=== PATIENT | female | born 1930 | race Caucasian/White ===

== ENCOUNTER 2017-01-03 10:50 | Inpatient (IN) | payer OTHER ==
--- NOTE | 2017-01-03 12:13 | PDOC ---
*Physical Exam - Vital Signs Last Vital Signs Temp Pulse Resp BP Pulse Ox 97.4 F L 65 18 134/53 97 01/03/17 10:55 01/03/17 10:55 01/03/17 10:55 01/03/17 10:55 01/03/17 10:55 - Physical Exam Comments: 01/03/17 12:13 MIDLEVEL NOTE Pt seen by Midlevel Provider under my direct supervision. Pt interviewed and examined. Ancillary studies reviewed. I agree with plan as outlined by Midlevel Provider. EKG Atrial paced rhythm, with a normal DC interval Normal QRS duration Normal QTC There is poor R wave progression across the anterior precordium When compared to the EKG of 01/19/16 The R wave progression across the anterior precordium was better on the prior EKG The EKG was paced with an atrial pacemaker on the prior EKG also Laboratory Results - last 24 hr 01/03/17 01/03/17 01/03/17 12:40 12:40 12:40 WBC 9.6 D RBC 4.06 Hgb 11.9 Hct 36.4 MCV 89.7 MCHC 32.8 RDW 13.6 Plt Count 286 D MPV 9.6 Neutrophils % 76.6 D Lymphocytes % 10.7 D Monocytes % 9.7 Eosinophils % 2.1 Basophils % 0.9 Sodium 136 Potassium 4.7 Chloride 98 Carbon Dioxide 27 Anion Gap 11 BUN 16 Creatinine 0.9 Creat Clearance w eGFR 59.65 Random Glucose 79 Calcium 8.9 Magnesium 2.3 D Total Bilirubin 0.5 AST 53 H D ALT 42 D Alkaline Phosphatase 91 D Total Protein 5.9 L Albumin 3.1 L Stool Occult Blood Negative 01/03/17 14:59 CT scan of the abdomen and pelvis Abnormal CT scan findings suspicious for malignant ascites with intraperitoneal carcinomatosis of uncertain origin The presence of a complex density in the right lower pelvis is suspected, and ovarian mass could be a consideration The large bowel is normal with no signs of diverticulitis or colitis The small bowel is normal without obstruction ED Treatment Course - LABORATORY CBC & Chemistry Diagram: 01/04/17 07:10 01/04/17 07:10 *DC/Admit/Observation/Transfer Diagnosis at time of Disposition: Peritoneal carcinomatosis Diarrhea Qualifiers: Diarrhea type: unspecified type Qualified Code(s): R19.7 - Diarrhea, unspecified Abdominal pain Qualifiers: Abdominal location: lower abdomen, unspecified Qualified Code(s): R10.30 - Lower abdominal pain, unspecified
--- NOTE | 2017-01-03 12:44 | PDOC ---
History of Present Illness - General Chief Complaint: Diarrhea Stated Complaint: DIARRHEA, BLEEDING Time Seen by Provider: 01/03/17 11:55 History Source: Patient Exam Limitations: No Limitations - History of Present Illness Travel History: No Initial Comments: 01/03/17 12:39 86-year-old female presents to the emergency room with complaints of frequent bowel movements which she describes as brown and watery with bleeding from her "skin tag "for the past day. Patient states mild abdominal cramping to the lower region but denies fever, chills, nausea, change in appetite, or recent change in medications. Patient also denies recent sick contacts, recent travel. Patient denies history of diverticulitis, colitis, other GI disorders associated with symptoms. Patient states has never had a colonoscopy and does not follow a behavioral pediatrician. Patient states has not followed up with her PCP Dr. Steele. Timing/Duration: reports: intermittent Quality: reports: mild, cramping Abdominal Pain Onset Location: reports: RLQ, LLQ Pain Radiation: denies: no radiation Activities at Onset: denies: none Aggravating Factors: improves with: Defecation Alleviating Factors: worse with: None Past History - Past Medical History Allergies/Adverse Reactions: Allergies Allergy/AdvReac Type Severity Reaction Status Date / Time No Known Allergies Allergy Verified 01/03/17 10:59 Home Medications: Ambulatory Orders Apixaban [Eliquis -] 2.5 mg PO BID #60 tablet 01/19/16 Atorvastatin Ca [Lipitor] 10 mg PO HS #30 tablet 01/19/16 Quinapril HCl [Accupril -] 40 mg PO DAILY #30 tablet 01/19/16 Sotalol HCl [Betapace -] 80 mg PO BID #60 tablet 01/19/16 Alendronate Sodium [Binosto] 70 mg PO WEEKLY 01/03/17 Amlodipine Besylate [Norvasc -] 10 mg PO DAILY 01/03/17 Anemia: No Asthma: No Cancer: No Cardiac Disorders: Yes ("MILD HEART ARRYTHMIA") CVA: No COPD: No CHF: No Dementia: No Diabetes: No GI Disorders: No Disorders: No HTN: Yes Hypercholesterolemia: Yes Liver Disease: No Suicide Attempt (Hx): No Seizures: No Thyroid Disease: No - Surgical History Abdominal Surgery: Yes (D&C) Appendectomy: No Cardiac Surgery: No Cholecystectomy: No Lung Surgery: No Orthopedic Surgery: Yes (TOTAL HIP LEFT) - Psycho/Social/Smoking Cessation Hx Anxiety: No Suicidal Ideation: No Smoking History: Former smoker Have you smoked in the past 12 months: No If you are a former smoker, when did you quit?: 1999 Information on smoking cessation initiated: No Hx Alcohol Use: Yes Drug/Substance Use Hx: No Substance Use Type: Alcohol Hx Substance Use Treatment: No Patient Lives Alone: No 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 Review of Systems - Review of Systems Able to Perform ROS?: Yes Constitutional: No: Symptoms Reported HEENTM: No: Symptoms Reported Respiratory: No: Symptoms reported Cardiac (ROS): No: Symptoms Reported ABD/GI: Yes: Diarrhea, Rectal Bleeding, Abdominal cramping : No: Symptoms Reported Musculoskeletal: No: Symptoms Reported Integumentary: No: Symptoms Reported Neurological: No: Symptoms reported Endocrine: No: Symptoms Reported Hematologic/Lymphatic: No: Symptoms Reported *Physical Exam - Vital Signs Last Vital Signs Temp Pulse Resp BP Pulse Ox 97.4 F L 65 18 134/53 97 01/03/17 10:55 01/03/17 10:55 01/03/17 10:55 01/03/17 10:55 01/03/17 10:55 - Physical Exam General Appearance: Yes: Nourished, Appropriately Dressed. No: Apparent Distress HEENT: positive: EOMI. negative: Pale Conjunctivae Respiratory/Chest: positive: Lungs Clear, Normal Breath Sounds. negative: Respiratory Distress, Accessory Muscle Use Cardiovascular: positive: Regular Rhythm, Regular Rate. negative: Murmur Female Pelvic Exam: positive: normal external exam (no vaginal bleed, discharge) Gastrointestinal/Abdominal: positive: Normal Bowel Sounds, Soft, Distended, Tenderness (Left lower quadrant more than lower quadrant). negative: Guarding, Rebound, Hernia, Mass Rectal Exam: positive: heme negative stool, hemorrhoids (small internal non tender). negative: normal exam (noted 1 cm pink hypertrophied papillae on anus) Musculoskeletal: negative: CVA Tenderness Extremity: positive: Normal Capillary Refill. negative: Pedal Edema Integumentary: positive: Normal Color, Warm, Moist Neurologic: positive: Motor Strength 5/5 (ambulatory) ED Treatment Course - LABORATORY CBC & Chemistry Diagram: 01/04/17 07:10 01/04/17 07:10 - RADIOLOGY Radiology Studies Ordered: Category Date Time Status ABDOMEN & PELVIS CT W/O CONTR [CT] Stat CT Scan 01/03/17 12:15 Ordered Medical Decision Making - Medical Decision Making 01/03/17 12:45 Patient with no history of GI disorders presents with frequent diarrhea for the past 3 days now associated rectal bleeding upon wiping. Patient denies fever, nausea, or weakness. Patient states is not followed by gastric covered button maker. Patient concerning for diverticulitis, constipation, mass, or GI bleed. Patient ordered for labs, stool for guaiac testing, and abdominal CT with by mouth contrast. Pt has about 3 episodes of diarrhea while awaiting CT. 01/03/17 15:13 Laboratory Tests 01/03/17 01/03/17 01/03/17 12:40 12:40 12:40 WBC 9.6 D Hgb 11.9 Hct 36.4 Plt Count 286 D Neutrophils % 76.6 D Sodium 136 Potassium 4.7 Chloride 98 Carbon Dioxide 27 Creatinine 0.9 Random Glucose 79 Calcium 8.9 AST 53 H D ALT 42 D Total Protein 5.9 L Albumin 3.1 L Urine Ketones Urine Nitrite Ur Leukocyte Esterase Urine RBC Urine WBC Stool Occult Blood Negative 01/03/17 13:55 WBC Hgb Hct Plt Count Neutrophils % Sodium Potassium Chloride Carbon Dioxide Creatinine Random Glucose Calcium AST ALT Total Protein Albumin Urine Ketones Negative Urine Nitrite Negative Ur Leukocyte Esterase 2+ H Urine RBC 1 Urine WBC [address] shows perihepatic ascites with normal visualize pancreas. Both kidneys show no acute findings. Free fluid is seen in the pelvis. The volume of ascites is not enlarged. The uterus is not seen recommending clinical "patient of hysterectomy and its ovaries were removed ovarian pathology could not account for ascites in the appropriate setting. Signs of intraperitoneal carcinomatosis nodular implants along the omentum of the colon anteriorly, carcinomatosis related to malignant ascites is suspected, correlation of for ovarian malignancy versus other etiologies. Patient denies having a hysterectomy . Patient ordered for pelvic ultrasound and will consult Hospitalist since Dr. Steele does not admit here. 01/03/17 15:28 Case discussed with hospitalist who accepted the case to [facility] observation status. 01/03/17 18:48 As per radiologist patient did not have a full bladder. Patient had gas-filled small bowel in the pelvis limiting the exam. The uterus and both ovaries were not visualized. There is minimal free fluid in the right and left upper quadrant consistent with previously described ascites. *DC/Admit/Observation/Transfer Diagnosis at time of Disposition: Diarrhea Qualifiers: Diarrhea type: unspecified type Qualified Code(s): R19.7 - Diarrhea, unspecified Abdominal pain Qualifiers: Abdominal location: lower abdomen, unspecified Qualified Code(s): R10.30 - Lower abdominal pain, unspecified - Discharge Dispostion Admit: Yes
[2017-01-03 13:03] LABS: BASOPHIL 0.9 % (0-2.0); EOSINOPHIL 2.1 % (0-4.5); MCH 29.4 pg (25.7-33.7); MCHC 32.8 g/dl (32.0-36.0); MEAN CELL VOLUME 89.7 fl (80-96); MEAN PLT VOLUME 9.6 fl (7.5-11.1); NEUTROPHILS 76.6 % (42.8-82.8); PLATELET COUNT 286 K/MM3 (134-434); RDW 13.6 % (11.6-15.6); WHITE BLOOD COUNT 9.6 K/mm3 (4.0-10.0)
[2017-01-03 13:09] LABS: ALBUMIN 3.1 g/dl (3.4-5.0); BILIRUBIN,TOTAL 0.5 mg/dL (0.2-1.0); CALCIUM 8.9 mg/dL (8.5-10.1); CREATININE 0.9 mg/dL (0.55-1.02); MAGNESIUM 2.3 mg/dL (1.8-2.4); TOT PROT 5.9 g/dl (6.4-8.2)
[2017-01-03 14:10] LABS: URINE APPEARANCE CLEAR; URINE BILIRUBIN NEGATIVE (NEGATIVE); URINE BLOOD NEGATIVE (NEGATIVE); URINE COLOR LTYELLOW; URINE GLUCOSE (UA) NEGATIVE (NEGATIVE); URINE KETONE NEGATIVE (NEGATIVE); URINE NITRITE NEGATIVE (NEGATIVE); URINE PROTEIN NEGATIVE (NEGATIVE); URINE UROBILINOGEN NEGATIVE E.U./dl (0.2-1.0)
[2017-01-03 14:11] LABS: URINE LEUK ESTERASE 2+ (NEGATIVE)
[2017-01-03 14:17] LABS: URINE MUCUS RARE; URINE RBC 1 /hpf (0-3); URINE WBC 8 /hpf (3-5)
--- NOTE | 2017-01-03 17:59 | EKG ---
Test Reason : Blood Pressure : / mmHG Vent. Rate : 062 BPM Atrial Rate : 062 BPM P-R Int : 184 ms QRS Dur : 084 ms QT Int : 430 ms P-R-T Axes : -22 032 047 degrees QTc Int : 436 ms Atrial-paced rhythm ANTERIOR INFARCT , AGE UNDETERMINED ABNORMAL ECG WHEN COMPARED WITH ECG OF 19-JAN-2016 09:37, T WAVE VARIATION Confirmed by CHE GRIFFIN MD ([id number]) on 01/03/2017 5:59:17 PM Referred By: Confirmed By:CHE GRIFFIN MD
--- NOTE | 2017-01-03 18:04 | HP ---
CHIEF COMPLAINT: abdominal discomfort and diarrhea PCP: Dr. Kang HISTORY OF PRESENT ILLNESS: The patient is a 86 year old female with a significant PMH of A.Fib, HTN, chronic back pain, pacemeker who presents to the hospital complaining of diarrhea for day and a half. It is watery and she noticed bright blood in it. She states that the bleeding comes from the "skin tag'. It is associated with abdominal discomfort and bloating. She states that she experiences increased frequency with BM over the past several months but never noticed blood in it. She states that the bleeding comes from the "skin tag'. She denies fever, chills , nausea, vomiting, heartburn. She denies weight loss and colonoscopy before, seeing GI. She also doesn't f/u WEAVER NEEDLE LOOM. She denies chest pain, SOB, cough, dysuria, increased frequency. ER course was notable for: (1)CT abdomen (2)US bladder Recent Travel: No PAST MEDICAL HISTORY: As above PAST SURGICAL HISTORY: Left hip replacement 1999, right hip replacement in 2014, D&C 30 years ago Social History: Smoking:Former smoker, smoked for 30 years pack/day Alcohol: everyday, 1 shot of bourbon Drugs: Denies Family History: Mother: at age of 90 Father: Heart attack, rheumatic fever Allergies No Known Allergies Allergy (Verified 01/03/17 10:59) HOME MEDICATIONS: Home Medications Medication Instructions Recorded Apixaban [Eliquis -] 2.5 mg PO BID #60 tablet 01/19/16 Atorvastatin Ca [Lipitor] 10 mg PO HS #30 tablet 01/19/16 Quinapril HCl [Accupril -] 40 mg PO DAILY #30 tablet 01/19/16 Sotalol HCl [Betapace -] 80 mg PO BID #60 tablet 01/19/16 Alendronate Sodium [Binosto] 70 mg PO WEEKLY 01/03/17 Amlodipine Besylate [Norvasc -] 10 mg PO DAILY 01/03/17 REVIEW OF SYSTEMS CONSTITUTIONAL: Absent: fever, chills, diaphoresis, generalized weakness, malaise, loss of appetite, weight change HEENT: Absent: rhinorrhea, nasal congestion, throat pain, throat swelling, difficulty swallowing, mouth swelling, ear pain, eye pain, visual changes CARDIOVASCULAR: Absent: chest pain, syncope, palpitations, irregular heart rate, lightheadedness , peripheral edema RESPIRATORY: Absent: cough, shortness of breath, dyspnea with exertion, orthopnea, wheezing, stridor, hemoptysis GASTROINTESTINAL:abdominal distension, abdominal pain, Absent: nausea, vomiting, diarrhea, constipation, hematochezia GENITOURINARY: Absent: dysuria, frequency, urgency, hesitancy, hematuria, flank pain, genital pain MUSCULOSKELETAL: Absent: myalgia, arthralgia, joint swelling, back pain, neck pain SKIN: Absent: rash, itching, pallor HEMATOLOGIC/IMMUNOLOGIC: Absent: easy bleeding, easy bruising, lymphadenopathy, frequent infections ENDOCRINE: Absent: unexplained weight gain, unexplained weight loss, heat intolerance, cold intolerance NEUROLOGIC: Absent: headache, focal weakness or paresthesias, dizziness, unsteady gait, seizure, mental status changes, bladder or bowel incontinence PSYCHIATRIC: Absent: anxiety, depression PHYSICAL EXAMINATION Vital Signs - 24 hr 01/03/17 16:04 Temperature 97.5 F L Pulse Rate [ 66 Left Radial] Respiratory 16 Rate Blood Pressure 136/57 [Right Arm] O2 Sat by Pulse 97 Oximetry (%) GENERAL: Awake, alert, and fully oriented, in no acute distress. HEAD: Normal with no signs of trauma. EYES: extraocular movements intact, sclera anicteric, conjunctiva clear. No lid lag. EARS, NOSE, THROAT: oropharynx clear without exudates. Moist mucous membranes. NECK: Normal range of motion, supple without lymphadenopathy, JVD, or masses. LUNGS: Breath sounds equal, clear to auscultation bilaterally. No wheezes, and no crackles. No accessory muscle use. HEART: Regular rate and rhythm, normal S1 and S2 without murmur, rub or gallop. ABDOMEN: hard to palpation, nontender, distended, normoactive bowel sounds, no guarding, no rebound, no masses. MUSCULOSKELETAL: Normal range of motion at all joints. No bony deformities or tenderness. No CVA tenderness. UPPER EXTREMITIES: warm, no cyanosis. No peripheral edema. LOWER EXTREMITIES: warm, No calf tenderness. 1 + peripheral edema. NEUROLOGICAL: Cranial nerves II-XII intact. No facial asymmetry, no tongue deviation. Normal speech. Gait not observed. PSYCHIATRIC: Cooperative. Good eye contact. Appropriate mood and affect. SKIN: Warm, dry, normal turgor, no rashes or lesions noted. Rectal exam; the pt refused. ASSESSMENT/PLAN: The patient is a 86 year old female with a significant PMH of A.Fib, HTN, chronic back pain, pacemeker who presents to the hospital complaining of diarrhea for day and a half. It is watery and she noticed bright blood in it. She states that the bleeding comes from the "skin tag'. It is associated with abdominal discomfort and bloating. She states that she experiences increased frequency with BM over the past several months but never noticed blood in it. She is admitted for diarrhea, abdominal discomfortdue to malignancy. Abdominal discomfort/pain due to malignancy: -possibly due to ovarian/GI malignancy -CT abdomen/pelvis reviewed -tumor markers ordered -GI consult ordered Diarrhea; -C diff. toxin and antigen -Stool culture -FOBT negative HTN: continue home meds: Norvasc, Sotalol, Qiunapril HDL: Atorvastatin 10 mg PO A.Fib: cont. Eliquis Chronic back pain: cont pain medications if necessary DVT PPX; on Eliquis F/E/N: No/No changes/Low sodium Disposition: Placed in observation Problem List - Problem (1) Abdominal pain Code(s): R10.9 - UNSPECIFIED ABDOMINAL PAIN Qualifiers: Abdominal location: lower abdomen, unspecified Qualified Code(s): R10.30 - Lower abdominal pain, unspecified (2) Diarrhea Code(s): R19.7 - DIARRHEA, UNSPECIFIED Qualifiers: Diarrhea type: unspecified type Qualified Code(s): R19.7 - Diarrhea, unspecified (3) Atrial fibrillation Code(s): I48.91 - UNSPECIFIED ATRIAL FIBRILLATION Qualifiers: Atrial fibrillation type: paroxysmal Qualified Code(s): I48.0 - Paroxysmal atrial fibrillation (4) Compression fracture of body of thoracic vertebra Code(s): M48.54XA - COLLAPSED VERTEBRA, NEC, THORACIC REGION, INIT (5) DVT prophylaxis Code(s): [id number] - (6) Hypertension Code(s): I10 - ESSENTIAL (PRIMARY) HYPERTENSION Qualifiers: Hypertension type: essential hypertension Qualified Code(s): I10 - Essential (primary) hypertension Visit type - Emergency Visit Emergency Visit: Yes ED Registration Date: 01/03/17 Care time: The patient presented to the Emergency Department on the above date and was hospitalized for further evaluation of their emergent condition. - New Patient This patient is new to me today: Yes Date on this admission: 01/03/17 - Critical Care Critical Care patient: No
--- NOTE | 2017-01-03 20:04 | PN ---
Teaching Attending Note Name of Resident: Lucila Murillo ATTENDING PHYSICIAN STATEMENT I saw and evaluated the patient. I reviewed the resident's note and discussed the case with the resident. I agree with the resident's findings and plan as documented. SUBJECTIVE: This is an 86-year-old woman with a history of HTN, hyperlipidemia, atrial fib, pacemaker, chronic back pain who presented to the ER complaining of abdominal cramping and watery diarrhea. She noticed some blood in the stool. She denies fever, chills, nausea, vomiting, weight loss. OBJECTIVE: Vital Signs Period Temp Pulse Resp BP Sys/Amado Pulse Ox Last 24 Hr 97.4 F-97.6 F 61-74 16-18 131-164/53-64 96-97 HEART: S1 S2, RRR LUNGS: Clear ABDOMEN: Soft, distended, non-tender, normal BS EXTREMITIES: 1+ edema ASSESSMENT AND PLAN: 1. 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 Diarrhea 3. Permanent atrial fibrillation - Continue Sotalol, Eliquis 4. Hypertension - Continue Norvasc 5. Hyperlipidemia - Continue Lipitor 6. Chronic back pain
[2017-01-03 20:48] VITALS: BMI 22.3
[2017-01-03] MEDS: APIXABAN 2.5 MG TABLET PO SCH (21:37)
[2017-01-03] MEDS: ATORVASTATIN CA 10 MG TABLET (FP) PO SCH (21:37)
[2017-01-03] MEDS: SOTALOL HCL 80 MG TABLET (FP) PO SCH (21:37)
[2017-01-04 08:48] LABS: MCH 29.2 pg (25.7-33.7); MCHC 33.1 g/dl (32.0-36.0); MEAN CELL VOLUME 88.3 fl (80-96); MEAN PLT VOLUME 9.7 fl (7.5-11.1); PLATELET COUNT 268 K/MM3 (134-434); RDW 13.8 % (11.6-15.6); WHITE BLOOD COUNT 6.6 K/mm3 (4.0-10.0)
[2017-01-04] MEDS ORDERED: PT OWN MED DRAWER 7, Y5N ONE (09:02)
[2017-01-04 09:06] LABS: CALCIUM 8.4 mg/dL (8.5-10.1); CREATININE 0.8 mg/dL (0.55-1.02)
[2017-01-04] MEDS: amLODIPine BESYLATE 10 MG TABLET (FP) PO SCH (09:06)
[2017-01-04] MEDS: QUINAPRIL HCL 40 MG TABLET (FP) PO SCH (09:06)
[2017-01-04] MEDS: SOTALOL HCL 80 MG TABLET (FP) PO SCH ×2 (09:06→21:37)
[2017-01-04] MEDS: APIXABAN 2.5 MG TABLET PO SCH (09:06)
--- NOTE | 2017-01-04 12:07 | CON.GI ---
Consult Consult Specialty:: Gastroenterology Referred by:: Dr Murillo Reason for Consultation:: Abdominal distension. Rectal bleeding. - History of Present Illness Chief Complaint: Abdominal distension with bloating discomfort for 4 weeks. Rectal bleeding only when wiping. Diarrhea. History of Present Illness: 86W presents with abdominal distension with bloating discomfort for 4 weeks. Also describes rectal bleeding only when wiping. She denies colicky pain, nausea vomiting or constipation. She has never had a colonoscopy. Her PMD is Dr. Steele. She had a 10lbs. weight loss last year but tells me she has partially regained it. She has had diarrhea for the past few days which has resolved. No recent antibiotics or foreign travel. 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 (2014) Cardio/Vascular: Yes: AFIB (2014 with PPN placed), HTN, Hyperlipdemia Gastrointestinal: Yes: Diverticulosis Musculoskeletal: Yes: Chronic low back pain (collapsed fractures lumbar vertebrae 2014 ), Osteoarthritis - Past Surgical History Past Surgical History: Yes: Cataract Removal (bilateral ), Joint Replacement ( bilateral hip replacements), Tonsillectomy - Alcohol/Substance Use Hx Alcohol Use: Yes (daily bourbon cocktail with dinner) - Smoking History Smoking history: Former smoker Have you smoked in the past 12 months: No If you are a former smoker, when did you quit?: 1999 - Social History Usual Living Arrangement: Alone ADL: Independent 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 Place of : [facility] History of Recent Travel: No Home Medications - Allergies Allergies/Adverse Reactions: Allergies Allergy/AdvReac Type Severity Reaction Status Date / Time No Known Allergies Allergy Verified 01/03/17 10:59 - Home Medications Home Medications: Ambulatory Orders Apixaban [Eliquis -] 2.5 mg PO BID #60 tablet 01/19/16 Atorvastatin Ca [Lipitor] 10 mg PO HS #30 tablet 01/19/16 Quinapril HCl [Accupril -] 40 mg PO DAILY #30 tablet 01/19/16 Sotalol HCl [Betapace -] 80 mg PO BID #60 tablet 01/19/16 Alendronate Sodium [Binosto] 70 mg PO WEEKLY 01/03/17 Amlodipine Besylate [Norvasc -] 10 mg PO DAILY 01/03/17 Family Disease History - Family Disease History Family Disease History: Heart Disease: Father ( [place] age 52), Other: Mother ( lived to 93) Other Family History: no siblings. son healthy Review of Systems - Review of Systems Constitutional: reports: Loss of Appetite, Unintentional Wgt. Loss Eyes: reports: No Symptoms HENT: reports: No Symptoms Neck: reports: No Symptoms Cardiovascular: reports: No Symptoms, Edema (ankle edema) Respiratory: reports: SOB (caused by the abdominal distension) Gastrointestinal: reports: Bloating, Diarrhea, Rectal Bleeding Genitourinary: reports: No Symptoms Musculoskeletal: reports: Back Pain Neurological: reports: No Symptoms Endocrine: reports: No Symptoms Physical Exam-GI Vital Signs: Vital Signs Temperature 99 F 01/04/17 08:00 Pulse Rate 64 01/04/17 08:00 Respiratory Rate 20 01/04/17 08:00 Blood Pressure 134/51 01/04/17 08:00 O2 Sat by Pulse Oximetry (%) 96 01/04/17 04:00 CBC,CMP WBC 6.6 K/mm3 (4.0-10.0) D 01/04/17 07:10 RBC 3.82 M/mm3 (3.60-5.2) 01/04/17 07:10 Hgb 11.2 GM/dL (10.7-15.3) 01/04/17 07:10 Hct 33.7 % (32.4-45.2) 01/04/17 07:10 MCV 88.3 fl (80-96) 01/04/17 07:10 MCHC 33.1 g/dl (32.0-36.0) 01/04/17 07:10 RDW 13.8 % (11.6-15.6) 01/04/17 07:10 Plt Count 268 K/MM3 (134-434) 01/04/17 07:10 MPV 9.7 fl (7.5-11.1) 01/04/17 07:10 Neutrophils % 76.6 % (42.8-82.8) D 01/03/17 12:40 Lymphocytes % 10.7 % (8-40) D 01/03/17 12:40 Monocytes % 9.7 % (3.8-10.2) 01/03/17 12:40 Eosinophils % 2.1 % (0-4.5) 01/03/17 12:40 Basophils % 0.9 % (0-2.0) 01/03/17 12:40 Sodium 138 mmol/L (136-145) 01/04/17 07:10 Potassium 4.6 mmol/L (3.5-5.1) 01/04/17 07:10 Chloride 101 mmol/L (98-107) 01/04/17 07:10 Carbon Dioxide 27 mmol/L (21-32) 01/04/17 07:10 Anion Gap 10 (8-16) 01/04/17 07:10 BUN 14 mg/dL (7-18) 01/04/17 07:10 Creatinine 0.8 mg/dL (0.55-1.02) 01/04/17 07:10 Creat Clearance w eGFR 59.65 (>60) 01/03/17 12:40 Random Glucose 77 mg/dL (74-106) 01/04/17 07:10 Calcium 8.4 mg/dL (8.5-10.1) L 01/04/17 07:10 Magnesium 2.3 mg/dL (1.8-2.4) D 01/03/17 12:40 Total Bilirubin 0.5 mg/dL (0.2-1.0) 01/03/17 12:40 AST 53 U/L (15-37) H D 01/03/17 12:40 ALT 42 U/L (12-78) D 01/03/17 12:40 Alkaline Phosphatase 91 U/L (45-117) D 01/03/17 12:40 Total Protein 5.9 g/dl (6.4-8.2) L 01/03/17 12:40 Albumin 3.1 g/dl (3.4-5.0) L 01/03/17 12:40 Total Amylase 89 U/L (25-115) 01/04/17 07:10 Lipase 152 U/L (73-393) 01/04/17 07:10 Current Medications Generic Name Dose Route Start Last Admin Trade Name Freq PRN Reason Stop Dose Admin Amlodipine Besylate 10 mg 01/04/17 10:00 01/04/17 09:06 Norvasc - PO 10 mg DAILY ULICES Administration Atorvastatin Calcium 10 mg 01/03/17 22:00 01/03/17 21:37 Lipitor - PO 10 mg HS ULICES Administration Quinapril HCl 40 mg 01/04/17 10:00 01/04/17 09:06 Accupril - PO 40 mg DAILY ULICES Administration Sotalol HCl 80 mg 01/03/17 22:00 01/04/17 09:06 Betapace - PO 80 mg BID ULICES Administration Constitutional: Yes: Anxious Eyes: Yes: Conjunctiva Clear HENT: Yes: Normocephalic Neck: Yes: Supple Cardiovascular: Yes: Regular Rate and Rhythm Respiratory: Yes: CTA Bilaterally Gastrointestinal Inspection: Yes: Distention ...Auscultate: Yes: Hypoactive Bowel Sounds ...Palpate: Yes: Soft, Other (nontender) ...Rectal Exam: Yes: Guaiac Negative, Other (large skin tag, palpable hemorrhoids) Labs: CBC, BMP 01/04/17 07:10 01/04/17 07:10 Imaging - Results Cat Scan: Image Reviewed (ascites with omental implants. 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 I believe that the bleeding is hemorrhoidal in origin but advised a colonoscopy if /when it becomes appropriate. 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 If colonic distension ensues a gastrograffin enema is advised. The stool will however be screened for pathogens and WBCs
[2017-01-04 13:13] LABS: INR 1.07 (0.82-1.09); PROTHROMBIN TIME (PATIENT) 11.8 SEC (9.98-11.88)
--- NOTE | 2017-01-04 17:40 | PN ---
Teaching Attending Note Name of Resident: Lucila Murillo ATTENDING PHYSICIAN STATEMENT I saw and evaluated the patient. I reviewed the resident's note and discussed the case with the resident. I agree with the resident's findings and plan as documented. SUBJECTIVE: no fever or chills , no abd pain , has abd discomfort . diarrhea with bleeding when she wipes herself OBJECTIVE: NASD , pleasant . CV: RRR Lungs : CTAB ext : no edema Abd : distended , NT , hypoactive BS , hard to palpation but no organomegaly Rectal: skin tag , little neighboring erythema and skin abrasion . no masses felt in rectum, or internal hemorrhoids ASSESSMENT AND PLAN: 86 y/o lady with h/o A.Fib, HTN, chronic back pain, pacemaker who presents to the hospital complaining of diarrhea and abd discomfort . 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 - follow Tumor markers. - check CT chest for Mets - order paracentesis and peritoneal Bx Via IR. need to hold eliquis x 24 hr for a low risk surgical procedure ( last received 9 am today ) 2- Diarrhea , likely form overflow diarrhea with constipation , Vs viral cause . bacterial is unlikely. also there is no distention of colon to support Oglivie 's syndrom . - follow stool cx and c diff 3- Rectal bleed , likely form external hemorrhoids as rectal exam shows external abrasion and neg OB . 4- A fib : hold eliquis for now, cont sotalol . 5- HTN: cont meds Current Medications Generic Name Dose Route Start Last Admin Trade Name Oscar PRN Reason Stop Dose Admin Amlodipine Besylate 10 mg 01/04/17 10:00 01/04/17 09:06 Norvasc - PO 10 mg DAILY ULICES Administration Atorvastatin Calcium 10 mg 01/03/17 22:00 01/03/17 21:37 Lipitor - PO 10 mg HS ULICES Administration Quinapril HCl 40 mg 01/04/17 10:00 01/04/17 09:06 Accupril - PO 40 mg DAILY ULICES Administration Sotalol HCl 80 mg 01/03/17 22:00 01/04/17 09:06 Betapace - PO 80 mg BID ULICES Administration
--- NOTE | 2017-01-04 17:41 | PN ---
Physical Exam: SUBJECTIVE: Patient seen and examined. She is complaining of abdominal discomfort, bloating and bleeding from rectum when wiping. She denies N/V, more diarrhea, fever, chills. OBJECTIVE: Vital Signs Period Temp Pulse Resp BP Sys/Amado Pulse Ox Last 24 Hr 97.6 F-99 F 62-74 16-20 118-155/51-89 96-97 GENERAL: The patient is awake, alert, and fully oriented, in no acute distress. HEAD: Normal with no signs of trauma. EYES: extraocular movements intact, sclera anicteric, conjunctiva clear. No ptosis. ENT: oropharynx clear without exudates, moist mucous membranes. NECK: Trachea midline, full range of motion, supple. LUNGS: Breath sounds equal, occasional wheezing bilaterally, no crackles, no accessory muscle use. HEART: Regular rate and rhythm, S1, S2 without murmur, rub or gallop. ABDOMEN: Hard, distended, nontender, normoactive bowel sounds, no guarding, no rebound, no hepatosplenomegaly, no masses. EXTREMITIES: 1+ LE edema. NEUROLOGICAL:No facial asymmetry, Normal speech, gait not observed. PSYCH: Normal mood, normal affect. SKIN: Warm, dry, normal turgor, no rashes or lesions noted Laboratory Results - last 24 hr 01/04/17 01/04/17 01/04/17 07:10 07:10 12:00 WBC 6.6 D RBC 3.82 Hgb 11.2 Hct 33.7 MCV 88.3 MCHC 33.1 RDW 13.8 Plt Count 268 MPV 9.7 INR 1.07 Sodium 138 Potassium 4.6 Chloride 101 Carbon Dioxide 27 Anion Gap 10 BUN 14 Creatinine 0.8 Random Glucose 77 Calcium 8.4 L Total Amylase 89 Lipase 152 Active Medications Generic Name Dose Route Start Last Admin Trade Name Freq PRN Reason Stop Dose Admin Amlodipine Besylate 10 mg 01/04/17 10:00 01/04/17 09:06 Norvasc - PO 10 mg DAILY ULICES Administration Atorvastatin Calcium 10 mg 01/03/17 22:00 01/03/17 21:37 Lipitor - PO 10 mg HS ULIECS Administration Quinapril HCl 40 mg 01/04/17 10:00 01/04/17 09:06 Accupril - PO 40 mg DAILY ULICES Administration Sotalol HCl 80 mg 01/03/17 22:00 01/04/17 09:06 Betapace - PO 80 mg BID ULICES Administration ASSESSMENT/PLAN: The patient is a 86 year old female with a significant PMH of A.Fib, HTN, chronic back pain, pacemeker who presents to the hospital complaining of diarrhea for day and a half. It is watery and she noticed bright blood in it. She states that the bleeding comes from the "skin tag'. It is associated with abdominal discomfort and bloating. She states that she experiences increased frequency with BM over the past several months but never noticed blood in it. She is admitted for diarrhea, abdominal discomfort due to possible malignancy. Abdominal discomfort/pain due to malignancy: -possibly due to ovarian/GI malignancy -CT abdomen/pelvis reviewed -tumor markers ordered -f/u GI consult -CYT chest to r/u metastasis Diarrhea; -possible diarrhea with chronic constipation/ Oglivie's syndrom/viral/bacterial . -C diff. toxin and antigen -Stool culture -FOBT negative HTN: continue home meds: Norvasc 10 mg qd, Sotalol 80 mg BID, Qiunapril 40 mg qd HDL: Atorvastatin 10 mg PO A.Fib: cont. Eliquis Chronic back pain: cont pain medications if necessary DVT PPX; on Eliquis F/E/N: No/No changes/Low sodium Disposition: No dc plans yet Problem List - Problems (1) Abdominal pain Code(s): R10.9 - UNSPECIFIED ABDOMINAL PAIN Qualifiers: Abdominal location: lower abdomen, unspecified Qualified Code(s): R10.30 - Lower abdominal pain, unspecified (2) Diarrhea Code(s): R19.7 - DIARRHEA, UNSPECIFIED Qualifiers: Diarrhea type: unspecified type Qualified Code(s): R19.7 - Diarrhea, unspecified (3) Atrial fibrillation Code(s): I48.91 - UNSPECIFIED ATRIAL FIBRILLATION Qualifiers: Atrial fibrillation type: paroxysmal Qualified Code(s): I48.0 - Paroxysmal atrial fibrillation (4) Compression fracture of body of thoracic vertebra Code(s): M48.54XA - COLLAPSED VERTEBRA, NEC, THORACIC REGION, INIT (5) DVT prophylaxis Code(s): [id number] - (6) Hypertension Code(s): I10 - ESSENTIAL (PRIMARY) HYPERTENSION Qualifiers: Hypertension type: essential hypertension Qualified Code(s): I10 - Essential (primary) hypertension Visit type - Emergency Visit Emergency Visit: Yes ED Registration Date: 01/03/17 Care time: The patient presented to the Emergency Department on the above date and was hospitalized for further evaluation of their emergent condition. - New Patient This patient is new to me today: No - Critical Care Critical Care patient: No - Discharge Referral Referred to [facility] No
[2017-01-04] MEDS ORDERED: traZODone HCL 50 MG TABLET (FP) PO ONE (21:00)
[2017-01-04] MEDS: ATORVASTATIN CA 10 MG TABLET (FP) PO SCH (21:37)
[2017-01-05 08:06] LABS: CA 19-9 8 U/mL (0-35)
[2017-01-05] MEDS: amLODIPine BESYLATE 10 MG TABLET (FP) PO SCH (09:09)
[2017-01-05] MEDS ORDERED: PT OWN MED DRAWER 7, Y5N ONE (09:11)
[2017-01-05] MEDS: SOTALOL HCL 80 MG TABLET (FP) PO SCH ×2 (09:12→21:21)
[2017-01-05] MEDS: QUINAPRIL HCL 40 MG TABLET (FP) PO SCH (09:13)
--- NOTE | 2017-01-05 17:35 | PN ---
Physical Exam: SUBJECTIVE: Patient seen and examined. She is feeling good today, complaining of abdominal discomfort but her diarrhea improved. She denies fever, chills, nausea. OBJECTIVE: Vital Signs Period Temp Pulse Resp BP Sys/Amado Pulse Ox Last 24 Hr 97.6 F-98.2 F 61-69 16-20 109-156/59-81 96-99 GENERAL: The patient is awake, alert, and fully oriented, in no acute distress. HEAD: Normal with no signs of trauma. EYES: extraocular movements intact, sclera anicteric, conjunctiva clear. No ptosis. ENT: oropharynx clear without exudates, moist mucous membranes. NECK: Trachea midline, full range of motion, supple. LUNGS: Breath sounds equal, occasional wheezing bilaterally, no crackles, no accessory muscle use. HEART: Regular rate and rhythm, S1, S2 without murmur, rub or gallop. ABDOMEN: Hard, distended, nontender, normoactive bowel sounds, no guarding, no rebound, no hepatosplenomegaly, no masses. EXTREMITIES: 1+ LE edema. NEUROLOGICAL:No facial asymmetry, Normal speech, gait not observed. PSYCH: Normal mood, normal affect. SKIN: Warm, dry, normal turgor, no rashes or lesions noted Laboratory Results - last 24 hr 01/04/17 07:10 CA 19-9 Antigen 8 CA 125 Antigen 927.7 H Active Medications Generic Name Dose Route Start Last Admin Trade Name Freq PRN Reason Stop Dose Admin Amlodipine Besylate 10 mg 01/04/17 10:00 01/05/17 09:09 Norvasc - PO Not Given DAILY ULICES Atorvastatin Calcium 10 mg 01/03/17 22:00 01/04/17 21:37 Lipitor - PO 10 mg HS ULICES Administration Quinapril HCl 40 mg 01/04/17 10:00 01/05/17 09:13 Accupril - PO 40 mg DAILY ULICES Administration Sotalol HCl 80 mg 01/03/17 22:00 01/05/17 09:12 Betapace - PO 80 mg BID ULICES Administration Abd CT: IMPRESSION: Abnormal CT scan findings suspicious for malignant ascites with intraperitoneal carcinomatosis of uncertain origin, the uterus has been removed, correlate if there is history of prior nephrectomy. The presence of complex density in the right lower pelvis suspected, ovarian mass would be a consideration. The large bowel appears normal with no signs of diverticulitis or colitis The small bowel appears normal with no signs of obstruction No hydronephrosis is seen. There is no evidence of compression fracture or suspicious osseous lesion on the visualized bone windows. Bladder US: Extremely limited examination which is nondiagnostic Chest CT: Impression: 4.5 mm calcified granuloma in the right middle lobe. No enlarged mediastinal or hilar lymph nodes are identified. Multiple compression fractures with sclerotic changes, suspicious for pathologic fractures. Upper abdomen ascites CT guided biopsy: Successful CT-guided core biopsy of omental mass ASSESSMENT/PLAN: The patient is a 86 year old female with a significant PMH of A.Fib, HTN, chronic back pain, pacemeker who presents to the hospital complaining of diarrhea for day and a half. It is watery and she noticed bright blood in it. She states that the bleeding comes from the "skin tag'. It is associated with abdominal discomfort and bloating. She states that she experiences increased frequency with BM over the past several months but never noticed blood in it. She is admitted for diarrhea, abdominal discomfort due to possible malignancy. Abdominal discomfort/pain due to malignancy: -possibly due to ovarian/GI malignancy -CT abdomen/pelvis reviewed -tumor markers ordered, CA 125 high, correlates to ovarian Ca -f/u GI consult -CT chest to r/u metastasis done -consulted Oncology: Dr Painting, will f/u Diarrhea; -possible diarrhea with chronic constipation/ Oglivie's syndrom/viral/bacterial . -C diff. toxin and antigen negative -Stool culture pending -FOBT negative HTN: continue home meds: Norvasc 10 mg qd, Sotalol 80 mg BID, Qiunapril 40 mg qd HDL: Atorvastatin 10 mg PO A.Fib: cont. Eliquis Chronic back pain: cont pain medications if necessary DVT PPX; on Eliquis from tomorrow in AM F/E/N: No/No changes/Low sodium Disposition: No dc plans yet Problem List - Problems (1) Abdominal pain Code(s): R10.9 - UNSPECIFIED ABDOMINAL PAIN Qualifiers: Abdominal location: lower abdomen, unspecified Qualified Code(s): R10.30 - Lower abdominal pain, unspecified (2) Diarrhea Code(s): R19.7 - DIARRHEA, UNSPECIFIED Qualifiers: Diarrhea type: unspecified type Qualified Code(s): R19.7 - Diarrhea, unspecified (3) Atrial fibrillation Code(s): I48.91 - UNSPECIFIED ATRIAL FIBRILLATION Qualifiers: Atrial fibrillation type: paroxysmal Qualified Code(s): I48.0 - Paroxysmal atrial fibrillation (4) Compression fracture of body of thoracic vertebra Code(s): M48.54XA - COLLAPSED VERTEBRA, NEC, THORACIC REGION, INIT (5) DVT prophylaxis Code(s): [id number] - (6) Hypertension Code(s): I10 - ESSENTIAL (PRIMARY) HYPERTENSION Qualifiers: Hypertension type: essential hypertension Qualified Code(s): I10 - Essential (primary) hypertension Visit type - Emergency Visit Emergency Visit: Yes ED Registration Date: 01/03/17 Care time: The patient presented to the Emergency Department on the above date and was hospitalized for further evaluation of their emergent condition. - New Patient This patient is new to me today: No - Critical Care Critical Care patient: No - Discharge Referral Referred to [facility] No
--- NOTE | 2017-01-05 18:30 | PN ---
Teaching Attending Note Name of Resident: Lucila Murillo ATTENDING PHYSICIAN STATEMENT I saw and evaluated the patient. I reviewed the resident's note and discussed the case with the resident. I agree with the resident's findings and plan as documented. SUBJECTIVE: No fever or chills. Diarrhea has stopped. No abd pain but has discomfort . OBJECTIVE: NAD , pleasant . CV: RRR Lungs : CTAB ext : no edema Abd : distended , NT , hypoactive BS , hard to palpation but no hepato- splenomegaly ASSESSMENT AND PLAN: 86 y/o lady with h/o A.Fib, HTN, chronic back pain, pacemaker who presents to the hospital complaining of diarrhea and abd discomfort . 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 CA 125 elevated no Mets in chest . - case was d/w Dr. Painting. likely will need chemo then debulking sx then chemo - consult MANAGER INTERFACE Onc - peritoneal bx was done , no ascitis was found to be tapped 2- Diarrhea , likely viral resolved. C diff NEg 3- Rectal bleed , likely form external hemorrhoids as rectal exam shows external abrasion and neg OB . 4- A fib : maria teresa resume eliquis tomorrow am . Cont sotalol . 5- HTN: cont meds Dispo : will need to be evaluated by MANAGER INTERFACE-Onc, depending on plan for treatment , she might be dc home to get treated as out pt .
[2017-01-05] MEDS: ATORVASTATIN CA 10 MG TABLET (FP) PO SCH (21:21)
[2017-01-06] MEDS: SOTALOL HCL 80 MG TABLET (FP) PO SCH ×2 (09:55→21:37)
[2017-01-06] MEDS: APIXABAN 2.5 MG TABLET PO SCH ×2 (09:55→21:58)
[2017-01-06] MEDS: amLODIPine BESYLATE 10 MG TABLET (FP) PO SCH (09:55)
[2017-01-06] MEDS: QUINAPRIL HCL 40 MG TABLET (FP) PO SCH (09:55)
--- NOTE | 2017-01-06 16:03 | PN ---
Physical Exam: SUBJECTIVE: Patient seen and examined Resting in bed comfortably NAD. No acute events. afebrile and hemodynamically stable. states she has trouble eating because she feels as if food is backing up. this started today after yesterdays morphine administration. asks for smaller meals. denies abd pain, sob, chest pain, diarrhea, dysuria, n/v. OBJECTIVE: Vital Signs Period Temp Pulse Resp BP Sys/Amado Pulse Ox Last 24 Hr 97.7 F-98.6 F 60-68 20-20 100-140/42-67 98 GENERAL: The patient is awake, alert, and fully oriented, in no acute distress. HEAD: Normal with no signs of trauma. EYES: extraocular movements intact, sclera anicteric, conjunctiva clear. ENT: moist mucous membranes. NECK: Trachea midline, full range of motion, supple. LUNGS: cta HEART: irregular, S1, S2 ABDOMEN: Hard, distended, nontender, normoactive bowel sounds, no guarding, no rebound, no hepatosplenomegaly, RLQ mass, bandage in place, no erythema. EXTREMITIES: 1+ LE edema. NEUROLOGICAL:No facial asymmetry, Normal speech, gait not observed. PSYCH: Normal mood, normal affect. SKIN: Warm, dry Laboratory Results - last 24 hr 01/04/17 07:10 Tumor Marker AFP 2.7 Carcinoembryonic Ag 4.0 Active Medications Generic Name Dose Route Start Last Admin Trade Name Freq PRN Reason Stop Dose Admin Amlodipine Besylate 10 mg 01/04/17 10:00 01/06/17 09:55 Norvasc - PO Not Given DAILY ULICES Apixaban 2.5 mg 01/06/17 10:00 01/06/17 09:55 Eliquis - PO 2.5 mg BID ULICES Administration Atorvastatin Calcium 10 mg 01/03/17 22:00 01/05/17 21:21 Lipitor - PO 10 mg HS ULICES Administration Quinapril HCl 40 mg 01/04/17 10:00 01/06/17 09:55 Accupril - PO 40 mg DAILY ULICES Administration Sotalol HCl 80 mg 01/03/17 22:00 01/06/17 09:55 Betapace - PO 80 mg BID ULICES Administration ASSESSMENT/PLAN: Abd CT: 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 The large bowel appears normal with no signs of diverticulitis or colitis The small bowel appears normal with no signs of obstruction No hydronephrosis is seen. There is no evidence of compression fracture or suspicious osseous lesion on the visualized bone windows. Bladder US: Extremely limited examination which is nondiagnostic Chest CT: Impression: 4.5 mm calcified granuloma in the right middle lobe. No enlarged mediastinal or hilar lymph nodes are identified. Multiple compression fractures with sclerotic changes, suspicious for pathologic fractures. Upper abdomen ascites CT guided biopsy: Successful CT-guided core biopsy of omental mass. ASSESSMENT/PLAN: The patient is a 86 year old female with a significant PMH of A.Fib, HTN, chronic back pain, pacemeker who presents to the hospital complaining of diarrhea for day and a half. It is watery and she noticed bright blood in it. She states that the bleeding comes from the "skin tag'. It is associated with abdominal discomfort and bloating. She states that she experiences increased frequency with BM over the past several months but never noticed blood in it. She is admitted for diarrhea, abdominal discomfort due to possible malignancy. Abdominal discomfort/pain due to malignancy: -likely ovarian origin -CT abdomen/pelvis apprecited above -CT chest appreciated above -CA 125 elevated -tumor HCG p/d -s/p tumor biopsy, result p/d -s/p bone scan, result p/d -f/u GI consult -Oncology on case: Dr Painting -MARKET RESEARCH EXECUTIVE ONC consulted: patient will need chemo prior to any surgical intervention; will need to await biopsy result in hospital. Diarrhea; -resolved -C diff. toxin and antigen negative -FOBT negative -likely viral HTN: -Norvasc 10 mg qd, Sotalol 80 mg BID, Qiunapril 40 mg qd HDL: -Atorvastatin 10 mg PO A.Fib: -rate controlled -Eliquis Chronic back pain: -no pain now DVT PPX; -Eliquis F/E/N: No/No changes/Low sodium diet-requires small supplemental meals as patient cant eat a lot at once Dispo: monitor in med jacquelin 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 - SECONDARY MALIGNANT NEOPLASM OF RETROPERITON AND PERITONEUM (6) Atrial fibrillation Code(s): I48.91 - UNSPECIFIED ATRIAL FIBRILLATION Qualifiers: Atrial fibrillation type: paroxysmal Qualified Code(s): I48.0 - Paroxysmal atrial fibrillation (7) Compression fracture of body of thoracic vertebra Code(s): M48.54XA - COLLAPSED VERTEBRA, NEC, THORACIC REGION, INIT (8) DVT prophylaxis Code(s): TDL9453 - (9) Hyperlipidemia Code(s): E78.5 - HYPERLIPIDEMIA, UNSPECIFIED Qualifiers: Hyperlipidemia type: Pure hypercholesterolemia Qualified Code(s): E78.0 - Pure hypercholesterolemia (10) Hypertension Code(s): I10 - ESSENTIAL (PRIMARY) HYPERTENSION Qualifiers: Hypertension type: essential hypertension Qualified Code(s): I10 - Essential (primary) hypertension Visit type - Emergency Visit Emergency Visit: Yes ED Registration Date: 01/03/17 Care time: The patient presented to the Emergency Department on the above date and was hospitalized for further evaluation of their emergent condition. - New Patient This patient is new to me today: Yes Date on this admission: 01/06/17 - Critical Care Critical Care patient: No - Discharge Referral Referred to [facility] No
--- NOTE | 2017-01-06 19:57 | PN ---
Teaching Attending Note Name of Resident: Misty Agee ATTENDING PHYSICIAN STATEMENT I saw and evaluated the patient. I reviewed the resident's note and discussed the case with the resident. I agree with the resident's findings and plan as documented. SUBJECTIVE: no abd pain , has wheezing . has post nasal drip no diarrhea OBJECTIVE: NAD , pleasant . CV: RRR Lungs : CTAB ext : no edema Abd : distended , NT , hypoactive BS , hard to palpation but no hepato- splenomegaly ASSESSMENT AND PLAN: 86 y/o lady with h/o A.Fib, HTN, chronic back pain, pacemaker who presents to the hospital complaining of diarrhea and abd discomfort . 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 - case was d/w Dr. Painting today again. plan for chemo as inpt 2- Diarrhea , likely viral resolved. C diff NEg 3- Rectal bleed , likely form external hemorrhoids. No recurrence 4- A fib : cont eliquis tomorrow am . Cont sotalol . 5- HTN: cont meds Dispo : will need to give first chemo as inpt pending path report . palliative care consult
[2017-01-06] MEDS ORDERED: PT OWN MED DRAWER 7, Y5N ONE (21:35)
[2017-01-06] MEDS: ATORVASTATIN CA 10 MG TABLET (FP) PO SCH (21:37)
--- NOTE | 2017-01-07 01:03 | CONSULT ---
Consult - text type - Consultation Consultation Note: The patient is a 86 year old female with a significant PMH of A.Fib, HTN, chronic back pain, pacemeker who presents to the hospital complaining of diarrhea . she noticed some bright red bleeding per rectum. also reports abdominal discomfort and bloating. She denies fever, chills, nausea, vomiting, heartburn. She denies weight loss and colonoscopy before, seeing GI. She denies chest pain, SOB, cough, dysuria, increased frequency. PAST SURGICAL HISTORY: Left hip replacement 1999, right hip replacement in 2014, D&C 30 years ago h/o hysterectomy Social History: Smoking:Former smoker, smoked for 30 years pack/day Alcohol: everyday, 1 shot of bourbon Family History: Mother: at age of 90 Father: Heart attack, rheumatic fever Allergies No Known Allergies HOME MEDICATIONS: Home Medications Medication Instructions Recorded Apixaban [Eliquis -] 2.5 mg PO BID #60 tablet 01/19/16 Atorvastatin Ca [Lipitor] 10 mg PO HS #30 tablet 01/19/16 Quinapril HCl [Accupril -] 40 mg PO DAILY #30 tablet 01/19/16 Sotalol HCl [Betapace -] 80 mg PO BID #60 tablet 01/19/16 Alendronate Sodium [Binosto] 70 mg PO WEEKLY 01/03/17 Amlodipine Besylate [Norvasc -] 10 mg PO DAILY 01/03/17 Cor: RSR, No murmurs, No gallops Lungs: Clear to P&A Abd: Soft, distended, non tender, BS+ Ext:No significant edema Skin: No rashes, Integument intact Labs reviewed ASSESSMENT/PLAN: The patient is a 86 year old female with a significant PMH of A.Fib, HTN, chronic back pain, pacemeker who presents to the hospital complaining of diarrhea. Also noticed bright red bleeding per rectum. Also noticed abdominal bloating/ distention/weight loss s/p omental biopsy awaiting omental biopsy elevated CA125 Nl CEA CT imaging ---peritoneal carcinomatosis, some ascites. Discussed with patient. She understands her situation. Will get STRIP CATCHER-onc consult- -Dr. Reynaldo Oakes, To consider single agent carboplatin vs carbo/taxol , 3 cycles and reevaluate for debulking surgery will need port placement once pathology is back will get palliative care and high school social science teacher consult and family meeting to discuss treatment options
[2017-01-07] MEDS ORDERED: DOCUSATE SODIUM 100 MG CAPSULE (FP) PO ONE (02:27)
[2017-01-07] MEDS ORDERED: PT OWN MED DRAWER 7, Y5N ONE (08:53)
[2017-01-07] MEDS: APIXABAN 2.5 MG TABLET PO SCH ×2 (09:00→21:34)
[2017-01-07] MEDS: QUINAPRIL HCL 40 MG TABLET (FP) PO SCH (09:00)
[2017-01-07] MEDS: SOTALOL HCL 80 MG TABLET (FP) PO SCH ×2 (09:00→21:34)
[2017-01-07] MEDS: amLODIPine BESYLATE 10 MG TABLET (FP) PO SCH (09:00)
[2017-01-07] MEDS ORDERED: ALBUTEROL SO4 2.5/IPRATROPIUM 0.5 INH SOL 3 ML VIAL.NEB. NEB ONE (16:42)
--- NOTE | 2017-01-07 17:01 | PN ---
Progress Note (short form) - Note Progress Note: Subjective: no fever or chills, had a formed BM , has no SOB but feel difficult to take deep breath due to distended abd . Objective: Vital Signs: Last Vital Signs Temp Pulse Resp BP Pulse Ox 97.9 F 62 18 132/60 98 01/07/17 13:39 01/07/17 13:39 01/07/17 13:39 01/07/17 10:00 01/07/17 09:00 Physical Exam: NAD , pleasant . CV: RRR Lungs: minima wheezing ext: no edema Abd: distended , NT , nl BS , hard to palpation but no hepato-splenomegaly ASSESSMENT AND PLAN: 86 y/o lady with h/o A.Fib, HTN, chronic back pain, pacemaker who presents to the hospital complaining of diarrhea and abd discomfort . 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 - BX results are still pending - bone scan pending - d/w pt and her daughter , the choices of chemo Vs palliative care . patient to make a decision later - palliative care consult 2- Diarrhea , likely viral resolved. C diff NEg 3- Rectal bleed , likely form external hemorrhoids. No recurrence 4- A fib : cont eliquis tomorrow am . Cont sotalol . 5- HTN: cont meds Dispo : Dc planning pending path results . if patient decides to go through chemoa , she will get first treatment as in pt Visit type - Emergency Visit Emergency Visit: Yes ED Registration Date: 01/03/17 Care time: The patient presented to the Emergency Department on the above date and was hospitalized for further evaluation of their emergent condition. - New Patient This patient is new to me today: No - Critical Care Critical Care patient: No
[2017-01-07] MEDS: ALBUTEROL SO4 2.5/IPRATROPIUM 0.5 INH SOL 3 ML VIAL.NEB. NEB SCH (21:14)
[2017-01-07] MEDS: ATORVASTATIN CA 10 MG TABLET (FP) PO SCH (21:34)
[2017-01-08] MEDS ORDERED: PT OWN MED DRAWER 7, Y5N ONE (09:10)
[2017-01-08] MEDS: APIXABAN 2.5 MG TABLET PO SCH ×2 (09:35→21:14)
[2017-01-08] MEDS: QUINAPRIL HCL 40 MG TABLET (FP) PO SCH (09:36)
[2017-01-08] MEDS: SOTALOL HCL 80 MG TABLET (FP) PO SCH ×2 (09:36→21:14)
[2017-01-08] MEDS: amLODIPine BESYLATE 10 MG TABLET (FP) PO SCH (09:36)
[2017-01-08] MEDS: ALBUTEROL SO4 2.5/IPRATROPIUM 0.5 INH SOL 3 ML VIAL.NEB. NEB SCH ×2 (09:44→21:50)
[2017-01-08] MEDS: LIDOCAINE 5% TOPICAL PATCH TP SCH (16:11)
--- NOTE | 2017-01-08 16:46 | PN ---
Progress Note (short form) - Note Progress Note: Subjective: no fever or chills, had a formed BM , has no SOB Objective: Vital Signs: Last Vital Signs Temp Pulse Resp BP Pulse Ox 98.2 F 63 17 116/47 98 01/08/17 14:58 01/08/17 14:58 01/08/17 14:58 01/08/17 06:00 01/07/17 21:00 Physical Exam: NAD , pleasant . CV: RRR Lungs: CTAB today ext: no edema Abd: distended , NT , nl BS , hard to palpation but no hepato-splenomegaly ASSESSMENT AND PLAN: 86 y/o lady with h/o A.Fib, HTN, chronic back pain, pacemaker who presents to the hospital complaining of diarrhea and abd discomfort . 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 - BX results are still pending - bone scan read pending - palliative care consult , for discussion Hospice VS Chemo 2- Rectal bleed , likely form external hemorrhoids. No recurrence 3- A fib : cont eliquis . Cont sotalol . 4- HTN: cont meds Dispo : Dc planning pending path results . if patient decides to go through chemo , she will get first treatment as in pt and she will need a port Visit type - Emergency Visit Emergency Visit: Yes ED Registration Date: 01/03/17 Care time: The patient presented to the Emergency Department on the above date and was hospitalized for further evaluation of their emergent condition. - New Patient This patient is new to me today: No - Critical Care Critical Care patient: No
[2017-01-08] MEDS: ATORVASTATIN CA 10 MG TABLET (FP) PO SCH (21:14)
[2017-01-09] MEDS ORDERED: PT OWN MED DRAWER 7, Y5N ONE (09:23)
[2017-01-09] MEDS: APIXABAN 2.5 MG TABLET PO SCH ×2 (09:28→21:16)
[2017-01-09] MEDS: QUINAPRIL HCL 40 MG TABLET (FP) PO SCH (09:28)
[2017-01-09] MEDS: SOTALOL HCL 80 MG TABLET (FP) PO SCH ×2 (09:28→21:16)
[2017-01-09] MEDS: LIDOCAINE 5% TOPICAL PATCH TP SCH (09:28)
[2017-01-09] MEDS: amLODIPine BESYLATE 10 MG TABLET (FP) PO SCH (09:28)
[2017-01-09] MEDS: ALBUTEROL SO4 2.5/IPRATROPIUM 0.5 INH SOL 3 ML VIAL.NEB. NEB SCH ×2 (10:45→22:40)
--- NOTE | 2017-01-09 13:02 | PATH ---
Surgical Pathology Report Patient Name: YVONNE BARRIENTOS [facility]. Rec. #: [id number] /Age/Gender: 1930 (Age: 86) / F Account: [id number] Location: [address] [place] [address] Taken: 01/05/2017 Received: 01/05/2017 Reported: 01/09/2017 Physicians: Lynsey Chauhan M.D. Anthony Darmiento, M.D. 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 Comment: Immunohistochemical stains performed and interpreted at [facility] show the following: the tumor cells are positive for Ae1/Ae3 keratin, CK7, and ER immunostains and are negative for ID and TTF1. Additional immunohistochemical stains performed at [place], [place] ([id number]) and interpreted at [facility] show the following: the tumor cells are positive for PAX8, WT1, Ca125, p16 and p53 immunostains end and negative for ANABELLE-3 immunostain. The morphologic findings and immunoprofile are of involvement by high grade carcinoma of Mullerian origin, most consistent for serous carcinoma. Clinical and imaging correlations are suggested. The case was discussed with Dr. Jackson on 01/09/17. Electronically Signed Jian Weaver M.D. Gross Description Received in formalin, labeled "peritoneal biopsy" is a 0.6 x 0.4 x 0.1 cm aggregate of jenkins soft tissue fragments. The formalin is filtered and the specimen is entirely submitted in one cassette. /01/05/2017 saudi01/05/2017
--- NOTE | 2017-01-09 13:36 | PN ---
Physical Exam: SUBJECTIVE: Patient seen and examined Resting in bed comfortably NAD. No acute events. afebrile and hemodynamically stable. Still has trouble keeping down food but this is alleviated by smaller meals. + BM. denies abd pain, sob, chest pain, diarrhea, dysuria, n/v. OBJECTIVE: Vital Signs Period Temp Pulse Resp BP Sys/Amado Pulse Ox Last 24 Hr 97.9 F-98.3 F 63-66 17-20 118-126/55-63 98-98 GENERAL: The patient is awake, alert, and fully oriented, in no acute distress. HEAD: Normal with no signs of trauma. EYES: extraocular movements intact, sclera anicteric, conjunctiva clear. ENT: moist mucous membranes. NECK: Trachea midline, full range of motion, supple. LUNGS: cta HEART: irregular, S1, S2 ABDOMEN: Hard, distended, nontender, normoactive bowel sounds, no guarding, no rebound, no hepatosplenomegaly, RLQ mass, bandage in place, no erythema. EXTREMITIES: 1+ LE edema. NEUROLOGICAL:No facial asymmetry, Normal speech, gait not observed. PSYCH: Normal mood, normal affect. SKIN: Warm, dry Active Medications Generic Name Dose Route Start Last Admin Trade Name Freq PRN Reason Stop Dose Admin Albuterol/Ipratropium 1 amp 01/07/17 22:00 01/08/17 21:50 Duoneb - NEB 1 amp BID ULICES Administration Amlodipine Besylate 10 mg 01/04/17 10:00 01/09/17 09:28 Norvasc - PO 10 mg DAILY ULICES Administration Apixaban 2.5 mg 01/06/17 10:00 01/09/17 09:28 Eliquis - PO 2.5 mg BID ULICES Administration Atorvastatin Calcium 10 mg 01/03/17 22:00 01/08/17 21:14 Lipitor - PO 10 mg HS ULICES Administration Lidocaine 1 patch 01/08/17 16:00 01/09/17 09:28 Lidoderm Patch - TP 1 patch DAILY ULICES Administration Quinapril HCl 40 mg 01/04/17 10:00 01/09/17 09:28 Accupril - PO 40 mg DAILY ULICES Administration Sotalol HCl 80 mg 01/03/17 22:00 01/09/17 09:28 Betapace - PO 80 mg BID ULICES Administration ASSESSMENT/PLAN: Abd CT: 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 The large bowel appears normal with no signs of diverticulitis or colitis The small bowel appears normal with no signs of obstruction No hydronephrosis is seen. There is no evidence of compression fracture or suspicious osseous lesion on the visualized bone windows. Bladder US: Extremely limited examination which is nondiagnostic Chest CT: Impression: 4.5 mm calcified granuloma in the right middle lobe. No enlarged mediastinal or hilar lymph nodes are identified. Multiple compression fractures with sclerotic changes, suspicious for pathologic fractures. Upper abdomen ascites CT guided biopsy: Successful CT-guided core biopsy of omental mass. ASSESSMENT/PLAN: The patient is a 86 year old female with a significant PMH of A.Fib, HTN, chronic back pain, pacemeker who presents to the hospital complaining of diarrhea for day and a half. It is watery and she noticed bright blood in it. She states that the bleeding comes from the "skin tag'. It is associated with abdominal discomfort and bloating. She states that she experiences increased frequency with BM over the past several months but never noticed blood in it. She is admitted for diarrhea, abdominal discomfort due to possible malignancy. Abdominal discomfort/pain due to malignancy: -likely ovarian origin -CT abdomen/pelvis apprecited above -CT chest appreciated above -CA 125 elevated -Ca19-9, tumor HCG negative -s/p tumor biopsy, result p/d -s/p bone scan, result p/d -f/u GI consult -Oncology on case: Dr Painting -SHOP LEAD ONC consulted: patient will need chemo prior to any surgical intervention; will need to await biopsy result in hospital. -Palliative meeting today to decide with family whether to pursue aggressive measures. Diarrhea; -resolved -C diff. toxin and antigen negative -FOBT negative -likely viral HTN: -Norvasc 10 mg qd, Sotalol 80 mg BID, Qiunapril 40 mg qd SOB -duoneb HDL: -Atorvastatin 10 mg PO A.Fib: -rate controlled -Eliquis Chronic back pain: -lidocaine patch DVT PPX; -Eliquis F/E/N: No/No changes/Low sodium diet-requires small supplemental meals as patient cant eat a lot at once Dispo: monitor in med jacquelin 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 - SECONDARY MALIGNANT NEOPLASM OF RETROPERITON AND PERITONEUM (6) Atrial fibrillation Code(s): I48.91 - UNSPECIFIED ATRIAL FIBRILLATION Qualifiers: Atrial fibrillation type: paroxysmal Qualified Code(s): I48.0 - Paroxysmal atrial fibrillation (7) Compression fracture of body of thoracic vertebra Code(s): M48.54XA - COLLAPSED VERTEBRA, NEC, THORACIC REGION, INIT (8) DVT prophylaxis Code(s): [id number] - (9) Hyperlipidemia Code(s): E78.5 - HYPERLIPIDEMIA, UNSPECIFIED Qualifiers: Hyperlipidemia type: Pure hypercholesterolemia (10) Hypertension Code(s): I10 - ESSENTIAL (PRIMARY) HYPERTENSION Qualifiers: Hypertension type: essential hypertension Qualified Code(s): I10 - Essential (primary) hypertension Visit type - Emergency Visit Emergency Visit: Yes ED Registration Date: 01/03/17 Care time: The patient presented to the Emergency Department on the above date and was hospitalized for further evaluation of their emergent condition. - New Patient This patient is new to me today: No - Critical Care Critical Care patient: No - Discharge Referral Referred to [facility] No
--- NOTE | 2017-01-09 15:05 | PN ---
Teaching Attending Note Name of Resident: Misty Agee ATTENDING PHYSICIAN STATEMENT I saw and evaluated the patient. I reviewed the resident's note and discussed the case with the resident. I agree with the resident's findings and plan as documented. SUBJECTIVE: no fever or chills , having formed BM. no abd pain , no SOB and no wheezing OBJECTIVE: NAD , pleasant . CV: RRR Lungs: CTAB today ext: no edema Abd: distended , NT , nl BS ASSESSMENT AND PLAN: 86 y/o lady with h/o A.Fib, HTN, chronic back pain, pacemaker who presents to the hospital complaining of diarrhea and abd discomfort . She was found to have ascitis and peritoneal carcinomatosis 1- Peritoneal carcinomatosis: prelim path with high grade carcinoma of Mullarian origin - Bone scan read pending . on my review possible T and L spine mets - Palliative care meeting today, pt decided to go through chemo - will place a port 2- Rectal bleed , likely form external hemorrhoids. No recurrence 3- A fib : cont eliquis . Cont sotalol . 4- HTN: cont meds Dispo : will get chemo as inpt
[2017-01-09] MEDS ORDERED: KETOROLAC TROMETHAMINE 30 MG/1 ML VIAL IM ONE (16:23)
--- NOTE | 2017-01-09 20:44 | PN ---
Progress Note (short form) - Note Progress Note: PAtient seen and examined c/o lack of appetite/bloating/fullness AFVSS HEENT: SHU, EOM Intact Oropharynx: No thrush, No mucositis Neck: Supple Cor: RSR, No murmurs, No gallops Lungs: Clear to P&A Abd: Soft, Normal bowel sounds, distended. Ext:No significant edema LAbs reviewed MEds reviewed A/P 86 y/o female withperitoneal carcinomatosis omental bx c/w high grade serous carcinome discussed with son over the phone in great detail ---port placement, chemotherapy, followed by debulking surgery based on response, disucssed that the pathology was aggressive, high grade and patient with significant tumor burfen. disucssed side effects of chemotherapy. will consukt IR for port placement---patient and son are in agreement to meet with him on nutrition consult nutrition supplements
[2017-01-09] MEDS: ATORVASTATIN CA 10 MG TABLET (FP) PO SCH (21:16)
[2017-01-09] MEDS ORDERED: ACETAMINOPHEN 325 MG TABLET (FP) PO ONE (21:45)
[2017-01-10] MEDS: LIDOCAINE 5% TOPICAL PATCH TP SCH (10:26)
[2017-01-10] MEDS: APIXABAN 2.5 MG TABLET PO SCH ×2 (10:27→22:00)
[2017-01-10] MEDS: QUINAPRIL HCL 40 MG TABLET (FP) PO SCH (10:27)
[2017-01-10] MEDS: amLODIPine BESYLATE 10 MG TABLET (FP) PO SCH (10:27)
[2017-01-10] MEDS: SOTALOL HCL 80 MG TABLET (FP) PO SCH ×2 (10:27→21:50)
[2017-01-10] MEDS: ALBUTEROL SO4 2.5/IPRATROPIUM 0.5 INH SOL 3 ML VIAL.NEB. NEB SCH ×2 (10:50→22:31)
--- NOTE | 2017-01-10 15:47 | PN ---
Progress Note (short form) - Note Progress Note: Subjective: no fever or chills, abd discomfort . difficulty taking deep breath. mild lower back pain. Objective: Vital Signs: Last Vital Signs Temp Pulse Resp BP Pulse Ox 98.3 F 62 18 116/63 96 01/10/17 15:20 01/10/17 15:20 01/10/17 15:20 01/10/17 10:00 01/10/17 09:00 Physical Exam: NAD , pleasant . CV: RRR Lungs: CTAB today ext: no edema Abd: still distended , NT , nl BS , softer today ASSESSMENT AND PLAN: 86 y/o lady with h/o A.Fib, HTN, chronic back pain, pacemaker who presents to the hospital complaining of diarrhea and abd discomfort . She was found to have ascitis and peritoneal carcinomatosis 1- Peritoneal carcinomatosis: origion is mullarian cancer per prelim path report ( likely ovarian ) bone scan wityh 2 lesionsn in spine , due to OA , vs Fx Vs Mets. - will place a port tomorrow - check labs in AM before chemo - might benefit from radiation to back lesions if pain becomes severe - appreciate Palliative care consult 2- Rectal bleed , likely form external hemorrhoids. No recurrence 3- A fib :cont eliquis . Cont sotalol . 4- HTN: cont meds Dispo : will receive first chemo then next day will get stimulating factors then can be dc . Visit type - Emergency Visit Emergency Visit: Yes ED Registration Date: 01/03/17 Care time: The patient presented to the Emergency Department on the above date and was hospitalized for further evaluation of their emergent condition. - New Patient This patient is new to me today: No - Critical Care Critical Care patient: No
[2017-01-10] MEDS ORDERED: ACETAMINOPHEN 325 MG TABLET (FP) PO ONE (17:15)
[2017-01-10] MEDS: ATORVASTATIN CA 10 MG TABLET (FP) PO SCH (21:50)
[2017-01-10] MEDS ORDERED: MIRTAZAPINE 15 MG TABLET (FP) PO SCH (22:00)
[2017-01-11] MEDS ORDERED: traZODone HCL 50 MG TABLET (FP) PO ONE ×2 (02:05)
[2017-01-11 07:52] LABS: MCH 29.4 pg (25.7-33.7); MCHC 33.4 g/dl (32.0-36.0); MEAN PLT VOLUME 8.9 fl (7.5-11.1); PLATELET COUNT 321 K/MM3 (134-434); RDW 13.7 % (11.6-15.6); WHITE BLOOD COUNT 7.4 K/mm3 (4.0-10.0)
[2017-01-11 08:22] LABS: CALCIUM 8.4 mg/dL (8.5-10.1); MAGNESIUM 2.2 mg/dL (1.8-2.4)
[2017-01-11 08:29] LABS: ACTIVATED PTT 28.6 SECONDS (26.9-34.4); INR 1.04 (0.82-1.09); PROTHROMBIN TIME (PATIENT) 11.4 SEC (9.98-11.88)
[2017-01-11] MEDS: ALBUTEROL SO4 2.5/IPRATROPIUM 0.5 INH SOL 3 ML VIAL.NEB. NEB SCH ×2 (10:30→22:22)
[2017-01-11] MEDS: APIXABAN 2.5 MG TABLET PO SCH (10:49)
[2017-01-11] MEDS: amLODIPine BESYLATE 10 MG TABLET (FP) PO SCH (10:50)
[2017-01-11] MEDS: SOTALOL HCL 80 MG TABLET (FP) PO SCH ×2 (10:50→21:11)
[2017-01-11] MEDS: QUINAPRIL HCL 40 MG TABLET (FP) PO SCH (10:50)
[2017-01-11] MEDS: LIDOCAINE 5% TOPICAL PATCH TP SCH (10:51)
--- NOTE | 2017-01-11 11:33 | PN ---
Physical Exam: SUBJECTIVE: Patient seen and examined Resting in bed comfortably NAD. No acute events. afebrile and hemodynamically stable. Some mild difficulty taking a deep breath due to abd fullness. Still has trouble keeping down food but this is alleviated by smaller meals. + BM. denies abd pain, sob, chest pain, diarrhea, dysuria, n/v. OBJECTIVE: Vital Signs Period Temp Pulse Resp BP Sys/Amado Pulse Ox Last 24 Hr 97.7 F-98.3 F 62-64 17-18 115-123/53-65 96 GENERAL: The patient is awake, alert, and fully oriented, in no acute distress. HEAD: Normal with no signs of trauma. EYES: extraocular movements intact, sclera anicteric, conjunctiva clear. ENT: moist mucous membranes. NECK: Trachea midline, full range of motion, supple. LUNGS: cta HEART: irregular, S1, S2 ABDOMEN: Hard, distended, nontender, normoactive bowel sounds, no guarding, no rebound, no hepatosplenomegaly, RLQ mass, bandage in place, no erythema. EXTREMITIES: 1+ LE edema. NEUROLOGICAL:No facial asymmetry, Normal speech, gait not observed. PSYCH: Normal mood, normal affect. SKIN: Warm, dry Laboratory Results - last 24 hr 01/04/17 01/11/17 01/11/17 07:10 07:00 07:00 WBC 7.4 RBC 3.78 Hgb 11.1 Hct 33.2 MCV 88.0 MCHC 33.4 RDW 13.7 Plt Count 321 MPV 8.9 INR 1.04 PTT (Actin FS) 28.6 Sodium Potassium Chloride Carbon Dioxide Anion Gap BUN Creatinine Random Glucose Calcium Phosphorus Magnesium Inhibin B < 7.0 01/11/17 07:00 WBC RBC Hgb Hct MCV MCHC RDW Plt Count MPV INR PTT (Actin FS) Sodium 133 L Potassium 4.9 Chloride 98 Carbon Dioxide 27 Anion Gap 8 BUN 18 D Creatinine 1.0 D Random Glucose 76 Calcium 8.4 L Phosphorus 4.0 Magnesium 2.2 Inhibin B Active Medications Generic Name Dose Route Start Last Admin Trade Name Freq PRN Reason Stop Dose Admin Albuterol/Ipratropium 1 amp 01/07/17 22:00 01/10/17 22:31 Duoneb - NEB 1 amp BID ULICES Administration Amlodipine Besylate 10 mg 01/04/17 10:00 01/11/17 10:50 Norvasc - PO 10 mg DAILY ULICES Administration Apixaban 2.5 mg 01/06/17 10:00 01/11/17 10:49 Eliquis - PO Not Given BID ULICES Atorvastatin Calcium 10 mg 01/03/17 22:00 01/10/17 21:50 Lipitor - PO 10 mg HS ULICES Administration IV Flush 10 ml 01/09/17 17:08 Shashank-Cath Flush IVPUSH PRN PRN Protocol Lidocaine 1 patch 01/08/17 16:00 01/11/17 10:51 Lidoderm Patch - TP 1 patch DAILY ULICES Administration Quinapril HCl 40 mg 01/04/17 10:00 01/11/17 10:50 Accupril - PO 40 mg DAILY ULICES Administration Sotalol HCl 80 mg 01/03/17 22:00 01/11/17 10:50 Betapace - PO 80 mg BID ULICES Administration ASSESSMENT/PLAN: Abd CT: 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 The large bowel appears normal with no signs of diverticulitis or colitis The small bowel appears normal with no signs of obstruction No hydronephrosis is seen. There is no evidence of compression fracture or suspicious osseous lesion on the visualized bone windows. Bladder US: Extremely limited examination which is nondiagnostic Chest CT: Impression: 4.5 mm calcified granuloma in the right middle lobe. No enlarged mediastinal or hilar lymph nodes are identified. Multiple compression fractures with sclerotic changes, suspicious for pathologic fractures. Upper abdomen ascites CT guided biopsy: Successful CT-guided core biopsy of omental mass. ASSESSMENT/PLAN: The patient is a 86 year old female with a significant PMH of A.Fib, HTN, chronic back pain, pacemeker who presents to the hospital complaining of diarrhea for day and a half. It is watery and she noticed bright blood in it. She states that the bleeding comes from the "skin tag'. It is associated with abdominal discomfort and bloating. She states that she experiences increased frequency with BM over the past several months but never noticed blood in it. She is admitted for diarrhea, abdominal discomfort due to possible malignancy. Abdominal discomfort/pain due to malignancy: -likely ovarian origin -CT abdomen/pelvis apprecited above -CT chest appreciated above -CA 125 elevated -Ca19-9, tumor HCG negative -s/p tumor biopsy, result p/d -s/p bone scan, possible mets in thoracolumbar spine -GI consult appreciated -Oncology on case: Dr Painting -DIELECTRIC EMBOSSING MACHINE OPERATOR ONC consulted: patient will need chemo prior to any surgical intervention; will need to await biopsy result in hospital. -Palliative meeting today to decide with family whether to pursue aggressive measures. -Port will be placed today followed by round of chemo. Diarrhea; -resolved -C diff. toxin and antigen negative -FOBT negative -likely viral HTN: -Norvasc 10 mg qd, Sotalol 80 mg BID, Qiunapril 40 mg qd SOB -duoneb HDL: -Atorvastatin 10 mg PO A.Fib: -rate controlled -Eliquis Chronic back pain: -lidocaine patch DVT PPX; -Eliquis F/E/N: No/No changes/Low sodium diet-requires small supplemental meals as patient cant eat a lot at once Dispo: monitor in med jacquelin 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 - SECONDARY MALIGNANT NEOPLASM OF RETROPERITON AND PERITONEUM (6) Atrial fibrillation Code(s): I48.91 - UNSPECIFIED ATRIAL FIBRILLATION Qualifiers: Atrial fibrillation type: paroxysmal Qualified Code(s): I48.0 - Paroxysmal atrial fibrillation (7) Compression fracture of body of thoracic vertebra Code(s): M48.54XA - COLLAPSED VERTEBRA, NEC, THORACIC REGION, INIT (8) DVT prophylaxis Code(s): [id number] - (9) Hyperlipidemia Code(s): E78.5 - HYPERLIPIDEMIA, UNSPECIFIED Qualifiers: Hyperlipidemia type: Pure hypercholesterolemia (10) Hypertension Code(s): I10 - ESSENTIAL (PRIMARY) HYPERTENSION Qualifiers: Hypertension type: essential hypertension Qualified Code(s): I10 - Essential (primary) hypertension Visit type - Emergency Visit Emergency Visit: Yes ED Registration Date: 01/03/17 Care time: The patient presented to the Emergency Department on the above date and was hospitalized for further evaluation of their emergent condition. - New Patient This patient is new to me today: No - Critical Care Critical Care patient: No - Discharge Referral Referred to [facility] No
[2017-01-11] MEDS: ACETAMINOPHEN 325 MG TABLET (FP) PO PRN ×2 (13:05→21:12)
--- NOTE | 2017-01-11 15:08 | PN ---
Teaching Attending Note Name of Resident: Misty Agee ATTENDING PHYSICIAN STATEMENT I saw and evaluated the patient. I reviewed the resident's note and discussed the case with the resident. I agree with the resident's findings and plan as documented. Patient is comfortable with no acute distress. Going for the Port. Vital Signs Temperature 98.3 F 01/11/17 14:25 Pulse Rate 65 01/11/17 14:25 Respiratory Rate 18 01/11/17 14:25 Blood Pressure 95/43 01/11/17 14:25 O2 Sat by Pulse Oximetry (%) 96 01/10/17 21:00 CBCD WBC 7.4 K/mm3 (4.0-10.0) 01/11/17 07:00 RBC 3.78 M/mm3 (3.60-5.2) 01/11/17 07:00 Hgb 11.1 GM/dL (10.7-15.3) 01/11/17 07:00 Hct 33.2 % (32.4-45.2) 01/11/17 07:00 MCV 88.0 fl (80-96) 01/11/17 07:00 MCHC 33.4 g/dl (32.0-36.0) 01/11/17 07:00 RDW 13.7 % (11.6-15.6) 01/11/17 07:00 Plt Count 321 K/MM3 (134-434) 01/11/17 07:00 MPV 8.9 fl (7.5-11.1) 01/11/17 07:00 CMP Sodium 133 mmol/L (136-145) L 01/11/17 07:00 Potassium 4.9 mmol/L (3.5-5.1) 01/11/17 07:00 Chloride 98 mmol/L (98-107) 01/11/17 07:00 Carbon Dioxide 27 mmol/L (21-32) 01/11/17 07:00 Anion Gap 8 (8-16) 01/11/17 07:00 BUN 18 mg/dL (7-18) D 01/11/17 07:00 Creatinine 1.0 mg/dL (0.55-1.02) D 01/11/17 07:00 Creat Clearance w eGFR 59.65 (>60) 01/03/17 12:40 Random Glucose 76 mg/dL (74-106) 01/11/17 07:00 Calcium 8.4 mg/dL (8.5-10.1) L 01/11/17 07:00 Total Bilirubin 0.5 mg/dL (0.2-1.0) 01/03/17 12:40 AST 53 U/L (15-37) H D 01/03/17 12:40 ALT 42 U/L (12-78) D 01/03/17 12:40 Alkaline Phosphatase 91 U/L (45-117) D 01/03/17 12:40 Total Protein 5.9 g/dl (6.4-8.2) L 01/03/17 12:40 Albumin 3.1 g/dl (3.4-5.0) L 01/03/17 12:40 Current Medications Generic Name Dose Route Start Last Admin Trade Name Freq PRN Reason Stop Dose Admin Acetaminophen 650 mg 01/11/17 12:58 01/11/17 13:05 Tylenol - PO 650 mg Q4H PRN Administration FEVER OR PAIN Albuterol/Ipratropium 1 amp 01/07/17 22:00 01/11/17 10:30 Duoneb - NEB 1 amp BID ULICES Administration Amlodipine Besylate 10 mg 01/04/17 10:00 01/11/17 10:50 Norvasc - PO 10 mg DAILY ULICES Administration Apixaban 2.5 mg 01/06/17 10:00 01/11/17 10:49 Eliquis - PO Not Given BID ULICES Atorvastatin Calcium 10 mg 01/03/17 22:00 01/10/17 21:50 Lipitor - PO 10 mg HS ULICES Administration IV Flush 10 ml 01/09/17 17:08 Shashank-Cath Flush IVPUSH PRN PRN Protocol Lidocaine 1 patch 01/08/17 16:00 01/11/17 10:51 Lidoderm Patch - TP 1 patch DAILY ULICES Administration Quinapril HCl 40 mg 01/04/17 10:00 01/11/17 10:50 Accupril - PO 40 mg DAILY ULICES Administration Sotalol HCl 80 mg 01/03/17 22:00 01/11/17 10:50 Betapace - PO 80 mg BID ULICES Administration Home Medications Medication Instructions Recorded Apixaban [Eliquis -] 2.5 mg PO BID #60 tablet 01/19/16 Atorvastatin Ca [Lipitor] 10 mg PO HS #30 tablet 01/19/16 Quinapril HCl [Accupril -] 40 mg PO DAILY #30 tablet 01/19/16 Sotalol HCl [Betapace -] 80 mg PO BID #60 tablet 01/19/16 Alendronate Sodium [Binosto] 70 mg PO WEEKLY 01/03/17 Amlodipine Besylate [Norvasc -] 10 mg PO DAILY 01/03/17 ASSESSMENT AND PLAN: 86 y/o lady with h/o A.Fib, HTN, chronic back pain, pacemaker who presents to the hospital complaining of diarrhea and abd discomfort . 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 No recurrence # A fib :cont eliquis . Cont sotalol . # HTN: cont meds Dispo : POst post will receive first chemo then next day will get stimulating factors then can be dc .
--- NOTE | 2017-01-11 20:40 | PN ---
Progress Note (short form) - Note Progress Note: PAtient seen and examined c/o lack of appetite/bloating/fullness no nausea/vomiting Last Vital Signs Temp Pulse Resp BP Pulse Ox 97.7 F 64 20 120/51 96 01/11/17 19:55 01/11/17 21:11 01/11/17 19:55 01/11/17 21:11 01/10/17 21:00 Neck: Supple Cor: RSR, No murmurs, No gallops Lungs: Clear to P&A Abd: Soft, Normal bowel sounds, distended. Ext:No significant edema Abnormal Lab Results 01/11/17 07:00 Sodium 133 L Calcium 8.4 L Current Medications Acetaminophen (Tylenol -) 650 mg PO Q4H PRN PRN Reason: FEVER OR PAIN Last Admin: 01/11/17 21:12 Dose: 650 mg Albuterol/Ipratropium (Duoneb -) 1 amp NEB BID [facility] Last Admin: 01/11/17 10:30 Dose: 1 amp Amlodipine Besylate (Norvasc -) 10 mg PO DAILY [facility] Last Admin: 01/11/17 10:50 Dose: 10 mg Apixaban (Eliquis -) 2.5 mg PO BID [facility] Last Admin: 01/11/17 10:49 Dose: Not Given Atorvastatin Calcium (Lipitor -) 10 mg PO HS [facility] Last Admin: 01/11/17 21:11 Dose: 10 mg IV Flush (Shashank-Cath Flush) 10 ml IVPUSH PRN PRN PRN Reason: Protocol Lidocaine (Lidoderm Patch -) 1 patch TP DAILY [facility] Last Admin: 01/11/17 10:51 Dose: 1 patch Quinapril HCl (Accupril -) 40 mg PO DAILY [facility] Last Admin: 01/11/17 10:50 Dose: 40 mg Sotalol HCl (Betapace -) 80 mg PO BID [facility] Last Admin: 01/11/17 21:11 Dose: 80 mg A/P 86 y/o female with 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
[2017-01-11] MEDS: ATORVASTATIN CA 10 MG TABLET (FP) PO SCH (21:11)
[2017-01-12 08:21] LABS: CALCIUM 8.3 mg/dL (8.5-10.1); CREATININE 1.1 mg/dL (0.55-1.02)
[2017-01-12] MEDS: ALBUTEROL SO4 2.5/IPRATROPIUM 0.5 INH SOL 3 ML VIAL.NEB. NEB SCH ×3 (10:15→22:13)
[2017-01-12] MEDS ORDERED: QUINAPRIL HCL 20 MG TABLET (FP) ONE (12:40)
[2017-01-12] MEDS: amLODIPine BESYLATE 10 MG TABLET (FP) PO SCH (14:03)
[2017-01-12] MEDS: SOTALOL HCL 80 MG TABLET (FP) PO SCH ×2 (14:03→21:57)
[2017-01-12] MEDS: ACETAMINOPHEN 325 MG TABLET (FP) PO PRN (14:03)
[2017-01-12] MEDS: LIDOCAINE 5% TOPICAL PATCH TP SCH (14:04)
[2017-01-12] MEDS: QUINAPRIL HCL 40 MG TABLET (FP) PO SCH (14:04)
--- NOTE | 2017-01-12 14:28 | PN ---
<Misty Agee - Last Filed: 01/12/17 14:29> Physical Exam: SUBJECTIVE: Patient seen and examined Resting in bed comfortably NAD. No acute events. afebrile and hemodynamically stable. + BM. denies abd pain, sob, chest pain, diarrhea, dysuria, n/v. Port placement today OBJECTIVE: Vital Signs Period Temp Pulse Resp BP Sys/Amado Pulse Ox Last 24 Hr 97.5 F-98.4 F 62-64 15-20 101-136/42-66 94-99 GENERAL: The patient is awake, alert, and fully oriented, in no acute distress. HEAD: Normal with no signs of trauma. EYES: extraocular movements intact, sclera anicteric, conjunctiva clear. ENT: moist mucous membranes. NECK: Trachea midline, full range of motion, supple. LUNGS: cta HEART: irregular, S1, S2 ABDOMEN: Hard, distended, nontender, normoactive bowel sounds, no guarding, no rebound, no hepatosplenomegaly, RLQ mass, bandage in place, no erythema. EXTREMITIES: 1+ LE edema. NEUROLOGICAL:No facial asymmetry, Normal speech, gait not observed. PSYCH: Normal mood, normal affect. SKIN: Warm, dry Laboratory Results - last 24 hr 01/12/17 06:00 Sodium 133 L Potassium 5.0 Chloride 99 Carbon Dioxide 27 Anion Gap 7 L BUN 21 H Creatinine 1.1 H Random Glucose 80 Calcium 8.3 L Active Medications Generic Name Dose Route Start Last Admin Trade Name Freq PRN Reason Stop Dose Admin Acetaminophen 650 mg 01/11/17 12:58 01/12/17 14:03 Tylenol - PO 650 mg Q4H PRN Administration FEVER OR PAIN Albuterol/Ipratropium 1 amp 01/07/17 22:00 01/12/17 10:15 Duoneb - NEB Not Given BID ULICES Amlodipine Besylate 10 mg 01/04/17 10:00 01/12/17 14:03 Norvasc - PO 10 mg DAILY ULICES Administration Apixaban 2.5 mg 01/06/17 10:00 01/11/17 10:49 Eliquis - PO Not Given BID ULICES Atorvastatin Calcium 10 mg 01/03/17 22:00 01/11/17 21:11 Lipitor - PO 10 mg HS ULICES Administration IV Flush 10 ml 01/09/17 17:08 Shashank-Cath Flush IVPUSH PRN PRN Protocol Lidocaine 1 patch 01/08/17 16:00 01/12/17 14:04 Lidoderm Patch - TP 1 patch DAILY ULICES Administration Quinapril HCl 40 mg 01/04/17 10:00 01/12/17 14:04 Accupril - PO 40 mg DAILY ULICES Administration Sotalol HCl 80 mg 01/03/17 22:00 01/12/17 14:03 Betapace - PO 80 mg BID ULICES Administration ASSESSMENT/PLAN: Abd CT: 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 The large bowel appears normal with no signs of diverticulitis or colitis The small bowel appears normal with no signs of obstruction No hydronephrosis is seen. There is no evidence of compression fracture or suspicious osseous lesion on the visualized bone windows. Bladder US: Extremely limited examination which is nondiagnostic Chest CT: Impression: 4.5 mm calcified granuloma in the right middle lobe. No enlarged mediastinal or hilar lymph nodes are identified. Multiple compression fractures with sclerotic changes, suspicious for pathologic fractures. Upper abdomen ascites CT guided biopsy: Successful CT-guided core biopsy of omental mass. ASSESSMENT/PLAN: The patient is a 86 year old female with a significant PMH of A.Fib, HTN, chronic back pain, pacemeker who presents to the hospital complaining of diarrhea for day and a half. It is watery and she noticed bright blood in it. She states that the bleeding comes from the "skin tag'. It is associated with abdominal discomfort and bloating. She states that she experiences increased frequency with BM over the past several months but never noticed blood in it. She is admitted for diarrhea, abdominal discomfort due to possible malignancy. Abdominal discomfort/pain due to malignancy: -likely ovarian origin -CT abdomen/pelvis apprecited above -CT chest appreciated above -CA 125 elevated -Ca19-9, tumor HCG negative -s/p tumor biopsy, result p/d -s/p bone scan, possible mets in thoracolumbar spine -GI consult appreciated -Oncology on case: Dr Painting -UNSTACKER ONC consulted: patient will need chemo prior to any surgical intervention; will need to await biopsy result in hospital. -Port will be placed today followed by round of chemo. (carbo taxol) Diarrhea; -resolved -C diff. toxin and antigen negative -FOBT negative -likely viral HTN: -Norvasc 10 mg qd, Sotalol 80 mg BID, Qiunapril 40 mg qd SOB -duoneb HDL: -Atorvastatin 10 mg PO A.Fib: -rate controlled -hold Eliquis for port placement Chronic back pain: -lidocaine patch DVT PPX; -hold Eliquis for port F/E/N: No/No changes/Low sodium diet-requires small supplemental meals as patient cant eat a lot at once Dispo: plan d/c with home VNS after first round of chemo Problem List - Problems (1) Abdominal pain Code(s): R10.9 - UNSPECIFIED ABDOMINAL PAIN Qualifiers: Abdominal location: lower abdomen, unspecified Qualified Code(s): R10.30 - Lower abdominal pain, unspecified (2) Adnexal mass Code(s): N94.9 - UNSP COND ASSOC W FEMALE GENITAL ORGANS AND MENSTRUAL CYCLE (3) Ascites, malignant Code(s): R18.0 - MALIGNANT ASCITES (4) Diarrhea Code(s): R19.7 - DIARRHEA, UNSPECIFIED Qualifiers: Diarrhea type: unspecified type Qualified Code(s): R19.7 - Diarrhea , unspecified (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 - SECONDARY MALIGNANT NEOPLASM OF RETROPERITON AND PERITONEUM (6) Atrial fibrillation Code(s): I48.91 - UNSPECIFIED ATRIAL FIBRILLATION Qualifiers: Atrial fibrillation type: paroxysmal Qualified Code(s): I48.0 - Paroxysmal atrial fibrillation (7) Compression fracture of body of thoracic vertebra Code(s): M48.54XA - COLLAPSED VERTEBRA, NEC, THORACIC REGION, INIT (8) DVT prophylaxis Code(s): [id number] - (9) Hyperlipidemia Code(s): E78.5 - HYPERLIPIDEMIA, UNSPECIFIED Qualifiers: Hyperlipidemia type: Pure hypercholesterolemia (10) Hypertension Code(s): I10 - ESSENTIAL (PRIMARY) HYPERTENSION Qualifiers: Hypertension type: essential hypertension Qualified Code(s): I10 - Essential (primary) hypertension Visit type - Emergency Visit Emergency Visit: Yes ED Registration Date: 01/03/17 Care time: The patient presented to the Emergency Department on the above date and was hospitalized for further evaluation of their emergent condition. - New Patient This patient is new to me today: No - Critical Care Critical Care patient: No - Discharge Referral Referred to [facility] Med P.C.: No <Jeremiah Magdaleno - Last Filed: 01/15/17 14:52> Physical Exam: SUBJECTIVE: Patient seen and examined Patient is feeling good, going for chemo in am . OBJECTIVE: Vital Signs Period Temp Pulse Resp BP Sys/Amado Pulse Ox Last 24 Hr 97.9 F-98.3 F 60-66 18-20 95-115/48-59 98 GENERAL: The patient is awake, alert, and fully oriented, in no acute distress. HEAD: Normal with no signs of trauma. EYES: PERRL, extraocular movements intact, sclera anicteric, conjunctiva clear. No ptosis. ENT: Ears normal, nares patent, oropharynx clear without exudates, moist mucous membranes. NECK: Trachea midline, full range of motion, supple. LUNGS: Breath sounds equal, clear to auscultation bilaterally, no wheezes, no crackles, no accessory muscle use. HEART: Regular rate and rhythm, S1, S2 without murmur, rub or gallop. ABDOMEN: Soft, nontender, nondistended, normoactive bowel sounds, no guarding, no rebound, no hepatosplenomegaly, no masses. EXTREMITIES: 2+ pulses, warm, well-perfused, no edema. NEUROLOGICAL: Cranial nerves II through XII grossly intact. Normal speech, gait not observed. PSYCH: Normal mood, normal affect. SKIN: Warm, dry, normal turgor, no rashes or lesions noted Laboratory Results - last 24 hr 01/15/17 01/15/17 06:00 06:00 WBC 10.3 H RBC 3.43 L Hgb 10.2 L Hct 30.3 L MCV 88.3 MCHC 33.6 RDW 13.4 Plt Count 292 MPV 9.4 Neutrophils % 87.7 H Lymphocytes % 6.0 L D Monocytes % 4.5 Eosinophils % 1.2 Basophils % 0.6 Sodium 136 Potassium 5.0 Chloride 103 Carbon Dioxide 25 Anion Gap 8 BUN 26 H Creatinine 0.9 Creat Clearance w eGFR 59.65 Random Glucose 91 Calcium 7.6 L Magnesium 2.3 Total Bilirubin 0.4 AST 77 H D ALT 43 D Alkaline Phosphatase 69 Total Protein 4.7 L Albumin 2.2 L Active Medications Generic Name Dose Route Start Last Admin Trade Name Freq PRN Reason Stop Dose Admin Acetaminophen 650 mg 01/11/17 12:58 01/12/17 14:03 Tylenol - PO 650 mg Q4H PRN Administration FEVER OR PAIN Albuterol/Ipratropium 1 amp 01/07/17 22:00 01/15/17 09:55 Duoneb - NEB 1 amp BID ULICES Administration Amlodipine Besylate 10 mg 01/04/17 10:00 01/15/17 12:25 Norvasc - PO 10 mg DAILY ULICES Administration Apixaban 2.5 mg 01/06/17 10:00 01/15/17 12:25 Eliquis - PO 2.5 mg BID ULICES Administration Atorvastatin Calcium 10 mg 01/03/17 22:00 01/14/17 21:30 Lipitor - PO 10 mg HS ULICES Administration Diphenhydramine HCl 25 mg 01/15/17 22:00 Benadryl - PO HS PRN AGITATION Dronabinol 5 mg 01/13/17 17:00 01/15/17 12:23 Marinol - PO 5 mg [id number],[id number],1700 ULICES Administration IV Flush 10 ml 01/09/17 17:08 01/13/17 06:31 Shashank-Cath Flush IVPUSH 10 ml PRN PRN Administration Protocol Sodium Chloride 1,000 mls @ 42 mls/hr 01/12/17 17:00 01/15/17 11:40 Normal Saline - IV 42 mls/hr ASDIR ULICES Administration Lidocaine 1 patch 01/08/17 16:00 01/15/17 11:40 Lidoderm Patch - TP 1 patch DAILY ULICES Administration Ondansetron HCl 8 mg 01/15/17 11:51 01/15/17 12:18 Zofran Injection IVPB 8 mg Q8H PRN Administration NAUSEA Pantoprazole Sodium 40 mg 01/15/17 12:00 01/15/17 12:18 Protonix - PO 40 mg BID ULICES Administration Quinapril HCl 40 mg 01/04/17 10:00 01/15/17 12:25 Accupril - PO 40 mg DAILY ULICES Administration Sotalol HCl 80 mg 01/03/17 22:00 01/15/17 12:25 Betapace - PO 80 mg BID ULICES Administration Tramadol HCl 50 mg 01/12/17 16:57 01/12/17 17:34 Ultram - PO 50 mg Q6H PRN Administration PAIN ASSESSMENT/PLAN:
[2017-01-12] MEDS ORDERED: traMADol HCL 50 MG TABLET PO PRN (16:57)
[2017-01-12] MEDS: SODIUM CHLORIDE 1,000 ML IV SCH (17:35)
--- NOTE | 2017-01-12 17:39 | PN ---
Progress Note (short form) - Note Progress Note: PAtient seen and examined c/o lack of appetite/bloating/fullness had 1 episode of diarrhea after drinking enlive today Last Vital Signs Temp Pulse Resp BP Pulse Ox 97.3 F L 62 20 120/88 99 01/12/17 15:17 16 15:17 01/12/17 15:17 01/12/17 15:17 01/12/17 11:37 Neck: Supple Cor: RSR, No murmurs, No gallops Lungs: Clear to P&A Abd: Soft, Normal bowel sounds, distended. Ext:No significant edema Abnormal Lab Results 01/12/17 06:00 Sodium 133 L Anion Gap 7 L BUN 21 H Creatinine 1.1 H Calcium 8.3 L Current Medications Acetaminophen (Tylenol -) 650 mg PO Q4H PRN PRN Reason: FEVER OR PAIN Last Admin: 01/12/17 14:03 Dose: 650 mg Albuterol/Ipratropium (Duoneb -) 1 amp NEB BID [facility] Last Admin: 01/12/17 14:45 Dose: 1 amp Amlodipine Besylate (Norvasc -) 10 mg PO DAILY [facility] Last Admin: 01/12/17 14:03 Dose: 10 mg Apixaban (Eliquis -) 2.5 mg PO BID [facility] Last Admin: 01/11/17 10:49 Dose: Not Given Atorvastatin Calcium (Lipitor -) 10 mg PO HS [facility] Last Admin: 01/11/17 21:11 Dose: 10 mg IV Flush (Shashank-Cath Flush) 10 ml IVPUSH PRN PRN PRN Reason: Protocol Sodium Chloride (Normal Saline -) 1,000 mls @ 42 mls/hr IV ASDIR [facility] Lidocaine (Lidoderm Patch -) 1 patch TP DAILY [facility] Last Admin: 01/12/17 14:04 Dose: 1 patch Quinapril HCl (Accupril -) 40 mg PO DAILY [facility] Last Admin: 01/12/17 14:04 Dose: 40 mg Sotalol HCl (Betapace -) 80 mg PO BID [facility] Last Admin: 01/12/17 14:03 Dose: 80 mg Tramadol HCl (Ultram -) 50 mg PO Q6H PRN PRN Reason: PAIN A/P 86 y/o female with 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 Discussed at [place] side effects including serious allergic reactions/myelosuppression/renal failure/neuropathy/ sepsis etc. with patient and her son. given her age and performance status will consider weekly carbo/taxol per JADIEL-7 trial discussed with son in [place] social work supervisor consult regarding home care services physical theapy conslt pain control with tramadol prn
--- NOTE | 2017-01-12 21:50 | PN ---
Teaching Attending Note Name of Resident: Misty Agee ATTENDING PHYSICIAN STATEMENT I saw and evaluated the patient. I reviewed the resident's note and discussed the case with the resident. I agree with the resident's findings and plan as documented. Patient is feeling better with no shortness of breath. Going for chemo in am. Vital Signs Temperature 97.8 F 01/12/17 20:59 Pulse Rate 61 01/12/17 20:59 Respiratory Rate 20 01/12/17 20:59 Blood Pressure 109/78 01/12/17 20:59 O2 Sat by Pulse Oximetry (%) 93 L 01/12/17 20:59 CBCD WBC 7.4 K/mm3 (4.0-10.0) 01/11/17 07:00 RBC 3.78 M/mm3 (3.60-5.2) 01/11/17 07:00 Hgb 11.1 GM/dL (10.7-15.3) 01/11/17 07:00 Hct 33.2 % (32.4-45.2) 01/11/17 07:00 MCV 88.0 fl (80-96) 01/11/17 07:00 MCHC 33.4 g/dl (32.0-36.0) 01/11/17 07:00 RDW 13.7 % (11.6-15.6) 01/11/17 07:00 Plt Count 321 K/MM3 (134-434) 01/11/17 07:00 MPV 8.9 fl (7.5-11.1) 01/11/17 07:00 CMP Sodium 133 mmol/L (136-145) L 01/12/17 06:00 Potassium 5.0 mmol/L (3.5-5.1) 01/12/17 06:00 Chloride 99 mmol/L (98-107) 01/12/17 06:00 Carbon Dioxide 27 mmol/L (21-32) 01/12/17 06:00 Anion Gap 7 (8-16) L 01/12/17 06:00 BUN 21 mg/dL (7-18) H 01/12/17 06:00 Creatinine 1.1 mg/dL (0.55-1.02) H 01/12/17 06:00 Creat Clearance w eGFR 59.65 (>60) 01/03/17 12:40 Random Glucose 80 mg/dL (74-106) 01/12/17 06:00 Calcium 8.3 mg/dL (8.5-10.1) L 01/12/17 06:00 Total Bilirubin 0.5 mg/dL (0.2-1.0) 01/03/17 12:40 AST 53 U/L (15-37) H D 01/03/17 12:40 ALT 42 U/L (12-78) D 01/03/17 12:40 Alkaline Phosphatase 91 U/L (45-117) D 01/03/17 12:40 Total Protein 5.9 g/dl (6.4-8.2) L 01/03/17 12:40 Albumin 3.1 g/dl (3.4-5.0) L 01/03/17 12:40 Home Medications Medication Instructions Recorded Apixaban [Eliquis -] 2.5 mg PO BID #60 tablet 01/19/16 Atorvastatin Ca [Lipitor] 10 mg PO HS #30 tablet 01/19/16 Quinapril HCl [Accupril -] 40 mg PO DAILY #30 tablet 01/19/16 Sotalol HCl [Betapace -] 80 mg PO BID #60 tablet 01/19/16 Alendronate Sodium [Binosto] 70 mg PO WEEKLY 01/03/17 Amlodipine Besylate [Norvasc -] 10 mg PO DAILY 01/03/17 ASSESSMENT AND PLAN: Patient is a 86 y/o lady with h/o A.Fib, HTN, chronic back pain, pacemaker who presents to the hospital complaining of diarrhea and abd discomfort . 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 No recurrence # A fib :cont eliquis . Cont sotalol . # HTN: cont meds Dispo : Patient will receive first chemo then next day will get stimulating factors then can be dc if stable to go home.
[2017-01-12] MEDS: ATORVASTATIN CA 10 MG TABLET (FP) PO SCH (21:57)
[2017-01-12] MEDS: APIXABAN 2.5 MG TABLET PO SCH (21:57)
[2017-01-13] MEDS: PORTA CATH FLUSH 10 ML IVPUSH PRN (06:31)
[2017-01-13 07:40] LABS: BASOPHIL 1.3 % (0-2.0); EOSINOPHIL 1.6 % (0-4.5); MCH 29.3 pg (25.7-33.7); MCHC 33.1 g/dl (32.0-36.0); MEAN CELL VOLUME 88.7 fl (80-96); MEAN PLT VOLUME 9.5 fl (7.5-11.1); NEUTROPHILS 78.9 % (42.8-82.8); PLATELET COUNT 328 K/MM3 (134-434); RDW 13.8 % (11.6-15.6); WHITE BLOOD COUNT 8.6 K/mm3 (4.0-10.0)
[2017-01-13 07:55] LABS: ALBUMIN 2.2 g/dl (3.4-5.0); BILIRUBIN,TOTAL 0.4 mg/dL (0.2-1.0); CALCIUM 8.2 mg/dL (8.5-10.1); CREATININE 1.1 mg/dL (0.55-1.02); TOT PROT 4.7 g/dl (6.4-8.2)
[2017-01-13] MEDS ORDERED: RANITIDINE IVPB ONE (08:00)
[2017-01-13] MEDS ORDERED: DIPHENHYDRAMINE IVPB ONE (08:00)
[2017-01-13] MEDS ORDERED: [UNRECOGNIZED DRUG - OTHER] IVPB ONE (08:00)
[2017-01-13] MEDS ORDERED: DEXAMETHASONE IVPB ONE (08:00)
--- NOTE | 2017-01-13 08:01 | PN ---
Teaching Attending Note Name of Resident: Misty Agee ATTENDING PHYSICIAN STATEMENT I saw and evaluated the patient. I reviewed the resident's note and discussed the case with the resident. I agree with the resident's findings and plan as documented. Patient is going for chemotherapy today carbo/taxol. Vital Signs Temperature 98.1 F 01/13/17 05:32 Pulse Rate 62 01/13/17 05:32 Respiratory Rate 20 01/13/17 05:32 Blood Pressure 121/50 01/13/17 05:32 O2 Sat by Pulse Oximetry (%) 93 L 01/12/17 20:59 CBCD WBC 8.6 K/mm3 (4.0-10.0) 01/13/17 06:12 RBC 3.52 M/mm3 (3.60-5.2) L 01/13/17 06:12 Hgb 10.3 GM/dL (10.7-15.3) L 01/13/17 06:12 Hct 31.2 % (32.4-45.2) L 01/13/17 06:12 MCV 88.7 fl (80-96) 01/13/17 06:12 MCHC 33.1 g/dl (32.0-36.0) 01/13/17 06:12 RDW 13.8 % (11.6-15.6) 01/13/17 06:12 Plt Count 328 K/MM3 (134-434) 01/13/17 06:12 MPV 9.5 fl (7.5-11.1) 01/13/17 06:12 CMP Sodium 134 mmol/L (136-145) L 01/13/17 06:12 Potassium 5.0 mmol/L (3.5-5.1) 01/13/17 06:12 Chloride 100 mmol/L (98-107) 01/13/17 06:12 Carbon Dioxide 26 mmol/L (21-32) 01/13/17 06:12 Anion Gap 8 (8-16) 01/13/17 06:12 BUN 27 mg/dL (7-18) H D 01/13/17 06:12 Creatinine 1.1 mg/dL (0.55-1.02) H 01/13/17 06:12 Creat Clearance w eGFR 47.32 (>60) 01/13/17 06:12 Random Glucose 72 mg/dL (74-106) L 01/13/17 06:12 Calcium 8.2 mg/dL (8.5-10.1) L 01/13/17 06:12 Total Bilirubin 0.4 mg/dL (0.2-1.0) 01/13/17 06:12 AST 44 U/L (15-37) H 01/13/17 06:12 ALT 19 U/L (12-78) D 01/13/17 06:12 Alkaline Phosphatase 63 U/L (45-117) D 01/13/17 06:12 Total Protein 4.7 g/dl (6.4-8.2) L D 01/13/17 06:12 Albumin 2.2 g/dl (3.4-5.0) L D 01/13/17 06:12 Current Medications Generic Name Dose Route Start Last Admin Trade Name Freq PRN Reason Stop Dose Admin Acetaminophen 650 mg 01/11/17 12:58 01/12/17 14:03 Tylenol - PO 650 mg Q4H PRN Administration FEVER OR PAIN Albuterol/Ipratropium 1 amp 01/07/17 22:00 01/12/17 22:13 Duoneb - NEB 1 amp BID [facility] Administration Amlodipine Besylate 10 mg 01/04/17 10:00 01/12/17 14:03 Norvasc - PO 10 mg DAILY [facility] Administration Apixaban 2.5 mg 01/06/17 10:00 01/12/17 21:57 Eliquis - PO 2.5 mg BID [facility] Administration Atorvastatin Calcium 10 mg 01/03/17 22:00 01/12/17 21:57 Lipitor - PO 10 mg HS [facility] Administration IV Flush 10 ml 01/09/17 17:08 01/13/17 06:31 Shashank-Cath Flush IVPUSH 10 ml PRN PRN Administration Protocol Sodium Chloride 1,000 mls @ 42 mls/hr 01/12/17 17:00 01/12/17 17:35 Normal Saline - IV 42 mls/hr ASDIR [facility] Administration Ranitidine HCl 50 mg/ 108.5 mls @ 217 mls/hr 01/13/17 08:00 Dexamethasone Sodium Phosphate IVPB 01/13/17 08:29 20 mg/ Diphenhydramine HCl 25 ONCE ONE mg/ Ondansetron HCl 8 mg/ Sodium Chloride Paclitaxel 95 mg/ Sodium 265.865 mls @ 265.865 mls/hr 01/13/17 08:30 Chloride IVPB 01/13/17 09:29 ONCE ONE Carboplatin 118 mg/ Dextrose 261.8 mls @ 523.6 mls/hr 01/13/17 09:30 IV 01/13/17 09:59 ONCE ONE Lidocaine 1 patch 01/08/17 16:00 01/12/17 14:04 Lidoderm Patch - TP 1 patch DAILY [facility] Administration Quinapril HCl 40 mg 01/04/17 10:00 01/12/17 14:04 Accupril - PO 40 mg DAILY [facility] Administration Sotalol HCl 80 mg 01/03/17 22:00 01/12/17 21:57 Betapace - PO Not Given BID [facility] Tramadol HCl 50 mg 01/12/17 16:57 01/12/17 17:34 Ultram - PO 50 mg Q6H PRN Administration PAIN Home Medications Medication Instructions Recorded Apixaban [Eliquis -] 2.5 mg PO BID #60 tablet 01/19/16 Atorvastatin Ca [Lipitor] 10 mg PO HS #30 tablet 01/19/16 Quinapril HCl [Accupril -] 40 mg PO DAILY #30 tablet 01/19/16 Sotalol HCl [Betapace -] 80 mg PO BID #60 tablet 01/19/16 Alendronate Sodium [Binosto] 70 mg PO WEEKLY 01/03/17 Amlodipine Besylate [Norvasc -] 10 mg PO DAILY 01/03/17 ASSESSMENT AND PLAN: 86 y/o lady with h/o A.Fib, HTN, chronic back pain, pacemaker who presents to the hospital complaining of diarrhea and abd discomfort . 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 once stable can be discharge # Rectal bleed , likely form external hemorrhoids. No recurrence # A fib :cont eliquis . Cont sotalol . # HTN: cont meds Dispo : possible discharge in am if stable
[2017-01-13] MEDS ORDERED: SODIUM CHLORIDE IVPB ONE (08:30)
[2017-01-13] MEDS ORDERED: PACLITAXEL IVPB ONE (08:30)
[2017-01-13] MEDS ORDERED: DEXTROSE 5% IV ONE (09:30)
[2017-01-13] MEDS ORDERED: WATER IV ONE (09:30)
[2017-01-13] MEDS ORDERED: CARBOPLATIN IV ONE (09:30)
[2017-01-13] MEDS: ALBUTEROL SO4 2.5/IPRATROPIUM 0.5 INH SOL 3 ML VIAL.NEB. NEB SCH ×2 (10:00→21:21)
--- NOTE | 2017-01-13 10:17 | PN ---
Progress Note (short form) - Note Progress Note: Patient seen and examined Poor p.o. intake Discussed trial of marinol with house-staff Reviewed some of the potential side effects of chemotherapy with patient. Infusion reaction- back pain, chest pain, hypotension, shelter effects of kidney damage, myelosuppression with risk of infection, bleeding, anemia, numbness and tingling of fingers and toes. Last Vital Signs Temp Pulse Resp BP Pulse Ox 98.1 F 62 20 121/50 93 L 01/13/17 05:32 01/13/17 05:32 01/13/17 05:32 01/13/17 05:32 01/12/17 20:59 HEENT: SHU, EOM Intact Oropharynx: No thrush, No mucositis Neck: Supple Cor: atrial fib Lungs: diminished breath sounds and fine rales at bases Abd: distended, non tender, no masses bowel sounds present Ext:No significant edema Skin: No rashes, Integument intact CBC, BMP 01/13/17 06:12 01/13/17 06:12 Current Medications Generic Name Dose Route Start Last Admin Trade Name Freq PRN Reason Stop Dose Admin Acetaminophen 650 mg 01/11/17 12:58 01/12/17 14:03 Tylenol - PO 650 mg Q4H PRN Administration FEVER OR PAIN Albuterol/Ipratropium 1 amp 01/07/17 22:00 01/12/17 22:13 Duoneb - NEB 1 amp BID [facility] Administration Amlodipine Besylate 10 mg 01/04/17 10:00 01/12/17 14:03 Norvasc - PO 10 mg DAILY [facility] Administration Apixaban 2.5 mg 01/06/17 10:00 01/12/17 21:57 Eliquis - PO 2.5 mg BID [facility] Administration Atorvastatin Calcium 10 mg 01/03/17 22:00 01/12/17 21:57 Lipitor - PO 10 mg HS [facility] Administration IV Flush 10 ml 01/09/17 17:08 01/13/17 06:31 Shashank-Cath Flush IVPUSH 10 ml PRN PRN Administration Protocol Sodium Chloride 1,000 mls @ 42 mls/hr 01/12/17 17:00 01/12/17 17:35 Normal Saline - IV 42 mls/hr ASDIR [facility] Administration Lidocaine 1 patch 01/08/17 16:00 01/12/17 14:04 Lidoderm Patch - TP 1 patch DAILY [facility] Administration Quinapril HCl 40 mg 01/04/17 10:00 01/12/17 14:04 Accupril - PO 40 mg DAILY [facility] Administration Sotalol HCl 80 mg 01/03/17 22:00 01/12/17 21:57 Betapace - PO Not Given BID [facility] Tramadol HCl 50 mg 01/12/17 16:57 01/12/17 17:34 Ultram - PO 50 mg Q6H PRN Administration PAIN Problem List - Problems (1) Ascites, malignant Assessment/Plan: To proceed with geovanna-adjuvant chemotherapy with low dose taxol and carboplatinum Weekly schedule . Code(s): R18.0 - MALIGNANT ASCITES (2) Compression fracture of body of thoracic vertebra Assessment/Plan: Bone scan and CT raise possibility of metastatic disease. If feasible would obtain MRI of thoracic and lumbar spine to help elucidate and distinguish between severe DJD and mets. Code(s): M48.54XA - COLLAPSED VERTEBRA, NEC, THORACIC REGION, INIT
[2017-01-13] MEDS ORDERED: QUINAPRIL HCL 20 MG TABLET (FP) ONE (10:28)
[2017-01-13] MEDS: LIDOCAINE 5% TOPICAL PATCH TP SCH ×2 (10:34→10:49)
[2017-01-13] MEDS: amLODIPine BESYLATE 10 MG TABLET (FP) PO SCH (10:34)
[2017-01-13] MEDS: SOTALOL HCL 80 MG TABLET (FP) PO SCH ×2 (10:34→21:56)
[2017-01-13] MEDS: QUINAPRIL HCL 40 MG TABLET (FP) PO SCH (10:34)
--- NOTE | 2017-01-13 11:04 | PN ---
Physical Exam: SUBJECTIVE: Patient seen and examined Patient resting in bed comfortably NAD. s/p port placement yesterday, no complications. Afebrile and hemodynamically stable. + BM. denies abd pain, sob, chest pain, diarrhea, dysuria, n/v. still complains of back pain, relieved by lying on her side. states that she has a history of arthritis, evaluated by ortho 6 mo ago, but admits to recently worsening pain. States she has decreased appetite. OBJECTIVE: Vital Signs Period Temp Pulse Resp BP Sys/Amado Pulse Ox Last 24 Hr 97.3 F-98.3 F 61-68 15-20 109-136/46-88 93-99 GENERAL: The patient is awake, alert, and fully oriented, in no acute distress. HEAD: Normal with no signs of trauma. EYES: extraocular movements intact, sclera anicteric, conjunctiva clear. ENT: moist mucous membranes. NECK: Trachea midline, full range of motion, supple. LUNGS: cta HEART: irregular, S1, S2 ABDOMEN: Hard, distended, nontender, normoactive bowel sounds, no guarding, no rebound, no hepatosplenomegaly, RLQ mass, bandage in place, no erythema. EXTREMITIES: 1+ LE edema. NEUROLOGICAL:No facial asymmetry, Normal speech, gait not observed. PSYCH: Normal mood, normal affect. SKIN: Warm, dry Laboratory Results - last 24 hr 01/13/17 01/13/17 06:12 06:12 WBC 8.6 RBC 3.52 L Hgb 10.3 L Hct 31.2 L MCV 88.7 MCHC 33.1 RDW 13.8 Plt Count 328 MPV 9.5 Neutrophils % 78.9 Lymphocytes % 9.3 Monocytes % 8.9 Eosinophils % 1.6 Basophils % 1.3 Sodium 134 L Potassium 5.0 Chloride 100 Carbon Dioxide 26 Anion Gap 8 BUN 27 H D Creatinine 1.1 H Creat Clearance w eGFR 47.32 Random Glucose 72 L Calcium 8.2 L Total Bilirubin 0.4 AST 44 H ALT 19 D Alkaline Phosphatase 63 D Total Protein 4.7 L D Albumin 2.2 L D Active Medications Generic Name Dose Route Start Last Admin Trade Name Freq PRN Reason Stop Dose Admin Acetaminophen 650 mg 01/11/17 12:58 01/12/17 14:03 Tylenol - PO 650 mg Q4H PRN Administration FEVER OR PAIN Albuterol/Ipratropium 1 amp 01/07/17 22:00 01/12/17 22:13 Duoneb - NEB 1 amp BID [facility] Administration Amlodipine Besylate 10 mg 01/04/17 10:00 01/13/17 10:34 Norvasc - PO 10 mg DAILY [facility] Administration Apixaban 2.5 mg 01/06/17 10:00 01/12/17 21:57 Eliquis - PO 2.5 mg BID [facility] Administration Atorvastatin Calcium 10 mg 01/03/17 22:00 01/12/17 21:57 Lipitor - PO 10 mg HS [facility] Administration IV Flush 10 ml 01/09/17 17:08 01/13/17 06:31 Shashank-Cath Flush IVPUSH 10 ml PRN PRN Administration Protocol Sodium Chloride 1,000 mls @ 42 mls/hr 01/12/17 17:00 01/12/17 17:35 Normal Saline - IV 42 mls/hr ASDIR [facility] Administration Lidocaine 1 patch 01/08/17 16:00 01/13/17 10:49 Lidoderm Patch - TP Not Given DAILY [facility] Quinapril HCl 40 mg 01/04/17 10:00 01/13/17 10:34 Accupril - PO 40 mg DAILY [facility] Administration Sotalol HCl 80 mg 01/03/17 22:00 01/13/17 10:34 Betapace - PO 80 mg BID [facility] Administration Tramadol HCl 50 mg 01/12/17 16:57 01/12/17 17:34 Ultram - PO 50 mg Q6H PRN Administration PAIN ASSESSMENT/PLAN: Abd CT: 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 The large bowel appears normal with no signs of diverticulitis or colitis The small bowel appears normal with no signs of obstruction No hydronephrosis is seen. There is no evidence of compression fracture or suspicious osseous lesion on the visualized bone windows. Bladder US: Extremely limited examination which is nondiagnostic Chest CT: Impression: 4.5 mm calcified granuloma in the right middle lobe. No enlarged mediastinal or hilar lymph nodes are identified. Multiple compression fractures with sclerotic changes, suspicious for pathologic fractures. Upper abdomen ascites CT guided biopsy: Successful CT-guided core biopsy of omental mass. ASSESSMENT/PLAN: The patient is a 86 year old female with a significant PMH of A.Fib, HTN, chronic back pain, pacemeker who presents to the hospital complaining of diarrhea for day and a half. It is watery and she noticed bright blood in it. She states that the bleeding comes from the "skin tag'. It is associated with abdominal discomfort and bloating. She states that she experiences increased frequency with BM over the past several months but never noticed blood in it. She is admitted for diarrhea, abdominal discomfort due to possible malignancy. 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 -CT abdomen/pelvis apprecited above -CT chest appreciated above -CA 125 elevated -Ca19-9, tumor HCG negative -s/p bone scan, possible mets in thoracolumbar spine -GI consult appreciated -Oncology on case: Dr Painting -[facility] consulted (Dr Painting dicussed case on phone) -Port placed yesterday: start firsdt round of carbo taxol today and proceed with weekly rounds. -Assess for side effects including allergic rxn, myelosupression, renal failure , neuropathy, sepsis. Patient may qualify for debulking surgery after chemo. -Recommend MRI spine to confirm mets, as radiation therapy may help with back pain if its due to mets. However, patient declines MRI due to claustrophobia and pain while lying flat. Loss of appetite/anorexia -related to oncology -agrees to marinol 5 mg tid, 30 min before meals. Diarrhea -after ensure -now resolved -patient declines further dietary supplements HTN: -Norvasc 10 mg qd, Sotalol 80 mg BID, accupril 40 mg qd SOB -due to abd mass pressing on diaphragm -duoneb HDL: -Atorvastatin 10 mg PO A.Fib: -rate controlled -hold Eliquis for port placement Chronic back pain: -lidocaine patch DVT PPX; -hold Eliquis for port F/E/N: No/low na-NA @ 42 /Low sodium diet-requires small supplemental meals as patient cant eat a lot at once Dispo: plan d/c with home VNS after confirmed that she tolerated chemo without severe adverse rxn. 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 - SECONDARY MALIGNANT NEOPLASM OF RETROPERITON AND PERITONEUM (6) Atrial fibrillation Code(s): I48.91 - UNSPECIFIED ATRIAL FIBRILLATION Qualifiers: Atrial fibrillation type: paroxysmal Qualified Code(s): I48.0 - Paroxysmal atrial fibrillation (7) Compression fracture of body of thoracic vertebra Code(s): M48.54XA - COLLAPSED VERTEBRA, NEC, THORACIC REGION, INIT (8) DVT prophylaxis Code(s): [id number] - (9) Hyperlipidemia Code(s): E78.5 - HYPERLIPIDEMIA, UNSPECIFIED Qualifiers: Hyperlipidemia type: Pure hypercholesterolemia (10) Hypertension Code(s): I10 - ESSENTIAL (PRIMARY) HYPERTENSION Qualifiers: Hypertension type: essential hypertension Qualified Code(s): I10 - Essential (primary) hypertension Visit type - Emergency Visit Emergency Visit: Yes ED Registration Date: 01/03/17 Care time: The patient presented to the Emergency Department on the above date and was hospitalized for further evaluation of their emergent condition. - New Patient This patient is new to me today: No - Critical Care Critical Care patient: No - Discharge Referral Referred to [facility] Med P.C.: No
[2017-01-13] MEDS ORDERED: PT OWN MED DRAWER 7, Y5N ONE (14:21)
[2017-01-13] MEDS: APIXABAN 2.5 MG TABLET PO SCH ×3 (15:32→21:56)
[2017-01-13] MEDS: DRONABINOL 5 MG CAPSULE PO SCH (17:35)
[2017-01-13] MEDS: SODIUM CHLORIDE 1,000 ML IV SCH ×2 (17:35→21:59)
[2017-01-13] MEDS: ATORVASTATIN CA 10 MG TABLET (FP) PO SCH (21:56)
[2017-01-14 07:34] LABS: MEAN PLT VOLUME 9.5 fl (7.5-11.1); PLATELET COUNT 308 K/MM3 (134-434); RDW 13.3 % (11.6-15.6); WHITE BLOOD COUNT 9.8 K/mm3 (4.0-10.0)
[2017-01-14] MEDS: DRONABINOL 5 MG CAPSULE PO SCH ×3 (07:45→17:18)
[2017-01-14 07:47] LABS: CALCIUM 7.5 mg/dL (8.5-10.1); CREATININE 0.9 mg/dL (0.55-1.02)
[2017-01-14] MEDS ORDERED: QUINAPRIL HCL 20 MG TABLET (FP) ONE (09:13)
[2017-01-14] MEDS ORDERED: PT OWN MED DRAWER 7, Y5N ONE ×2 (09:14→20:54)
[2017-01-14] MEDS: QUINAPRIL HCL 40 MG TABLET (FP) PO SCH (10:31)
[2017-01-14] MEDS: amLODIPine BESYLATE 10 MG TABLET (FP) PO SCH (10:32)
[2017-01-14] MEDS: APIXABAN 2.5 MG TABLET PO SCH ×2 (10:32→21:30)
[2017-01-14] MEDS: LIDOCAINE 5% TOPICAL PATCH TP SCH (10:32)
[2017-01-14] MEDS: SOTALOL HCL 80 MG TABLET (FP) PO SCH ×2 (10:32→21:30)
[2017-01-14] MEDS: ALBUTEROL SO4 2.5/IPRATROPIUM 0.5 INH SOL 3 ML VIAL.NEB. NEB SCH ×2 (10:35→22:30)
--- NOTE | 2017-01-14 13:27 | PN ---
Progress Note (short form) - Note Progress Note: Patient seen and examined Tolerated low dose carboplatinum and taxol Somewhat limited p.o. intake. Had diarrhea one day earlier, but no BM as yet today. No significant abdominal pains, some lower back pains. Last Vital Signs Temp Pulse Resp BP Pulse Ox 97.9 F 69 20 122/51 92 L 01/14/17 05:39 01/14/17 05:39 01/14/17 05:39 01/14/17 05:39 01/13/17 21:00 HEENT: SHU, EOM Intact Oropharynx: No thrush, No mucosit Cor: atrial fib Lungs: diminished breath sounds Abd:distended, ascites, normoactive bowel sounds, non tender Ext:No significant edema Skin: No rashes, Integument intact CBC, BMP 01/14/17 06:00 01/14/17 06:00 Current Medications Generic Name Dose Route Start Last Admin Trade Name Freq PRN Reason Stop Dose Admin Acetaminophen 650 mg 01/11/17 12:58 01/12/17 14:03 Tylenol - PO 650 mg Q4H PRN Administration FEVER OR PAIN Albuterol/Ipratropium 1 amp 01/07/17 22:00 01/14/17 10:35 Duoneb - NEB 1 amp BID [facility] Administration Amlodipine Besylate 10 mg 01/04/17 10:00 01/14/17 10:32 Norvasc - PO 10 mg DAILY [facility] Administration Apixaban 2.5 mg 01/06/17 10:00 01/14/17 10:32 Eliquis - PO 2.5 mg BID [facility] Administration Atorvastatin Calcium 10 mg 01/03/17 22:00 01/13/17 21:56 Lipitor - PO 10 mg HS [facility] Administration Dronabinol 5 mg 01/13/17 17:00 01/14/17 12:21 Marinol - PO 5 mg [id number],[id number],1700 [facility] Administration IV Flush 10 ml 01/09/17 17:08 01/13/17 06:31 Shashank-Cath Flush IVPUSH 10 ml PRN PRN Administration Protocol Sodium Chloride 1,000 mls @ 42 mls/hr 01/12/17 17:00 01/13/17 21:59 Normal Saline - IV 42 mls/hr ASDIR [facility] Administration Lidocaine 1 patch 01/08/17 16:00 01/14/17 10:32 Lidoderm Patch - TP Not Given DAILY [facility] Quinapril HCl 40 mg 01/04/17 10:00 01/14/17 10:31 Accupril - PO 40 mg DAILY [facility] Administration Sotalol HCl 80 mg 01/03/17 22:00 01/14/17 10:32 Betapace - PO 80 mg BID [facility] Administration Tramadol HCl 50 mg 01/12/17 16:57 01/12/17 17:34 Ultram - PO 50 mg Q6H PRN Administration PAIN Impression: 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 _ Has pacer and MRI not available. May need to assess clinical response to chemotherapy for now. Anemia-chronic disease Social service- will be discharged home with family when able Would give additional day of IV's and anti-emetics prn. Problem List - Problems (1) Ascites, malignant Code(s): R18.0 - MALIGNANT ASCITES (2) Compression fracture of body of thoracic vertebra Code(s): M48.54XA - COLLAPSED VERTEBRA, NEC, THORACIC REGION, INIT
--- NOTE | 2017-01-14 16:38 | PN ---
Physical Exam: SUBJECTIVE: Patient seen and examined Patient is feeling better, s/p 1st chemo carbo/taxol. has no appetite at this time. OBJECTIVE: Vital Signs Temperature 97.9 F 01/14/17 14:35 Pulse Rate 68 01/14/17 14:35 Respiratory Rate 20 01/14/17 14:35 Blood Pressure 104/47 01/14/17 14:35 O2 Sat by Pulse Oximetry (%) 92 L 01/13/17 21:00 GENERAL: The patient is awake, alert, and fully oriented, in no acute distress. HEAD: Normal with no signs of trauma. EYES: PERRL, extraocular movements intact, sclera anicteric, conjunctiva clear. ENT: Ears normal, oropharynx clear without exudates, moist mucous membranes. NECK: Trachea midline, full range of motion, supple. LUNGS: Breath sounds equal, clear to auscultation bilaterally, no wheezes, no crackles, no accessory muscle use. HEART: Regular rate and rhythm, S1, S2 without murmur, rub or gallop. ABDOMEN: Soft, distended , NT, normoactive bowel sounds, no guarding, no rebound , no hepatosplenomegaly, no masses. EXTREMITIES: 2+ pulses, warm, well-perfused, no edema. NEUROLOGICAL: Cranial nerves II through XII grossly intact. Normal speech, gait not observed. PSYCH: Normal mood, normal affect. SKIN: Warm, dry, normal turgor, no rashes or lesions noted CBCD WBC 9.8 K/mm3 (4.0-10.0) 01/14/17 06:00 RBC 3.47 M/mm3 (3.60-5.2) L 01/14/17 06:00 Hgb 10.1 GM/dL (10.7-15.3) L 01/14/17 06:00 Hct 30.5 % (32.4-45.2) L 01/14/17 06:00 MCV 88.0 fl (80-96) 01/14/17 06:00 MCHC 33.0 g/dl (32.0-36.0) 01/14/17 06:00 RDW 13.3 % (11.6-15.6) 01/14/17 06:00 Plt Count 308 K/MM3 (134-434) 01/14/17 06:00 MPV 9.5 fl (7.5-11.1) 01/14/17 06:00 CMP Sodium 136 mmol/L (136-145) 01/14/17 06:00 Potassium 5.2 mmol/L (3.5-5.1) H 01/14/17 06:00 Chloride 102 mmol/L (98-107) 01/14/17 06:00 Carbon Dioxide 26 mmol/L (21-32) 01/14/17 06:00 Anion Gap 8 (8-16) 01/14/17 06:00 BUN 24 mg/dL (7-18) H 01/14/17 06:00 Creatinine 0.9 mg/dL (0.55-1.02) 01/14/17 06:00 Creat Clearance w eGFR 47.32 (>60) 01/13/17 06:12 Random Glucose 108 mg/dL (74-106) H D 01/14/17 06:00 Calcium 7.5 mg/dL (8.5-10.1) L 01/14/17 06:00 Total Bilirubin 0.4 mg/dL (0.2-1.0) 01/13/17 06:12 AST 44 U/L (15-37) H 01/13/17 06:12 ALT 19 U/L (12-78) D 01/13/17 06:12 Alkaline Phosphatase 63 U/L (45-117) D 01/13/17 06:12 Total Protein 4.7 g/dl (6.4-8.2) L D 01/13/17 06:12 Albumin 2.2 g/dl (3.4-5.0) L D 01/13/17 06:12 Active Medications Generic Name Dose Route Start Last Admin Trade Name Freq PRN Reason Stop Dose Admin Acetaminophen 650 mg 01/11/17 12:58 01/12/17 14:03 Tylenol - PO 650 mg Q4H PRN Administration FEVER OR PAIN Albuterol/Ipratropium 1 amp 01/07/17 22:00 01/14/17 10:35 Duoneb - NEB 1 amp BID ULICES Administration Amlodipine Besylate 10 mg 01/04/17 10:00 01/14/17 10:32 Norvasc - PO 10 mg DAILY ULICES Administration Apixaban 2.5 mg 01/06/17 10:00 01/14/17 10:32 Eliquis - PO 2.5 mg BID ULICES Administration Atorvastatin Calcium 10 mg 01/03/17 22:00 01/13/17 21:56 Lipitor - PO 10 mg HS ULICES Administration Dronabinol 5 mg 01/13/17 17:00 01/14/17 12:21 Marinol - PO 5 mg 0730,1130,1700 ULICES Administration IV Flush 10 ml 01/09/17 17:08 01/13/17 06:31 Shashank-Cath Flush IVPUSH 10 ml PRN PRN Administration Protocol Sodium Chloride 1,000 mls @ 42 mls/hr 01/12/17 17:00 01/13/17 21:59 Normal Saline - IV 42 mls/hr ASDIR ULICES Administration Lidocaine 1 patch 01/08/17 16:00 01/14/17 10:32 Lidoderm Patch - TP Not Given DAILY ULICES Quinapril HCl 40 mg 01/04/17 10:00 01/14/17 10:31 Accupril - PO 40 mg DAILY ULICES Administration Sotalol HCl 80 mg 01/03/17 22:00 01/14/17 10:32 Betapace - PO 80 mg BID ULICES Administration Tramadol HCl 50 mg 01/12/17 16:57 01/12/17 17:34 Ultram - PO 50 mg Q6H PRN Administration PAIN Home Medications Medication Instructions Recorded Apixaban [Eliquis -] 2.5 mg PO BID #60 tablet 01/19/16 Atorvastatin Ca [Lipitor] 10 mg PO HS #30 tablet 01/19/16 Quinapril HCl [Accupril -] 40 mg PO DAILY #30 tablet 01/19/16 Sotalol HCl [Betapace -] 80 mg PO BID #60 tablet 01/19/16 Alendronate Sodium [Binosto] 70 mg PO WEEKLY 01/03/17 Amlodipine Besylate [Norvasc -] 10 mg PO DAILY 01/03/17 ASSESSMENT/PLAN: 86 y/o lady with h/o A.Fib, HTN, chronic back pain, pacemaker who presents to the hospital complaining of diarrhea and abd discomfort . 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 No recurrence # A fib :cont eliquis . Cont sotalol . # HTN: cont meds Dispo : if stable will send her home in am . Visit type - Emergency Visit Emergency Visit: Yes ED Registration Date: 01/03/17 Care time: The patient presented to the Emergency Department on the above date and was hospitalized for further evaluation of their emergent condition. - New Patient This patient is new to me today: No - Critical Care Critical Care patient: No
[2017-01-14] MEDS: SODIUM CHLORIDE 1,000 ML IV SCH (17:22)
[2017-01-14] MEDS ORDERED: DOCUSATE SODIUM 100 MG CAPSULE (FP) PO ONE (20:42)
[2017-01-14] MEDS: ATORVASTATIN CA 10 MG TABLET (FP) PO SCH (21:30)
[2017-01-14] MEDS ORDERED: PANTOPRAZOLE 40 MG TABLET (FP) PO ONE (23:50)
[2017-01-15 07:39] LABS: BASOPHIL 0.6 % (0-2.0); EOSINOPHIL 1.2 % (0-4.5); MCH 29.7 pg (25.7-33.7); MCHC 33.6 g/dl (32.0-36.0); MEAN CELL VOLUME 88.3 fl (80-96); MEAN PLT VOLUME 9.4 fl (7.5-11.1); NEUTROPHILS 87.7 % (42.8-82.8); PLATELET COUNT 292 K/MM3 (134-434); RDW 13.4 % (11.6-15.6); WHITE BLOOD COUNT 10.3 K/mm3 (4.0-10.0)
[2017-01-15 08:11] LABS: ALBUMIN 2.2 g/dl (3.4-5.0); BILIRUBIN,TOTAL 0.4 mg/dL (0.2-1.0); CALCIUM 7.6 mg/dL (8.5-10.1); CREATININE 0.9 mg/dL (0.55-1.02); MAGNESIUM 2.3 mg/dL (1.8-2.4); TOT PROT 4.7 g/dl (6.4-8.2)
[2017-01-15] MEDS: DRONABINOL 5 MG CAPSULE PO SCH ×3 (08:28→17:27)
[2017-01-15] MEDS: ALBUTEROL SO4 2.5/IPRATROPIUM 0.5 INH SOL 3 ML VIAL.NEB. NEB SCH ×2 (09:55→22:22)
[2017-01-15] MEDS ORDERED: QUINAPRIL HCL 20 MG TABLET (FP) ONE (10:51)
[2017-01-15] MEDS ORDERED: PT OWN MED DRAWER 7, Y5N ONE (10:51)
[2017-01-15] MEDS: SODIUM CHLORIDE 1,000 ML IV SCH ×2 (11:40→17:29)
[2017-01-15] MEDS: LIDOCAINE 5% TOPICAL PATCH TP SCH (11:40)
--- NOTE | 2017-01-15 11:45 | PN ---
Progress Note (short form) - Note Progress Note: Patient seen and examined Did not sleep last night. Had severe reflux. Anorexia, poor p.o. intake . Weak. Debilitated. SOB on minimal exertion. Complains of abdominal discomfort, no bowel movements, and back pains. Last Vital Signs Temp Pulse Resp BP Pulse Ox 97.9 F 62 20 103/54 98 01/15/17 06:02 01/15/17 06:02 01/15/17 06:02 01/15/17 06:02 01/14/17 21:00 HEENT: SHU, EOM Intact Oropharynx: No thrush, No mucositis, coated tongue Neck: Supple Cor: atrial fib, No murmurs, No gallops Lungs: diminished breath sounds bilaterally Abd: Soft, Normal bowel sounds, distended Ext:No significant edema Skin: No rashes, Integument intact CBC, BMP 01/15/17 06:00 01/15/17 06:00 Current Medications Generic Name Dose Route Start Last Admin Trade Name Freq PRN Reason Stop Dose Admin Acetaminophen 650 mg 01/11/17 12:58 01/12/17 14:03 Tylenol - PO 650 mg Q4H PRN Administration FEVER OR PAIN Albuterol/Ipratropium 1 amp 01/07/17 22:00 01/15/17 09:55 Duoneb - NEB 1 amp BID ULICES Administration Amlodipine Besylate 10 mg 01/04/17 10:00 01/14/17 10:32 Norvasc - PO 10 mg DAILY ULICES Administration Apixaban 2.5 mg 01/06/17 10:00 01/14/17 21:30 Eliquis - PO 2.5 mg BID ULICES Administration Atorvastatin Calcium 10 mg 01/03/17 22:00 01/14/17 21:30 Lipitor - PO 10 mg HS ULICES Administration Dronabinol 5 mg 01/13/17 17:00 01/15/17 08:28 Marinol - PO 5 mg 0730,1130,1700 ULICES Administration IV Flush 10 ml 01/09/17 17:08 01/13/17 06:31 Shashank-Cath Flush IVPUSH 10 ml PRN PRN Administration Protocol Sodium Chloride 1,000 mls @ 42 mls/hr 01/12/17 17:00 01/14/17 17:22 Normal Saline - IV 42 mls/hr ASDIR ULICES Administration Lidocaine 1 patch 01/08/17 16:00 01/14/17 10:32 Lidoderm Patch - TP Not Given DAILY ULICES Quinapril HCl 40 mg 01/04/17 10:00 01/14/17 10:31 Accupril - PO 40 mg DAILY ULICES Administration Sotalol HCl 80 mg 01/03/17 22:00 01/14/17 21:30 Betapace - PO 80 mg BID ULICES Administration Tramadol HCl 50 mg 01/12/17 16:57 01/12/17 17:34 Ultram - PO 50 mg Q6H PRN Administration PAIN Impression: [employer] malignancy with intrabdominal involvement; ?? bone involvement S/P low dose taxol, carbo--Cycle 1, day 3 GI toxicity of therapy with anorexia, nausea A/C with eliquis Anemia Weakness and fatigue GERD Plan: anti-emetics with zofran Protonix benadryl h.s. Continue IV and anti-emetics as is necessary Social service- Son lives in [place] , daughter in [facility]. Lives alone in [place] Problem List - Problems (1) Ascites, malignant Code(s): R18.0 - MALIGNANT ASCITES (2) Compression fracture of body of thoracic vertebra Code(s): M48.54XA - COLLAPSED VERTEBRA, NEC, THORACIC REGION, INIT
[2017-01-15] MEDS ORDERED: ONDANSETRON 4 MG/2 ML VIAL IVPB PRN (11:51)
[2017-01-15] MEDS: PANTOPRAZOLE 40 MG TABLET (FP) PO SCH ×2 (12:18→21:25)
[2017-01-15] MEDS: amLODIPine BESYLATE 10 MG TABLET (FP) PO SCH (12:25)
[2017-01-15] MEDS: SOTALOL HCL 80 MG TABLET (FP) PO SCH ×2 (12:25→21:25)
[2017-01-15] MEDS: QUINAPRIL HCL 40 MG TABLET (FP) PO SCH (12:25)
[2017-01-15] MEDS: APIXABAN 2.5 MG TABLET PO SCH ×2 (12:25→21:25)
--- NOTE | 2017-01-15 15:08 | PN ---
Progress Note (short form) - Note Progress Note: Patient is feeling very nauseas , having Gerd like symptoms. Feels weak. s/p chemo. carbo/taxol Vital Signs Temperature 98.3 F 01/15/17 14:01 Pulse Rate 61 01/15/17 14:01 Respiratory Rate 18 01/15/17 14:01 Blood Pressure 115/48 01/15/17 14:01 O2 Sat by Pulse Oximetry (%) 98 01/14/17 21:00 GENERAL: The patient is awake, alert, and fully oriented, in no acute distress. HEAD: Normal with no signs of trauma. EYES: PERRL, extraocular movements intact, sclera anicteric, conjunctiva clear. ENT: Ears normal, oropharynx clear without exudates, moist mucous membranes. NECK: Trachea midline, full range of motion, supple. LUNGS: Breath sounds equal, clear to auscultation bilaterally, no wheezes, no crackles, no accessory muscle use. HEART: Regular rate and rhythm, S1, S2 without murmur, rub or gallop. ABDOMEN: Soft, distended , NT, normoactive bowel sounds, no guarding, no rebound , no hepatosplenomegaly, no masses. EXTREMITIES: 2+ pulses, warm, well-perfused, no edema. NEUROLOGICAL: Cranial nerves II through XII grossly intact. Normal speech. PSYCH: Normal mood, normal affect. SKIN: Warm, dry, normal turgor, no rashes or lesions noted CBCD WBC 10.3 K/mm3 (4.0-10.0) H 01/15/17 06:00 RBC 3.43 M/mm3 (3.60-5.2) L 01/15/17 06:00 Hgb 10.2 GM/dL (10.7-15.3) L 01/15/17 06:00 Hct 30.3 % (32.4-45.2) L 01/15/17 06:00 MCV 88.3 fl (80-96) 01/15/17 06:00 MCHC 33.6 g/dl (32.0-36.0) 01/15/17 06:00 RDW 13.4 % (11.6-15.6) 01/15/17 06:00 Plt Count 292 K/MM3 (134-434) 01/15/17 06:00 MPV 9.4 fl (7.5-11.1) 01/15/17 06:00 CMP Sodium 136 mmol/L (136-145) 01/15/17 06:00 Potassium 5.0 mmol/L (3.5-5.1) 01/15/17 06:00 Chloride 103 mmol/L (98-107) 01/15/17 06:00 Carbon Dioxide 25 mmol/L (21-32) 01/15/17 06:00 Anion Gap 8 (8-16) 01/15/17 06:00 BUN 26 mg/dL (7-18) H 01/15/17 06:00 Creatinine 0.9 mg/dL (0.55-1.02) 01/15/17 06:00 Creat Clearance w eGFR 59.65 (>60) 01/15/17 06:00 Random Glucose 91 mg/dL (74-106) 01/15/17 06:00 Calcium 7.6 mg/dL (8.5-10.1) L 01/15/17 06:00 Total Bilirubin 0.4 mg/dL (0.2-1.0) 01/15/17 06:00 AST 77 U/L (15-37) H D 01/15/17 06:00 ALT 43 U/L (12-78) D 01/15/17 06:00 Alkaline Phosphatase 69 U/L (45-117) 01/15/17 06:00 Total Protein 4.7 g/dl (6.4-8.2) L 01/15/17 06:00 Albumin 2.2 g/dl (3.4-5.0) L 01/15/17 06:00 Current Medications Generic Name Dose Route Start Last Admin Trade Name Freq PRN Reason Stop Dose Admin Acetaminophen 650 mg 01/11/17 12:58 01/12/17 14:03 Tylenol - PO 650 mg Q4H PRN Administration FEVER OR PAIN Albuterol/Ipratropium 1 amp 01/07/17 22:00 01/15/17 09:55 Duoneb - NEB 1 amp BID ULICES Administration Amlodipine Besylate 10 mg 01/04/17 10:00 01/15/17 12:25 Norvasc - PO 10 mg DAILY ULICES Administration Apixaban 2.5 mg 01/06/17 10:00 01/15/17 12:25 Eliquis - PO 2.5 mg BID ULICES Administration Atorvastatin Calcium 10 mg 01/03/17 22:00 01/14/17 21:30 Lipitor - PO 10 mg HS ULICES Administration Diphenhydramine HCl 25 mg 01/15/17 22:00 Benadryl - PO HS PRN AGITATION Dronabinol 5 mg 01/13/17 17:00 01/15/17 12:23 Marinol - PO 5 mg 0730,1130,1700 ULICES Administration IV Flush 10 ml 01/09/17 17:08 01/13/17 06:31 Shashank-Cath Flush IVPUSH 10 ml PRN PRN Administration Protocol Sodium Chloride 1,000 mls @ 42 mls/hr 01/12/17 17:00 01/15/17 11:40 Normal Saline - IV 42 mls/hr ASDIR ULICES Administration Lidocaine 1 patch 01/08/17 16:00 01/15/17 11:40 Lidoderm Patch - TP 1 patch DAILY ULICES Administration Ondansetron HCl 8 mg 01/15/17 11:51 01/15/17 12:18 Zofran Injection IVPB 8 mg Q8H PRN Administration NAUSEA Pantoprazole Sodium 40 mg 01/15/17 12:00 01/15/17 12:18 Protonix - PO 40 mg BID ULICES Administration Quinapril HCl 40 mg 01/04/17 10:00 01/15/17 12:25 Accupril - PO 40 mg DAILY ULICES Administration Sotalol HCl 80 mg 01/03/17 22:00 01/15/17 12:25 Betapace - PO 80 mg BID ULICES Administration Tramadol HCl 50 mg 01/12/17 16:57 01/12/17 17:34 Ultram - PO 50 mg Q6H PRN Administration PAIN Home Medications Medication Instructions Recorded Apixaban [Eliquis -] 2.5 mg PO BID #60 tablet 01/19/16 Atorvastatin Ca [Lipitor] 10 mg PO HS #30 tablet 01/19/16 Quinapril HCl [Accupril -] 40 mg PO DAILY #30 tablet 01/19/16 Sotalol HCl [Betapace -] 80 mg PO BID #60 tablet 01/19/16 Alendronate Sodium [Binosto] 70 mg PO WEEKLY 01/03/17 Amlodipine Besylate [Norvasc -] 10 mg PO DAILY 01/03/17 86 y/o lady with h/o A.Fib, HTN, chronic back pain, pacemaker who presents to the hospital complaining of diarrhea and abd discomfort . 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 # Rectal bleed , likely form external hemorrhoids. No recurrence # A fib :cont eliquis .cont sotalol . # HTN: cont meds Dispo : if stable will send her home in am . Visit type - Emergency Visit Emergency Visit: Yes ED Registration Date: 01/03/17 Care time: The patient presented to the Emergency Department on the above date and was hospitalized for further evaluation of their emergent condition. - New Patient This patient is new to me today: No - Critical Care Critical Care patient: No
[2017-01-15] MEDS ORDERED: traMADol HCL 50 MG TABLET PO PRN (21:18)
[2017-01-15] MEDS: ATORVASTATIN CA 10 MG TABLET (FP) PO SCH (21:25)
[2017-01-15] MEDS ORDERED: diphenhydrAMINE HCL 25 MG CAPSULE (FP) PO PRN (22:00)
[2017-01-16 05:44] VITALS: PULSE 64
[2017-01-16] MEDS: PORTA CATH FLUSH 10 ML IVPUSH PRN (06:13)
[2017-01-16 08:22] LABS: BASOPHIL 0.5 % (0-2.0); EOSINOPHIL 1.9 % (0-4.5); MCH 29.1 pg (25.7-33.7); MCHC 32.7 g/dl (32.0-36.0); MEAN CELL VOLUME 89.1 fl (80-96); MEAN PLT VOLUME 9.8 fl (7.5-11.1); NEUTROPHILS 83.7 % (42.8-82.8); PLATELET COUNT 264 K/MM3 (134-434); RDW 13.5 % (11.6-15.6); WHITE BLOOD COUNT 6.6 K/mm3 (4.0-10.0)
[2017-01-16 08:33] LABS: ALBUMIN 2.1 g/dl (3.4-5.0); CALCIUM 7.6 mg/dL (8.5-10.1); MAGNESIUM 2.3 mg/dL (1.8-2.4)
[2017-01-16 08:36] LABS: BILIRUBIN,TOTAL 0.5 mg/dL (0.2-1.0); CREATININE 0.9 mg/dL (0.55-1.02); TOT PROT 4.3 g/dl (6.4-8.2)
[2017-01-16] MEDS ORDERED: PT OWN MED DRAWER 7, Y5N ONE (08:52)
--- NOTE | 2017-01-16 08:53 | PN ---
Teaching Attending Note Name of Resident: Misty Agee ATTENDING PHYSICIAN STATEMENT I saw and evaluated the patient. I reviewed the resident's note and discussed the case with the resident. I agree with the resident's findings and plan as documented. Patient is comfortable with no acute distress, no shortness of breath, no nausea or vomiting, no abdominal pain. Vital Signs Temperature 97.9 F 01/16/17 14:07 Pulse Rate 64 01/16/17 14:07 Respiratory Rate 20 01/16/17 14:07 Blood Pressure 110/50 01/16/17 14:07 O2 Sat by Pulse Oximetry (%) 94 L 01/16/17 09:00 CBCD WBC 6.6 K/mm3 (4.0-10.0) D 01/16/17 06:30 RBC 3.32 M/mm3 (3.60-5.2) L 01/16/17 06:30 Hgb 9.7 GM/dL (10.7-15.3) L 01/16/17 06:30 Hct 29.6 % (32.4-45.2) L 01/16/17 06:30 MCV 89.1 fl (80-96) 01/16/17 06:30 MCHC 32.7 g/dl (32.0-36.0) 01/16/17 06:30 RDW 13.5 % (11.6-15.6) 01/16/17 06:30 Plt Count 264 K/MM3 (134-434) 01/16/17 06:30 MPV 9.8 fl (7.5-11.1) 01/16/17 06:30 CMP Sodium 135 mmol/L (136-145) L 01/16/17 06:00 Potassium 5.1 mmol/L (3.5-5.1) 01/16/17 06:00 Chloride 102 mmol/L (98-107) 01/16/17 06:00 Carbon Dioxide 25 mmol/L (21-32) 01/16/17 06:00 Anion Gap 8 (8-16) 01/16/17 06:00 BUN 23 mg/dL (7-18) H 01/16/17 06:00 Creatinine 0.9 mg/dL (0.55-1.02) 01/16/17 06:00 Creat Clearance w eGFR 59.65 (>60) 01/16/17 06:00 Random Glucose 80 mg/dL (74-106) 01/16/17 06:00 Calcium 7.6 mg/dL (8.5-10.1) L 01/16/17 06:00 Total Bilirubin 0.5 mg/dL (0.2-1.0) D 01/16/17 06:00 AST 47 U/L (15-37) H D 01/16/17 06:00 ALT 28 U/L (12-78) D 01/16/17 06:00 Alkaline Phosphatase 63 U/L (45-117) 01/16/17 06:00 Total Protein 4.3 g/dl (6.4-8.2) L 01/16/17 06:00 Albumin 2.1 g/dl (3.4-5.0) L 01/16/17 06:00 Current Medications Generic Name Dose Route Start Last Admin Trade Name Freq PRN Reason Stop Dose Admin Acetaminophen 650 mg 01/11/17 12:58 01/12/17 14:03 Tylenol - PO 650 mg Q4H PRN Administration FEVER OR PAIN Albuterol/Ipratropium 1 amp 01/07/17 22:00 01/16/17 10:00 Duoneb - NEB 1 amp BID ULICES Administration Amlodipine Besylate 10 mg 01/04/17 10:00 01/16/17 09:14 Norvasc - PO 10 mg DAILY ULICES Administration Apixaban 2.5 mg 01/06/17 10:00 01/16/17 09:06 Eliquis - PO 2.5 mg BID ULICES Administration Atorvastatin Calcium 10 mg 01/03/17 22:00 01/15/17 21:25 Lipitor - PO 10 mg HS ULICES Administration Diphenhydramine HCl 25 mg 01/15/17 22:00 Benadryl - PO HS PRN AGITATION Dronabinol 5 mg 01/13/17 17:00 01/16/17 12:38 Marinol - PO Not Given 0730,1130,1700 ULICES IV Flush 10 ml 01/09/17 17:08 01/16/17 06:13 Shashank-Cath Flush IVPUSH 10 ml PRN PRN Administration Protocol Sodium Chloride 1,000 mls @ 42 mls/hr 01/12/17 17:00 01/15/17 17:29 Normal Saline - IV Not Given ASDIR ULICES Lidocaine 1 patch 01/08/17 16:00 01/16/17 09:06 Lidoderm Patch - TP 1 patch DAILY ULICES Administration Ondansetron HCl 8 mg 01/15/17 11:51 01/15/17 12:18 Zofran Injection IVPB 8 mg Q8H PRN Administration NAUSEA Pantoprazole Sodium 40 mg 01/15/17 12:00 01/16/17 09:07 Protonix - PO 40 mg BID ULICES Administration Quinapril HCl 40 mg 01/04/17 10:00 01/15/17 12:25 Accupril - PO 40 mg DAILY ULICES Administration Sotalol HCl 80 mg 01/03/17 22:00 01/16/17 09:06 Betapace - PO 80 mg BID ULICES Administration Tramadol HCl 50 mg 01/15/17 21:18 01/15/17 21:24 Ultram - PO 50 mg Q6H PRN Administration PAIN Home Medications Medication Instructions Recorded Apixaban [Eliquis -] 2.5 mg PO BID #60 tablet 01/19/16 Atorvastatin Ca [Lipitor] 10 mg PO HS #30 tablet 01/19/16 Quinapril HCl [Accupril -] 40 mg PO DAILY #30 tablet 01/19/16 Sotalol HCl [Betapace -] 80 mg PO BID #60 tablet 01/19/16 Alendronate Sodium [Binosto] 70 mg PO WEEKLY 01/03/17 Albuterol 2.5/Ipratropium 0.5 1 amp NEB BID #5 amp 01/16/17 [Duoneb -] Amlodipine Besylate [Norvasc -] 10 mg PO DAILY #30 tablet 01/16/17 Diphenhydramine HCl [Benadryl 25 mg PO HS PRN #30 tab 01/16/17 Capsule -] Dronabinol [Marinol -] 5 mg PO 0730,1130,1700 #90 tab MDD 01/16/17 30 Lidocaine 5% Patch [Lidoderm -] 1 patch TP DAILY #15 patch 01/16/17 Ondansetron HCl [Zofran] 8 mg PO Q4H #120 tablet 01/16/17 Shashank-Cath Flush [Shashank-Cath Flush 10 ml IVPUSH PRN PRN #30 ml 01/16/17 -] Tramadol HCl [Ultram -] 50 mg PO Q6H PRN #120 tablet MDD 01/16/17 200 ASSESSMENT AND PLAN: 86 y/o lady with h/o A.Fib, HTN, chronic back pain, pacemaker who presents to the hospital complaining of diarrhea and abd discomfort . 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 # Rectal bleed , likely form external hemorrhoids. No recurrence # A fib :cont eliquis .cont sotalol . # HTN: cont meds will hold Accupril for now since potassium on a high end of normal. Will hold/Dc Accupril if needed or will reduce the dose of accupril to 20mg, since potassium is 5.1 , will continue to hold for now , patient is on Sotalol, Norvasc for High blood pressure, and Afib.
[2017-01-16] MEDS: DRONABINOL 5 MG CAPSULE PO SCH ×2 (09:05→12:38)
[2017-01-16] MEDS: SOTALOL HCL 80 MG TABLET (FP) PO SCH (09:06)
[2017-01-16] MEDS: LIDOCAINE 5% TOPICAL PATCH TP SCH (09:06)
[2017-01-16] MEDS: APIXABAN 2.5 MG TABLET PO SCH (09:06)
[2017-01-16] MEDS: PANTOPRAZOLE 40 MG TABLET (FP) PO SCH (09:07)
[2017-01-16] MEDS: amLODIPine BESYLATE 10 MG TABLET (FP) PO SCH ×2 (09:07→09:14)
[2017-01-16] MEDS: ALBUTEROL SO4 2.5/IPRATROPIUM 0.5 INH SOL 3 ML VIAL.NEB. NEB SCH (10:00)
[2017-01-16 14:10] VITALS: BP 110/50; TEMP 97.9
--- NOTE | 2017-01-16 14:34 | DS ---
Physical Exam: SUBJECTIVE: Patient seen and examined Patient resting in bed comfortably NAD. s/p chemo fri, no more n/v today w/o zofran. Afebrile and hemodynamically stable. + BM. denies abd pain, sob, chest pain, diarrhea, dysuria, n/v. still complains of back pain, relieved by lying on her side. States she has decreased appetite. OBJECTIVE: Vital Signs Period Temp Pulse Resp BP Sys/Amado Pulse Ox Last 24 Hr 97.8 F-98.6 F 62-64 18-20 107-133/48-52 93 PHYSICAL EXAM GENERAL: The patient is awake, alert, and fully oriented, in no acute distress. HEAD: Normal with no signs of trauma. EYES: extraocular movements intact, sclera anicteric, conjunctiva clear. ENT: moist mucous membranes. NECK: Trachea midline, full range of motion, supple. LUNGS: cta HEART: irregular, S1, S2 ABDOMEN: Hard, distended, nontender, normoactive bowel sounds, no guarding, no rebound, no hepatosplenomegaly, RLQ mass, bandage in place, no erythema. EXTREMITIES: 1+ LE edema. NEUROLOGICAL:No facial asymmetry, Normal speech, gait not observed. PSYCH: Normal mood, normal affect. 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 The large bowel appears normal with no signs of diverticulitis or colitis The small bowel appears normal with no signs of obstruction No hydronephrosis is seen. There is no evidence of compression fracture or suspicious osseous lesion on the visualized bone windows. Bladder US: Extremely limited examination which is nondiagnostic Chest CT: Impression: 4.5 mm calcified granuloma in the right middle lobe. No enlarged mediastinal or hilar lymph nodes are identified. Multiple compression fractures with sclerotic changes, suspicious for pathologic fractures. 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 The patient is a 86 year old female with a significant PMH of A.Fib, HTN, chronic back pain, pacemeker who presents to the hospital complaining of diarrhea for day and a half. It is watery and she noticed bright blood in it. She states that the bleeding comes from the "skin tag'. It is associated with abdominal discomfort and bloating. She states that she experiences increased frequency with BM over the past several months but never noticed blood in it. She is admitted for diarrhea, abdominal discomfort due to possible malignancy. Her imaging, mentioned above, revealed intraperitoneal carcinomatosis. 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 She was evaluated by oncology: Dr Painting, Dr Nelson. She had a Port placed and started first round of weekly carbo taxol on mon. Patient may qualify for debulking surgery after chemo. She has back pain and possible mets on CT and bone scan. We recommend MRI spine to confirm mets, as radiation therapy may help with back pain if its due to mets. However, patient declines MRI due to claustrophobia and pain while lying flat. For Loss of appetite/anorexia she was prescribed marinol 5 mg tid, 30 min before meals. 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 You were evaluated by oncology and gastroenterology. You will be getting chemotherapy with carbo/taxol on a weekly basis at an infusion center. You are being prescribed zofran pills for nausea and marinol (take 30 min before meals) for appetite stimulation, nausea relief and mood elevation Please follow up with oncology and [employer] oncology within a week of discharge. Return to hospital if symptoms worsen. Referrals: Eden Booker MD [Staff Physician] - 2 Weeks Andre Nelson MD [Staff Physician] - 1 Week Disposition: VNS/HOME HEALTH CARE - Home Medications Comprehensive Discharge Medication List: Ambulatory Orders Apixaban [Eliquis -] 2.5 mg PO BID #60 tablet 01/19/16 Atorvastatin Ca [Lipitor] 10 mg PO HS #30 tablet 01/19/16 Quinapril HCl [Accupril -] 40 mg PO DAILY #30 tablet 01/19/16 Sotalol HCl [Betapace -] 80 mg PO BID #60 tablet 01/19/16 Alendronate Sodium [Binosto] 70 mg PO WEEKLY 01/03/17 Amlodipine Besylate [Norvasc -] 10 mg PO DAILY 01/03/17 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 - SECONDARY MALIGNANT NEOPLASM OF RETROPERITON AND PERITONEUM (6) Atrial fibrillation Code(s): I48.91 - UNSPECIFIED ATRIAL FIBRILLATION Qualifiers: Atrial fibrillation type: paroxysmal Qualified Code(s): I48.0 - Paroxysmal atrial fibrillation (7) Compression fracture of body of thoracic vertebra Code(s): M48.54XA - COLLAPSED VERTEBRA, NEC, THORACIC REGION, INIT (8) DVT prophylaxis Code(s): [id number] - (9) Hyperlipidemia Code(s): E78.5 - HYPERLIPIDEMIA, UNSPECIFIED Qualifiers: Hyperlipidemia type: Pure hypercholesterolemia (10) Hypertension Code(s): I10 - ESSENTIAL (PRIMARY) HYPERTENSION Qualifiers: Hypertension type: essential hypertension Qualified Code(s): I10 - Essential (primary) hypertension This patient is new to me today: No Emergency Visit: Yes ED Registration Date: 01/03/17 Care time: The patient presented to the Emergency Department on the above date and was hospitalized for further evaluation of their emergent condition. Critical Care patient: No - Discharge Referral Referred to [facility] Med P.C.: No
--- NOTE | 2017-01-16 16:29 | PN ---
Progress Note (short form) - Note Progress Note: PAtient seen and examined Discharged and ready to leave Feels better today Last Vital Signs Temp Pulse Resp BP Pulse Ox 97.9 F 64 20 110/50 94 L 01/16/17 14:07 01/16/17 14:07 01/16/17 14:07 01/16/17 14:07 01/16/17 09:00 Neck: Supple Cor: RSR, No murmurs, No gallops Lungs: Clear to P&A Abd: Soft, Normal bowel sounds, distended. 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 in the office discussed with daughter and patient -- home meds --zofran prn, compazine prn, prilosec 20mg daily
== END 2017-01-16 16:30 | disposition home health service (06) | DRG 375 ==
LOC: JER 10:50 → JERBED 15:30 → OBSVTOIN 16:57 → J6S 19:13 → J7W 01-11 23:09
PROVIDERS: ADMIT Internal Medicine; ATTEND Internal Medicine
PROC: 0DBS4ZX (ICD-10-PCS; principal; 2017-01-05)
PROC: 0JH63XZ Insertion of Tunneled Vascular Access Device into Chest Subcutaneous Tissue and Fascia, Percutaneous Approach (ICD-10-PCS; 2017-01-12)
PROC: 3E03305 Introduction of Other Antineoplastic into Peripheral Vein, Percutaneous Approach (ICD-10-PCS; 2017-01-13)
DX: C78.6 Secondary malignant neoplasm of retroperitoneum and peritoneum (principal); C56.9 Malignant neoplasm of unspecified ovary; M48.54XA Collapsed vertebra, not elsewhere classified, thoracic region, initial encounter for fracture; K62.5 Hemorrhage of anus and rectum; R18.8 Other ascites; K57.30 Diverticulosis of large intestine without perforation or abscess without bleeding; R19.7 Diarrhea, unspecified; E78.5 Hyperlipidemia, unspecified; I10 Essential (primary) hypertension; D64.9 Anemia, unspecified; K21.9 Gastro-esophageal reflux disease without esophagitis; R53.1 Weakness; M54.9 Dorsalgia, unspecified; I48.0 Paroxysmal atrial fibrillation; Z87.891 Personal history of nicotine dependence
CPT/HCPCS: 32405; 36415; 36561; 49180; 71250-TC; 74176-TC; 76856-TC; 76937-TC; 77001-TC; 77012-TC; 78306-TC; 80048; 80053; 81003; 81015; 82105; 82150; 82272; 82378; 83520; 83690; 83735; 84100; 84702; 85025; 85027; 85610; 85730; 86301; 86304; 87086; 87177; 87207; 87209; 87324; 87328; 87329; 87449; 88305-TC; 88341-TC; 93005; 93010; 94640; 96413; 96415; 96417; 97116-GP; 97161-GP; 99284-25; A9503; C1788; G0378; Q9967

== ENCOUNTER 2017-01-20 10:40 | Inpatient (IN) | payer OTHER ==
[2017-01-20] MEDS ORDERED: SODIUM CHLORIDE 250 ML IV ONE (11:15)
[2017-01-20 12:07] LABS: MCH 29.1 pg (25.7-33.7); MCHC 33.4 g/dl (32.0-36.0); MEAN CELL VOLUME 87.2 fl (80-96); MEAN PLT VOLUME 9.2 fl (7.5-11.1); PLATELET COUNT 338 K/MM3 (134-434); RDW 13.4 % (11.6-15.6); WHITE BLOOD COUNT 5.8 K/mm3 (4.0-10.0)
[2017-01-20 12:20] LABS: INR 1.11 (0.82-1.09); PROTHROMBIN TIME (PATIENT) 12.2 SEC (9.98-11.88)
[2017-01-20] MEDS ORDERED: ONDANSETRON IVPB ONE (12:30)
[2017-01-20] MEDS ORDERED: ACETAMINOPHEN 325 MG TABLET (FP) PO ONE (12:30)
[2017-01-20] MEDS ORDERED: [UNRECOGNIZED DRUG - OTHER] IVPB ONE (12:30)
[2017-01-20] MEDS ORDERED: DEXAMETHASONE IVPB ONE (12:30)
[2017-01-20] MEDS ORDERED: DIPHENHYDRAMINE IVPB ONE (12:30)
[2017-01-20 12:31] LABS: ALBUMIN 2.7 g/dl (3.4-5.0); ALK PHOS 79 U/L (45-117); ANION GAP 12 (8-16); BILIRUBIN,TOTAL 0.5 mg/dL (0.2-1.0); CALCIUM 8.3 mg/dL (8.5-10.1); CO2 25 mmol/L (21-32); CREATININE 0.7 mg/dL (0.55-1.02); GLUCOSE,RANDOM 91 mg/dL (74-106); SGOT/AST 35 U/L (15-37); SGPT/ALT 24 U/L (12-78); TOT PROT 5.3 g/dl (6.4-8.2)
[2017-01-20] MEDS ORDERED: SODIUM CHLORIDE IVPB ONE (13:00)
[2017-01-20] MEDS ORDERED: PACLITAXEL IVPB ONE (13:00)
[2017-01-20] MEDS ORDERED: SODIUM CHLORIDE IV ONE (14:00)
[2017-01-20] MEDS ORDERED: CARBOPLATIN IV ONE (14:00)
[2017-01-20] MEDS ORDERED: ACETAMINOPHEN 325 MG TABLET (FP) ONE (16:44)
--- NOTE | 2017-01-20 17:03 | HP ---
[facility] - Chief Complaint Chief Complaint: Here for elective chemotherapy. c/o mild abdominal distention / shortness of breath. c/o lower extremity swelling History Source: Patient Limitations to Obtaining History: No Limitations - Past Medical History Allergies/Adverse Reactions: Allergies Allergy/AdvReac Type Severity Reaction Status Date / Time No Known Allergies Allergy Verified 01/03/17 10:59 [employer]VIS[employer]ESSING: Yes: TIA (2014) Cardiovascular: Yes: AFIB (2014 with PPN placed), HTN, Hyperlipdemia Gastrointestinal: Yes: Diverticulosis Musculoskeletal: Yes: Chronic low back pain (collapsed fractures lumbar vertebrae 2014 ), Osteoarthritis - Current Medications Current Medications: Home Medications Medication Instructions Recorded Apixaban [Eliquis -] 2.5 mg PO BID #60 tablet 01/19/16 Atorvastatin Ca [Lipitor] 10 mg PO HS #30 tablet 01/19/16 Sotalol HCl [Betapace -] 80 mg PO BID #60 tablet 01/19/16 Albuterol Sulfate Inhaler - 1 puff IH Q4H PRN #5 inhaler 01/16/17 [Ventolin HFA Inhaler -] Amlodipine Besylate [Norvasc -] 10 mg PO DAILY #30 tablet 01/16/17 Diphenhydramine HCl [Benadryl 25 mg PO HS PRN #30 tab 01/16/17 Capsule -] Dronabinol [Marinol -] 5 mg PO 0730,1130,1700 #9 tab MDD 3 01/16/17 Lidocaine 5% Patch [Lidoderm -] 1 patch TP DAILY #15 patch 01/16/17 Ondansetron HCl [Zofran] 8 mg PO Q4H #120 tablet 01/16/17 Shashank-Cath Flush [Shashank-Cath Flush 10 ml IVPUSH PRN PRN #30 ml 01/16/17 -] Tramadol HCl [Ultram -] 50 mg PO Q6H PRN #12 tablet MDD 4 01/16/17 [facility] Physical Exam - Physical Examination Vital Signs: Vital Signs Period Temp Pulse Resp BP Sys/Amado Pulse Ox Last 24 Hr 97.3 F 64 20 141/63 General Appearance: Alert & Oriented x3 ENT: Clear Lung: Clear to auscultation, Normal air movement Heart: Regular rate & rhythm, Normal S1, Normal S2 Abdomen: Soft, No tenderness, Normal bowel sounds Extremities: No edema Neurological: Intact Satellite Impression/Plan - Impression/Plan Impression: 86 y/o patient with metastatic ovarian cancer, high grade serous. C2 W2 carbo/taxol. will give IV lasix for lower ext. edema. monitor lytes. u/ s guided paracentesis. duplex u/s is negative. discussed with son
[2017-01-20] MEDS ORDERED: diphenhydrAMINE HCL 25 MG CAPSULE (FP) PO PRN (17:09)
[2017-01-20] MEDS ORDERED: traMADol HCL 50 MG TABLET PO PRN (17:11)
[2017-01-20 20:52] VITALS: BMI 23.2
[2017-01-20] MEDS: APIXABAN 2.5 MG TABLET PO SCH (21:03)
[2017-01-20] MEDS: SOTALOL HCL 80 MG TABLET (FP) PO SCH (21:03)
[2017-01-20] MEDS: ATORVASTATIN CA 10 MG TABLET (FP) PO SCH (21:04)
[2017-01-21 08:58] LABS: MCH 28.5 pg (25.7-33.7); MCHC 32.7 g/dl (32.0-36.0); MEAN CELL VOLUME 87.2 fl (80-96); MEAN PLT VOLUME 8.9 fl (7.5-11.1); PLATELET COUNT 311 K/MM3 (134-434); RDW 13.5 % (11.6-15.6); WHITE BLOOD COUNT 4.4 K/mm3 (4.0-10.0)
[2017-01-21] MEDS: PANTOPRAZOLE 40 MG TABLET (FP) PO SCH (09:17)
[2017-01-21] MEDS: SOTALOL HCL 80 MG TABLET (FP) PO SCH ×2 (09:17→21:34)
[2017-01-21] MEDS: amLODIPine BESYLATE 10 MG TABLET (FP) PO SCH (09:17)
[2017-01-21] MEDS: APIXABAN 2.5 MG TABLET PO SCH ×4 (09:17→21:34)
[2017-01-21] MEDS: DRONABINOL 5 MG CAPSULE PO SCH (09:17)
[2017-01-21 09:26] LABS: ALBUMIN 2.6 g/dl (3.4-5.0); ALK PHOS 75 U/L (45-117); ANION GAP 10 (8-16); BILIRUBIN,TOTAL 0.5 mg/dL (0.2-1.0); CO2 26 mmol/L (21-32); CREATININE 0.7 mg/dL (0.55-1.02); GLUCOSE,RANDOM 98 mg/dL (74-106); SGOT/AST 32 U/L (15-37); SGPT/ALT 23 U/L (12-78); TOT PROT 5.3 g/dl (6.4-8.2)
[2017-01-21] MEDS: ALBUTEROL SO4 0.083% IH SOL 2.5 MG/3 ML VIAL.NEB. NEB PRN (10:32)
--- NOTE | 2017-01-21 13:31 | PN ---
Progress Note (short form) - Note Progress Note: PAtient seen and examined Feels tired Last Vital Signs Temp Pulse Resp BP Pulse Ox 98 F 63 20 130/62 96 01/21/17 09:05 01/21/17 09:05 01/21/17 09:05 01/21/17 09:05 01/21/17 09:00 Cor: RSR, No murmurs, No gallops Lungs: decreased at bases Abd: Soft, Normal bowel sounds, mild ascites Ext:No significant edema Abnormal Lab Results 01/21/17 01/21/17 08:40 08:40 RBC 3.35 L Hgb 9.5 L Hct 29.2 L Calcium 8.0 L Total Protein 5.3 L Albumin 2.6 L Active Medications Generic Name Dose Route Start Last Admin Trade Name Freq PRN Reason Stop Dose Admin Albuterol Sulfate 1 amp 01/20/17 17:07 01/21/17 10:32 Ventolin 0.083% Nebulizer Soln - NEB 1 amp Q4H PRN Administration SHORT OF BREATH/WHEEZING Amlodipine Besylate 10 mg 01/21/17 10:00 01/21/17 09:17 Norvasc - PO 10 mg DAILY ULICES Administration Apixaban 2.5 mg 01/20/17 22:00 01/21/17 10:07 Eliquis - PO 2.5 mg BID ULICES Administration Atorvastatin Calcium 10 mg 01/20/17 22:00 01/20/17 21:04 Lipitor - PO 10 mg HS ULICES Administration Diphenhydramine HCl 25 mg 01/20/17 17:09 Benadryl - PO HS PRN INSOMNIA Dronabinol 5 mg 01/21/17 10:00 01/21/17 09:17 Marinol - PO 5 mg DAILY ULICES Administration Pantoprazole Sodium 40 mg 01/21/17 10:00 01/21/17 09:17 Protonix - PO 40 mg DAILY ULICES Administration Sotalol HCl 80 mg 01/20/17 22:00 01/21/17 09:17 Betapace - PO 80 mg BID ULICES Administration Tramadol HCl 50 mg 01/20/17 17:11 Ultram - PO Q8H PRN PAIN A/P 86 y/o patient with metastatic ovarian cancer s/p carbo/taxol yesterday tolerating well will dose lasix today for consideration of paracentesis on monday
[2017-01-21] MEDS ORDERED: FUROSEMIDE 40 MG/4 ML INJECTABLE VIAL IVPUSH ONE (14:00)
[2017-01-21] MEDS: ATORVASTATIN CA 10 MG TABLET (FP) PO SCH (21:34)
[2017-01-22] MEDS: ALBUTEROL SO4 0.083% IH SOL 2.5 MG/3 ML VIAL.NEB. NEB PRN ×3 (00:08→22:55)
[2017-01-22] MEDS ORDERED: PT OWN MED DRAWER 7, Y5N ONE (10:55)
[2017-01-22] MEDS: PANTOPRAZOLE 40 MG TABLET (FP) PO SCH (10:57)
[2017-01-22] MEDS: SOTALOL HCL 80 MG TABLET (FP) PO SCH ×2 (10:57→21:50)
[2017-01-22] MEDS: APIXABAN 2.5 MG TABLET PO SCH (10:57)
[2017-01-22] MEDS: DRONABINOL 5 MG CAPSULE PO SCH (10:57)
[2017-01-22] MEDS: amLODIPine BESYLATE 10 MG TABLET (FP) PO SCH (10:57)
--- NOTE | 2017-01-22 16:09 | PN ---
Progress Note (short form) - Note Progress Note: PAtient seen and examined Feels tired Last Vital Signs Temp Pulse Resp BP Pulse Ox 97.5 F L 63 20 107/61 97 01/22/17 13:31 01/22/17 13:31 01/22/17 13:31 01/22/17 13:31 01/22/17 08:39 Cor: RSR, No murmurs, No gallops Lungs: decreased at bases Abd: Soft, Normal bowel sounds, mild ascites Ext:2+ edema Active Medications Generic Name Dose Route Start Last Admin Trade Name Freq PRN Reason Stop Dose Admin Albuterol Sulfate 1 amp 01/20/17 17:07 01/22/17 11:17 Ventolin 0.083% Nebulizer Soln - NEB 1 amp Q4H PRN Administration SHORT OF BREATH/WHEEZING Amlodipine Besylate 10 mg 01/21/17 10:00 01/22/17 10:57 Norvasc - PO 10 mg DAILY ULICES Administration Apixaban 2.5 mg 01/20/17 22:00 01/22/17 10:57 Eliquis - PO 2.5 mg BID ULICES Administration Atorvastatin Calcium 10 mg 01/20/17 22:00 01/21/17 21:34 Lipitor - PO 10 mg HS ULICES Administration Diphenhydramine HCl 25 mg 01/20/17 17:09 Benadryl - PO HS PRN INSOMNIA Dronabinol 5 mg 01/21/17 10:00 01/22/17 10:57 Marinol - PO 5 mg DAILY ULICES Administration Pantoprazole Sodium 40 mg 01/21/17 10:00 01/22/17 10:57 Protonix - PO 40 mg DAILY ULICES Administration Sotalol HCl 80 mg 01/20/17 22:00 01/22/17 10:57 Betapace - PO 80 mg BID ULICES Administration Tramadol HCl 50 mg 01/20/17 17:11 Ultram - PO Q8H PRN PAIN A/P 86 y/o patient with metastatic ovarian cancer s/p carbo/taxol tolerating well will dose lasix today for consideration of paracentesis on monday
[2017-01-22 16:45] LABS: MCH 29.3 pg (25.7-33.7); MCHC 33.4 g/dl (32.0-36.0); MEAN CELL VOLUME 87.8 fl (80-96); PLATELET COUNT 315 K/MM3 (134-434); RDW 13.6 % (11.6-15.6); WHITE BLOOD COUNT 5.2 K/mm3 (4.0-10.0)
[2017-01-22 17:07] LABS: ALBUMIN 2.7 g/dl (3.4-5.0); ANION GAP 10 (8-16); CALCIUM 8.1 mg/dL (8.5-10.1); CO2 30 mmol/L (21-32); CREATININE 0.8 mg/dL (0.55-1.02); GLUCOSE,RANDOM 87 mg/dL (74-106); SGOT/AST 35 U/L (15-37); SGPT/ALT 21 U/L (12-78)
[2017-01-22 17:09] LABS: ALK PHOS 84 U/L (45-117); BILIRUBIN,TOTAL 0.4 mg/dL (0.2-1.0); TOT PROT 5.5 g/dl (6.4-8.2)
[2017-01-22] MEDS ORDERED: FUROSEMIDE 40 MG/4 ML INJECTABLE VIAL IVPB ONE (17:29)
[2017-01-22] MEDS: ATORVASTATIN CA 10 MG TABLET (FP) PO SCH (21:50)
[2017-01-23 07:56] LABS: BASOPHIL 1.4 % (0-2.0); EOSINOPHIL 5.6 % (0-4.5); MCHC 33.1 g/dl (32.0-36.0); MEAN CELL VOLUME 87.5 fl (80-96); MEAN PLT VOLUME 9.2 fl (7.5-11.1); NEUTROPHILS 72.1 % (42.8-82.8); PLATELET COUNT 271 K/MM3 (134-434); RDW 13.6 % (11.6-15.6); WHITE BLOOD COUNT 4.5 K/mm3 (4.0-10.0)
[2017-01-23 08:12] LABS: ALBUMIN 2.6 g/dl (3.4-5.0); ANION GAP 8 (8-16); CALCIUM 8.2 mg/dL (8.5-10.1); CO2 34 mmol/L (21-32); CREATININE 0.8 mg/dL (0.55-1.02); GLUCOSE,RANDOM 80 mg/dL (74-106); SGOT/AST 31 U/L (15-37); SGPT/ALT 20 U/L (12-78)
[2017-01-23 08:13] LABS: INR 1.02 (0.82-1.09); PROTHROMBIN TIME (PATIENT) 11.2 SEC (9.98-11.88)
[2017-01-23 08:15] LABS: ALK PHOS 74 U/L (45-117); BILIRUBIN,TOTAL 0.4 mg/dL (0.2-1.0); TOT PROT 4.9 g/dl (6.4-8.2)
[2017-01-23 08:16] LABS: ACTIVATED PTT 31.8 SECONDS (26.9-34.4)
[2017-01-23] MEDS: PANTOPRAZOLE 40 MG TABLET (FP) PO SCH (10:13)
[2017-01-23] MEDS: DRONABINOL 5 MG CAPSULE PO SCH (10:13)
[2017-01-23] MEDS: amLODIPine BESYLATE 10 MG TABLET (FP) PO SCH (10:13)
[2017-01-23] MEDS: SOTALOL HCL 80 MG TABLET (FP) PO SCH (10:13)
[2017-01-23] MEDS: ALBUTEROL SO4 0.083% IH SOL 2.5 MG/3 ML VIAL.NEB. NEB PRN (13:15)
--- NOTE | 2017-01-23 14:30 | PN ---
Progress Note (short form) - Note Progress Note: PAtient seen and examined Eating lunch Feels OK Last Vital Signs Temp Pulse Resp BP Pulse Ox 97.0 F L 61 20 123/63 97 01/23/17 14:40 01/23/17 14:40 01/23/17 14:40 01/23/17 14:40 01/23/17 09:00 Cor: RSR, No murmurs, No gallops Lungs: decreased at bases Abd: Soft, Normal bowel sounds, mild ascites Ext:1+ edema Current Medications Generic Name Dose Route Start Last Admin Trade Name Freq PRN Reason Stop Dose Admin Albuterol Sulfate 1 amp 01/20/17 17:07 01/23/17 13:15 Ventolin 0.083% Nebulizer Soln - NEB 1 amp Q4H PRN Administration SHORT OF BREATH/WHEEZING Amlodipine Besylate 10 mg 01/21/17 10:00 01/23/17 10:13 Norvasc - PO 10 mg DAILY ULICES Administration Atorvastatin Calcium 10 mg 01/20/17 22:00 01/22/17 21:50 Lipitor - PO 10 mg HS ULICES Administration Diphenhydramine HCl 25 mg 01/20/17 17:09 01/22/17 21:52 Benadryl - PO 25 mg HS PRN Administration INSOMNIA Dronabinol 5 mg 01/21/17 10:00 01/23/17 10:13 Marinol - PO 5 mg DAILY ULICES Administration Pantoprazole Sodium 40 mg 01/21/17 10:00 01/23/17 10:13 Protonix - PO 40 mg DAILY ULICES Administration Sotalol HCl 80 mg 01/20/17 22:00 01/23/17 10:13 Betapace - PO 80 mg BID ULICES Administration Tbo-Filgrastim 300 mcg 01/23/17 16:30 Granix - SQ 01/23/17 16:31 ONCE ONE Tramadol HCl 50 mg 01/20/17 17:11 Ultram - PO Q8H PRN PAIN Abnormal Lab Results 01/22/17 01/22/17 01/23/17 16:30 16:30 06:15 RBC 3.41 L 3.26 L Hgb 10.0 L 9.5 L Hct 30.0 L 28.5 L Eosinophils % 5.6 H D Chloride Carbon Dioxide Calcium 8.1 L Total Protein 5.5 L Albumin 2.7 L 03/27/17 06:15 RBC Hgb Hct Eosinophils % Chloride 96 L Carbon Dioxide 34 H Calcium 8.2 L Total Protein 4.9 L Albumin 2.6 L A/P 86 y/o patient with metastatic ovarian cancer s/p carbo/taxol tolerating well discussed with IR holding on paracentesis to repeat u/s in 1-2 weeks neupogen for prophylaxis of neutropenia f/u on wednesday 01/31 for chemotherapy
[2017-01-23 14:43] VITALS: BP 123/63; PULSE 61; TEMP 97
[2017-01-23] MEDS ORDERED: TBO-FILGRASTIM 300 MCG/0.5 ML DISP.SYRINGE SQ ONE (16:30)
[2017-01-23] MEDS ORDERED: diphenhydrAMINE HCL 25 MG CAPSULE (FP) PO ONE (16:47)
[2017-01-23] MEDS ORDERED: APIXABAN 2.5 MG TABLET PO SCH (22:00)
== END 2017-01-23 17:57 | disposition home or self-care (01) | DRG 847 ==
LOC: J7W 10:40 → JONCCHEMO 10:40 → J7W 14:31
PROVIDERS: ADMIT Internal Medicine Hematology & Oncology; ATTEND Internal Medicine Hematology & Oncology
DX: Z51.11 Encounter for antineoplastic chemotherapy (principal); C56.9 Malignant neoplasm of unspecified ovary; R18.8 Other ascites; I10 Essential (primary) hypertension; E78.5 Hyperlipidemia, unspecified
CPT/HCPCS: 36415; 76700-TC; 80053; 85025; 85027; 85610; 85730; 86850; 86900; 86901; 93970-TC; 94640; 96413; 96415; 96417; 97116-GP; 97161-GP; J1442

== ENCOUNTER 2017-01-31 07:07 | Day surgery (SDC) | payer OTHER ==
[2017-01-31] MEDS ORDERED: SODIUM CHLORIDE 250 ML IV ONE (08:00)
[2017-01-31] MEDS ORDERED: RANITIDINE IVPB ONE (08:00)
[2017-01-31] MEDS ORDERED: ONDANSETRON IVPB ONE (08:00)
[2017-01-31] MEDS ORDERED: DIPHENHYDRAMINE IVPB ONE (08:00)
[2017-01-31] MEDS ORDERED: [UNRECOGNIZED DRUG - OTHER] IVPB ONE (08:00)
[2017-01-31] MEDS ORDERED: PACLITAXEL IVPB ONE (08:30)
[2017-01-31] MEDS ORDERED: SODIUM CHLORIDE IVPB ONE ×2 (08:30→14:00)
[2017-01-31] MEDS ORDERED: SODIUM CHLORIDE IV ONE (09:30)
[2017-01-31] MEDS ORDERED: CARBOPLATIN IV ONE (09:30)
[2017-01-31 11:00] LABS: MCH 28.8 pg (25.7-33.7); MCHC 32.3 g/dl (32.0-36.0); MEAN CELL VOLUME 89.2 fl (80-96); MEAN PLT VOLUME 8.6 fl (7.5-11.1); PLATELET COUNT 214 K/MM3 (134-434); RDW 14.5 % (11.6-15.6); WHITE BLOOD COUNT 4.6 K/mm3 (4.0-10.0)
[2017-01-31 11:23] LABS: ALBUMIN 3.5 g/dl (3.4-5.0); ANION GAP 9 (8-16); BILIRUBIN,TOTAL 0.3 mg/dL (0.2-1.0); CALCIUM 8.8 mg/dL (8.5-10.1); CO2 29 mmol/L (21-32); CREATININE 0.8 mg/dL (0.55-1.02); GLUCOSE,RANDOM 74 mg/dL (74-106); SGOT/AST 26 U/L (15-37); SGPT/ALT 25 U/L (12-78); TOT PROT 6.4 g/dl (6.4-8.2)
[2017-01-31 11:24] LABS: ALK PHOS 117 U/L (45-117)
[2017-01-31 12:19] LABS: ACANTHOCYTES 2+; HYPOCHROMIA 1+
[2017-01-31] MEDS ORDERED: SODIUM CHLORIDE 1,000 ML IV SCH (13:30)
[2017-01-31] MEDS ORDERED: CARBOPLATIN IVPB ONE (14:00)
[2017-01-31 18:09] VITALS: BP 129/55; PULSE 62; TEMP 97.2
[2017-01-31] MEDS ORDERED: PORTA CATH FLUSH 10 ML IVPUSH ONE (18:09)
== END 2017-01-31 19:21 | disposition home or self-care (01) ==
LOC: JONCCHEMO 07:07 → J7W 11:51 → JONCCHEMO 19:21
PROVIDERS: ATTEND Internal Medicine Hematology & Oncology
DX: Z51.11 Encounter for antineoplastic chemotherapy (principal); C56.9 Malignant neoplasm of unspecified ovary; C79.9 Secondary malignant neoplasm of unspecified site
CPT/HCPCS: 36415; 80053; 83735; 85025; 96360; 96361; 96367; 96413; 96415; 96417

== ENCOUNTER 2017-02-07 07:05 | Day surgery (SDC) | payer OTHER ==
[2017-02-07] MEDS ORDERED: SODIUM CHLORIDE 250 ML IV ONE (08:00)
[2017-02-07] MEDS ORDERED: DIPHENHYDRAMINE IVPB ONE (08:30)
[2017-02-07] MEDS ORDERED: [UNRECOGNIZED DRUG - OTHER] IVPB ONE (08:30)
[2017-02-07] MEDS ORDERED: DEXAMETHASONE IVPB ONE (08:30)
[2017-02-07] MEDS ORDERED: ONDANSETRON IVPB ONE (08:30)
[2017-02-07] MEDS ORDERED: SODIUM CHLORIDE IVPB ONE ×2 (09:00→13:00)
[2017-02-07] MEDS ORDERED: PACLITAXEL IVPB ONE (09:00)
[2017-02-07] MEDS ORDERED: CARBOPLATIN IV ONE (10:00)
[2017-02-07] MEDS ORDERED: SODIUM CHLORIDE IV ONE (10:00)
[2017-02-07 10:35] LABS: BASOPHIL 1.5 % (0-2.0); EOSINOPHIL 1.4 % (0-4.5); MEAN CELL VOLUME 87.9 fl (80-96); MEAN PLT VOLUME 9.1 fl (7.5-11.1); NEUTROPHILS 67.2 % (42.8-82.8); PLATELET COUNT 144 K/MM3 (134-434); RDW 14.9 % (11.6-15.6); WHITE BLOOD COUNT 4.6 K/mm3 (4.0-10.0)
[2017-02-07 11:07] LABS: ALBUMIN 3.5 g/dl (3.4-5.0); BILIRUBIN,TOTAL 0.6 mg/dL (0.2-1.0); CALCIUM 9.1 mg/dL (8.5-10.1); CREATININE 0.9 mg/dL (0.55-1.02); MAGNESIUM 1.8 mg/dL (1.8-2.4); TOT PROT 6.5 g/dl (6.4-8.2)
[2017-02-07] MEDS ORDERED: DEXAMETHASONE SOD PHOSPHATE 4 MG/1 ML VIAL IVPB ONE (11:45)
[2017-02-07] MEDS ORDERED: CARBOPLATIN IVPB ONE (13:00)
[2017-02-07 19:15] VITALS: BP 118/66; PULSE 64; TEMP 97.8
[2017-02-07] MEDS ORDERED: PORTA CATH FLUSH 10 ML IVPUSH PRN (19:15)
== END 2017-02-07 16:15 | disposition home or self-care (01) ==
LOC: JONCCHEMO 07:05 → J7W 11:28 → JONCCHEMO 16:15
PROVIDERS: ATTEND Internal Medicine Hematology & Oncology
DX: Z51.11 Encounter for antineoplastic chemotherapy (principal); C56.9 Malignant neoplasm of unspecified ovary; C79.9 Secondary malignant neoplasm of unspecified site
CPT/HCPCS: 36415; 80053; 83735; 85025; 96360; 96361; 96367; 96413; 96417

== ENCOUNTER 2017-02-14 07:05 | Day surgery (SDC) | payer OTHER ==
[2017-02-14] MEDS ORDERED: SODIUM CHLORIDE 250 ML IV ONE (08:00)
[2017-02-14] MEDS ORDERED: ONDANSETRON IVPB ONE (08:00)
[2017-02-14] MEDS ORDERED: [UNRECOGNIZED DRUG - OTHER] IVPB ONE (08:00)
[2017-02-14] MEDS ORDERED: RANITIDINE IVPB ONE (08:00)
[2017-02-14] MEDS ORDERED: DEXAMETHASONE INJECTION 10 MG in SODIUM CHLORIDE 50 ML IVPB ONE (08:00)
[2017-02-14] MEDS ORDERED: DIPHENHYDRAMINE IVPB ONE (08:00)
[2017-02-14] MEDS ORDERED: CARBOPLATIN IV ONE (08:30)
[2017-02-14] MEDS ORDERED: SODIUM CHLORIDE IV ONE (08:30)
[2017-02-14] MEDS ORDERED: PACLITAXEL 90 MG in SODIUM CHLORIDE 250 ML IVPB ONE (09:00)
[2017-02-14 10:15] LABS: MCH 29.4 pg (25.7-33.7); MCHC 33.4 g/dl (32.0-36.0); MEAN CELL VOLUME 88.1 fl (80-96); MEAN PLT VOLUME 8.6 fl (7.5-11.1); PLATELET COUNT 214 K/MM3 (134-434); RDW 15.3 % (11.6-15.6); WHITE BLOOD COUNT 4.4 K/mm3 (4.0-10.0)
[2017-02-14 10:44] LABS: ALBUMIN 3.6 g/dl (3.4-5.0); ANION GAP 7 (8-16); BILIRUBIN,TOTAL 0.5 mg/dL (0.2-1.0); CALCIUM 8.6 mg/dL (8.5-10.1); CO2 28 mmol/L (21-32); CREATININE 0.8 mg/dL (0.55-1.02); GLUCOSE,RANDOM 91 mg/dL (74-106); MAGNESIUM 1.8 mg/dL (1.8-2.4); SGOT/AST 30 U/L (15-37); TOT PROT 6.6 g/dl (6.4-8.2)
[2017-02-14 11:13] LABS: ALK PHOS 137 U/L (45-117); SGPT/ALT 36 U/L (12-78)
[2017-02-14] MEDS ORDERED: MAGNESIUM OXIDE 400 MG TABLET (FP) PO ONE (13:00)
[2017-02-14 13:17] LABS: METAMYELOCYTE 1 % (0-2)
[2017-02-14 13:18] LABS: ACANTHOCYTES 2+; ANISOCYTOSIS 1+; TOXIC GRANULATION 2+
[2017-02-14] MEDS ORDERED: PORTA CATH FLUSH 10 ML IVPUSH ONE (13:22)
[2017-02-14 17:02] VITALS: BP 133/44; PULSE 63; TEMP 97.7
== END 2017-02-14 18:41 | disposition home or self-care (01) ==
LOC: JONCCHEMO 07:05 → J7W 11:09 → JONCCHEMO 18:41
PROVIDERS: ATTEND Internal Medicine Hematology & Oncology
DX: Z51.11 Encounter for antineoplastic chemotherapy (principal); C56.9 Malignant neoplasm of unspecified ovary
CPT/HCPCS: 36415; 80053; 83735; 85025; 96360; 96361; 96367; 96413; 96417

== ENCOUNTER 2017-02-21 07:10 | Day surgery (SDC) | payer OTHER ==
[2017-02-21] MEDS ORDERED: [UNRECOGNIZED DRUG - OTHER] IVPB ONE (08:00)
[2017-02-21] MEDS ORDERED: SODIUM CHLORIDE 250 ML IV ONE (08:00)
[2017-02-21] MEDS ORDERED: ONDANSETRON IVPB ONE (08:00)
[2017-02-21] MEDS ORDERED: DIPHENHYDRAMINE IVPB ONE (08:00)
[2017-02-21] MEDS ORDERED: DEXAMETHASONE INJECTION 10 MG in SODIUM CHLORIDE 50 ML IVPB ONE (08:00)
[2017-02-21] MEDS ORDERED: RANITIDINE IVPB ONE (08:00)
[2017-02-21] MEDS ORDERED: CARBOPLATIN IV ONE (08:30)
[2017-02-21] MEDS ORDERED: SODIUM CHLORIDE IV ONE (08:30)
[2017-02-21] MEDS ORDERED: PACLITAXEL 90 MG in SODIUM CHLORIDE 250 ML IVPB ONE (09:00)
[2017-02-21 10:26] LABS: BASOPHIL 0.6 % (0-2.0); EOSINOPHIL 1.5 % (0-4.5); MCH 29.2 pg (25.7-33.7); MCHC 32.7 g/dl (32.0-36.0); MEAN CELL VOLUME 89.3 fl (80-96); MEAN PLT VOLUME 8.6 fl (7.5-11.1); NEUTROPHILS 63.2 % (42.8-82.8); PLATELET COUNT 272 K/MM3 (134-434); RDW 16.1 % (11.6-15.6); WHITE BLOOD COUNT 3.8 K/mm3 (4.0-10.0)
[2017-02-21 10:51] LABS: ALBUMIN 3.4 g/dl (3.4-5.0); ALK PHOS 111 U/L (45-117); ANION GAP 7 (8-16); BILIRUBIN,TOTAL 0.5 mg/dL (0.2-1.0); CALCIUM 8.8 mg/dL (8.5-10.1); CO2 28 mmol/L (21-32); CREATININE 0.7 mg/dL (0.55-1.02); GLUCOSE,RANDOM 90 mg/dL (74-106); MAGNESIUM 1.7 mg/dL (1.8-2.4); SGOT/AST 34 U/L (15-37); SGPT/ALT 36 U/L (12-78); TOT PROT 6.1 g/dl (6.4-8.2)
[2017-02-21] MEDS ORDERED: MAGNESIUM SULF 50% (8.12 MEQ/2 ML-1 GM VIAL) IVPB ONE (14:30)
--- NOTE | 2017-02-21 17:11 | HP ---
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 Per patient, she was waiting for her aid on Monday when she became very nervous on the verge of panic when the aid was an hour late. Aid was returning from a trip from [place] and thought something had happened. She called her daughter and found herself having difficulty find words and it lasted 4-5 mins. This episode was similar to the one she had 1 year ago during her TIA, however this did not come with a severe head ache. Her appetite is poor and her last chemo session has rendered her more tired than the others. She denies nausea, vomiting, CP, sob, abd pain. She is chronically unsteady on her feet, she walks with a walker. There are no changes to her bowel or bladder habits. 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: TIA (2014) Cardiovascular: Yes: AFIB (2014 with PPN placed), HTN, Hyperlipdemia Gastrointestinal: Yes: Diverticulosis Musculoskeletal: Yes: Chronic low back pain (collapsed fractures lumbar vertebrae 2014 ), Osteoarthritis - Past Surgical History Past Surgical History: Yes: Cataract Removal (bilateral ), Joint Replacement ( bilateral hip replacements), Tonsillectomy - Smoking History Smoking history: Former smoker Have you smoked in the past 12 months: No Aproximately how many cigarettes per day: 0 If you are a former smoker, when did you quit?: 1999 - Alcohol/Substance Use Hx Alcohol Use: Yes - Social History ADL: Independent 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 History of Recent Travel: No Home Medications - Allergies Allergies/Adverse Reactions: Allergies Allergy/AdvReac Type Severity Reaction Status Date / Time No Known Allergies Allergy Verified 01/03/17 10:59 - Home Medications Home Medications: Ambulatory Orders Apixaban [Eliquis -] 2.5 mg PO BID #60 tablet 01/19/16 Atorvastatin Ca [Lipitor] 10 mg PO HS #30 tablet 01/19/16 Sotalol HCl [Betapace -] 80 mg PO BID #60 tablet 01/19/16 Albuterol Sulfate Inhaler - [Ventolin HFA Inhaler -] 1 puff IH Q4H PRN #5 inhaler 01/16/17 Amlodipine Besylate [Norvasc -] 10 mg PO DAILY #30 tablet 01/16/17 Diphenhydramine HCl [Benadryl Capsule -] 25 mg PO HS PRN #30 tab 01/16/17 Dronabinol [Marinol -] 5 mg PO 0730,1130,1700 #9 tab MDD 3 01/16/17 Lidocaine 5% Patch [Lidoderm -] 1 patch TP DAILY #15 patch 01/16/17 Ondansetron HCl [Zofran] 8 mg PO Q4H #120 tablet 01/16/17 Shashank-Cath Flush [Shashank-Cath Flush -] 10 ml IVPUSH PRN PRN #30 ml 01/16/17 Tramadol HCl [Ultram -] 50 mg PO Q6H PRN #12 tablet MDD 4 01/16/17 Family Disease History - Family Disease History Family Disease History: Heart Disease: Father ( ID age 52), Other: Mother ( lived to 93) Review of Systems - Review of Systems Constitutional: reports: No Symptoms Eyes: reports: Floaters HENT: reports: No Symptoms Neck: reports: No Symptoms Cardiovascular: reports: No Symptoms Respiratory: reports: No Symptoms Gastrointestinal: reports: No Symptoms Genitourinary: reports: No Symptoms Musculoskeletal: reports: No Symptoms Integumentary: reports: No Symptoms Neurological: reports: Change in Speech, Weakness Endocrine: reports: No Symptoms Hematology/Lymphatic: reports: No Symptoms Psychiatric: reports: No Symptoms Physical Examination Vital Signs: Vital Signs Temperature 97.5 F L 02/21/17 11:52 Pulse Rate 60 02/21/17 11:52 Respiratory Rate 16 02/21/17 11:52 Blood Pressure 121/67 02/21/17 11:52 O2 Sat by Pulse Oximetry (%) Constitutional: Yes: Calm Eyes: Yes: Conjunctiva Clear HENT: Yes: WNL Neck: Yes: Supple Cardiovascular: Yes: Pulse Irregular, S1, S2 Respiratory: Yes: Regular, CTA Bilaterally Gastrointestinal: Yes: Normal Bowel Sounds, Soft Renal/: Yes: WNL Edema: Yes Edema: LLE: 1+, RLE: 1+ Integumentary: Yes: Other (RCW port CDI) Neurological: Yes: Alert, Oriented, Cran Nerves II-XII Intact Psychiatric: Yes: Alert, Oriented Labs: CBC, BMP 02/21/17 10:16 02/21/17 10:16 Problem List - Problems (1) Ascites, malignant Code(s): R18.0 - MALIGNANT ASCITES (2) Ovarian cancer Code(s): C56.9 - MALIGNANT NEOPLASM OF UNSPECIFIED OVARY (3) 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 - SECONDARY MALIGNANT NEOPLASM OF RETROPERITON AND PERITONEUM C80.1 - MALIGNANT (PRIMARY) NEOPLASM, UNSPECIFIED (4) Atrial fibrillation Code(s): I48.91 - UNSPECIFIED ATRIAL FIBRILLATION Qualifiers: Atrial fibrillation type: paroxysmal Qualified Code(s): I48.0 - Paroxysmal atrial fibrillation (5) Hypertension Code(s): I10 - ESSENTIAL (PRIMARY) HYPERTENSION Qualifiers: Hypertension type: essential hypertension Qualified Code(s): I10 - Essential (primary) hypertension (6) TIA (transient ischemic attack) Code(s): G45.9 - TRANSIENT CEREBRAL ISCHEMIC ATTACK, UNSPECIFIED Qualifiers: Transient cerebral ischemia type: unspecified Qualified Code(s): G45.9 - Transient cerebral ischemic attack, unspecified Assessment/Plan Imaging: - ECHO 12/2015: LVSF normal size/fxn, RV size, function, mod TR, MR, RVSP 40- 50mmhg Assessment: 87 year old female with pmhx TIA (1 year ago) A Fib (on Eliquis), s/ p PPM, HTN, chronic back pain recently diagnosed with ascites and peritoneal carcinomatosis with ovarian cancer source with possible bone mets placed under observation rule on TIA. Plan: 1. r/o TIA - Possible hypoglycemia vs stress event vs cva - CT Head; no MRI d/t pace maker - Carotid Dopplers r/o stentosis - ECHO - Appreciate neurology consult 2. A fib - Xaralto 2.5mg BID - Follow lipid panel - Will order hgb a1c 3. HTN - Norvasc 10 qd 4. Ovarian ca - Chemo 02/21 Visit type - Emergency Visit Emergency Visit: No - New Patient This patient is new to me today: Yes Date on this admission: 02/21/17 - Critical Care Critical Care patient: No
--- NOTE | 2017-02-21 17:16 | CON.NEURO ---
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 She states she knew what she had to say but could not get the words out. Sx resolved soon so she chose not to go to ER. no associated weakness/numbness and at baseline now. 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) Cardio/Vascular: Yes: AFIB (2014 with PPN placed), HTN, Hyperlipdemia Gastrointestinal: Yes: Diverticulosis Musculoskeletal: Yes: Chronic low back pain (collapsed fractures lumbar vertebrae 2014 ), Osteoarthritis - Past Surgical History Past Surgical History: Yes: Cataract Removal (bilateral ), Joint Replacement ( bilateral hip replacements), Tonsillectomy - Alcohol/Substance Use Hx Alcohol Use: Yes - Smoking History Smoking history: Former smoker Have you smoked in the past 12 months: No Aproximately how many cigarettes per day: 0 If you are a former smoker, when did you quit?: 1999 - Social History Usual Living Arrangement: Alone ADL: Independent 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 History of Recent Travel: No Home Medications - Allergies Allergies/Adverse Reactions: Allergies Allergy/AdvReac Type Severity Reaction Status Date / Time No Known Allergies Allergy Verified 01/03/17 10:59 - Home Medications Home Medications: Ambulatory Orders Apixaban [Eliquis -] 2.5 mg PO BID #60 tablet 01/19/16 Atorvastatin Ca [Lipitor] 10 mg PO HS #30 tablet 01/19/16 Sotalol HCl [Betapace -] 80 mg PO BID #60 tablet 01/19/16 Albuterol Sulfate Inhaler - [Ventolin HFA Inhaler -] 1 puff IH Q4H PRN #5 inhaler 01/16/17 Amlodipine Besylate [Norvasc -] 10 mg PO DAILY #30 tablet 01/16/17 Diphenhydramine HCl [Benadryl Capsule -] 25 mg PO HS PRN #30 tab 01/16/17 Dronabinol [Marinol -] 5 mg PO 0730,1130,1700 #9 tab MDD 3 01/16/17 Lidocaine 5% Patch [Lidoderm -] 1 patch TP DAILY #15 patch 01/16/17 Ondansetron HCl [Zofran] 8 mg PO Q4H #120 tablet 01/16/17 Shashank-Cath Flush [Shashank-Cath Flush -] 10 ml IVPUSH PRN PRN #30 ml 01/16/17 Tramadol HCl [Ultram -] 50 mg PO Q6H PRN #12 tablet MDD 4 01/16/17 Family Disease History - Family Disease History Family Disease History: Heart Disease: Father ( [place] age 52), Other: Mother ( lived to 93) Physical Exam-Neuro Vital Signs: Vital Signs Temperature 97.5 F L 02/21/17 11:52 Pulse Rate 60 02/21/17 11:52 Respiratory Rate 16 02/21/17 11:52 Blood Pressure 121/67 02/21/17 11:52 O2 Sat by Pulse Oximetry (%) Constitutional: Yes: No Distress, Calm Neck: Yes: Supple Respiratory: Yes: CTA Bilaterally Gastrointestinal: Yes: Normal Bowel Sounds Labs: CBC, BMP 02/21/17 10:16 02/21/17 10:16 - Neuro Exam Level Of Consciousness: Yes: Alert, Oriented to Person (follows 3 steps, + naming and repeating,no signs of aphasia ,EOMI, no facial, no drift, 5/5 UE and LE , plantars down) NIH Stroke Scale - Total Score NIH Stroke Scale Score: 0 Problem List - Problems (1) New onset a-fib Code(s): I48.91 - UNSPECIFIED ATRIAL FIBRILLATION (2) TIA (transient ischemic attack) Assessment/Plan: HX of ovarian Ca with mets, pacemaker/Afib compliant with eliquis, with brief period of word finding difficulty ( ?aphasia) 2 days ago,-- Sx resolved and out of TPA window; R/o small vascular event vs metabolic (?low glucose) vs stress rxn, doubt chemo effect unable to get MRI bc of pacemaker check HD CT and Dopplers- r/o carotid stenosis. continue AC in meantime, check lipids, A1c if not already. will FU Dr Fair [phone] Code(s): G45.9 - TRANSIENT CEREBRAL ISCHEMIC ATTACK, UNSPECIFIED Qualifiers: Transient cerebral ischemia type: unspecified (3) Ovarian cancer Code(s): C56.9 - MALIGNANT NEOPLASM OF UNSPECIFIED OVARY
[2017-02-21] MEDS ORDERED: PORTA CATH FLUSH 10 ML IVPUSH PRN (17:25)
[2017-02-21] MEDS ORDERED: PORTA CATH FLUSH 10 ML IVPUSH ONE (18:44)
[2017-02-21] MEDS ORDERED: diphenhydrAMINE HCL 25 MG CAPSULE (FP) PO PRN (21:15)
[2017-02-21] MEDS: APIXABAN 2.5 MG TABLET PO SCH (21:31)
[2017-02-21] MEDS ORDERED: ATORVASTATIN CA 10 MG TABLET (FP) PO SCH (22:00)
[2017-02-22] MEDS: DRONABINOL 5 MG CAPSULE PO SCH ×2 (06:44→11:01)
[2017-02-22 07:30] LABS: BASOPHIL 0.3 % (0-2.0); MCH 28.8 pg (25.7-33.7); MCHC 32.3 g/dl (32.0-36.0); MEAN CELL VOLUME 89.2 fl (80-96); MEAN PLT VOLUME 8.6 fl (7.5-11.1); PLATELET COUNT 247 K/MM3 (134-434); RDW 16.2 % (11.6-15.6); WHITE BLOOD COUNT 4.8 K/mm3 (4.0-10.0)
--- NOTE | 2017-02-22 07:33 | PN ---
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 She states she knew what she had to say but could not get the words out. Sx resolved soon so she chose not to go to ER. no associated weakness/numbness and at baseline now. FU : no issues overnight CT HD mild MCV changes, no acute findings Doppler : R carotid 70 % stenosis, L WNL Home Medications - Allergies Allergies/Adverse Reactions: Allergies Allergy/AdvReac Type Severity Reaction Status Date / Time No Known Allergies Allergy Verified 01/03/17 10:59 - Home Medications Home Medications: Ambulatory Orders Apixaban [Eliquis -] 2.5 mg PO BID #60 tablet 01/19/16 Atorvastatin Ca [Lipitor] 10 mg PO HS #30 tablet 01/19/16 Sotalol HCl [Betapace -] 80 mg PO BID #60 tablet 01/19/16 Albuterol Sulfate Inhaler - [Ventolin HFA Inhaler -] 1 puff IH Q4H PRN #5 inhaler 01/16/17 Amlodipine Besylate [Norvasc -] 10 mg PO DAILY #30 tablet 01/16/17 Diphenhydramine HCl [Benadryl Capsule -] 25 mg PO HS PRN #30 tab 01/16/17 Dronabinol [Marinol -] 5 mg PO 0730,1130,1700 #9 tab MDD 3 01/16/17 Lidocaine 5% Patch [Lidoderm -] 1 patch TP DAILY #15 patch 01/16/17 Ondansetron HCl [Zofran] 8 mg PO Q4H #120 tablet 01/16/17 Shashank-Cath Flush [Shashank-Cath Flush -] 10 ml IVPUSH PRN PRN #30 ml 01/16/17 Tramadol HCl [Ultram -] 50 mg PO Q6H PRN #12 tablet MDD 4 01/16/17 Family Disease History - Family Disease History Family Disease History: Heart Disease: Father ( [place] age 52), Other: Mother ( lived to 93) Physical Exam-Neuro Vital Signs: Vital Signs Period Temp Pulse Resp BP Sys/Amado Pulse Ox Last 24 Hr 97.5 F-98.7 F 60-78 14-20 98-131/48-67 98-98 Vital Signs Constitutional: Yes: No Distress, Calm Neck: Yes: Supple Respiratory: Yes: CTA Bilaterally Gastrointestinal: Yes: Normal Bowel Sounds Labs: CBC, BMP 02/21/17 10:16 02/21/17 10:16 - Neuro Exam Level Of Consciousness: Yes: Alert, Oriented to Person (follows 3 steps, + naming and repeating,no signs of aphasia ,EOMI, no facial, no drift, 5/5 UE and LE , plantars down) NIH Stroke Scale - Total Score NIH Stroke Scale Score: 0 Problem List - Problems (1) New onset a-fib Code(s): I48.91 - UNSPECIFIED ATRIAL FIBRILLATION (2) TIA (transient ischemic attack) Assessment/Plan: HX of ovarian Ca with mets, pacemaker/Afib compliant with eliquis, with brief period of word finding difficulty ( ?aphasia) 2 days ago,-- Sx resolved and out of TPA window; R/o small vascular event vs metabolic (?low glucose) vs stress rxn, doubt chemo effect Results : unable to get MRI bc of pacemaker CT HD mild MCV changes, no acute findings Doppler : R carotid 70 % stenosis, L WNL Transient aphasia is likely left sided cerebral phenomena , so Right sided stenosis may be incidental finding. SHe had a doppler some time ago and we can compare to prior; FU Doppler in 6 months as outpt. Cont AC --FU as outpt and neurologically cleared for DC. Dr Fair [phone] Code(s): G45.9 - TRANSIENT CEREBRAL ISCHEMIC ATTACK, UNSPECIFIED Qualifiers: Transient cerebral ischemia type: unspecified (3) Ovarian cancer Code(s): C56.9 - MALIGNANT NEOPLASM OF UNSPECIFIED OVARY Problem List - Problems (1) New onset a-fib Code(s): I48.91 - UNSPECIFIED ATRIAL FIBRILLATION (2) TIA (transient ischemic attack) Code(s): G45.9 - TRANSIENT CEREBRAL ISCHEMIC ATTACK, UNSPECIFIED Qualifiers: Transient cerebral ischemia type: unspecified Qualified Code(s): G45.9 - Transient cerebral ischemic attack, unspecified (3) Ovarian cancer Code(s): C56.9 - MALIGNANT NEOPLASM OF UNSPECIFIED OVARY
[2017-02-22 08:28] LABS: ALBUMIN 2.9 g/dl (3.4-5.0); ALK PHOS 94 U/L (45-117); ANION GAP 12 (8-16); BILIRUBIN,TOTAL 0.5 mg/dL (0.2-1.0); CALCIUM 8.3 mg/dL (8.5-10.1); CO2 25 mmol/L (21-32); COCKROFT - GAULT 55.25; CREATININE 0.6 mg/dL (0.55-1.02); GLUCOSE,RANDOM 101 mg/dL (74-106); MAGNESIUM 1.9 mg/dL (1.8-2.4); PHOSPHOROUS 2.8 mg/dL (2.5-4.9); SGOT/AST 32 U/L (15-37); SGPT/ALT 33 U/L (12-78); TOT PROT 5.2 g/dl (6.4-8.2)
[2017-02-22 08:59] LABS: LDL CHOLESTEROL (ONLY SJRH) 64 mg/dL (5-100)
--- NOTE | 2017-02-22 09:10 | DS ---
Physical Exam: SUBJECTIVE: Patient seen and examined OBJECTIVE: Vital Signs Period Temp Pulse Resp BP Sys/Amado Pulse Ox Last 24 Hr 97.5 F-98.7 F 60-78 14-20 98-131/48-67 98-98 PHYSICAL EXAM GENERAL: The patient is awake, alert, and fully oriented, in no acute distress. HEAD: Normal with no signs of trauma. EYES: PERRL, extraocular movements intact, sclera anicteric, conjunctiva clear. ENT: Ears normal, nares patent, oropharynx clear without exudates, moist mucous membranes. NECK: Trachea midline, full range of motion, supple. LUNGS: Breath sounds equal, clear to auscultation bilaterally, no wheezes, no crackles, no accessory muscle use. HEART: Regular rate and rhythm, S1, S2 without murmur, rub or gallop. ABDOMEN: Soft, nontender, nondistended, normoactive bowel sounds, no guarding, no rebound, no hepatosplenomegaly, no masses. EXTREMITIES: 2+ pulses, warm, well-perfused, no edema. NEUROLOGICAL: Cranial nerves II through XII grossly intact. Normal speech, gait not observed. PSYCH: Normal mood, normal affect. SKIN: Warm, dry, normal turgor, no rashes or lesions noted. LABS Laboratory Results - last 24 hr 02/21/17 02/21/17 02/22/17 10:16 10:16 06:00 WBC 3.8 L 4.8 RBC 3.49 L 3.27 L Hgb 10.2 L 9.4 L Hct 31.2 L 29.2 L MCV 89.3 89.2 MCHC 32.7 32.3 RDW 16.1 H 16.2 H Plt Count 272 D 247 MPV 8.6 8.6 Neutrophils % 63.2 90.0 H D Lymphocytes % 26.4 8.2 D Monocytes % 8.3 1.5 L D Eosinophils % 1.5 0.0 D Basophils % 0.6 0.3 Sodium 133 L Potassium 4.4 Chloride 98 Carbon Dioxide 28 Anion Gap 7 L BUN 12 Creatinine 0.7 Creat Clearance w eGFR > 60 Random Glucose 90 Calcium 8.8 Phosphorus Magnesium 1.7 L Total Bilirubin 0.5 AST 34 ALT 36 Alkaline Phosphatase 111 Total Protein 6.1 L Albumin 3.4 Total LDL Cholesterol 02/22/17 02/22/17 06:00 06:00 WBC RBC Hgb Hct MCV MCHC RDW Plt Count MPV Neutrophils % Lymphocytes % Monocytes % Eosinophils % Basophils % Sodium 138 Potassium 4.3 Chloride 101 Carbon Dioxide 25 Anion Gap 12 BUN 11 Creatinine 0.6 Creat Clearance w eGFR > 60 Random Glucose 101 Calcium 8.3 L Phosphorus 2.8 D Magnesium 1.9 Total Bilirubin 0.5 AST 32 ALT 33 Alkaline Phosphatase 94 Total Protein 5.2 L Albumin 2.9 L Total LDL Cholesterol Cancelled HOSPITAL COURSE: Date of Admission:02/21/17 Date of Discharge: 02/22/17 Minutes to complete discharge: 35 Discharge Summary Reason For Visit: OVARIAN CANCER Current Active Problems Abdominal pain (Acute) Adnexal mass (Acute) Ascites, malignant (Acute) Diarrhea (Acute) Diverticula of colon (Acute) Omental metastasis (Acute) Ovarian cancer (Acute) Peritoneal carcinomatosis (Acute) Rectal bleeding (Acute) Condition: Stable - Instructions Diet, Activity, Other Instructions: Please return to the ED for any new, persistent, or worsening symptoms. Follow up with your PCP in 1 week Resume home medications as directed Continue follow up with Dr. Painting for further management Referrals: Del Fair DO [Staff Physician] - (Follow up in 6 months for repeat Carotid Dopplers ) Disposition: HOME - Home Medications Comprehensive Discharge Medication List: Ambulatory Orders Apixaban [Eliquis -] 2.5 mg PO BID #60 tablet 01/19/16 Atorvastatin Ca [Lipitor] 10 mg PO HS #30 tablet 01/19/16 Sotalol HCl [Betapace -] 80 mg PO BID #60 tablet 01/19/16 Albuterol Sulfate Inhaler - [Ventolin HFA Inhaler -] 1 puff IH Q4H PRN #5 inhaler 01/16/17 Amlodipine Besylate [Norvasc -] 10 mg PO DAILY #30 tablet 01/16/17 Diphenhydramine HCl [Benadryl Capsule -] 25 mg PO HS PRN #30 tab 01/16/17 Dronabinol [Marinol -] 5 mg PO 0730,1130,1700 #9 tab MDD 3 01/16/17 Lidocaine 5% Patch [Lidoderm -] 1 patch TP DAILY #15 patch 01/16/17 Ondansetron HCl [Zofran] 8 mg PO Q4H #120 tablet 01/16/17 Shashank-Cath Flush [Shashank-Cath Flush -] 10 ml IVPUSH PRN PRN #30 ml 01/16/17 Tramadol HCl [Ultram -] 50 mg PO Q6H PRN #12 tablet MDD 4 01/16/17 Problem List - Problems (1) Ascites, malignant Code(s): R18.0 - MALIGNANT ASCITES (2) Ovarian cancer Code(s): C56.9 - MALIGNANT NEOPLASM OF UNSPECIFIED OVARY (3) 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 - SECONDARY MALIGNANT NEOPLASM OF RETROPERITON AND PERITONEUM C80.1 - MALIGNANT (PRIMARY) NEOPLASM, UNSPECIFIED (4) Atrial fibrillation Code(s): I48.91 - UNSPECIFIED ATRIAL FIBRILLATION Qualifiers: Atrial fibrillation type: paroxysmal Qualified Code(s): I48.0 - Paroxysmal atrial fibrillation (5) Hypertension Code(s): I10 - ESSENTIAL (PRIMARY) HYPERTENSION Qualifiers: Hypertension type: essential hypertension Qualified Code(s): I10 - Essential (primary) hypertension (6) TIA (transient ischemic attack) Code(s): G45.9 - TRANSIENT CEREBRAL ISCHEMIC ATTACK, UNSPECIFIED Qualifiers: Transient cerebral ischemia type: unspecified Qualified Code(s): G45.9 - Transient cerebral ischemic attack, unspecified
[2017-02-22 09:11] LABS: CHOLESTEROL 160 mg/dl
[2017-02-22] MEDS ORDERED: PT OWN MED DRAWER 7, Y5N ONE (09:41)
[2017-02-22] MEDS ORDERED: amLODIPine BESYLATE 10 MG TABLET (FP) PO SCH (10:00)
[2017-02-22] MEDS ORDERED: LIDOCAINE 5% TOPICAL PATCH TP SCH (10:00)
[2017-02-22] MEDS: APIXABAN 2.5 MG TABLET PO SCH (10:01)
[2017-02-22 10:58] VITALS: BP 107/48; PULSE 69; TEMP 98
[2017-02-22] MEDS ORDERED: TBO-FILGRASTIM 300 MCG/0.5 ML DISP.SYRINGE SQ ONE (12:00)
== END 2017-02-22 11:50 | disposition home or self-care (01) ==
LOC: JONCCHEMO 07:10 → SUATTDRO 07:10 → J7W 11:36 → JONCCHEMO 02-22 11:50
PROVIDERS: ATTEND Nurse Practitioner Acute Care
DX: Z51.11 Encounter for antineoplastic chemotherapy (principal); C56.9 Malignant neoplasm of unspecified ovary; C78.6 Secondary malignant neoplasm of retroperitoneum and peritoneum; I48.91 Unspecified atrial fibrillation; I10 Essential (primary) hypertension; R18.0 Malignant ascites; Z86.73 Personal history of transient ischemic attack (TIA), and cerebral infarction without residual deficits
CPT/HCPCS: 36415; 70450-TC; 80053; 80061; 83036; 83721; 83735; 84100; 85025; 93880-TC; 96360; 96361; 96367; 96413; 96417; J1442

== ENCOUNTER 2017-03-07 07:12 | Day surgery (SDC) | payer OTHER ==
[2017-03-07] MEDS ORDERED: SODIUM CHLORIDE 250 ML IV ONE (08:00)
[2017-03-07] MEDS ORDERED: DIPHENHYDRAMINE IVPB ONE (08:00)
[2017-03-07] MEDS ORDERED: RANITIDINE IVPB ONE (08:00)
[2017-03-07] MEDS ORDERED: ONDANSETRON IVPB ONE (08:00)
[2017-03-07] MEDS ORDERED: DEXAMETHASONE INJECTION 10 MG in SODIUM CHLORIDE 50 ML IVPB ONE (08:00)
[2017-03-07] MEDS ORDERED: [UNRECOGNIZED DRUG - OTHER] IVPB ONE (08:00)
[2017-03-07] MEDS ORDERED: PACLITAXEL 90 MG in SODIUM CHLORIDE 250 ML IVPB ONE (08:30)
[2017-03-07] MEDS ORDERED: CARBOPLATIN IV ONE (09:00)
[2017-03-07] MEDS ORDERED: SODIUM CHLORIDE IV ONE (09:00)
[2017-03-07 10:28] LABS: BASOPHIL 3.5 % (0-2.0); EOSINOPHIL 1.3 % (0-4.5); MCH 29.7 pg (25.7-33.7); MCHC 33.1 g/dl (32.0-36.0); MEAN CELL VOLUME 89.9 fl (80-96); MEAN PLT VOLUME 8.2 fl (7.5-11.1); NEUTROPHILS 57.4 % (42.8-82.8); PLATELET COUNT 207 K/MM3 (134-434); RDW 18.9 % (11.6-15.6); WHITE BLOOD COUNT 4.1 K/mm3 (4.0-10.0)
[2017-03-07 10:52] LABS: ALBUMIN 3.3 g/dl (3.4-5.0); ANION GAP 10 (8-16); BILIRUBIN,TOTAL 0.4 mg/dL (0.2-1.0); CALCIUM 8.8 mg/dL (8.5-10.1); CO2 25 mmol/L (21-32); CREATININE 0.8 mg/dL (0.55-1.02); GLUCOSE,RANDOM 71 mg/dL (74-106); MAGNESIUM 1.9 mg/dL (1.8-2.4); SGOT/AST 30 U/L (15-37); SGPT/ALT 36 U/L (12-78)
[2017-03-07 10:53] LABS: ALK PHOS 116 U/L (45-117)
[2017-03-07] MEDS ORDERED: PORTA CATH FLUSH 10 ML IVPUSH ONE (11:49)
[2017-03-07 17:33] VITALS: BP 144/61; TEMP 97.8
[2017-03-07 17:53] VITALS: PULSE 65
== END 2017-03-07 18:09 | disposition home or self-care (01) ==
LOC: JONCCHEMO 07:12 → J7W 10:56 → JONCCHEMO 18:09
PROVIDERS: ATTEND Internal Medicine Hematology & Oncology
PROC: 3E04305 Introduction of Other Antineoplastic into Central Vein, Percutaneous Approach (ICD-10-PCS; principal; 2017-03-07)
PROC: 3E043GC Introduction of Other Therapeutic Substance into Central Vein, Percutaneous Approach (ICD-10-PCS; 2017-03-07)
PROC: 3E0437Z Introduction of Electrolytic and Water Balance Substance into Central Vein, Percutaneous Approach (ICD-10-PCS; 2017-03-07)
DX: Z51.11 Encounter for antineoplastic chemotherapy (principal); C56.9 Malignant neoplasm of unspecified ovary; D70.1 Agranulocytosis secondary to cancer chemotherapy
CPT/HCPCS: 36415; 80053; 83735; 85025; 86304; 96360; 96361; 96367; 96375; 96413; 96417

== ENCOUNTER 2017-03-14 07:30 | Day surgery (SDC) | payer OTHER ==
[2017-03-14] MEDS ORDERED: DIPHENHYDRAMINE IVPB ONE (08:00)
[2017-03-14] MEDS ORDERED: [UNRECOGNIZED DRUG - OTHER] IVPB ONE (08:00)
[2017-03-14] MEDS ORDERED: RANITIDINE IVPB ONE (08:00)
[2017-03-14] MEDS ORDERED: SODIUM CHLORIDE 250 ML IV ONE (08:00)
[2017-03-14] MEDS ORDERED: ONDANSETRON IVPB ONE (08:00)
[2017-03-14] MEDS ORDERED: DEXAMETHASONE INJECTION 10 MG in SODIUM CHLORIDE 50 ML IVPB ONE (08:00)
[2017-03-14] MEDS ORDERED: PACLITAXEL 90 MG in SODIUM CHLORIDE 250 ML IVPB ONE (08:30)
[2017-03-14] MEDS ORDERED: CARBOPLATIN IV ONE (09:30)
[2017-03-14] MEDS ORDERED: SODIUM CHLORIDE IV ONE (09:30)
[2017-03-14 11:14] LABS: BASOPHIL 2.7 % (0-2.0); EOSINOPHIL 0.9 % (0-4.5); MCH 29.5 pg (25.7-33.7); MCHC 32.8 g/dl (32.0-36.0); MEAN CELL VOLUME 90.1 fl (80-96); MEAN PLT VOLUME 8.8 fl (7.5-11.1); NEUTROPHILS 61.8 % (42.8-82.8); PLATELET COUNT 154 K/MM3 (134-434); RDW 18.7 % (11.6-15.6); WHITE BLOOD COUNT 3.7 K/mm3 (4.0-10.0)
[2017-03-14 11:38] LABS: ALBUMIN 3.4 g/dl (3.4-5.0); ANION GAP 8 (8-16); BILIRUBIN,TOTAL 0.5 mg/dL (0.2-1.0); CALCIUM 9.2 mg/dL (8.5-10.1); CO2 29 mmol/L (21-32); COCKROFT - GAULT 38.25; CREATININE 0.8 mg/dL (0.55-1.02); GLUCOSE,RANDOM 86 mg/dL (74-106); MAGNESIUM 1.9 mg/dL (1.8-2.4); SGOT/AST 33 U/L (15-37); SGPT/ALT 38 U/L (12-78); TOT PROT 6.2 g/dl (6.4-8.2)
[2017-03-14 11:41] LABS: ALK PHOS 113 U/L (45-117); FERRITIN 213.295 ng/ml (6.9-282.5)
[2017-03-14 11:49] LABS: ALBUMIN 3.4 g/dl (3.4-5.0); BILIRUBIN,DIRECT 0.2 mg/dL (0.0-0.2); BILIRUBIN,TOTAL 0.5 mg/dL (0.2-1.0); TOT PROT 6.1 g/dl (6.4-8.2)
[2017-03-14] MEDS ORDERED: PORTA CATH FLUSH 10 ML IVPUSH ONE (12:47)
[2017-03-14 17:21] VITALS: BP 135/72; PULSE 61
[2017-03-14 17:22] VITALS: TEMP 97.6
[2017-03-15 06:06] LABS: SERUM IRON 67 ug/dL (27-139); TOTAL IRON BINDING CAPACITY 330 ug/dL (250-450); UIBC 263 ug/dL (118-369)
== END 2017-03-14 17:29 | disposition home or self-care (01) ==
LOC: JONCCHEMO 07:30 → J7W 11:25 → JONCCHEMO 17:29
PROVIDERS: ATTEND Internal Medicine Hematology & Oncology
DX: Z51.11 Encounter for antineoplastic chemotherapy (principal); C56.9 Malignant neoplasm of unspecified ovary
CPT/HCPCS: 36415; 80053; 80076; 82728; 83540; 83550; 83735; 85025; 96360; 96361; 96367; 96375; 96413; 96417

== ENCOUNTER 2017-03-17 13:01 | Emergency (ER) | payer OTHER ==
[2017-03-17 13:16] VITALS: BMI 20.2
[2017-03-17] MEDS ORDERED: ACETAMINOPHEN 325 MG TABLET (FP) PO ONE (13:55)
--- NOTE | 2017-03-17 14:15 | PDOC ---
History of Present Illness - General Chief Complaint: Chest Pain Stated Complaint: PCP SENT Time Seen by Provider: 03/17/17 13:37 History Source: Patient Exam Limitations: No Limitations - History of Present Illness Initial Comments: 87 y/o F with PMH of ovarian ca w/mets, A-Fib, HTN, chronic back pain, pacemaker presents to ER for chest pain. Pt was bending over and around furniture last night to plug in an electric plug when she felt a sharp pain in her sternum b/w her breasts. The pain lasted only momentarily and was 8/10 in intensity. Pt has been having difficulty with moving her arms and has had difficulty with motions that involve using chest wall muscles and has pain with deep inspiration at site of initial pain. She did not hear a pop or crack at the time of the incident. Denies swelling at site of pain. She denies N/V, diaphoresis, abd pain, generalized swelling, sob out of the ordinary. Past History - Past Medical History Allergies/Adverse Reactions: Allergies Allergy/AdvReac Type Severity Reaction Status Date / Time No Known Allergies Allergy Verified 03/17/17 13:16 Home Medications: Ambulatory Orders Apixaban [Eliquis -] 2.5 mg PO BID #60 tablet 01/19/16 Atorvastatin Ca [Lipitor] 10 mg PO HS #30 tablet 01/19/16 Sotalol HCl [Betapace -] 80 mg PO BID #60 tablet 01/19/16 Albuterol Sulfate Inhaler - [Ventolin HFA Inhaler -] 1 puff IH Q4H PRN #5 inhaler 01/16/17 Amlodipine Besylate [Norvasc -] 10 mg PO DAILY #30 tablet 01/16/17 Diphenhydramine HCl [Benadryl Capsule -] 25 mg PO HS PRN #30 tab 01/16/17 Dronabinol [Marinol -] 5 mg PO 0730,1130,1700 #9 tab MDD 3 01/16/17 Lidocaine 5% Patch [Lidoderm -] 1 patch TP DAILY #15 patch 01/16/17 Ondansetron HCl [Zofran] 8 mg PO Q4H #120 tablet 01/16/17 Shashank-Cath Flush [Shashank-Cath Flush -] 10 ml IVPUSH PRN PRN #30 ml 01/16/17 Tramadol HCl [Ultram -] 50 mg PO Q6H PRN #12 tablet MDD 4 01/16/17 Oxycodone HCl/Acetaminophen [Percocet 5-325 mg Tablet] 1 tab PO QID PRN #28 tablet MDD 4 tablets 03/17/17 Anemia: No Asthma: No Cancer: Yes (ovarian) Cardiac Disorders: Yes ("MILD HEART ARRYTHMIA") CVA: No COPD: No CHF: No Dementia: No Diabetes: No GI Disorders: No Disorders: No HTN: Yes Hypercholesterolemia: Yes Liver Disease: No Suicide Attempt (Hx): No Seizures: No Thyroid Disease: No - Surgical History Abdominal Surgery: Yes (D&C) Appendectomy: No Cardiac Surgery: No Cholecystectomy: No Lung Surgery: No Orthopedic Surgery: Yes (TOTAL HIP LEFT) - Psycho/Social/Smoking Cessation Hx Anxiety: No Suicidal Ideation: No Smoking History: Former smoker Have you smoked in the past 12 months: No Number of Cigarettes Smoked Daily: 0 If you are a former smoker, when did you quit?: 2000 Cigars Per Day: 0 Information on smoking cessation initiated: No Hx Alcohol Use: No Drug/Substance Use Hx: No Substance Use Type: None Hx Substance Use Treatment: No Review of Systems - Review of Systems Able to Perform ROS?: Yes Comments:: CONSTITUTIONAL: Absent: no fatigue EYES: Absent: visual changes CARDIOVASCULAR: +chest pain Absent: no palpitations RESPIRATORY: Absent: cough, no SOB GI: Absent: abdominal pain, no nausea, no vomiting MUSCULOSKELETAL: +chest wall pain Absent: back pain, no arthralgia, no myalgia NEURO: Absent: headache *Physical Exam - Vital Signs Last Vital Signs Temp Pulse Resp BP Pulse Ox 97.2 F L 63 18 132/59 92 L 03/17/17 13:13 03/17/17 13:13 03/17/17 13:13 03/17/17 13:13 03/17/17 13:13 - Physical Exam Comments: GENERAL: Well-appearing, well-nourished. No apparent distress. HEENT: Normocephalic, atraumatic. EOM intact. CARDIOVASCULAR: Normal S1, S2. Irregularly irregular. PULMONARY: Diminished breath sounds. Clear to auscultation bilaterally. ABDOMEN: Soft, non-distended, non-tender. EXTREMITIES: No gross deformities. No edema. MSK: +chest wall tenderness more on R of sternum compared to L of sternum. Mental Telepathist strength 5/5, Full ROM in B/L UE. SKIN: Warm, dry. NEUROLOGICAL: No focal neurological deficits. Heart Score/ECG Review - ECG Intrepretation Comment:: NSR @ 66bpm. QTc 440ms. no ST segment changes. ED Treatment Course - RADIOLOGY Radiology Studies Ordered: Category Date Time Status CHEST PA & LAT [RAD] Stat Radiology 03/17/17 13:53 Ordered Medical Decision Making - Medical Decision Making 03/17/17 14:02 EKG and Chest XR PA & Lateral ordered. Tylenol for pain. 03/17/17 15:27 CXR negative for fracture. EKG with no ST segment changes. NSR @ 66bpm. QTc 440ms. Pt to be discharged with percocet 5/325 qid prn for 7 days. To follow with PCP. *DC/Admit/Observation/Transfer Diagnosis at time of Disposition: Muscle strain of chest wall - Discharge Dispostion Disposition: HOME Condition at time of disposition: Stable - Prescriptions Prescriptions: Oxycodone HCl/Acetaminophen [Percocet 5-325 mg Tablet] 1 tab PO QID PRN #28 tablet MDD 4 tablets PRN Reason: Pain - Referrals Referrals: Garima Jackson MD [Primary Care Provider] - - Patient Instructions Printed Discharge Instructions: DI for Atypical Chest Pain Additional Instructions: Please follow with your primary care doctor after this ER visit. There are no fractures seen on your chest xray. You have been prescribed percocet to take up to 4 times a day IF needed for pain. If your symptoms worsen come back to the ER.
--- NOTE | 2017-03-17 14:22 | PDOC ---
History of Present Illness <Justin Mullen - Last Filed: 03/17/17 14:22> - General History Source: Patient Exam Limitations: No Limitations - History of Present Illness Initial Comments: 03/17/17 14:23 The patient is a 87 year old female, with a significant past medical history of TIA( 1 year ago), AFib(on Eliquis), hypertension, hyperlipidemia, ovarian cancer , arthritis, chronic back pain, and peritoneal carcinomatosis, who presents to the emergency department complaining sent by her oncologist Dr. Painting for evaluation of. midsternal chest pain since yesterday evening. Patient reports she was going to plug in something into an outlet. Upon bending over she reports experiencing a twinge of pain. At the moment, the patient rated her pain an 8/10. The patient reports her pain is pleuritic in nature, and exacerbated with movement. Patient reports she feels like she is getting shorter and feels like she is having difficulty breathing secondary to organ compression. The patient denies any diaphoresis, palpitations, or lower extremity edema. Patient denies any fever, chills, cough, headache, or dizziness. Patient denies any abdominal pain, nausea, vomiting, diarrhea, constipation, or changes in urination patterns. Patient denies any recent travel or sick contacts. Allergies: NKDA Past Surgical History: Pacemaker, Cataract removal(bilaterally), Joint replacement(bilateral hip replacements), tonsillectomy Social History: Former smoker(Quit 17 years ago). No ETOH or drug use. PCP: Dr. Steele Oncologist: Dr. Garima Jackson <Estelle Cerna - Last Filed: 03/17/17 17:14> - General Chief Complaint: Chest Pain Stated Complaint: PCP SENT Time Seen by Provider: 03/17/17 13:37 Past History - Past Medical History Anemia: No Asthma: No Cancer: Yes (ovarian) Cardiac Disorders: Yes ("MILD HEART ARRYTHMIA") CVA: No COPD: No CHF: No Dementia: No Diabetes: No GI Disorders: No Disorders: No HTN: Yes Hypercholesterolemia: Yes Liver Disease: No Suicide Attempt (Hx): No Seizures: No Thyroid Disease: No - Surgical History Abdominal Surgery: Yes (D&C) Appendectomy: No Cardiac Surgery: No Cholecystectomy: No Lung Surgery: No Orthopedic Surgery: Yes (TOTAL HIP LEFT) - Psycho/Social/Smoking Cessation Hx Anxiety: No Suicidal Ideation: No Smoking History: Former smoker Have you smoked in the past 12 months: No Number of Cigarettes Smoked Daily: 0 If you are a former smoker, when did you quit?: 2000 Cigars Per Day: 0 Information on smoking cessation initiated: No Hx Alcohol Use: No Drug/Substance Use Hx: No Substance Use Type: None Hx Substance Use Treatment: No <Justin Mullen - Last Filed: 03/17/17 14:22> <Estelle Cerna - Last Filed: 03/17/17 17:14> - Past Medical History Allergies/Adverse Reactions: Allergies Allergy/AdvReac Type Severity Reaction Status Date / Time No Known Allergies Allergy Verified 03/17/17 13:16 Home Medications: Ambulatory Orders Apixaban [Eliquis -] 2.5 mg PO BID #60 tablet 01/19/16 Atorvastatin Ca [Lipitor] 10 mg PO HS #30 tablet 01/19/16 Sotalol HCl [Betapace -] 80 mg PO BID #60 tablet 01/19/16 Albuterol Sulfate Inhaler - [Ventolin HFA Inhaler -] 1 puff IH Q4H PRN #5 inhaler 01/16/17 Amlodipine Besylate [Norvasc -] 10 mg PO DAILY #30 tablet 01/16/17 Diphenhydramine HCl [Benadryl Capsule -] 25 mg PO HS PRN #30 tab 01/16/17 Dronabinol [Marinol -] 5 mg PO 0730,1130,1700 #9 tab MDD 3 01/16/17 Lidocaine 5% Patch [Lidoderm -] 1 patch TP DAILY #15 patch 01/16/17 Ondansetron HCl [Zofran] 8 mg PO Q4H #120 tablet 01/16/17 Shashank-Cath Flush [Shashank-Cath Flush -] 10 ml IVPUSH PRN PRN #30 ml 01/16/17 Tramadol HCl [Ultram -] 50 mg PO Q6H PRN #12 tablet MDD 4 01/16/17 Oxycodone HCl/Acetaminophen [Percocet 5-325 mg Tablet] 1 tab PO QID PRN #28 tablet MDD 4 tablets 03/17/17 Review of Systems - Review of Systems Able to Perform ROS?: Yes Comments:: 03/17/17 14:23 GENERAL/CONSTITUTIONAL: No fever or chills. No weakness. HEAD, EYES, EARS, NOSE AND THROAT: No change in vision. No ear pain or discharge. No sore throat. CARDIOVASCULAR: Yes: +chest pain RESPIRATORY: Yes: +Dyspnea, +Dyspnea on exertion. No cough, wheezing, or hemoptysis. GASTROINTESTINAL: No nausea, vomiting, diarrhea or constipation. GENITOURINARY: No dysuria, frequency, or change in urination. MUSCULOSKELETAL: +Midsternal chest pain. No other joint or muscle swelling or pain. No neck or back pain. SKIN: No rash NEUROLOGIC: No headache, vertigo, loss of consciousness, or change in strength/ sensation. ENDOCRINE: No increased thirst. No abnormal weight change. HEMATOLOGIC/LYMPHATIC: No anemia, easy bleeding, or history of blood clots. ALLERGIC/IMMUNOLOGIC: No hives or skin allergy. <Estelle Cerna - Last Filed: 03/17/17 17:14> *Physical Exam - Vital Signs Last Vital Signs Temp Pulse Resp BP Pulse Ox 97.2 F L 63 18 132/59 92 L 03/17/17 13:13 03/17/17 13:13 03/17/17 13:13 03/17/17 13:13 03/17/17 13:13 <Justin Mullen - Last Filed: 03/17/17 14:22> - Vital Signs Last Vital Signs Temp Pulse Resp BP Pulse Ox 97.2 F L 63 18 132/59 92 L 03/17/17 13:13 03/17/17 13:13 03/17/17 13:13 03/17/17 13:13 03/17/17 13:13 - Physical Exam Comments: 03/17/17 14:53 GENERAL: Awake, alert, and fully oriented, in no acute distress HEAD: No signs of trauma EYES: PERRLA, EOMI, sclera anicteric, conjunctiva clear ENT: Auricles normal inspection, hearing grossly normal, nares patent, oropharynx clear without exudates. Moist mucosa NECK: Normal ROM, supple, no lymphadenopathy, JVD, or masses LUNGS: Diminished breath sounds bilaterally. Clear to auscultation. No wheezes, and no crackles HEART: Irregularly irregular. normal S1 and S2, no murmurs, rubs or gallops ABDOMEN: Soft, nontender, normoactive bowel sounds. No guarding, no rebound. No masses MUSCULOSKELETAL: +chest wall tenderness more on R of sternum compared to L of sternum. Purchasing Specialist strength 5/5, Full ROM in B/L UE. EXTREMITIES: Normal range of motion, no edema. No clubbing or cyanosis. No cords, erythema, or tenderness NEUROLOGICAL: Cranial nerves II through XII grossly intact. Normal speech, normal gait. No focal neurological deficits. SKIN: Warm, Dry, normal turgor, no rashes or lesions noted. <Estelle Cerna - Last Filed: 03/17/17 17:14> Heart Score/ECG Review - ECG Intrepretation Comment:: 03/17/17 17:12 EXAM: 66 bpm IMPRESSION: Normal sinus rhythm. Minimal voltage criteria for LVH, may be normal variant. Nonspecific ST and T wave abnormality. <Estelle Cerna - Last Filed: 03/17/17 17:14> ED Treatment Course - RADIOLOGY Radiograph Interpretation: 03/17/17 17:13 EXAM: CXR INTERPRETED BY: Dr. Laureano REVIEWED BY: Dr. Mullen IMPRESSION: No evidence of pneumonia, CHF, pneumothorax, or pleural effusion. No rib fracture is seen within the limitation of examination. No evidence of right glenohumeral joint dislocation. Compression deformities of several thoracic vertebral bodies. Please refer to CT of the chest January 04, 2017. <Estelle Cerna - Last Filed: 03/17/17 17:14> *DC/Admit/Observation/Transfer - Attestations Physician Attestion: 03/17/17 14:22 I, Dr. Justin Mullen, attest that this document has been prepared under my direction and personally reviewed by me in its entirety. I further attest, that it accurately reflects all work, treatment, procedures and medical decision -making performed by me. <Justin Mullen - Last Filed: 03/17/17 14:22> - Attestations Scribe Attestion: 03/17/17 14:24 Documentation prepared by Estelle Cerna, acting as medical claims analyst for Justin Mullen DO. <Estelle Cerna - Last Filed: 03/17/17 17:14> Diagnosis at time of Disposition: Muscle strain of chest wall - Discharge Dispostion Disposition: HOME Condition at time of disposition: Stable - Prescriptions Prescriptions: Oxycodone HCl/Acetaminophen [Percocet 5-325 mg Tablet] 1 tab PO QID PRN #28 tablet MDD 4 tablets PRN Reason: Pain - Referrals Referrals: Garima Jackson MD [Primary Care Provider] - - Patient Instructions Printed Discharge Instructions: DI for Atypical Chest Pain Additional Instructions: Please follow with your primary care doctor after this ER visit. There are no fractures seen on your chest xray. You have been prescribed percocet to take up to 4 times a day IF needed for pain. If your symptoms worsen come back to the ER.
[2017-03-17] MEDS ORDERED: ACETAMINOPHEN 325 MG TABLET (FP) ONE (15:17)
[2017-03-17 16:08] VITALS: BP 124/58; PULSE 68; TEMP 97.7
--- NOTE | 2017-03-17 16:10 | EKG ---
Test Reason : Blood Pressure : / mmHG Vent. Rate : 066 BPM Atrial Rate : 066 BPM P-R Int : 132 ms QRS Dur : 076 ms QT Int : 420 ms P-R-T Axes : 076 035 064 degrees QTc Int : 440 ms POOR DATA QUALITY, INTERPRETATION MAY BE ADVERSELY AFFECTED NORMAL SINUS RHYTHM MINIMAL VOLTAGE CRITERIA FOR LVH, MAY BE NORMAL VARIANT NONSPECIFIC ST AND T WAVE ABNORMALITY ABNORMAL ECG WHEN COMPARED WITH ECG OF 03-JAN-2017 13:22, SINUS RHYTHM HAS REPLACED ELECTRONIC ATRIAL PACEMAKER Confirmed by DAVID TRISTAN MD ([id number]) on 03/17/2017 4:09:55 PM Referred By: Confirmed By:DAVID TRISTAN MD
== END 2017-03-17 16:07 | disposition home or self-care (01) ==
LOC: SUPCPDRO 13:01 → JER 13:01
DX: S29.011A Strain of muscle and tendon of front wall of thorax, initial encounter (principal); X58.XXXA Exposure to other specified factors, initial encounter; Y93.9 Activity, unspecified; Y92.018 Other place in single-family (private) house as the place of occurrence of the external cause; I48.91 Unspecified atrial fibrillation; Z79.01 Long term (current) use of anticoagulants; I10 Essential (primary) hypertension; M54.5 Low back pain; G89.29 Other chronic pain; Z95.0 Presence of cardiac pacemaker; Z85.43 Personal history of malignant neoplasm of ovary
CPT/HCPCS: 71020-TC; 93005; 93010; 99283-25

== ENCOUNTER 2017-03-21 07:23 | Day surgery (SDC) | payer OTHER ==
[2017-03-21] MEDS ORDERED: ONDANSETRON IVPB ONE (10:00)
[2017-03-21] MEDS ORDERED: [UNRECOGNIZED DRUG - OTHER] IVPB ONE (10:00)
[2017-03-21] MEDS ORDERED: DIPHENHYDRAMINE IVPB ONE (10:00)
[2017-03-21] MEDS ORDERED: DEXAMETHASONE INJECTION 10 MG in SODIUM CHLORIDE 50 ML IVPB ONE (10:00)
[2017-03-21] MEDS ORDERED: SODIUM CHLORIDE 250 ML IV ONE (10:00)
[2017-03-21] MEDS ORDERED: RANITIDINE IVPB ONE (10:00)
[2017-03-21] MEDS ORDERED: PACLITAXEL 90 MG in SODIUM CHLORIDE 250 ML IVPB ONE (10:30)
[2017-03-21 10:45] LABS: BASOPHIL 1.1 % (0-2.0); EOSINOPHIL 1.7 % (0-4.5); MCH 29.9 pg (25.7-33.7); MCHC 33.2 g/dl (32.0-36.0); MEAN CELL VOLUME 90.2 fl (80-96); MEAN PLT VOLUME 8.9 fl (7.5-11.1); NEUTROPHILS 66.5 % (42.8-82.8); PLATELET COUNT 172 K/MM3 (134-434); RDW 19.5 % (11.6-15.6); WHITE BLOOD COUNT 4.7 K/mm3 (4.0-10.0)
[2017-03-21 11:26] LABS: GLUCOSE,RANDOM 85 mg/dL (74-106)
[2017-03-21 11:27] LABS: ALBUMIN 3.3 g/dl (3.4-5.0); ANION GAP 6 (8-16); BILIRUBIN,TOTAL 0.5 mg/dL (0.2-1.0); CALCIUM 8.9 mg/dL (8.5-10.1); CO2 31 mmol/L (21-32); COCKROFT - GAULT 41.65; CREATININE 0.8 mg/dL (0.55-1.02); MAGNESIUM 1.7 mg/dL (1.8-2.4); TOT PROT 6.3 g/dl (6.4-8.2)
[2017-03-21 11:28] LABS: ALK PHOS 122 U/L (45-117); SGOT/AST 17 U/L (15-37); SGPT/ALT 23 U/L (12-78)
[2017-03-21] MEDS ORDERED: CARBOPLATIN IVPB ONE (11:30)
[2017-03-21] MEDS ORDERED: SODIUM CHLORIDE IVPB ONE (11:30)
[2017-03-21] MEDS ORDERED: ACETAMINOPHEN 325 MG TABLET (FP) PO PRN (12:39)
[2017-03-21] MEDS ORDERED: METHYL SALICYLATE/MENTHOL OINT 30 GM TUBE TP SCH (13:00)
[2017-03-21] MEDS ORDERED: PORTA CATH FLUSH 10 ML IVPUSH ONE (13:38)
[2017-03-21] MEDS ORDERED: MAGNESIUM SULF 50% (8.12 MEQ/2 ML-1 GM VIAL) IVPB ONE (13:45)
[2017-03-21 18:48] VITALS: BP 119/57; PULSE 60
[2017-03-21 18:49] VITALS: TEMP 97.9
== END 2017-03-21 19:11 | disposition home or self-care (01) ==
LOC: JONCCHEMO 07:23 → J7W 11:51 → JONCCHEMO 19:11
PROVIDERS: ATTEND Internal Medicine Hematology & Oncology
PROC: 3E04305 Introduction of Other Antineoplastic into Central Vein, Percutaneous Approach (ICD-10-PCS; principal; 2017-03-21)
PROC: 3E043GC Introduction of Other Therapeutic Substance into Central Vein, Percutaneous Approach (ICD-10-PCS; 2017-03-21)
PROC: 3E0437Z Introduction of Electrolytic and Water Balance Substance into Central Vein, Percutaneous Approach (ICD-10-PCS; 2017-03-21)
DX: Z51.11 Encounter for antineoplastic chemotherapy (principal); C56.9 Malignant neoplasm of unspecified ovary; D70.1 Agranulocytosis secondary to cancer chemotherapy
CPT/HCPCS: 96361; 96366; 96367; 96375; 96413; 96417; J9045; J9267; 36415; 71250-TC; 74176-TC; 80053; 83735; 85025; 96360

== ENCOUNTER 2017-03-30 08:27 | Observation (INO) | payer OTHER ==
[2017-03-30 08:43] VITALS: BMI 19.8
--- NOTE | 2017-03-30 09:03 | PDOC ---
Attending Attestation - Resident Resident Name: Pablo Sheikh - ED Attending Attestation I have performed the following: I have examined & evaluated the patient, The case was reviewed & discussed with the resident, I agree w/resident's findings & plan, Exceptions are as noted - HPI HPI: 03/30/17 09:05 The patient is an 87-year-old female with a significant past medical history of hypertension, hyperlipidemia, atrial fibrillation (on Eliquis), ovarian cancer with peritoneal carcinomatosis, chronic back pain, who presents to the emergency department with back pain. She denies lower extremity weakness or paresthesias. She denies bladder or bowel incontinence or retention. She denies falls or trauma. She denies urinary frequency, urgency, hesitancy, dysuria, hematuria. She denies rash. 03/30/17 09:24 - Physicial Exam PE: 03/30/17 09:24 She is well appearing and in no acute distress No midline vertebral body tenderness No lower extremity sensory or motor loss - Medical Decision Making 03/30/17 09:27 Given her anticoagulated status, recent chemotherapy, and complaints of weakness and back pain, we'll obtain labs as well as a CT to rule out anemia and retroperitoneal hematoma There is no clinical evidence of cauda equina syndrome or spinal cord compression Will provide IV hydration and IV analgesia 03/30/17 11:19 Symptoms improved after medications She is able to ambulate independently in the emergency department Labs and CT without evidence of acute pathology She states that she lives alone, without any support from friends or family, and she is unable to ambulate safely. In the emergency department, she is unable to transfer from the stretcher to a chair, or from the stretcher to standing, without [address] on observation for further evaluation and treatment Clinical impression: Acute exacerbation of chronic back pain Severe generalized weakness 03/30/17 11:27 Discharge Disposition - Diagnosis Chronic back pain, Generalized weakness - Discharge Dispostion Condition at time of disposition: Improved Last Admission D/C Date: 01/23/17 Admit: Yes - Referrals Referrals: Garima Jackson MD [Staff Physician] - - Patient Instructions Printed Discharge Instructions: DI for Low Back Pain Additional Instructions: Return to the emergency department immediately with ANY new, persistent or worsening symptoms. You MUST call and follow up with your doctor tomorrow. Please make sure your doctor reviews the results of your emergency department evaluation.
--- NOTE | 2017-03-30 09:26 | PDOC ---
History of Present Illness - General History Source: Patient, Old Records Exam Limitations: No Limitations - History of Present Illness Initial Comments: 03/30/17 09:27 The patient is an 87-year-old woman with a significant past medical history of hypertension, hypercholesterolemia, atrial fibrillation (on Eliquis), chronic back pain and ovarian cancer (with peritoneal carcinomatosis) who presents to the emergency department via EMS for further evaluation of generalized weakness. As per patient, she reports receiving chemotherapy approximately 9 days ago. She states that she has been feeling generally weaker than usual, for which she attributes this to her chemotherapy treatments. No fever, chills, loss of appetite. She also reports experiencing back pain. Her back pain is atruamatic, localized over the thoracic region, non-radiating and exacerbated with minimal musculoskeletal maneuvers and mildly alleviated in when laying in position. She denies nay associated symptoms of chest pain, cough, shortness of breath, numbnes and paresthesias sensations to her extremities, bladder and bowel incontinence, abdominal pain, nausea, vomiting, diarrhea, dysuria, urinary frequency/urgency. She was evaluated on the ED on 03/17/2017 for chest pain and had normal workup and discharged with musculoskeletal pain Allergies: No Knonw Drug Allergies Past Surgical History: D&C. Left total hip replacement. Social History: Former smoker. No EtOH and recreational drug use. Oncologist/Nut Threader: Dr. Painting. <Adilia Chavez - Last Filed: 03/30/17 10:27> - General History Source: Patient Exam Limitations: No Limitations <Pablo Sheikh - Last Filed: 03/30/17 12:07> - General Chief Complaint: Back Pain Stated Complaint: BACK PAIN Time Seen by Provider: 03/30/17 08:49 Past History <Adilia Chavez - Last Filed: 03/30/17 10:27> - Past Medical History Anemia: No Asthma: No Cancer: Yes (ovarian) Cardiac Disorders: Yes ("MILD HEART ARRYTHMIA") CVA: No COPD: No CHF: No Dementia: No Diabetes: No GI Disorders: No Disorders: No HTN: Yes Hypercholesterolemia: Yes Liver Disease: No Suicide Attempt (Hx): No Seizures: No Thyroid Disease: No - Surgical History Abdominal Surgery: Yes (D&C) Appendectomy: No Cardiac Surgery: No Cholecystectomy: No Lung Surgery: No Orthopedic Surgery: Yes (TOTAL HIP LEFT) - Psycho/Social/Smoking Cessation Hx Anxiety: No Suicidal Ideation: No Smoking History: Former smoker Have you smoked in the past 12 months: No Number of Cigarettes Smoked Daily: 0 If you are a former smoker, when did you quit?: 2000 Cigars Per Day: 0 Information on smoking cessation initiated: No Hx Alcohol Use: No Drug/Substance Use Hx: No Substance Use Type: None Hx Substance Use Treatment: No <Pablo Sheikh - Last Filed: 03/30/17 12:07> - Past Medical History Allergies/Adverse Reactions: Allergies Allergy/AdvReac Type Severity Reaction Status Date / Time No Known Allergies Allergy Verified 03/30/17 08:40 Home Medications: Ambulatory Orders Apixaban [Eliquis -] 2.5 mg PO BID #60 tablet 01/19/16 Atorvastatin Ca [Lipitor] 10 mg PO HS #30 tablet 01/19/16 Sotalol HCl [Betapace -] 80 mg PO BID #60 tablet 01/19/16 Albuterol Sulfate Inhaler - [Ventolin HFA Inhaler -] 1 puff IH Q4H PRN #5 inhaler 01/16/17 Amlodipine Besylate [Norvasc -] 10 mg PO DAILY #30 tablet 01/16/17 Diphenhydramine HCl [Benadryl Capsule -] 25 mg PO HS PRN #30 tab 01/16/17 Dronabinol [Marinol -] 5 mg PO 0730,1130,1700 #9 tab MDD 3 01/16/17 Lidocaine 5% Patch [Lidoderm -] 1 patch TP DAILY #15 patch 01/16/17 Ondansetron HCl [Zofran] 8 mg PO Q4H #120 tablet 01/16/17 Tramadol HCl [Ultram -] 50 mg PO Q6H PRN #12 tablet MDD 4 01/16/17 Oxycodone HCl/Acetaminophen [Percocet 5-325 mg Tablet] 1 tab PO QID PRN #28 tablet MDD 4 tablets 03/17/17 Review of Systems - Review of Systems Able to Perform ROS?: Yes Comments:: 03/30/17 09:27 CONSTITUTIONAL: Present: Generalized Weakness. Absent: fever, chills, diaphoresis, malaise, loss of appetite HEENT: Absent: rhinorrhea, nasal congestion, throat pain, throat swelling, difficulty swallowing, mouth swelling, ear pain, eye pain, visual Changes CARDIOVASCULAR: Absent: chest pain, syncope, palpitations, irregular heart rate , lightheadedness, peripheral edema RESPIRATORY: Absent: cough, shortness of breath, dyspnea with exertion, orthopnea, wheezing, stridor, hemoptysis GASTROINTESTINAL:Absent: abdominal pain, abdominal distension, nausea, vomiting , diarrhea, constipation, melena, hematochezia GENITOURINARY: Absent: dysuria, frequency, urgency, hesitancy, hematuria, flank pain, genital pain MUSCULOSKELETAL: Present: Back Pain. Absent: joint swelling SKIN: Absent: rash, itching, pallor HEMATOLOGIC/IMMUNOLOGIC: Absent: easy bleeding, easy bruising, lymphadenopathy, frequent infections ENDOCRINE:Absent: unexplained weight gain, unexplained weight loss, heat intolerance, cold intolerance NEUROLOGIC: Absent: headache, focal weakness or paresthesias, dizziness, unsteady gait, seizure, mental status changes, bladder or bowel incontinence PSYCHIATRIC: Absent: anxiety, depression, suicidal or homicidal ideation, hallucinations <Adilia Chavez - Last Filed: 03/30/17 10:27> *Physical Exam - Vital Signs Last Vital Signs Temp Pulse Resp BP Pulse Ox 97.4 F L 62 20 137/74 95 03/30/17 08:41 03/30/17 08:41 03/30/17 08:41 03/30/17 08:41 03/30/17 08:41 - Physical Exam Comments: 03/30/17 09:27 GENERAL: Thin. Cachetic. Awake and alert. No acute distress. HEENT: EOMI. No conjunctival pallor. Sclera are non-icteric. Dry mucous membranes. NECK: Supple. Full ROM. CARDIOVASCULAR: Irregularly, irregular rate and rhythm. No murmurs, rubs, or gallops. PULMONARY: No evidence of respiratory distress. Lungs clear to auscultation bilaterally. No wheezing, rales or rhonchi. ABDOMINAL: Soft. Non-tender. Non-distended. No rebound or guarding. No organomegaly. Normoactive bowel sounds. MUSCULOSKELETAL: No spinal tenderness. No paraspinal muscle tenderness or muscle spasms. Normal range of motion at all joints. No bony deformities or tenderness. 5/5 lower extremity strength, bilaterally. EXTREMITIES: No edema. No calf tenderness. SKIN: Warm and dry. Normal capillary refill. No rashes. No jaundice. NEUROLOGICAL: Alert, awake, appropriate. Bilateral equal sensations to light touch to the lower extremities Normal speech. PSYCHIATRIC: Cooperative. Good eye contact. Appropriate mood and affect. <ScottAdilia - Last Filed: 03/30/17 10:27> - Vital Signs Last Vital Signs Temp Pulse Resp BP Pulse Ox 97.4 F L 62 20 137/74 95 03/30/17 08:41 03/30/17 08:41 03/30/17 08:41 03/30/17 08:41 03/30/17 08:41 <Pablo Sheikh - Last Filed: 03/30/17 12:07> ED Treatment Course - LABORATORY CBC & Chemistry Diagram: 03/30/17 09:35 03/30/17 09:35 <ChavezAdilia - Last Filed: 03/30/17 10:27> - LABORATORY CBC & Chemistry Diagram: 03/30/17 09:35 03/30/17 09:35 <Pablo Sheikh - Last Filed: 03/30/17 12:07> Medical Decision Making - Medical Decision Making 03/30/17 9:38 Weakness may be secondary to chemo/anemia/pancytopenia. Will evaluate with CBCD , CMP. Will give pain relief with 1g IV ofirmev and [address] abd/pelvis w/o contrast to rule out retroperitoneal bleed 03/30/17 11:22 Abd/Pelvis CT: Lung bases are clear. No evidence of hydronephrosis or obstructive uropathy. The liver, spleen, pancreas, adrenal glands demonstrate no significant abnormalities. No evidence of retroperitoneal lymphadenopathy or fluid collection. There is severe scoliosis of the lumbar spine with extensive degenerative arthritic changes most marked at L4-L5 and L5-S1. There is no evidence of acute bony abnormalities. 03/30/17 11:31 Pt states she is too weak at this time to function. She can not walk due to generalized weakness from chemo. Will monitor in obs at this time. 03/30/17 12:[address] Krishna and Dr. Herrera. Pt to be monitored in obs for generalized weakness s/p chemotherapy <Pablo Sheikh - Last Filed: 03/30/17 12:07> *DC/Admit/Observation/Transfer - Attestations Scribe Attestion: 03/30/17 09:28 Documentation prepared by Adilia Chavez, acting as medical data analyst for Pablo Sheikh MD. <Adilia Chavez - Last Filed: 03/30/17 10:27> <Pablo Sheikh - Last Filed: 03/30/17 12:07> Diagnosis at time of Disposition: Chronic back pain, Generalized weakness - Discharge Dispostion Disposition: HOME - Referrals Referrals: Garima Jackson MD [Staff Physician] - - Patient Instructions Printed Discharge Instructions: DI for Low Back Pain Additional Instructions: Return to the emergency department immediately with ANY new, persistent or worsening symptoms. You MUST call and follow up with your doctor tomorrow. Please make sure your doctor reviews the results of your emergency department evaluation.
[2017-03-30] MEDS ORDERED: DEXTROSE 5%-NORMAL SALINE 500 ML IV SCH (09:30)
[2017-03-30] MEDS ORDERED: ACETAMINOPHEN 1000 MG/100 ML VIAL (NON FORMULARY) IVPB ONE (09:31)
[2017-03-30] MEDS ORDERED: morphine CARPU-JECT 2 MG/1 ML DISP.SYRIN IVPUSH ONE (09:32)
[2017-03-30] MEDS ORDERED: morphine CARPU-JECT 2 MG/1 ML DISP.SYRIN ONE (09:49)
[2017-03-30] MEDS ORDERED: ACETAMINOPHEN INJECTION 100 ML IVPB ONE (09:49)
[2017-03-30 09:53] LABS: EOSINOPHIL 0.3 % (0-4.5); NEUTROPHILS 76.4 % (42.8-82.8)
[2017-03-30 09:57] LABS: BASOPHIL 0.8 % (0-2.0); MCH 30.2 pg (25.7-33.7); MCHC 33.1 g/dl (32.0-36.0); MEAN CELL VOLUME 91.2 fl (80-96); MEAN PLT VOLUME 8.7 fl (7.5-11.1); PLATELET COUNT 244 K/MM3 (134-434); RDW 20.8 % (11.6-15.6); WHITE BLOOD COUNT 4.2 K/mm3 (4.0-10.0)
[2017-03-30 10:41] LABS: ALBUMIN 3.2 g/dl (3.4-5.0); ANION GAP 8 (8-16); CALCIUM 9.1 mg/dL (8.5-10.1); CO2 29 mmol/L (21-32); COCKROFT - GAULT 54.9695; CREATININE 0.6 mg/dL (0.55-1.02); GLUCOSE,RANDOM 86 mg/dL (74-106); SGPT/ALT 25 U/L (12-78)
[2017-03-30 10:42] LABS: ALK PHOS 123 U/L (45-117); BILIRUBIN,TOTAL 0.5 mg/dL (0.2-1.0); TOT PROT 5.9 g/dl (6.4-8.2)
[2017-03-30 11:12] LABS: SGOT/AST 25 U/L (15-37)
--- NOTE | 2017-03-30 12:15 | HP ---
CHIEF COMPLAINT: " Generalized weakness x 1 day " PCP: Dr. Kang (retired, so doesn't have PCP now) Dr. Painting (Onco/Hematology) Dr. Bernard (cardiology) HISTORY OF PRESENT ILLNESS: Patient is a 87 year old female with significant past medical history of hypertension, hypercholesterolemia, atrial fibrillation (on Eliquis), sick sinus syndrome s/p pacemaker (01/18/2016), chronic back pain and ovarian cancer ( with peritoneal carcinomatosis) presented to the ED with the chief complaints of generalized weakness x 1 day. As per the patient, she received chemotherapy 9 days ago, started feeling weak while she was trying to go to the bathroom but since yesterday it got worse which was unusual for her post chemotherapy. She complaints of nausea (not more than expected with chemo) but no vomiting. Also reports that she has back pain which is chronic, aggravated on lying flat, feels better when she lays on the left lateral position. Denies any chest pain, palpitations, abdominal pain, dizziness, headache, numbness or tingling sensation of the limbs. Does have shortness of breath, mild which is normal for her during seasonal change. Bowel/Bladder habit normal. One BM this morning and no urinary complaints. Appetite normal. Sleep Normal. Patient uses a cane. Patient was seen in 03/17/2017 in the ED at [facility] for evaluation of chest pain, was discharged home with the diagnosis of muscle strain, sent home on Percocet for pain. 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 Allergies No Known Allergies Allergy (Verified 03/30/17 08:40) HOME MEDICATIONS: Home Medications Medication Instructions Recorded Apixaban [Eliquis -] 2.5 mg PO BID #60 tablet 01/19/16 Atorvastatin Ca [Lipitor] 10 mg PO HS #30 tablet 01/19/16 Sotalol HCl [Betapace -] 80 mg PO BID #60 tablet 01/19/16 Albuterol Sulfate Inhaler - 1 puff IH Q4H PRN #5 inhaler 01/16/17 [Ventolin HFA Inhaler -] Amlodipine Besylate [Norvasc -] 10 mg PO DAILY #30 tablet 01/16/17 Diphenhydramine HCl [Benadryl 25 mg PO HS PRN #30 tab 01/16/17 Capsule -] Dronabinol [Marinol -] 5 mg PO 0730,1130,1700 #9 tab MDD 3 01/16/17 Lidocaine 5% Patch [Lidoderm -] 1 patch TP DAILY #15 patch 01/16/17 Ondansetron HCl [Zofran] 8 mg PO Q4H #120 tablet 01/16/17 Tramadol HCl [Ultram -] 50 mg PO Q6H PRN #12 tablet MDD 4 01/16/17 Oxycodone HCl/Acetaminophen 1 tab PO QID PRN #28 tablet MDD 4 03/17/17 [Percocet 5-325 mg Tablet] tablets REVIEW OF SYSTEMS CONSTITUTIONAL: Present: generalized weakness, malaise, Absent: fever, chills, diaphoresis, loss of appetite, weight change HEENT: Absent: rhinorrhea, nasal congestion, throat pain, throat swelling, difficulty swallowing, mouth swelling, ear pain, eye pain, visual changes CARDIOVASCULAR: Absent: chest pain, syncope, palpitations, irregular heart rate, lightheadedness , peripheral edema RESPIRATORY: present: shortness of breath on/off Absent: cough, , dyspnea with exertion, orthopnea, wheezing, stridor, hemoptysis GASTROINTESTINAL: Absent: abdominal pain, abdominal distension, nausea, vomiting, diarrhea, constipation, melena, hematochezia GENITOURINARY: Absent: dysuria, frequency, urgency, hesitancy, hematuria, flank pain, genital pain MUSCULOSKELETAL: Absent: myalgia, arthralgia, joint swelling, back pain, neck pain SKIN: Absent: rash, itching, pallor HEMATOLOGIC/IMMUNOLOGIC: Absent: easy bleeding, easy bruising, lymphadenopathy, frequent infections ENDOCRINE: Absent: unexplained weight gain, unexplained weight loss, heat intolerance, cold intolerance NEUROLOGIC: Absent: headache, focal weakness or paresthesias, dizziness, unsteady gait, seizure, mental status changes, bladder or bowel incontinence PSYCHIATRIC: Absent: anxiety, depression, suicidal or homicidal ideation, hallucinations. PHYSICAL EXAMINATION GENERAL: Elderly, thinly built female, Awake, alert, and fully oriented, in no acute distress. Pain assessment: 01/06 low back pain HEAD: Normal with no signs of trauma. EYES: EOM intact, no pallor or icterus. EARS, NOSE, THROAT: Ears normal. Moist mucous membranes. NECK: Supple. Chest: Shashank cath in place on the right side, non erythematous, non tender around the port, reproducible pain around the parasternal area. LUNGS: Breath sounds equal, clear to auscultation bilaterally. No wheezes, and no crackles. No accessory muscle use. HEART: Irregularly irregular rate and rhythm, normal S1 and S2 without murmur, rub or gallop. ABDOMEN: Soft, nontender, not distended, normoactive bowel sounds, no guarding, no rebound, no masses. No hepatomegaly or splenomegaly. MUSCULOSKELETAL: Normal range of motion at all joints. No bony deformities or tenderness. No CVA tenderness. UPPER EXTREMITIES: 2+ pulses, warm, well-perfused. No cyanosis. No clubbing. No peripheral edema. LOWER EXTREMITIES: 2+ pulses, warm, well-perfused. No calf tenderness. No peripheral edema. NEUROLOGICAL: Bulk/tone normal, power 5/5 in all extremities, all sensations intact. No facial droop. No focal weakness. Cranial nerves II-XII intact. Normal speech. Gait not observed. PSYCHIATRIC: Cooperative. Good eye contact. Appropriate mood and affect. SKIN: Warm, dry, normal turgor, no rashes or lesions noted, normal capillary refill. 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 03/30/2017 CT abdomen/Pelvis: The lung bases are clear. The study is markedly limited without the use of any contrast material. There are no calcifications within the kidneys, ureters or urinary bladder suspicious for urinary tract calculi. There is no evidence of hydronephrosis or obstructive uropathy. The liver, spleen, pancreas, adrenal glands demonstrate no significant abnormalities. There is no evidence of intra-abdominal or retroperitoneal lymphadenopathy or fluid collections. There is no evidence of pneumoperitoneum, bowel obstruction or intra-abdominal abscess. Examination of the pelvis is severely limited due to extensive artifact from the patient's bilateral hip replacements. There is no gross evidence of pelvic masses or fluid collections. There is a severe scoliosis of the lumbar spine with extensive degenerative arthritic changes most marked at L4-5 and L5-S1. There is no evidence of acute bony abnormalities. IMPRESSION: Limited study with no evidence of acute pathology within the abdomen or pelvis ASSESSMENT/PLAN: Patient is a 87 year old female with significant past medical history of hypertension, hypercholesterolemia, atrial fibrillation (on Eliquis), sick sinus syndrome s/p pacemaker (01/18/2016), chronic back pain and ovarian cancer ( with peritoneal carcinomatosis) presented to the ED with the chief complaints of generalized weakness x 1 day. # Generalized weakness likely due to recent chemotherapy Last chemo 9days ago, received 9 cycles of chemo so far; Has nausea Normal Neuro exam, no focal weakness. TSH, Free T4, B12, folate, ordered for tomorrow IV NS @ 75mls/hr # Chest pain most likely musculoskeletal Unlikely ACS, ordered EKG to see any changes from previous one Rib x-ray to r/o fracture # Hypertension- now hypotensive Hold Amlodipine for now # Atrial Fibrillation-rate controlled on Elliquis 2.5 mg PO BID Continue (Home med) Sotalol 80mg PO BID # Sick sinus syndrome s/p pacemaker- stable # Ovarian cancer with peritoneal carcinomatosis Undergoing chemo (completed 9 cycles) Urine culture, Blood cultures from venous and shashank cath ordered as per Dr. Painting ([place]/Onco) Dr Painting consult requested Continue Benadryl 25mg PO HS # Back pain- Would like to r/o bone mets-ordered bone scan Bone scan done on 01/05/17 DJD osteoporotic fractures vs bony mets Could be due to degenerative issues vs musculoskeletal Oxycodone 2.5mg PO QID PRN # Shortness of breath/seasonal allergies. Oxygen saturation normal at RA, b/l lungs clear on auscultation, no leukocytosis CXR in am Continue Albuterol PRN # FEN IV NS @ 75mls/hr Electrolytes to be repeated Regular diet # Prophylaxis For DVT: On Elliquis For GI: Not indicated # Code Status: Full Code # Dispo: Placed on observation. Patient needs a rehab placement as patient will not be able to take care of herself, she lives alone. Will speak with the director of social work. Illness, Investigation and Plan of care explained to the patient. She verbalized understanding. Case discussed with Dr. Herrera. Visit type - Emergency Visit Emergency Visit: Yes ED Registration Date: 03/30/17 Care time: The patient presented to the Emergency Department on the above date and was hospitalized for further evaluation of their emergent condition. - New Patient This patient is new to me today: Yes Date on this admission: 03/30/17 - Critical Care Critical Care patient: No
[2017-03-30] MEDS ORDERED: ALBUTEROL SO4 6.7 GM HFA INHALER IH PRN (14:31)
[2017-03-30] MEDS ORDERED: OXYCODONE/APAP 5/325MG COMBO TABLET PO PRN (14:31)
[2017-03-30] MEDS ORDERED: oxyCODONE HCL 5 MG TABLET PO PRN ×2 (14:44→15:39)
[2017-03-30] MEDS ORDERED: ACETAMINOPHEN 325 MG TABLET (FP) PO PRN (14:45)
--- NOTE | 2017-03-30 15:00 | CONSULT ---
Consult - text type - Consultation Consultation Note: Patient well known to me 87 y/o with metastatic ovarian cancer, here for weakness, lower sternal pain Denies fever/chills/cough/SOB/abdominalpain/n/vomiting/diarrhea Rpeorts weakness, fatigue PMH Afib on eliquis high grade serous ovarian cancer HTN hyperipidemia h/o TIA Active Medications Generic Name Dose Route Start Last Admin Trade Name Freq PRN Reason Stop Dose Admin Acetaminophen 650 mg 03/31/17 01:57 Tylenol - PO Q4H PRN FEVER OR PAIN Albuterol Sulfate 1 puff 03/30/17 14:31 Ventolin Hfa Inhaler - IH Q4H PRN SHORTNESS OF BREATH Apixaban 2.5 mg 03/30/17 22:00 03/30/17 21:31 Eliquis - PO 2.5 mg BID ULICES Administration Atorvastatin Calcium 10 mg 03/30/17 22:00 03/30/17 21:32 Lipitor - PO 10 mg HS ULICES Administration Diphenhydramine HCl 25 mg 03/30/17 14:31 03/30/17 21:35 Benadryl - PO 25 mg HS PRN Administration AGITATION Sodium Chloride 1,000 mls @ 75 mls/hr 03/30/17 14:30 03/31/17 05:20 Normal Saline - IV 75 mls/hr ASDIR ULICES Administration Lidocaine 1 patch 03/31/17 10:00 Lidoderm Patch - TP DAILY ULICES Oxycodone HCl 2.5 mg 03/30/17 15:39 Roxicodone - PO QID PRN PAIN Sotalol HCl 80 mg 03/30/17 22:00 03/30/17 21:32 Betapace - PO 80 mg BID ULICES Administration AFVSS Cor: RSR, No murmurs, No gallops Lungs: Clear to P&A Abd: Soft, Normal bowel sounds, No organomegaly Ext:No significant edema Skin: No rashes, Integument intact Labs reviewed A/P 87 y/o patient with metastatic ovarian cancer, ascites, high grade serous ovarian cancer, s/p 9 weekly doses of carbo/taxol , with lower sternal reproducible pain checking ribfilms/bone scan gentle hydration check cultures deconditioning would consider rehab placement Ovarian cancer--s/p 9 weekly carbo/taxol doses very good response CA 125 decreased from 900 to 37 Scans show major iprovement check eli scan given lower sternal pain will discuss with son
[2017-03-30] MEDS: SODIUM CHLORIDE 1,000 ML IV SCH (15:13)
--- NOTE | 2017-03-30 15:49 | PN ---
Teaching Attending Note Name of Resident: Jenn Figueroa ATTENDING PHYSICIAN STATEMENT I saw and evaluated the patient. I reviewed the resident's note and discussed the case with the resident. I agree with the resident's findings and plan as documented. SUBJECTIVE: CC: feeling weak and chest pain . HPI: 87 y/o unfortunate lady with h/o HTN, A fib, SSS s/p Pacemaker, A fib on AC, recent diagnosis of ovarian cancer with peritoneal carcinomatosis on chemo therapy who presented with with generalized weakness and chest pain. CP started 2 weeks ago when she tried to pull a plug. it was located in lower sternal area, sharp, and in past 2 days radiated around her chest under her breasts. pain is exacerbated by upper body movements, cough , deep respiration. has no relation to food , or bending forward. deos not feel like her GERD and does not come at rest. she does not exert her self recently , so no association with exertion weakness has been an issue after chemotherapy, . she has decreased appetite, adn no focal weakness, numbness or tingling. she denied Back pain to me today , but complained of chronic back pain to resident with no radiation to LE. denies numbness tingling in LE except fro feet ( after chemo) . HAS NO FALLS , AND no urinary incontinence. poor po intake, no fever /chills, no diarrhea , has no ABd pain, minimal cough with minimal sputum production . Has no SOB or palpitations . no light headedness. OBJECTIVE: NAD , AAOX3 , pleasant and cooperative HEENT: dry MM , no LAP , no JVD. CV: RRR, no MRG Lungs : CTAB Ext : trace pitting edema on feet . Abd : soft, NT, ND , NL BS . MS : TTP over the lower sternal area , and anterior b/l lower ribs. Neuro : symmetric face, EOMI, round equal pupils , reactive to light , nl facial sensation . tongue and uvula at mid line . strength 5/5 in upper and lower ext proximally and distally sensation to light touch nL, reflexes: 2+ knee jerk, ankle jerk, biceps , and BR bilaterally ASSESSMENT AND PLAN: 87 y/o unfortunate lady with h/o HTN, A fib, SSS s/p Pacemaker, A fib on AC, recent diagnosis of ovarian cancer with peritoneal carcinomatosis on chemo therapy who presented with with generalized weakness and chest pain. 1- Generalized weakness: likely from chemo effect. poor po intake , volume depletion , anemia and deconditioning there is no focal weakness on neuro exam to suggest neurological deficit - start IVF - PT eval - check B12 , folate - check UA 2- Chest pain : for 3 weeks , seems to be MS in etiology since it is reproducible , triggered by upper body movements and not related to exertion or food . - check rib xrays ( R and L ) to r/o hair line fractures. CT scan from 03/25 reviewed, with no fx. - check Bone scan to r/o bone mets - check EKG. unlikely cardiac. - no further w/u after that 3- Lower back pain, with no radiation . nl neuro exam of LE . last bone scan in 01/13, with DJD vs Mts. tumor markers improved after chemo - Bone scan 4- HTN: now BP on lower side , due to probably volume depletion . - hold norvasc a - start IVF 5- Afib : cont sotalol and Eliquis 6- Ovarian cancer , with recent Ct scan showed almost complete resolution of peritoneal masses and ascitis . Tumor markers improved. Chemo on hold now . 7- Dispo : possible rehab placement as she lives alone
--- NOTE | 2017-03-30 15:56 | MSN ---
Admitting History and Physical - Primary Care Physician PCP: Dr. Kang (Recently retired and has not seen new PCP) - Admission Chief Complaint: Generalized weakness and back pain History of Present Illness: Patient is an 87 year old female with a history of ovarian cancer, atrial fibrillation, hypertension, hypercholesteremia, sick sinus syndrome, and chronic back pain. Patient states that she received chemo 9 days ago but has continued to feel weak and last night had difficulty walking. She has had weakness and nausea with her previous rounds of chemo. She reports that the back pain is most severe when lying flat on her back and is improved by lying on her left side. She denies fever, vomiting, palpitations, numbness and tingling in her limbs. She has no pain with urination and normal bowel movements. She does admit to shortness of breath at times with the change in weather. 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 Shashank-Cath December 2016. 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 History of Recent Travel: No Home Medications - Allergies Allergies/Adverse Reactions: Allergies Allergy/AdvReac Type Severity Reaction Status Date / Time No Known Allergies Allergy Verified 03/30/17 08:40 - Home Medications Home Medications: Ambulatory Orders Apixaban [Eliquis -] 2.5 mg PO BID #60 tablet 01/19/16 Atorvastatin Ca [Lipitor] 10 mg PO HS #30 tablet 01/19/16 Sotalol HCl [Betapace -] 80 mg PO BID #60 tablet 01/19/16 Albuterol Sulfate Inhaler - [Ventolin HFA Inhaler -] 1 puff IH Q4H PRN #5 inhaler 01/16/17 Amlodipine Besylate [Norvasc -] 10 mg PO DAILY #30 tablet 01/16/17 Diphenhydramine HCl [Benadryl Capsule -] 25 mg PO HS PRN #30 tab 01/16/17 Dronabinol [Marinol -] 5 mg PO 0730,1130,1700 #9 tab MDD 3 01/16/17 Lidocaine 5% Patch [Lidoderm -] 1 patch TP DAILY #15 patch 01/16/17 Ondansetron HCl [Zofran] 8 mg PO Q4H #120 tablet 01/16/17 Tramadol HCl [Ultram -] 50 mg PO Q6H PRN #12 tablet MDD 4 01/16/17 Oxycodone HCl/Acetaminophen [Percocet 5-325 mg Tablet] 1 tab PO QID PRN #28 tablet MDD 4 tablets 03/17/17 Family Disease History - Family Disease History Family Disease History: Heart Disease: Father ( [place] age 52), Other: Mother ( lived to 93) Review of Systems Findings/Remarks: Dry mouth No pain at the site of shashank-cath - Review of Systems Constitutional: reports: Malaise, Weakness Eyes: reports: No Symptoms Neck: denies: Pain on Movement, Stiffness Cardiovascular: reports: Chest Pain, Shortness of Breath. denies: Palpitations Gastrointestinal: reports: Nausea. denies: Abdominal Pain, Vomiting Genitourinary: denies: Burning, Dysuria, Pain Musculoskeletal: reports: Back Pain Integumentary: denies: Erythema Neurological: denies: Headache, Numbness, Parasthesia Physical Examination Vital Signs: Vital Signs Temperature 97.4 F L 03/30/17 14:25 Pulse Rate 77 03/30/17 14:25 Respiratory Rate 20 03/30/17 14:25 Blood Pressure 98/53 03/30/17 14:25 O2 Sat by Pulse Oximetry (%) 95 03/30/17 14:25 Findings/Remarks: General: Thin, pale-appearing 87 yr. old female alert and oriented X 3 lying uncomfortably on exam table. Head: normocepahlic, atraumatic HENT:Nasal septum intact, mucous membranes dry, pharynx without exudates or erythema. Eyes: Pupils equal, round, and reactive. EOM and accommodation intact. No scleral icterus. Neck: Supple. No JVD. Lungs: CTA BlL. No wheezes or crackles. Heart: Irregularly irregular. Abdomen: Non-tender, normal active bowel sounds, non-distended. UE: No finger nail clubbing, no edema, warm. 2+ pulses. 5/5 muscle strength. LE: 1+ edema at ankle. Warm. 2+ pulses. Neurological: Normal speech. C5, C6, C7, L4 graded 2/4. Psychiatric: Appropriate affect. Skin: Warm, dry, no rashes. Area around shashank-cath non-tender and no erythema. Assessment/Plan 87 yr old woman with history of ovarian cancer, atrial fibrillation and sick sinus syndrome, hypertension and hypercholesteremia presented with generalized weakness and back pain. 1.) Weakness; May be a effect of chemo received 9 days prior and mild anemia. Also patient has not been eating as well as normal. * IVF * Check B12; folate * Check TSH * Iron studies 2.) Back pain. Pain does not radiate and patient has full strength in LE. * Bone scan 3.) Chest pain. Occurs when standing and raising arms above her head. Pain began about 3 weeks ago. * Rib xray * Bone scan to rule out metastasis * EKG 4.) Hypertension. Blood pressure is currently low. * Hold amlodipine 5.) Atrial fibrillation * Continue sotalol and eliquis 6.) Ovarian cancer. No ascites on recent CT.
--- NOTE | 2017-03-30 16:29 | EKG ---
Test Reason : Blood Pressure : / mmHG Vent. Rate : 093 BPM Atrial Rate : 241 BPM P-R Int : 000 ms QRS Dur : 082 ms QT Int : 360 ms P-R-T Axes : 000 029 085 degrees QTc Int : 447 ms ATRIAL FIBRILLATION ABNORMAL ECG WHEN COMPARED WITH ECG OF 17-MAR-2017 13:20, ATRIAL FIBRILLATION HAS REPLACED SINUS RHYTHM Confirmed by JOÃO DEXTER MD ([id number]) on 03/30/2017 4:29:14 PM Referred By: Confirmed By:JOÃO DEXTER MD
[2017-03-30] MEDS ORDERED: DRONABINOL 5 MG CAPSULE PO SCH (17:00)
[2017-03-30] MEDS: APIXABAN 2.5 MG TABLET PO SCH (21:31)
[2017-03-30] MEDS: ATORVASTATIN CA 10 MG TABLET (FP) PO SCH (21:32)
[2017-03-30] MEDS: SOTALOL HCL 80 MG TABLET (FP) PO SCH (21:32)
[2017-03-30] MEDS: diphenhydrAMINE HCL 25 MG CAPSULE (FP) PO PRN (21:35)
[2017-03-31] MEDS ORDERED: ACETAMINOPHEN 325 MG TABLET (FP) PO PRN (01:57)
[2017-03-31] MEDS: SODIUM CHLORIDE 1,000 ML IV SCH ×2 (05:20→23:11)
[2017-03-31 07:45] LABS: MCH 30.6 pg (25.7-33.7); MCHC 33.7 g/dl (32.0-36.0); MEAN CELL VOLUME 90.9 fl (80-96); MEAN PLT VOLUME 8.5 fl (7.5-11.1); PLATELET COUNT 218 K/MM3 (134-434); RDW 20.9 % (11.6-15.6); WHITE BLOOD COUNT 2.7 K/mm3 (4.0-10.0)
[2017-03-31 08:11] LABS: CALCIUM 8.3 mg/dL (8.5-10.1)
[2017-03-31 08:25] LABS: COCKROFT - GAULT 54.9695; CREATININE 0.6 mg/dL (0.55-1.02); THYROID STIMULATING HORMONE 1.18 uIU/ml (0.358-3.74)
[2017-03-31] MEDS ORDERED: amLODIPine BESYLATE 10 MG TABLET (FP) PO SCH (10:00)
[2017-03-31] MEDS ORDERED: PT OWN MED DRAWER 7, Y5N ONE (11:34)
[2017-03-31] MEDS: LIDOCAINE 5% TOPICAL PATCH TP SCH (11:36)
[2017-03-31] MEDS: APIXABAN 2.5 MG TABLET PO SCH ×2 (11:36→21:33)
[2017-03-31] MEDS: SOTALOL HCL 80 MG TABLET (FP) PO SCH ×2 (11:36→21:32)
[2017-03-31] MEDS: traMADol HCL 50 MG TABLET PO PRN (12:41)
--- NOTE | 2017-03-31 13:56 | MSN ---
Progress Note (short form) - Note Progress Note: Subjective: Patient seen and examined at bedside this morning. She states her weakness has remained about the same since being admitted. Patient continues to have sternal pain with movement and back pain that is improved by lying on her left side. Patient has shortness of breath with exertion or changes in position. Objective: Vital Signs Period Temp Pulse Resp BP Sys/Amado Pulse Ox Last 24 Hr 97.4 F-98.4 F 64-92 20-20 98-134/53-60 94-95 General: Alert and oriented x3 Eyes: No scleral icterus or infusion. EOM intact. HENT: Mucous membranes moist. No JVD. Heart: irregularly irregular Lungs: CTA b/l Abdomen: Soft and non-tender. Extremities: warm with 2+ pulses. Trace edema at ankle. MSK: Sternum tender to palpation. Neuro: Normal speech. No focal weakness. 5/5 muscle strength upper and lower extremity. Laboratory Results - last 24 hr 03/31/17 03/31/17 03/31/17 06:05 06:05 06:05 WBC 2.7 L D RBC 3.00 L Hgb 9.2 L D Hct 27.3 L MCV 90.9 MCHC 33.7 RDW 20.9 H Plt Count 218 MPV 8.5 Sodium 138 Potassium 3.7 Chloride 102 Carbon Dioxide 28 Anion Gap 8 BUN 8 Creatinine 0.6 Random Glucose 75 Calcium 8.3 L Ferritin 151.461 TSH 1.18 D Assessment and Plan: 87 yr old female with compliant of generalized weakness of about one day. Patient has history of ovarian carcinoma, afib, sick sinus syndrome, HTN, and hypercholsteremia. Patient admitted due to general weakness. 1. Generalized weakness: Likely from chemo received 9 days prior and associated anemia. No focal weakness or numbness on exam. * Continue IVF * Review Iron studies 2. Chest pain * No evidence of fracture on CXR. Evidence of osteoporosis. * Check bone scan * EKG shows atrial fibrillation 3. Back pain: Pain does not radiate. * Bone Scan * Oxycodone 2.5 mg PO QID PRN 4. HTN * Normal after holding amlodipine and starting IVF 5. Afib * Continue sotalol and eliquis 6. Ovarian carcinoma * Continue to follow with Dr. Painting 7. FEN * IV NS @ 75mls/hr * Repeat electrolytes * Regular diet; supplement with protein power to maintain caloric needs 8. Prophylaxis * For DVT: On Eliquis * For GI: not indicated 9. Dispo * Talk to aids social worker about rehab. Has an aid come during the day but that is not sufficient now.
--- NOTE | 2017-03-31 15:34 | PN ---
Physical Exam: SUBJECTIVE: Patient seen and examined at bed side this morning. States that she feels the same like yesterday. Chest pain still persists, pressure type, increases on movement only, no palpitation. Has dry cough on/off, shortness of breath at exertion. Has chronic back pain relieved on position. NO acute events overnight. OBJECTIVE: Vital Signs Period Temp Pulse Resp BP Sys/Amado Pulse Ox Last 24 Hr 97.5 F-98.4 F 64-92 20-20 118-134/53-60 94-95 GENERAL: Elderly, thinly built female, Awake, alert, and fully oriented, in no acute distress. Pain assessment: 12/09 low back pain HEAD: Normal with no signs of trauma. EYES: EOM intact, no pallor or icterus. EARS, NOSE, THROAT: Ears normal. Moist mucous membranes. NECK: Supple. Chest: Shashank cath in place on the right side, non erythematous, non tender around the port, reproducible pain around the parasternal area. LUNGS: Breath sounds equal, clear to auscultation bilaterally. No wheezes, and no crackles. No accessory muscle use. HEART: Irregularly irregular rate and rhythm, normal S1 and S2 without murmur, rub or gallop. ABDOMEN: Soft, nontender, not distended, normoactive bowel sounds, no guarding, no rebound, no masses. No hepatomegaly or splenomegaly. MUSCULOSKELETAL: Normal range of motion at all joints. No bony deformities or tenderness. No CVA tenderness. UPPER EXTREMITIES: 2+ pulses, warm, well-perfused. No cyanosis. No clubbing. No peripheral edema. LOWER EXTREMITIES: 2+ pulses, warm, well-perfused. No calf tenderness. No peripheral edema. NEUROLOGICAL: Bulk/tone normal, power 5/5 in all extremities, all sensations intact. No facial droop. No focal weakness. Cranial nerves II-XII intact. Normal speech. Gait not observed. PSYCHIATRIC: Cooperative. Good eye contact. Appropriate mood and affect. SKIN: Warm, dry, normal turgor, no rashes or lesions noted, normal capillary refill. Laboratory Results - last 24 hr 03/31/17 03/31/17 03/31/17 06:05 06:05 06:05 WBC 2.7 L D RBC 3.00 L Hgb 9.2 L D Hct 27.3 L MCV 90.9 MCHC 33.7 RDW 20.9 H Plt Count 218 MPV 8.5 Sodium 138 Potassium 3.7 Chloride 102 Carbon Dioxide 28 Anion Gap 8 BUN 8 Creatinine 0.6 Random Glucose 75 Calcium 8.3 L Ferritin 151.461 Vitamin B12 739 Serum Folate 15 TSH 1.18 D Active Medications Generic Name Dose Route Start Last Admin Trade Name Freq PRN Reason Stop Dose Admin Acetaminophen 650 mg 03/31/17 01:57 Tylenol - PO Q4H PRN FEVER OR PAIN Albuterol Sulfate 1 puff 03/30/17 14:31 Ventolin Hfa Inhaler - IH Q4H PRN SHORTNESS OF BREATH Apixaban 2.5 mg 03/30/17 22:00 03/31/17 11:36 Eliquis - PO 2.5 mg BID ULICES Administration Atorvastatin Calcium 10 mg 03/30/17 22:00 03/30/17 21:32 Lipitor - PO 10 mg HS ULICES Administration Diphenhydramine HCl 25 mg 03/30/17 14:31 03/30/17 21:35 Benadryl - PO 25 mg HS PRN Administration AGITATION Sodium Chloride 1,000 mls @ 75 mls/hr 03/30/17 14:30 03/31/17 05:20 Normal Saline - IV 75 mls/hr ASDIR ULICES Administration Lidocaine 1 patch 03/31/17 10:00 03/31/17 11:36 Lidoderm Patch - TP 1 patch DAILY ULICES Administration Sotalol HCl 80 mg 03/30/17 22:00 03/31/17 11:36 Betapace - PO 80 mg BID ULICES Administration Tramadol HCl 50 mg 03/31/17 10:44 03/31/17 12:41 Ultram - PO 50 mg Q6H PRN Administration PAIN ASSESSMENT/PLAN: Patient is a 87 year old female with significant past medical history of hypertension, hypercholesterolemia, atrial fibrillation (on Eliquis), sick sinus syndrome s/p pacemaker (01/18/2016), chronic back pain and ovarian cancer ( with peritoneal carcinomatosis) presented to the ED with the chief complaints of generalized weakness x 1 day. # Generalized weakness likely due to recent chemotherapy Last chemo 10days ago, received 9 cycles of chemo so far; Has nausea Normal Neuro exam, no focal weakness. TSH Normal, B12 and folate normal IV NS @ 75mls/hr Hold chemo for now. # Chest pain most likely musculoskeletal Unlikely ACS, EKG-no acute changes. Rib x-ray shows no fracture Bone scan done, report pending. # Hypertension- now hypotensive Hold Amlodipine for now # Atrial Fibrillation-rate controlled on Elliquis 2.5 mg PO BID Continue (Home med) Sotalol 80mg PO BID # Sick sinus syndrome s/p pacemaker- stable # Ovarian cancer with peritoneal carcinomatosis Completed 9 cycles of chemo, now on hold due to weakness Urine culture, Blood cultures from venous and shashank cath ordered as per Dr. Painting ([place]) Dr Painting consult requested Continue Benadryl 25mg PO HS # Back pain- Would like to r/o bone mets-ordered bone scan Bone scan done on 01/05/17 DJD osteoporotic fractures vs bony mets Could be due to degenerative issues vs musculoskeletal Oxycodone 2.5mg PO QID PRN # Shortness of breath/seasonal allergies. Oxygen saturation normal at RA, b/l lungs clear on auscultation, no leukocytosis CXR in am Continue Albuterol PRN # FEN IV NS @ 75mls/hr Electrolytes to be repeated Regular diet # Prophylaxis For DVT: On Elliquis For GI: Not indicated # Code Status: Full Code # Dispo: Placed on observation. Patient needs a rehab placement as patient will not be able to take care of herself, she lives alone. social welfare research worker is awaiting to hear from SNF for SNF placement. Illness, Investigation and Plan of care explained to the patient. She verbalized understanding. Case discussed with Dr. Herrera. Visit type - Emergency Visit Emergency Visit: Yes ED Registration Date: 03/30/17 Care time: The patient presented to the Emergency Department on the above date and was hospitalized for further evaluation of their emergent condition. - New Patient This patient is new to me today: No - Critical Care Critical Care patient: No - Discharge Referral Referred to [facility] Med P.C[facility] No
--- NOTE | 2017-03-31 15:43 | PN ---
Teaching Attending Note Name of Resident: Jenn Figueroa ATTENDING PHYSICIAN STATEMENT I saw and evaluated the patient. I reviewed the resident's note and discussed the case with the resident. I agree with the resident's findings and plan as documented. SUBJECTIVE: no fever or chills, still feels weak and tired. Chest pain only with upper body movement. back pain occasionally, with no radiation to LE OBJECTIVE: NAD , AAOX3 , pleasant and cooperative HEENT: dry MM , no LAP , no JVD. CV: RRR, no MRG Lungs : CTAB Ext : trace pitting edema on feet . Abd : soft, NT, ND , NL BS . 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 1- Generalized weakness: likely from chemo effect. poor po intake , volume depletion , anemia and deconditioning there is no focal weakness to suggest neurological deficit - Cont IVF - check B12 , folate nl - no urinary sx 2- Chest pain : MS in etiology since it is reproducible , triggered by upper body movements and not related to exertion or food . - Rib xrays with no FX - Bone scan pending 3- Lower back pain, with no radiation . nl neuro exam of LE . last bone scan in 01/13, with DJD vs Mts. - Bone scan 4- HTN:nl off BP meds . will contto hold 5- Afib : cont sotalol and Eliquis 6- Ovarian cancer, with recent Ct scan showed almost complete resolution of peritoneal masses and ascitis . Tumor markers improved. Chemo on hold now . d/w Dr. Painting, 7- Dispo : rehab placement . once a bed is available pending bone scan read
[2017-03-31] MEDS ORDERED: SODIUM CHLORIDE 1,000 ML IV SCH (16:43)
[2017-03-31] MEDS: ATORVASTATIN CA 10 MG TABLET (FP) PO SCH (21:32)
[2017-03-31] MEDS: ALPRAZolam 0.25 MG TABLET PO PRN (21:33)
--- NOTE | 2017-04-01 00:04 | PN ---
Progress Note (short form) - Note Progress Note: patient seen and examined vitals/labs/meds reviewed bone pains--sternal fx/costochondritis d/c fluids consider zometa for osteoporosis--endocrine consult start oscal + D ovarian cancer in presumed remission but will hold off on further chemotherapy given fatigue, deconditioning discussed with daughter
[2017-04-01 06:09] LABS: SERUM IRON 28 ug/dL (27-139); TOTAL IRON BINDING CAPACITY 254 ug/dL (250-450); UIBC 226 ug/dL (118-369)
[2017-04-01] MEDS ORDERED: CALCIUM (OYSTER SHELL) 500 MG TABLET (FP) PO SCH (10:00)
--- NOTE | 2017-04-01 10:36 | PN ---
Progress Note (short form) - Note Progress Note: Subjective: no fever or chills, feels a little better than yesterday. Still has chest pain . no SOB. nO ABd pain Objective: Vital Signs: Last Vital Signs Temp Pulse Resp BP Pulse Ox 97.9 F 70 20 153/64 94 L 04/01/17 09:32 04/01/17 09:32 04/01/17 09:32 04/01/17 09:32 03/31/17 21:00 Laboratory Results - last 24 hr 03/31/17 03/31/17 06:05 06:05 Iron 28 TIBC 254 Iron Saturation 11 L Vitamin B12 739 Serum Folate 15 Physical Exam: NAD, AAOX3 , pleasant and cooperative HEENT: dry MM , no LAP, no JVD. CV: RRR, no MRG Lungs : CTAB Ext : trace pitting edema on feet . Abd : soft, NT, ND , NL BS . 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 1- Generalized weakness: likely from chemo effect. PT 2- Chest pain: due to sternal fracture, probably Osteoporosis . ? costochonderitis bone scan reviewed. - cont ca + Vit D. - will need , bisphosphonate treatment . fosamax is the choice in her as zometa is not recommended with recent chemo use. - we don't carry fosamax, here so she will start treatment weekly as out p - lidocaine patch, tramadol 3- Lower back pain, with no radiation . nl neuro exam of LE . BOne scan with no mets 4- HTN: resume norvasc and cont stolol 5- Afib : cont sotalol and Eliquis 6- Ovarian cancer, with recent Ct scan showed almost complete resolution of peritoneal masses and ascitis . Tumor markers improved. Chemo on hold now . 7- Dispo : rehab placement . once a bed is available pending bone scan read Visit type - Emergency Visit Emergency Visit: Yes ED Registration Date: 03/30/17 Care time: The patient presented to the Emergency Department on the above date and was hospitalized for further evaluation of their emergent condition. - New Patient This patient is new to me today: No - Critical Care Critical Care patient: No
[2017-04-01] MEDS: APIXABAN 2.5 MG TABLET PO SCH ×2 (10:51→21:15)
[2017-04-01] MEDS: SOTALOL HCL 80 MG TABLET (FP) PO SCH ×2 (10:51→21:15)
[2017-04-01] MEDS: CALCIUM 500MG/VIT-D 200 UNITS COMBO TABLET (FP) PO SCH (10:52)
[2017-04-01] MEDS: LIDOCAINE 5% TOPICAL PATCH TP SCH (11:00)
--- NOTE | 2017-04-01 13:45 | PN ---
Progress Note (short form) - Note Progress Note: hEMATOLOGY PROGRESS NOTE : 87 y/o with metastatic ovarian cancer, here for weakness, lower sternal pain here with a rib fracture Pain better PMH Afib on eliquis high grade serous ovarian cancer HTN hyperipidemia h/o TIA Active Medications Generic Name Dose Route Start Last Admin Trade Name Freq PRN Reason Stop Dose Admin Acetaminophen 650 mg 03/31/17 01:57 Tylenol - PO Q4H PRN FEVER OR PAIN Albuterol Sulfate 1 puff 03/30/17 14:31 Ventolin Hfa Inhaler - IH Q4H PRN SHORTNESS OF BREATH Alprazolam 0.25 mg 03/31/17 19:02 03/31/17 21:33 Xanax - PO 0.25 mg BID PRN Administration ANXIETY Amlodipine Besylate 10 mg 04/02/17 10:00 Norvasc - PO DAILY ULICES Apixaban 2.5 mg 03/30/17 22:00 04/01/17 10:51 Eliquis - PO 2.5 mg BID ULICES Administration Atorvastatin Calcium 10 mg 03/30/17 22:00 03/31/17 21:32 Lipitor - PO 10 mg HS ULICES Administration Calcium Carbonate 500 mg 04/01/17 10:00 04/01/17 11:01 Os-Ronaldo 500mg - PO Not Given DAILY ULICES Calcium Carbonate/Cholecalciferol 1 tab 04/01/17 10:00 04/01/17 10:52 Os-Ronaldo 500+D - PO 1 tab DAILY ULICES Administration Diphenhydramine HCl 25 mg 03/30/17 14:31 03/30/17 21:35 Benadryl - PO 25 mg HS PRN Administration AGITATION Lidocaine 1 patch 03/31/17 10:00 04/01/17 11:00 Lidoderm Patch - TP 1 patch DAILY ULICES Administration Sotalol HCl 80 mg 03/30/17 22:00 04/01/17 10:51 Betapace - PO 80 mg BID ULICES Administration Tramadol HCl 50 mg 03/31/17 10:44 03/31/17 12:41 Ultram - PO 50 mg Q6H PRN Administration PAIN AFVSS Cor: RSR, No murmurs, No gallops Lungs: Clear to P&A Abd: Soft, Normal bowel sounds, No organomegaly Ext:No significant edema Skin: No rashes, Integument intact CBC, BMP 03/31/17 06:05 03/31/17 06:05 A/P 87 y/o patient with metastatic ovarian cancer, ascites, high grade serous ovarian cancer, s/p 9 weekly doses of carbo/taxol , with rib fracture in ovarian ca remission pain control deconditioning consider rehab placement Ovarian cancer--s/p 9 weekly carbo/taxol doses very good response CA 125 decreased from 900 to 37 Scans show major iprovement check eli scan given lower sternal pain
[2017-04-01] MEDS: ATORVASTATIN CA 10 MG TABLET (FP) PO SCH (21:15)
[2017-04-01] MEDS: diphenhydrAMINE HCL 25 MG CAPSULE (FP) PO PRN (21:20)
[2017-04-02] MEDS: traMADol HCL 50 MG TABLET PO PRN (06:10)
[2017-04-02 07:58] LABS: ALBUMIN 2.7 g/dl (3.4-5.0); ALK PHOS 117 U/L (45-117); ANION GAP 6 (8-16); BILIRUBIN,TOTAL 0.2 mg/dL (0.2-1.0); CALCIUM 8.6 mg/dL (8.5-10.1); CO2 31 mmol/L (21-32); COCKROFT - GAULT 47.1155; CREATININE 0.7 mg/dL (0.55-1.02); GLUCOSE,RANDOM 80 mg/dL (74-106); SGOT/AST 17 U/L (15-37); SGPT/ALT 19 U/L (12-78); TOT PROT 5.3 g/dl (6.4-8.2)
[2017-04-02 08:17] LABS: BASOPHIL 1.9 % (0-2.0); EOSINOPHIL 1.8 % (0-4.5); MCH 30.1 pg (25.7-33.7); MEAN CELL VOLUME 91.2 fl (80-96); MEAN PLT VOLUME 8.3 fl (7.5-11.1); NEUTROPHILS 48.3 % (42.8-82.8); PLATELET COUNT 224 K/MM3 (134-434); RDW 20.8 % (11.6-15.6); WHITE BLOOD COUNT 2.8 K/mm3 (4.0-10.0)
[2017-04-02 10:31] LABS: ANISOCYTOSIS 2+; FRAGMENTED CELL 1+; MICROCYTOSIS FEW
[2017-04-02 10:32] LABS: HYPOCHROMIA 1+
[2017-04-02] MEDS: amLODIPine BESYLATE 10 MG TABLET (FP) PO SCH (10:39)
[2017-04-02] MEDS: CALCIUM 500MG/VIT-D 200 UNITS COMBO TABLET (FP) PO SCH (10:39)
[2017-04-02] MEDS: SOTALOL HCL 80 MG TABLET (FP) PO SCH ×2 (10:39→21:04)
[2017-04-02] MEDS: APIXABAN 2.5 MG TABLET PO SCH ×2 (10:40→21:04)
[2017-04-02] MEDS: LIDOCAINE 5% TOPICAL PATCH TP SCH (10:40)
--- NOTE | 2017-04-02 12:14 | PN ---
Progress Note (short form) - Note Progress Note: hEMATOLOGY PROGRESS NOTE : 87 y/o with metastatic ovarian cancer, here for weakness, lower sternal pain here with a rib fracture Pain better PMH Afib on eliquis high grade serous ovarian cancer HTN hyperipidemia h/o TIA Current Medications Generic Name Dose Route Start Last Admin Trade Name Freq PRN Reason Stop Dose Admin Acetaminophen 650 mg 03/31/17 01:57 Tylenol - PO Q4H PRN FEVER OR PAIN Albuterol Sulfate 1 puff 03/30/17 14:31 Ventolin Hfa Inhaler - IH Q4H PRN SHORTNESS OF BREATH Alprazolam 0.25 mg 03/31/17 19:02 03/31/17 21:33 Xanax - PO 0.25 mg BID PRN Administration ANXIETY Amlodipine Besylate 10 mg 04/02/17 10:00 04/02/17 10:39 Norvasc - PO 10 mg DAILY ULICES Administration Apixaban 2.5 mg 03/30/17 22:00 04/02/17 10:40 Eliquis - PO 2.5 mg BID ULICES Administration Atorvastatin Calcium 10 mg 03/30/17 22:00 04/01/17 21:15 Lipitor - PO 10 mg HS ULICES Administration Calcium Carbonate/Cholecalciferol 1 tab 04/01/17 10:00 04/02/17 10:39 Os-Ronaldo 500+D - PO 1 tab DAILY ULICES Administration Diphenhydramine HCl 25 mg 03/30/17 14:31 04/01/17 21:20 Benadryl - PO 25 mg HS PRN Administration AGITATION Lidocaine 1 patch 03/31/17 10:00 04/02/17 10:40 Lidoderm Patch - TP 1 patch DAILY ULICES Administration Sotalol HCl 80 mg 03/30/17 22:00 04/02/17 10:39 Betapace - PO 80 mg BID ULICES Administration Tramadol HCl 50 mg 03/31/17 10:44 04/02/17 06:10 Ultram - PO 50 mg Q6H PRN Administration PAIN Sitting comfrotably doing [place] times crossword Abd: Soft, Normal bowel sounds, No organomegaly Ext:No significant edema Skin: No rashes, Integument intact CBC, BMP 04/02/17 06:00 04/02/17 06:00 A/P 87 y/o patient with metastatic ovarian cancer, ascites, high grade serous ovarian cancer, s/p 9 weekly doses of carbo/taxol , with rib fracture in ovarian ca remission pain control deconditioning a/w rehab placement
--- NOTE | 2017-04-02 15:18 | PN ---
Progress Note (short form) - Note Progress Note: Subjective: no fever or chills, feels the same as yesterday. Still has chest pain . no SOB. nO ABd pain Objective: Vital Signs: Last Vital Signs Temp Pulse Resp BP Pulse Ox 97.7 F 65 20 127/53 91 L 04/02/17 13:43 04/02/17 13:43 04/02/17 13:43 04/02/17 13:43 04/02/17 04:40 Laboratory Results - last 24 hr 04/02/17 04/02/17 06:00 06:00 WBC 2.8 L RBC 3.28 L Hgb 9.9 L Hct 29.9 L MCV 91.2 MCHC 33.0 RDW 20.8 H Plt Count 224 MPV 8.3 Neutrophils % 48.3 D Lymphocytes % 28.9 D Monocytes % 19.1 H D Eosinophils % 1.8 D Basophils % 1.9 Hypochromic-Microcytic 1+ Anisocytosis 2+ Microcytosis Few Fragmented RBCs 1+ Sodium 137 Potassium 4.0 Chloride 100 Carbon Dioxide 31 Anion Gap 6 L BUN 11 D Creatinine 0.7 Creat Clearance w eGFR > 60 Random Glucose 80 Calcium 8.6 Total Bilirubin 0.2 D AST 17 D ALT 19 D Alkaline Phosphatase 117 Total Protein 5.3 L Albumin 2.7 L Physical Exam: NAD, AAOX3 , pleasant and cooperative HEENT: dry MM , no LAP, no JVD. CV: RRR, no MRG Lungs : CTAB Ext : trace pitting edema on feet . Abd : soft, NT, ND , NL BS . 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 1- Generalized weakness: likely from chemo effect. PT 2- Chest pain: due to sternal fracture, probably Osteoporosis . ? costochonderitis - cont ca + Vit D. - will need, bisphosphonate treatment - lidocaine patch, tramadol 3- Lower back pain, with no radiation . nl neuro exam of LE . BOne scan with no mets 4- HTN: norvasc and cont stolol 5- Afib : cont sotalol and Eliquis 6- Ovarian cancer, Chemo on hold now . 7- Dispo : rehab placement . once a bed is available Visit type - Emergency Visit Emergency Visit: Yes ED Registration Date: 03/30/17 Care time: The patient presented to the Emergency Department on the above date and was hospitalized for further evaluation of their emergent condition. - New Patient This patient is new to me today: No - Critical Care Critical Care patient: No
[2017-04-02] MEDS ORDERED: PT OWN MED DRAWER 7, Y5N ONE ×2 (17:01→17:48)
[2017-04-02] MEDS: diphenhydrAMINE HCL 25 MG CAPSULE (FP) PO PRN (21:04)
[2017-04-02] MEDS: ATORVASTATIN CA 10 MG TABLET (FP) PO SCH (21:04)
[2017-04-03] MEDS: ALPRAZolam 0.25 MG TABLET PO PRN (00:58)
[2017-04-03] MEDS: traMADol HCL 50 MG TABLET PO PRN ×2 (01:32→08:23)
[2017-04-03] MEDS ORDERED: PT OWN MED DRAWER 7, Y5N ONE ×3 (08:19→20:21)
[2017-04-03] MEDS: SOTALOL HCL 80 MG TABLET (FP) PO SCH ×2 (10:43→21:12)
[2017-04-03] MEDS: CALCIUM 500MG/VIT-D 200 UNITS COMBO TABLET (FP) PO SCH (10:44)
[2017-04-03] MEDS: amLODIPine BESYLATE 10 MG TABLET (FP) PO SCH (10:44)
[2017-04-03] MEDS: LIDOCAINE 5% TOPICAL PATCH TP SCH (10:49)
[2017-04-03] MEDS: APIXABAN 2.5 MG TABLET PO SCH ×2 (10:49→21:12)
[2017-04-03] MEDS ORDERED: POLYETHYLENE GLYCOL 3350 119 GM BTL PO ONE (13:28)
--- NOTE | 2017-04-03 13:49 | PN ---
Teaching Attending Note Name of Resident: Jenn Figueroa ATTENDING PHYSICIAN STATEMENT I saw and evaluated the patient. I reviewed the resident's note and discussed the case with the resident. I agree with the resident's findings and plan as documented. SUBJECTIVE: no fever or chills, has cp in middle and R side OBJECTIVE: NAD, AAOX3 , pleasant and cooperative HEENT: dry MM , no LAP, no JVD. CV: irreg irreg , no MRG Lungs : CTAB Ext : trace pitting edema on feet . Abd : soft, NT, ND , NL BS . 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 1- Generalized weakness: likely from chemo effect. PT 2- Chest pain: due to sternal fracture, probably Osteoporosis . ? costochonderitis - cont ca + Vit D. - will need, bisphosphonate treatment - lidocaine patch, tramadol , add naproxin x 2 days 3- Lower back pain, with no radiation . nl neuro exam of LE . BOne scan with no mets 4- HTN: norvasc and cont stolol 5- Afib : cont sotalol and Eliquis 6- Ovarian cancer, Chemo on hold now . 7- Dispo : clinically stable . Rehab placement . once a bed is available
--- NOTE | 2017-04-03 17:16 | PN ---
Physical Exam: SUBJECTIVE: Patient seen and examined at bed side this morning. Patient was in the bathroom and while walking back to her bed, she reported severe pain on the right sided rib pain- says whenever she moves she gets this pain. Tramadol was given stat and the pain got better. Has sob on/off but denies left sided chest pain, palpitations, abdominal pain, nausea or vomiting. Has constipation. Bladder habit normal. No acute overnight events. OBJECTIVE: Vital Signs Period Temp Pulse Resp BP Sys/Amado Pulse Ox Last 24 Hr 97.5 F-98.5 F 59-66 18-20 125-155/51-70 95-98 GENERAL: Elderly, thinly built female, Awake, alert, and fully oriented, in no acute distress. Pain assessment: 5/10 right sided rib pain, 2/10 low back pain IV assess: Peripheral line HEAD: Normal with no signs of trauma. EYES: EOM intact, no pallor or icterus. EARS, NOSE, THROAT: Ears normal. Moist mucous membranes. NECK: Supple. Chest: Shashank cath in place on the right side, non erythematous, non tender around the port, reproducible pain around the parasternal area. LUNGS: Breath sounds equal, clear to auscultation bilaterally. No wheezes, and no crackles. No accessory muscle use. HEART: Irregularly irregular rate and rhythm, normal S1 and S2 without murmur, rub or gallop. ABDOMEN: Soft, nontender, not distended, normoactive bowel sounds, no guarding, no rebound, no masses. No hepatomegaly or splenomegaly. MUSCULOSKELETAL: Normal range of motion at all joints. No bony deformities or tenderness. No CVA tenderness. UPPER EXTREMITIES: 2+ pulses, warm, well-perfused. No cyanosis. No clubbing. No peripheral edema. LOWER EXTREMITIES: 2+ pulses, warm, well-perfused. No calf tenderness. No peripheral edema. NEUROLOGICAL: Bulk/tone normal, power 5/5 in all extremities, all sensations intact. No facial droop. No focal weakness. Cranial nerves II-XII intact. Normal speech. Gait not observed. PSYCHIATRIC: Cooperative. Good eye contact. Appropriate mood and affect. SKIN: Warm, dry, normal turgor, no rashes or lesions noted, normal capillary refill. Active Medications Generic Name Dose Route Start Last Admin Trade Name Freq PRN Reason Stop Dose Admin Acetaminophen 650 mg 03/31/17 01:57 Tylenol - PO Q4H PRN FEVER OR PAIN Albuterol Sulfate 1 puff 03/30/17 14:31 04/02/17 17:10 Ventolin Hfa Inhaler - IH 1 puff Q4H PRN Administration SHORTNESS OF BREATH Alprazolam 0.25 mg 03/31/17 19:02 04/03/17 00:58 Xanax - PO 0.25 mg BID PRN Administration ANXIETY Amlodipine Besylate 10 mg 04/02/17 10:00 04/03/17 10:44 Norvasc - PO 10 mg DAILY ULICES Administration Apixaban 2.5 mg 03/30/17 22:00 04/03/17 10:49 Eliquis - PO 2.5 mg BID ULICES Administration Atorvastatin Calcium 10 mg 03/30/17 22:00 04/02/17 21:04 Lipitor - PO 10 mg HS ULICES Administration Calcium Carbonate/Cholecalciferol 1 tab 04/01/17 10:00 04/03/17 10:44 Os-Ronaldo 500+D - PO 1 tab DAILY ULICES Administration Diphenhydramine HCl 25 mg 03/30/17 14:31 04/02/17 21:04 Benadryl - PO 25 mg HS PRN Administration AGITATION Lidocaine 1 patch 03/31/17 10:00 04/03/17 10:49 Lidoderm Patch - TP 1 patch DAILY ULICES Administration Naproxen 250 mg 04/03/17 22:00 Naprosyn - PO BID ULICES Senna 2 tab 04/03/17 22:00 Senna - PO HS ULICES Sotalol HCl 80 mg 03/30/17 22:00 04/03/17 10:43 Betapace - PO 80 mg BID ULICES Administration 02/28/2017 Bone scan: Nonspecific osteoblastic activity in multiple thoracic and lumbar spine vertebral bodies coupled with severe thoracolumbar spine scoliosis , grossly unchanged since the prior exam, most likely secondary to severe DJD with osteoporotic fractures. Interval development of intense uptake in the sternum corresponding to fractures seen on CT scan of March 21, 2017. Correlate with clinical history. Increased uptake in the anterior right fourth and fifth ribs at the costochondral junctions likely posttraumatic or secondary to costochondritis. Correlate with clinical history. No other foci of abnormal uptake seen in the appendicular skeleton, pelvis or ribs to definitely suggest metastatic pattern. Status post bilateral hip replacement. Increased uptake in the tibial cortices bilaterally suggestive of hypertrophic osteoarthropathy. ASSESSMENT/PLAN: Patient is a 87 year old female with significant past medical history of hypertension, hypercholesterolemia, atrial fibrillation (on Eliquis), sick sinus syndrome s/p pacemaker (01/18/2016), chronic back pain and ovarian cancer ( with peritoneal carcinomatosis) presented to the ED with the chief complaints of generalized weakness x 1 day. # Generalized weakness likely due to recent chemotherapy completed 9 cycles of chemo so far; Normal Neuro exam, no focal weakness. Hold chemo for now. # Chest pain- likely due to costochondritis most likely musculoskeletal Rib x-ray shows no fracture Bone scan done, report mentioned as above. Calcium/Vitamin D, plan is to give Zolendronic acid # Hypertension- now hypotensive Hold Amlodipine for now # Atrial Fibrillation-rate controlled on Elliquis 2.5 mg PO BID Continue (Home med) Sotalol 80mg PO BID # Sick sinus syndrome s/p pacemaker- stable # Ovarian cancer with peritoneal carcinomatosis Completed 9 cycles of chemo, now on hold due to weakness Continue Benadryl 25mg PO HS # Back pain- No bone mets; Bone scan done on 01/05/17 DJD osteoporotic fractures vs bony mets Could be due to degenerative issues vs musculoskeletal Oxycodone 2.5mg PO QID PRN # Shortness of breath/seasonal allergies. Oxygen saturation normal at RA, b/l lungs clear on auscultation, no leukocytosis Continue Albuterol PRN # FEN No IV fluids, encourage PO fluids Electrolytes to be repeated Regular diet # Prophylaxis For DVT: On Elliquis For GI: Not indicated # Code Status: Full Code # Dispo: Placed on observation. Patient needs a rehab placement as patient will not be able to take care of herself, she lives alone. marquetry worker is awaiting to hear from SNF for placement. Illness, Investigation and Plan of care explained to the patient. She verbalized understanding. Case discussed with Dr. Herrera. Visit type - Emergency Visit Emergency Visit: Yes ED Registration Date: 03/30/17 Care time: The patient presented to the Emergency Department on the above date and was hospitalized for further evaluation of their emergent condition. - New Patient This patient is new to me today: No - Critical Care Critical Care patient: No - Discharge Referral Referred to [facility] Med [facility] No
[2017-04-03] MEDS: NAPROXEN 250 MG TABLET (FP) PO SCH (21:12)
[2017-04-03] MEDS: ATORVASTATIN CA 10 MG TABLET (FP) PO SCH (21:12)
[2017-04-03] MEDS: SENNOSIDES 8.6MG TABLET (FP) PO SCH (21:12)
[2017-04-03] MEDS ORDERED: NAPROXEN 250 MG TABLET (FP) PO SCH (22:00)
--- NOTE | 2017-04-03 22:41 | PN ---
Progress Note (short form) - Note Progress Note: patient seen and examined vitals/labs/meds reviewed bone pains--sternal fx/costochondritis consider zometa for osteoporosis on oscal + D ovarian cancer in presumed remission but will hold off on further chemotherapy given fatigue, deconditioning rehab placement physical therapy consult check CXr mild SOB -- ? fluid overload
[2017-04-04 07:16] LABS: MEAN CELL VOLUME 90.8 fl (80-96); MEAN PLT VOLUME 7.5 fl (7.5-11.1); PLATELET COUNT 226 K/MM3 (134-434); RDW 20.7 % (11.6-15.6); WHITE BLOOD COUNT 2.6 K/mm3 (4.0-10.0)
[2017-04-04] MEDS: APIXABAN 2.5 MG TABLET PO SCH ×2 (10:36→21:05)
[2017-04-04] MEDS ORDERED: PT OWN MED DRAWER 7, Y5N ONE ×2 (10:42→20:45)
[2017-04-04] MEDS: SOTALOL HCL 80 MG TABLET (FP) PO SCH ×2 (10:43→21:05)
[2017-04-04] MEDS: CALCIUM 500MG/VIT-D 200 UNITS COMBO TABLET (FP) PO SCH ×2 (10:43→21:09)
[2017-04-04] MEDS: amLODIPine BESYLATE 10 MG TABLET (FP) PO SCH (10:43)
[2017-04-04] MEDS: LIDOCAINE 5% TOPICAL PATCH TP SCH (10:43)
[2017-04-04] MEDS: NAPROXEN 250 MG TABLET (FP) PO SCH (10:43)
--- NOTE | 2017-04-04 15:14 | PN ---
Teaching Attending Note Name of Resident: Jenn Figueroa ATTENDING PHYSICIAN STATEMENT I saw and evaluated the patient. I reviewed the resident's note and discussed the case with the resident. I agree with the resident's findings and plan as documented. SUBJECTIVE: no SOB today , pain in chest wall has improved OBJECTIVE: NAD, AAOX3 , pleasant and cooperative HEENT: MMM , no LAP, no JVD. CV: irreg irreg , no MRG Lungs : CTAB Ext : trace pitting edema on feet ( imporved ) Abd : soft, NT, ND , NL BS . 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 1- Generalized weakness: likely from chemo effect. cxray with no change ( 4mm nodule in R , not changes ) 2- Chest pain: due to sternal fracture, probably Osteoporosis . ? costochonderitis - increase ca + Vit D to BID - Ibandronate 150 mg monthly is recommended fro her osteoporosis . Not carried in our pharmacy, it can be started as out pt - lidocaine patch, tramadol - naproxin BID day 2 today, will make once daily PRN tomorrow with caution ( use for short term , few days only ) 3- Lower back pain, with no radiation . nl neuro exam of LE . Bone scan with no mets 4- HTN: norvasc and cont stolol 5- Afib : cont sotalol and Eliquis 6- Ovarian cancer, Chemo on hold now . dispo : pending placement
--- NOTE | 2017-04-04 19:01 | PN ---
Progress Note (short form) - Note Progress Note: Patient seen and examined Remains weak and debilitated Spends most of day in bed Some anterior chest pains Last Vital Signs Temp Pulse Resp BP Pulse Ox 98 F 65 20 135/61 96 04/04/17 18:00 04/04/17 18:00 04/04/17 18:00 04/04/17 18:00 04/04/17 09:00 HEENT: SHU, EOM Intact Cor--irregular Lungs: diminished breath sounds Abd: Soft, Normal bowel sounds, No organomegaly Ext:No significant edema Skin: No rashes, Integument intact CBC, BMP 04/04/17 06:00 04/02/17 06:00 Current Medications Generic Name Dose Route Start Last Admin Trade Name Freq PRN Reason Stop Dose Admin Acetaminophen 650 mg 03/31/17 01:57 Tylenol - PO Q4H PRN FEVER OR PAIN Albuterol Sulfate 1 puff 03/30/17 14:31 04/02/17 17:10 Ventolin Hfa Inhaler - IH 1 puff Q4H PRN Administration SHORTNESS OF BREATH Alprazolam 0.25 mg 03/31/17 19:02 04/03/17 00:58 Xanax - PO 0.25 mg BID PRN Administration ANXIETY Amlodipine Besylate 10 mg 04/02/17 10:00 04/04/17 10:43 Norvasc - PO 10 mg DAILY ULICES Administration Apixaban 2.5 mg 03/30/17 22:00 04/04/17 10:36 Eliquis - PO 2.5 mg BID ULICES Administration Atorvastatin Calcium 10 mg 03/30/17 22:00 04/03/17 21:12 Lipitor - PO 10 mg HS ULICES Administration Calcium Carbonate/Cholecalciferol 1 tab 04/04/17 22:00 Os-Ronaldo 500+D - PO BID ULICES Diphenhydramine HCl 25 mg 03/30/17 14:31 04/02/17 21:04 Benadryl - PO 25 mg HS PRN Administration AGITATION Lidocaine 1 patch 03/31/17 10:00 04/04/17 10:43 Lidoderm Patch - TP 1 patch DAILY ULICES Administration Naproxen 250 mg 04/03/17 22:00 Naprosyn - PO 04/03/17 22:01 BID ULICES Naproxen 250 mg 04/05/17 10:00 Naprosyn - PO 04/08/17 09:59 DAILY PRN PAIN Senna 2 tab 04/03/17 22:00 04/03/17 21:12 Senna - PO 2 tab HS ULICES Administration Sotalol HCl 80 mg 03/30/17 22:00 04/04/17 10:43 Betapace - PO 80 mg BID ULICES Administration Impression: Ovarian ca s/p 9 cycles of chemotherapy with good clinical response but significant deconditioning secondary to same. For rehab placement in future. Atrial fib on eliquis Osteoporosis on CA++/Vitamin D Anemia Neutropenia Plan: Monitor CBC Treatment for osteoporosis-- Reclast may be easier than Ibandronate - for outpatient with Ca++/Vitamin D On eliquis for A.F. -- concern for naprosyn for pain-- on no PPI or ranitidine- consider tramadol
[2017-04-04] MEDS ORDERED: traMADol HCL 50 MG TABLET PO PRN (19:03)
--- NOTE | 2017-04-04 19:59 | PN ---
Physical Exam: SUBJECTIVE: Patient seen and examined at bed side this morning. She was sitting comfortably in bed, eating breakfast. Stated that the pain over the right side of the chest has improved. Feels much better than yesterday. Has sob on/off but denies left sided chest pain, palpitations, abdominal pain, nausea or vomiting. Still constipated, took stool softners yesterday. Bladder habit normal. No acute overnight events. OBJECTIVE: Vital Signs Period Temp Pulse Resp BP Sys/Amado Pulse Ox Last 24 Hr 97.6 F-98.2 F 65-67 20-20 123-147/45-78 96-96 GENERAL: Elderly, thinly built female, Awake, alert, and fully oriented, in no acute distress. Pain assessment: 2/10 right sided rib pain, 1/10 low back pain IV assess: Peripheral line HEAD: Normal with no signs of trauma. EYES: EOM intact, no pallor or icterus. EARS, NOSE, THROAT: Ears normal. Moist mucous membranes. NECK: Supple. Chest: Shashank cath in place on the right side, non erythematous, non tender around the port, reproducible pain around the parasternal area. LUNGS: Breath sounds equal, clear to auscultation bilaterally. No wheezes, and no crackles. No accessory muscle use. HEART: Irregularly irregular rate and rhythm, normal S1 and S2 without murmur, rub or gallop. ABDOMEN: Soft, nontender, not distended, normoactive bowel sounds, no guarding, no rebound, no masses. No hepatomegaly or splenomegaly. MUSCULOSKELETAL: Normal range of motion at all joints. No bony deformities or tenderness. No CVA tenderness. UPPER EXTREMITIES: 2+ pulses, warm, well-perfused. No cyanosis. No clubbing. No peripheral edema. LOWER EXTREMITIES: 2+ pulses, warm, well-perfused. No calf tenderness. No peripheral edema. NEUROLOGICAL: Bulk/tone normal, power 5/5 in all extremities, all sensations intact. No facial droop. No focal weakness. Cranial nerves II-XII intact. Normal speech. Gait not observed. PSYCHIATRIC: Cooperative. Good eye contact. Appropriate mood and affect. SKIN: Warm, dry, normal turgor, no rashes or lesions noted, normal capillary refill. Laboratory Results - last 24 hr 04/04/17 06:00 WBC 2.6 L RBC 3.44 L Hgb 10.3 L Hct 31.2 L MCV 90.8 MCHC 33.0 RDW 20.7 H Plt Count 226 MPV 7.5 Active Medications Generic Name Dose Route Start Last Admin Trade Name Freq PRN Reason Stop Dose Admin Acetaminophen 650 mg 03/31/17 01:57 Tylenol - PO Q4H PRN FEVER OR PAIN Albuterol Sulfate 1 puff 03/30/17 14:31 04/02/17 17:10 Ventolin Hfa Inhaler - IH 1 puff Q4H PRN Administration SHORTNESS OF BREATH Amlodipine Besylate 10 mg 04/02/17 10:00 04/04/17 10:43 Norvasc - PO 10 mg DAILY ULICES Administration Apixaban 2.5 mg 03/30/17 22:00 04/04/17 10:36 Eliquis - PO 2.5 mg BID ULICES Administration Atorvastatin Calcium 10 mg 03/30/17 22:00 04/03/17 21:12 Lipitor - PO 10 mg HS ULICES Administration Calcium Carbonate/Cholecalciferol 1 tab 04/04/17 22:00 Os-Ronaldo 500+D - PO BID ULICES Diphenhydramine HCl 25 mg 03/30/17 14:31 04/02/17 21:04 Benadryl - PO 25 mg HS PRN Administration AGITATION Lidocaine 1 patch 03/31/17 10:00 04/04/17 10:43 Lidoderm Patch - TP 1 patch DAILY ULICES Administration Senna 2 tab 04/03/17 22:00 04/03/17 21:12 Senna - PO 2 tab HS ULICES Administration Sotalol HCl 80 mg 03/30/17 22:00 04/04/17 10:43 Betapace - PO 80 mg BID ULICES Administration Tramadol HCl 50 mg 04/04/17 19:03 Ultram - PO Q8H PRN PAIN ASSESSMENT/PLAN: Patient is a 87 year old female with significant past medical history of hypertension, hypercholesterolemia, atrial fibrillation (on Eliquis), sick sinus syndrome s/p pacemaker (01/18/2016), chronic back pain and ovarian cancer ( with peritoneal carcinomatosis) presented to the ED with the chief complaints of generalized weakness x 1 day. # Generalized weakness likely due to recent chemotherapy completed 9 cycles of chemo so far; Normal Neuro exam, no focal weakness. Hold chemo for now. # Chest pain- likely due to costochondritis most likely musculoskeletal Rib x-ray shows no fracture Bone scan done, report mentioned as above. Calcium/Vitamin D Plan is to start Ibandronate 150 mg monthly is recommended for her osteoporosis. To be started as outpatient as it is not available here. Naproxen PO BID, PRN daily from tomorrow (short term use only) # Hypertension- Stable Cont Amlodipine for now # Atrial Fibrillation-rate controlled on Elliquis 2.5 mg PO BID Continue (Home med) Sotalol 80mg PO BID # Sick sinus syndrome s/p pacemaker- stable # Ovarian cancer with peritoneal carcinomatosis Completed 9 cycles of chemo, now on hold due to weakness Continue Benadryl 25mg PO HS # Back pain- No bone mets; Bone scan done on 01/05/17 DJD osteoporotic fractures vs bony mets Could be due to degenerative issues vs musculoskeletal Oxycodone 2.5mg PO QID PRN # Shortness of breath/seasonal allergies. Oxygen saturation normal at RA, b/l lungs clear on auscultation, no leukocytosis Continue Albuterol PRN # FEN No IV fluids, encourage PO fluids Electrolytes to be repeated Regular diet # Prophylaxis For DVT: On Elliquis For GI: Not indicated # Code Status: Full Code # Dispo: Placed on observation. Patient needs a rehab placement as patient will not be able to take care of herself, she lives alone. 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 Illness, Investigation and Plan of care explained to the patient. She verbalized understanding. Case discussed with Dr. Herrera. Visit type - Emergency Visit Emergency Visit: Yes ED Registration Date: 03/30/17 Care time: The patient presented to the Emergency Department on the above date and was hospitalized for further evaluation of their emergent condition. - New Patient This patient is new to me today: No - Critical Care Critical Care patient: No - Discharge Referral Referred to [facility] No
[2017-04-04] MEDS: ATORVASTATIN CA 10 MG TABLET (FP) PO SCH (21:06)
[2017-04-04] MEDS: SENNOSIDES 8.6MG TABLET (FP) PO SCH (21:08)
[2017-04-04] MEDS ORDERED: NAPROXEN 250 MG TABLET (FP) PO PRN (22:23)
[2017-04-05 07:33] LABS: MCH 30.3 pg (25.7-33.7); MCHC 33.3 g/dl (32.0-36.0); MEAN CELL VOLUME 90.8 fl (80-96); MEAN PLT VOLUME 8.4 fl (7.5-11.1); PLATELET COUNT 244 K/MM3 (134-434); RDW 20.3 % (11.6-15.6); WHITE BLOOD COUNT 2.9 K/mm3 (4.0-10.0)
--- NOTE | 2017-04-05 07:48 | PN ---
Physical Exam: SUBJECTIVE: Patient seen and examined OBJECTIVE: Vital Signs Period Temp Pulse Resp BP Sys/Amado Pulse Ox Last 24 Hr 97.6 F-98 F 65-66 18-20 123-150/45-83 96-96 GENERAL: The patient is awake, alert, and fully oriented, in no acute distress. HEAD: Normal with no signs of trauma. EYES: PERRL, extraocular movements intact, sclera anicteric, conjunctiva clear. No ptosis. ENT: Ears normal, nares patent, oropharynx clear without exudates, moist mucous membranes. NECK: Trachea midline, full range of motion, supple. LUNGS: Breath sounds equal, clear to auscultation bilaterally, no wheezes, no crackles, no accessory muscle use. HEART: Regular rate and rhythm, S1, S2 without murmur, rub or gallop. ABDOMEN: Soft, nontender, nondistended, normoactive bowel sounds, no guarding, no rebound, no hepatosplenomegaly, no masses. EXTREMITIES: 2+ pulses, warm, well-perfused, no edema. NEUROLOGICAL: Cranial nerves II through XII grossly intact. Normal speech, gait not observed. PSYCH: Normal mood, normal affect. SKIN: Warm, dry, normal turgor, no rashes or lesions noted Laboratory Results - last 24 hr 03/31/17 04/05/17 06:05 05:35 WBC 2.9 L RBC 3.52 L Hgb 10.7 Hct 32.0 L MCV 90.8 MCHC 33.3 RDW 20.3 H Plt Count 244 MPV 8.4 D Neutrophils % Y Lymphocytes % Y Transferrin 202 Active Medications Generic Name Dose Route Start Last Admin Trade Name Alfredq PRN Reason Stop Dose Admin Acetaminophen 650 mg 03/31/17 01:57 Tylenol - PO Q4H PRN FEVER OR PAIN Albuterol Sulfate 1 puff 03/30/17 14:31 04/02/17 17:10 Ventolin Hfa Inhaler - IH 1 puff Q4H PRN Administration SHORTNESS OF BREATH Amlodipine Besylate 10 mg 04/02/17 10:00 04/04/17 10:43 Norvasc - PO 10 mg DAILY ULICES Administration Apixaban 2.5 mg 03/30/17 22:00 04/04/17 21:05 Eliquis - PO 2.5 mg BID ULICES Administration Atorvastatin Calcium 10 mg 03/30/17 22:00 04/04/17 21:06 Lipitor - PO 10 mg HS ULICES Administration Calcium Carbonate/Cholecalciferol 1 tab 04/04/17 22:00 04/04/17 21:09 Os-Ronaldo 500+D - PO 1 tab BID ULICES Administration Diphenhydramine HCl 25 mg 03/30/17 14:31 04/02/17 21:04 Benadryl - PO 25 mg HS PRN Administration AGITATION Lidocaine 1 patch 03/31/17 10:00 04/04/17 10:43 Lidoderm Patch - TP 1 patch DAILY ULICES Administration Senna 2 tab 04/03/17 22:00 04/04/17 21:08 Senna - PO Not Given HS ULICES Sotalol HCl 80 mg 03/30/17 22:00 04/04/17 21:05 Betapace - PO 80 mg BID ULICES Administration Tramadol HCl 50 mg 04/04/17 19:03 04/04/17 21:18 Ultram - PO 50 mg Q8H PRN Administration PAIN ASSESSMENT/PLAN:
[2017-04-05 07:52] LABS: ALBUMIN 2.8 g/dl (3.4-5.0); ANION GAP 8 (8-16); CALCIUM 8.8 mg/dL (8.5-10.1); CO2 30 mmol/L (21-32); GLUCOSE,RANDOM 76 mg/dL (74-106); SGOT/AST 18 U/L (15-37); SGPT/ALT 21 U/L (12-78)
[2017-04-05 07:54] LABS: ALK PHOS 136 U/L (45-117); BILIRUBIN,TOTAL 0.4 mg/dL (0.2-1.0); COCKROFT - GAULT 54.9695; CREATININE 0.6 mg/dL (0.55-1.02); TOT PROT 5.6 g/dl (6.4-8.2)
[2017-04-05 09:30] LABS: ACANTHOCYTES 1+; ANISOCYTOSIS 1+; FRAGMENTED CELL 1+; HYPOCHROMIA 1+; PLATELET ESTIMATE ADEQUATE (NORMAL)
[2017-04-05] MEDS: SOTALOL HCL 80 MG TABLET (FP) PO SCH (09:59)
[2017-04-05] MEDS: CALCIUM 500MG/VIT-D 200 UNITS COMBO TABLET (FP) PO SCH (09:59)
[2017-04-05] MEDS: APIXABAN 2.5 MG TABLET PO SCH (09:59)
[2017-04-05] MEDS: amLODIPine BESYLATE 10 MG TABLET (FP) PO SCH (09:59)
[2017-04-05] MEDS: LIDOCAINE 5% TOPICAL PATCH TP SCH (09:59)
[2017-04-05] MEDS ORDERED: NAPROXEN 250 MG TABLET (FP) PO PRN (10:00)
[2017-04-05 11:25] VITALS: BP 122/51; PULSE 63; TEMP 97.9
--- NOTE | 2017-04-05 11:46 | DS ---
Physical Exam: SUBJECTIVE: Patient seen and examined at bed side this morning. Pain over the right side of the chest has improved and is able to breathe better. Has sob on/off but denies left sided chest pain, palpitations, abdominal pain, nausea or vomiting. Still constipated, took stool softners yesterday. Bladder habit normal. No acute overnight events. OBJECTIVE: Vital Signs Period Temp Pulse Resp BP Sys/Amado Pulse Ox Last 24 Hr 97.6 F-98 F 63-66 18-20 122-150/45-83 96 PHYSICAL EXAM GENERAL: Elderly, thinly built female, Awake, alert, and fully oriented, in no acute distress. Pain assessment: 2/10 right sided rib pain, 1/10 low back pain HEAD: Normal with no signs of trauma. EYES: EOM intact, no pallor or icterus. EARS, NOSE, THROAT: Ears normal. Moist mucous membranes. NECK: Supple. Chest: Shashank cath in place on the right side, non erythematous, non tender around the port, reproducible pain around the parasternal area. LUNGS: Breath sounds equal, clear to auscultation bilaterally. No wheezes, and no crackles. No accessory muscle use. HEART: Irregularly irregular rate and rhythm, normal S1 and S2 without murmur, rub or gallop. ABDOMEN: Soft, nontender, not distended, normoactive bowel sounds, no guarding, no rebound, no masses. No hepatomegaly or splenomegaly. MUSCULOSKELETAL: Normal range of motion at all joints. No bony deformities or tenderness. No CVA tenderness. UPPER EXTREMITIES: 2+ pulses, warm, well-perfused. No cyanosis. No clubbing. No peripheral edema. LOWER EXTREMITIES: 2+ pulses, warm, well-perfused. No calf tenderness. No peripheral edema. NEUROLOGICAL: Bulk/tone normal, power 5/5 in all extremities, all sensations intact. No facial droop. No focal weakness. Cranial nerves II-XII intact. Normal speech. Gait not observed. PSYCHIATRIC: Cooperative. Good eye contact. Appropriate mood and affect. SKIN: Warm, dry, normal turgor, no rashes or lesions noted, normal capillary refill. LABS Laboratory Results - last 24 hr 03/31/17 04/05/17 04/05/17 06:05 05:35 05:35 WBC 2.9 L RBC 3.52 L Hgb 10.7 Hct 32.0 L MCV 90.8 MCHC 33.3 RDW 20.3 H Plt Count 244 MPV 8.4 D Neutrophils % 26.0 L D Lymphocytes % 51.0 H D Monocytes % 21.0 H Basophils % 1.0 Myelocytes 1 D Differential Comment Manual diff done Platelet Estimate Adequate Hypochromic-Microcytic 1+ Anisocytosis 1+ Acanthocytes (Spur) 1+ Fragmented RBCs 1+ Morphology Comment Slide scanned Sodium 137 Potassium 4.4 Chloride 99 Carbon Dioxide 30 Anion Gap 8 BUN 11 Creatinine 0.6 Creat Clearance w eGFR > 60 Random Glucose 76 Calcium 8.8 Transferrin 202 Total Bilirubin 0.4 D AST 18 ALT 21 Alkaline Phosphatase 136 H Total Protein 5.6 L Albumin 2.8 L 02/28/2017 Bone scan: Nonspecific osteoblastic activity in multiple thoracic and lumbar spine vertebral bodies coupled with severe thoracolumbar spine scoliosis , grossly unchanged since the prior exam, most likely secondary to severe DJD with osteoporotic fractures. Interval development of intense uptake in the sternum corresponding to fractures seen on CT scan of March 21, 2017. Correlate with clinical history. Increased uptake in the anterior right fourth and fifth ribs at the costochondral junctions likely posttraumatic or secondary to costochondritis. Correlate with clinical history. No other foci of abnormal uptake seen in the appendicular skeleton, pelvis or ribs to definitely suggest metastatic pattern. Status post bilateral hip replacement. Increased uptake in the tibial cortices bilaterally suggestive of hypertrophic osteoarthropathy. 03/03/2017 CXR: Since prior chest x-ray dated 03/17/2017, the cardiac silhouette remains moderately enlarged with unfolding of the aortic arch. A left-sided pacer obscuring visualization of the left upper/midlung as well as a right internal jugular central venous catheter again seen satisfactory position. The lateral costophrenic angle was not included. The rest of the lung is clear except for an approximately 4 mm pulmonary nodule again noted in the right mid to lower lung likely representing a granuloma. Levoscoliosis of the thoracic spine with degenerative changes. Mediastinum and visualized osseous structures appear intact HOSPITAL COURSE: Date of Admission:03/30/17 Date of Discharge: 04/05/17 Patient is a 87 year old female with significant past medical history of hypertension, hypercholesterolemia, atrial fibrillation (on Eliquis), sick sinus syndrome s/p pacemaker (01/18/2016), chronic back pain and ovarian cancer ( with peritoneal carcinomatosis) presented to the ED with the chief complaints of generalized weakness x 1 day. Generalized weakness- likely due to recent chemotherapy. Completed 9 cycles of chemo so far; Normal Neuro exam. Weakness has now resolved. Chest pain- likely due to costochondritis.Plan is to start either Ibandronate 150 mg monthly or IV Zolendronic acid for her osteoporosis outpatient, as per Dr. Painting. Hypertension- Stable. Continue Amlodipine Atrial Fibrillation-rate controlled on Elliquis 2.5 mg PO BID. Continue (Home med) Sotalol 80mg PO BID Sick sinus syndrome s/p pacemaker- stable Ovarian cancer with peritoneal carcinomatosis. Completed 9 cycles of chemo. Back pain-No bone mets; Bone scan done on 01/05/17 DJD osteoporotic fractures vs bony mets. Tramadol 25mg PO PRN Pulmonary nodule: 4 mm pulmonary nodule again noted in the right mid to lower lung likely representing a granuloma. F/up outpatient with Pulmonary. Discharging the patient to the rehab. Plan of care explained to the patient. She verbalized understanding. Case discussed with Dr. Magdaleno. Minutes to complete discharge: 45 Discharge Summary Reason For Visit: WEAKNESS,CHRONIC BACK PAIN Current Active Problems Generalized weakness (Acute) Abdominal pain (Chronic) Adnexal mass (Chronic) Ascites, malignant (Chronic) Chronic back pain (Chronic) Diarrhea (Chronic) Diverticula of colon (Chronic) Omental metastasis (Chronic) Peritoneal carcinomatosis (Chronic) Rectal bleeding (Chronic) Condition: Improved - Instructions Diet, Activity, Other Instructions: You were admitted for evaluation of generalized weakness after the chemotherapy and now it has resolved. We are sending you to a short term rehab. Please follow up with Dr. Painting ([facility])in a week for the further care and Primary doctor in a week. Please return to the Emergency Department immediately if your symptoms persist or if you develop any new symptoms. Referrals: Garima Jackson MD [Staff Physician] - 1 Week Disposition: LONGTERM FACILITY - Home Medications Comprehensive Discharge Medication List: Ambulatory Orders Apixaban [Eliquis -] 2.5 mg PO BID #60 tablet 01/19/16 Atorvastatin Ca [Lipitor] 10 mg PO HS #30 tablet 01/19/16 Sotalol HCl [Betapace -] 80 mg PO BID #60 tablet 01/19/16 Albuterol Sulfate Inhaler - [Ventolin HFA Inhaler -] 1 puff IH Q4H PRN #5 inhaler 01/16/17 Amlodipine Besylate [Norvasc -] 10 mg PO DAILY #30 tablet 01/16/17 Diphenhydramine HCl [Benadryl Capsule -] 25 mg PO HS PRN #30 tab 01/16/17 Dronabinol [Marinol -] 5 mg PO 0730,1130,1700 #9 tab MDD 3 01/16/17 Lidocaine 5% Patch [Lidoderm -] 1 patch TP DAILY #15 patch 01/16/17 Ondansetron HCl [Zofran] 8 mg PO Q4H #120 tablet 01/16/17 Tramadol HCl [Ultram -] 50 mg PO Q6H PRN #12 tablet MDD 4 01/16/17 Calcium Carbonate/Vitamin D3 [Calcium 500 + Vit D 200 Caplet] 1 each PO BID #60 tablet 04/05/17 Docusate Sodium [Colace -] 100 mg PO BID #60 capsule 04/05/17 Sennosides/Docusate Sodium [Senna Laxative Tablet] 2 each PO HS #30 tablet 04/05 - Discharge Referral Referred to [facility] No
--- NOTE | 2017-04-05 21:08 | PN ---
Teaching Attending Note Name of Resident: Jenn Figueroa ATTENDING PHYSICIAN STATEMENT I saw and evaluated the patient. I reviewed the resident's note and discussed the case with the resident. I agree with the resident's findings and plan as documented. SUBJECTIVE: Patient is feeling better, with no acute distress, no shortness of breath. OBJECTIVE: Vital Signs Temperature 97.9 F 04/05/17 09:00 Pulse Rate 63 04/05/17 09:00 Respiratory Rate 18 04/05/17 09:00 Blood Pressure 122/51 04/05/17 09:00 O2 Sat by Pulse Oximetry (%) 96 04/05/17 09:00 CBCD WBC 2.9 K/mm3 (4.0-10.0) L 04/05/17 05:35 RBC 3.52 M/mm3 (3.60-5.2) L 04/05/17 05:35 Hgb 10.7 GM/dL (10.7-15.3) 04/05/17 05:35 Hct 32.0 % (32.4-45.2) L 04/05/17 05:35 MCV 90.8 fl (80-96) 04/05/17 05:35 MCHC 33.3 g/dl (32.0-36.0) 04/05/17 05:35 RDW 20.3 % (11.6-15.6) H 04/05/17 05:35 Plt Count 244 K/MM3 (134-434) 04/05/17 05:35 MPV 8.4 fl (7.5-11.1) D 04/05/17 05:35 CMP Sodium 137 mmol/L (136-145) 04/05/17 05:35 Potassium 4.4 mmol/L (3.5-5.1) 04/05/17 05:35 Chloride 99 mmol/L (98-107) 04/05/17 05:35 Carbon Dioxide 30 mmol/L (21-32) 04/05/17 05:35 Anion Gap 8 (8-16) 04/05/17 05:35 BUN 11 mg/dL (7-18) 04/05/17 05:35 Creatinine 0.6 mg/dL (0.55-1.02) 04/05/17 05:35 Creat Clearance w eGFR > 60 (>60) 04/05/17 05:35 Random Glucose 76 mg/dL (74-106) 04/05/17 05:35 Calcium 8.8 mg/dL (8.5-10.1) 04/05/17 05:35 Total Bilirubin 0.4 mg/dL (0.2-1.0) D 04/05/17 05:35 AST 18 U/L (15-37) 04/05/17 05:35 ALT 21 U/L (12-78) 04/05/17 05:35 Alkaline Phosphatase 136 U/L (45-117) H 04/05/17 05:35 Total Protein 5.6 g/dl (6.4-8.2) L 04/05/17 05:35 Albumin 2.8 g/dl (3.4-5.0) L 04/05/17 05:35 Home Medications Medication Instructions Recorded Apixaban [Eliquis -] 2.5 mg PO BID #60 tablet 01/19/16 Atorvastatin Ca [Lipitor] 10 mg PO HS #30 tablet 01/19/16 Sotalol HCl [Betapace -] 80 mg PO BID #60 tablet 01/19/16 Albuterol Sulfate Inhaler - 1 puff IH Q4H PRN #5 inhaler 01/16/17 [Ventolin HFA Inhaler -] Amlodipine Besylate [Norvasc -] 10 mg PO DAILY #30 tablet 01/16/17 Diphenhydramine HCl [Benadryl 25 mg PO HS PRN #30 tab 01/16/17 Capsule -] Dronabinol [Marinol -] 5 mg PO 0730,1130,1700 #9 tab MDD 3 01/16/17 Lidocaine 5% Patch [Lidoderm -] 1 patch TP DAILY #15 patch 01/16/17 Ondansetron HCl [Zofran] 8 mg PO Q4H #120 tablet 01/16/17 Calcium Carbonate/Vitamin D3 1 each PO BID #60 tablet 04/05/17 [Calcium 500 + Vit D 200 Caplet] Docusate Sodium [Colace -] 100 mg PO BID #60 capsule 04/05/17 Sennosides/Docusate Sodium [Senna 2 each PO HS #30 tablet 04/05/17 Laxative Tablet] Tramadol HCl 25 mg PO Q6H #80 tablet MDD 3 04/05/17 ASSESSMENT AND PLAN: 87 y/o unfortunate lady with h/o HTN, A fib, SSS s/p Pacemaker, A fib on AC, recent diagnosis of ovarian cancer with peritoneal carcinomatosis on chemo therapy who presented with with generalized weakness and chest pain. #Acute Generalized weakness feeling better now going to rehab. : likely from chemo effect. cxray with no change ( 4mm nodule in R , not changes ) # s/p Chest pain: most likely due to sternal fracture continue ca + Vit D to BID , on Lidocaine patch, tramadol. # Lower back pain, with no radiation . no sensory loss , neuro exam within normal limit . Bone scan with no mets # HTN: norvasc and cont sotalol # Afib : cont sotalol and Eliquis # Ovarian cancer, Chemo on hold now . going to rehab.
== END 2017-04-05 12:50 ==
LOC: JER 08:27 → JERBED 11:29 → J7W 13:40
PROVIDERS: ADMIT Internal Medicine; ATTEND Internal Medicine
PROC: 3E033NZ Introduction of Analgesics, Hypnotics, Sedatives into Peripheral Vein, Percutaneous Approach (ICD-10-PCS; principal; 2017-03-30)
PROC: 3E033GC Introduction of Other Therapeutic Substance into Peripheral Vein, Percutaneous Approach (ICD-10-PCS; 2017-03-30)
PROC: 3E0337Z Introduction of Electrolytic and Water Balance Substance into Peripheral Vein, Percutaneous Approach (ICD-10-PCS; 2017-03-30)
PROC: 3E0F7GC Introduction of Other Therapeutic Substance into Respiratory Tract, Via Natural or Artificial Opening (ICD-10-PCS; 2017-03-30)
DX: M62.81 Muscle weakness (generalized) (principal); R07.89 Other chest pain; I10 Essential (primary) hypertension; I95.9 Hypotension, unspecified; I48.91 Unspecified atrial fibrillation; Z79.01 Long term (current) use of anticoagulants; I49.5 Sick sinus syndrome; C56.9 Malignant neoplasm of unspecified ovary; C78.6 Secondary malignant neoplasm of retroperitoneum and peritoneum; M54.5 Low back pain; G89.29 Other chronic pain; Z92.21 Personal history of antineoplastic chemotherapy; R06.02 Shortness of breath; J30.2 Other seasonal allergic rhinitis; E78.5 Hyperlipidemia, unspecified; I49.9 Cardiac arrhythmia, unspecified; Z87.891 Personal history of nicotine dependence; Z95.0 Presence of cardiac pacemaker
CPT/HCPCS: 36415; 71010-TC; 71111-TC; 74176-TC; 78306-TC; 80048; 80053; 82607; 82728; 82746; 83540; 83550; 84443; 84466; 85025; 85027; 87040; 87086; 93005; 93010; 97116-GP; 97162; 99283-25; A9503; G0378

== ENCOUNTER 2017-08-03 10:01 | Emergency (ER) | payer OTHER ==
[2017-08-03 10:07] VITALS: BMI 19.3
--- NOTE | 2017-08-03 10:37 | PDOC ---
History of Present Illness - General Chief Complaint: Shortness of Breath Stated Complaint: SOB Time Seen by Provider: 08/03/17 10:10 History Source: Patient Exam Limitations: No Limitations - History of Present Illness Initial Comments: 08/03/17 10:40 Patient is a 87 year old female with significant past medical history of hypertension, hypercholesterolemia, atrial fibrillation (on Eliquis), sick sinus syndrome s/p pacemaker (01/18/2016), chronic back pain and ovarian cancer ( with peritoneal carcinomatosis) presented to the ED with increasing shortness of breath. Patient states that she has chronic ARMENTA but since last night she has been feeling short of breath at rest. Patient states this has been constant since last night and woke up with the same feeling. She states she has had a worsening cough x 2 weeks with white sputum and mild wheezing. Patient denies fever, chills, chest pain, orthopnea, hemoptysis, Lower extremitiy edema PSH: right hip replacement, Pacemaker placement Allergies- NKDA Social hx: Former smoker >40 yrs 1 ppd PCP: Dr. Philippe Academic Affairs Specialist: Dr. Bernard Past History - Past Medical History Allergies/Adverse Reactions: Allergies Allergy/AdvReac Type Severity Reaction Status Date / Time No Known Allergies Allergy Verified 08/03/17 10:07 Home Medications: Ambulatory Orders Apixaban [Eliquis -] 2.5 mg PO BID #60 tablet 01/19/16 Atorvastatin Ca [Lipitor] 10 mg PO HS #30 tablet 01/19/16 Sotalol HCl [Betapace -] 80 mg PO BID #60 tablet 01/19/16 Albuterol Sulfate Inhaler - [Ventolin HFA Inhaler -] 1 puff IH Q4H PRN #5 inhaler 01/16/17 Amlodipine Besylate [Norvasc -] 10 mg PO DAILY #30 tablet 01/16/17 Tramadol HCl 25 mg PO Q6H #80 tablet MDD 3 04/05/17 Calcium Carb/Magnesium Oxid/D3 [Calcium Magnesium + D Tablet] 15 ml PO DAILY 03/15 Prednisone [Prednisone 50 MG TABLETS] 50 mg PO DAILY #4 tablet 08/03/17 Temazepam [Restoril] 15 mg PO HS PRN 08/03/17 Anemia: No Asthma: No Cancer: Yes (ovarian) Cardiac Disorders: Yes ("MILD HEART ARRYTHMIA") CVA: No COPD: No CHF: No Dementia: No Diabetes: No GI Disorders: No Disorders: No HTN: Yes Hypercholesterolemia: Yes Liver Disease: No Seizures: No Thyroid Disease: No - Surgical History Abdominal Surgery: No (D&C) Appendectomy: No Cardiac Surgery: No Cholecystectomy: No Lung Surgery: No Neurologic Surgery: No Orthopedic Surgery: Yes (TOTAL HIP LEFT) - Suicide/Smoking/Psychosocial Hx Smoking History: Never smoked Have you smoked in the past 12 months: No Number of Cigarettes Smoked Daily: 0 If you are a former smoker, when did you quit?: 2000 Cigars Per Day: 0 Information on smoking cessation initiated: No Hx Alcohol Use: No Drug/Substance Use Hx: No Substance Use Type: None Hx Substance Use Treatment: No Review of Systems - Review of Systems Comments:: 08/03/17 10:36 GENERAL/CONSTITUTIONAL: No fever or chills. No weakness. HEAD, EYES, EARS, NOSE AND THROAT: No change in vision. No ear pain or discharge. No sore throat. CARDIOVASCULAR: No chest pain, +shortness of breath RESPIRATORY: + cough with whitish sputum, +wheezing, no hemoptysis. GASTROINTESTINAL: No nausea, vomiting, diarrhea or constipation. GENITOURINARY: No dysuria, frequency, or change in urination. MUSCULOSKELETAL: No joint or muscle swelling or pain. No neck or back pain. SKIN: No rash NEUROLOGIC: No headache, vertigo, loss of consciousness, or change in strength/ sensation. ENDOCRINE: No increased thirst. No abnormal weight change HEMATOLOGIC/LYMPHATIC: No anemia, easy bleeding, or history of blood clots. ALLERGIC/IMMUNOLOGIC: No hives or skin allergy. *Physical Exam - Vital Signs Last Vital Signs Temp Pulse Resp BP Pulse Ox 97.3 F L 97 H 19 97/50 96 08/03/17 10:05 08/03/17 10:05 08/03/17 10:05 08/03/17 10:05 08/03/17 10:05 - Physical Exam Comments: 08/03/17 10:36 GENERAL: Awake, alert, and fully oriented, in no acute distress HEAD: No signs of trauma, normocephalic, atraumatic EYES: PERRLA, EOMI, sclera anicteric, conjunctiva clear ENT: Auricles normal inspection, hearing grossly normal, nares patent, oropharynx clear without exudates. Moist mucosa NECK: Normal ROM, supple, no lymphadenopathy, JVD, or masses LUNGS: No distress, speaks full sentences, +Inspiratory and expiratory wheezing bilaterally HEART: Tachycardic, regular rhythm, normal S1 and S2, no murmurs, rubs or gallops, peripheral pulses normal and equal bilaterally. ABDOMEN: Soft, nontender, normoactive bowel sounds. No guarding, no rebound. No masses EXTREMITIES: Normal inspection, Normal range of motion, no edema. No clubbing or cyanosis. NEUROLOGICAL: Cranial nerves II through XII grossly intact. Normal speech, normal gait, no focal sensorimotor deficits SKIN: Warm, Dry, normal turgor, no rashes or lesions noted. ED Treatment Course - LABORATORY CBC & Chemistry Diagram: 08/03/17 11:10 08/03/17 11:10 Medical Decision Making - Medical Decision Making 08/03/17 13:23 Patient is a 87 year old female with significant past medical history of hypertension, hypercholesterolemia, atrial fibrillation (on Eliquis), sick sinus syndrome s/p pacemaker (01/18/2016), chronic back pain and ovarian cancer ( with peritoneal carcinomatosis) presented to the ED with increasing shortness of breath. DDx: Asthma/COPD, Pulmonary embolism, Pneumonia Plan: CBC, CMP, Atrovnet, CTA, CXR, EKG w/ cardiac profile 08/03/17 15:07 CBC, CMP unremarkable CXR- negative CTA- mild copd, no PE Troponin- negative 08/03/17 15:[address] Philippe, Physician has only seen the pt once prior. Call placed to Dr. Paitning (oncology). Awaiting call back. 08/03/17 15:[address] Painting. Recommends observation. Call placed to hospitalist 08/03/17 16:44 Patient feels much better and would like to go home. Call placed to Dr. Painting, no response. Call placed to Dr. Selby. She recommends steroid burst for 5 days and close f/u with PCP. Patient to be d/c with 5 day prednisone burst. She was explained the importance of close follow up and the need to come back to the hospital if her symptoms worsen. *DC/Admit/Observation/Transfer Diagnosis at time of Disposition: COPD (chronic obstructive pulmonary disease) Qualifiers: COPD type: COPD with acute exacerbation Qualified Code(s): J44.1 - Chronic obstructive pulmonary disease with (acute) exacerbation; J44.1 - Chronic obstructive pulmonary disease with (acute) exacerbation; J44.1 - Chronic obstructive pulmonary disease with (acute) exacerbation; J44.1 - Chronic obstructive pulmonary disease with (acute) exacerbation - Discharge Dispostion Disposition: HOME Condition at time of disposition: Stable - Prescriptions Prescriptions: Prednisone [Prednisone 50 MG TABLETS] 50 mg PO DAILY #4 tablet - Referrals Referrals: Anna Garcia MD [Primary Care Provider] - - Patient Instructions Printed Discharge Instructions: DI for Chronic Obstructive Pulmonary Disease Additional Instructions: Please follow up with Dr. Painting within 4 days. Please take prednisone 50 mg daily for the next 4 days. If you have chest pain, worsening shortness of breath or any new symptoms please come back to the hospital immediately.
[2017-08-03 11:19] LABS: BASOPHIL 1.2 % (0-2.0); EOSINOPHIL 7.1 % (0-4.5); MCH 26.5 pg (25.7-33.7); MCHC 31.6 g/dl (32.0-36.0); MEAN PLT VOLUME 9.2 fl (7.5-11.1); NEUTROPHILS 65.5 % (42.8-82.8); PLATELET COUNT 180 K/MM3 (134-434); RDW 15.9 % (11.6-15.6)
[2017-08-03] MEDS ORDERED: IPRATROPIUM BR 0.02% 0.5 MG/2.5 ML VIAL.NEB. NEB ONE ×2 (11:25→11:27)
[2017-08-03 11:49] LABS: ALBUMIN 3.1 g/dl (3.4-5.0); ANION GAP 4 (8-16); BILIRUBIN,TOTAL 0.3 mg/dL (0.2-1.0); CALCIUM 9.1 mg/dL (8.5-10.1); CO2 32 mmol/L (21-32); CREATININE 0.7 mg/dL (0.55-1.02); GLUCOSE,RANDOM 79 mg/dL (74-106); SGOT/AST 17 U/L (15-37); SGPT/ALT 19 U/L (12-78); TOT PROT 6.2 g/dl (6.4-8.2)
[2017-08-03 11:51] LABS: ALK PHOS 113 U/L (45-117); CPK 36 IU/L (26-192); TROPONIN I < 0.02 ng/ml (0.00-0.05)
--- NOTE | 2017-08-03 11:56 | PDOC ---
Attending Attestation - Resident Resident Name: Jaycob Morales - ED Attending Attestation I have performed the following: I have examined & evaluated the patient, The case was reviewed & discussed with the resident, I agree w/resident's findings & plan, Exceptions are as noted - HPI HPI: 08/03/17 11:49 87yo F hx HTN, HL, AF on eliquis, SSS s/p PM, ovarian ca c/b peritoneal carcinomatosis p/w progressive SOB and ARMENTA. Since last night reports SOB at rest. Also reports worsening cough with white sputum for 2 weeks. No fevers, chills, CP, abd pain, N/V/D, LE edema, dysuria, focal weakness, headache. - Physicial Exam PE: 08/03/17 11:51 GENERAL: Awake, alert, and fully oriented, in no acute distress. HEAD: No signs of trauma EYES: PERRLA, EOMI, sclera anicteric, conjunctiva clear ENT: Auricles normal inspection, hearing grossly normal, nares patent, oropharynx clear without exudates. Moist mucosa NECK: Normal ROM, supple, no lymphadenopathy, JVD, or masses LUNGS: Good air movement, +b/l wheezing, and no crackles HEART: Regular rate and rhythm, normal S1 and S2, no murmurs, rubs or gallops ABDOMEN: Soft, nontender, normoactive bowel sounds. No guarding, no rebound. No masses EXTREMITIES: Normal range of motion, no edema. No clubbing or cyanosis. No cords, erythema, or tenderness NEUROLOGICAL: Normal speech, cranial nerves intact, negative pronator drift, 5/ 5 strength in all 4 extremities, normal sensation to light touch in all 4 extremities, normal cerebellar exam, normal gait, normal reflexes and tone SKIN: Warm, Dry, normal turgor, no rashes or lesions noted. - Medical Decision Making 08/03/17 11:52 87-year-old female with multiple medical problems including ovarian cancer presents with progressive shortness of breath and productive cough. Vitals remarkable for hypotension to the 90s systolic. Exam with bilateral wheezing. Differential includes but is not limited to pneumonia versus reactive airway disease versus PE versus CHF vs ACS. -labs -CXR -atrovent -CTA chest -reassess
[2017-08-03] MEDS ORDERED: ALBUTEROL SO4 2.5/IPRATROPIUM 0.5 INH SOL 3 ML VIAL.NEB. NEB ONE ×3 (15:03→15:12)
[2017-08-03] MEDS ORDERED: predniSONE 10 MG TABLET (UD) ONE (15:09)
[2017-08-03] MEDS ORDERED: predniSONE 20 MG TABLET (UD) ONE (15:09)
[2017-08-03] MEDS ORDERED: predniSONE 20 MG TABLET (UD) PO SCH (15:15)
[2017-08-03 15:57] VITALS: BP 133/72; PULSE 72; TEMP 97.9
--- NOTE | 2017-08-04 09:43 | EKG ---
Test Reason : Blood Pressure : / mmHG Vent. Rate : 061 BPM Atrial Rate : 061 BPM P-R Int : 210 ms QRS Dur : 080 ms QT Int : 458 ms P-R-T Axes : 000 020 057 degrees QTc Int : 461 ms Atrial-paced rhythm with prolonged AV conduction CANNOT RULE OUT SEPTAL INFARCT , AGE UNDETERMINED ABNORMAL ECG WHEN COMPARED WITH ECG OF 30-MAR-2017 15:52, ELECTRONIC ATRIAL PACEMAKER HAS REPLACED ATRIAL FIBRILLATION Confirmed by LEONCIO GAONA MD ([id number]) on 08/04/2017 9:42:58 AM Referred By: Confirmed By:LEONCIO GANOA MD
== END 2017-08-03 17:10 | disposition home or self-care (01) ==
LOC: JER 10:01
PROC: 3E0F7GC Introduction of Other Therapeutic Substance into Respiratory Tract, Via Natural or Artificial Opening (ICD-10-PCS; principal; 2017-08-03)
DX: J44.1 Chronic obstructive pulmonary disease with (acute) exacerbation (principal); I10 Essential (primary) hypertension; E78.00 Pure hypercholesterolemia, unspecified; I48.91 Unspecified atrial fibrillation; Z79.01 Long term (current) use of anticoagulants; I49.5 Sick sinus syndrome; Z95.0 Presence of cardiac pacemaker; M54.89 Other dorsalgia; G89.29 Other chronic pain; Z85.43 Personal history of malignant neoplasm of ovary
CPT/HCPCS: 36415; 71020-TC; 71275-TC; 80053; 84484; 85025; 93005; 93010; 94640; 99282-25

== ENCOUNTER 2017-08-20 23:37 | Inpatient (IN) | payer OTHER ==
--- NOTE | 2017-08-21 00:46 | PDOC ---
History of Present Illness - General Chief Complaint: Shortness of Breath Stated Complaint: DIFFICULTY BREATHING Time Seen by Provider: 08/21/17 00:39 - History of Present Illness Initial Comments: 08/21/17 01:43 The patient is an 87 year old female with a history of HTN, HLD, COPD, Afib on eloquis, sick sinus syndrome s/p pacemaker placement, ovarian cancer s/p chemotherapy who presents for evaluation of SOB. The patient reports dyspnea on exertion at baseline and was seen in the ER several weeks ago for similar symptoms and diagnosed with COPD. She reported improvement at that time after duonebs and steroids. She was discharged home on a steroid taper and states that she was feeling well until she stopped her steroid taper. She reported worsening SOB today with associated weakness prompting her presentation to the ED today. She denies fevers, chills, cough, chest pain, abdominal pain, or changes with urination or bowel movements. Past History - Past Medical History Allergies/Adverse Reactions: Allergies Allergy/AdvReac Type Severity Reaction Status Date / Time No Known Allergies Allergy Verified 08/21/17 00:02 Home Medications: Ambulatory Orders Apixaban [Eliquis -] 2.5 mg PO BID #60 tablet 01/19/16 Atorvastatin Ca [Lipitor] 10 mg PO HS #30 tablet 01/19/16 Sotalol HCl [Betapace -] 80 mg PO BID #60 tablet 01/19/16 Albuterol Sulfate Inhaler - [Ventolin HFA Inhaler -] 1 puff IH Q4H PRN #5 inhaler 01/16/17 Amlodipine Besylate [Norvasc -] 10 mg PO DAILY #30 tablet 01/16/17 Tramadol HCl 25 mg PO Q6H #80 tablet MDD 3 04/05/17 Calcium Carb/Magnesium Oxid/D3 [Calcium Magnesium + D Tablet] 15 ml PO DAILY 03/15 Prednisone [Prednisone 50 MG TABLETS] 50 mg PO DAILY #4 tablet 08/03/17 Temazepam [Restoril] 15 mg PO HS PRN 08/03/17 Anemia: No Asthma: No Cancer: Yes (ovarian) Cardiac Disorders: Yes ("MILD HEART ARRYTHMIA") CVA: No COPD: No CHF: No Dementia: No Diabetes: No GI Disorders: No Disorders: No HTN: Yes Hypercholesterolemia: Yes Liver Disease: No Seizures: No Thyroid Disease: No - Surgical History Abdominal Surgery: No (D&C) Appendectomy: No Cardiac Surgery: No Cholecystectomy: No Lung Surgery: No Neurologic Surgery: No Orthopedic Surgery: Yes (TOTAL HIP LEFT) - Suicide/Smoking/Psychosocial Hx Smoking History: Never smoked Have you smoked in the past 12 months: No Number of Cigarettes Smoked Daily: 0 If you are a former smoker, when did you quit?: 2000 Cigars Per Day: 0 Information on smoking cessation initiated: No Hx Alcohol Use: No Drug/Substance Use Hx: No Substance Use Type: None Hx Substance Use Treatment: No Review of Systems - Review of Systems Comments:: 08/21/17 01:50 Constitutional: Weakness. No fevers, chills, fatigue, malaise HEENT: No Rhinorrhea, nasal congestion, visual changes Cardiovascular: No chest pain, syncope, palpitations, lightheadedness Respiratory: SOB. No Cough, Hemoptysis, Gastrointestinal: No Abdominal pain, Nausea, Vomiting, Constipation, Diarrhea, Melena Genitourinary: No Dysuria, Frequency, Urgency, Hesitancy, Hematuria, Flank pain Musculoskeletal: No Myalgia, arthralgia Skin: No rashes, itching, bruising, pallor Neurologic: No Headache, Dizziness, Numbness, or Tingling *Physical Exam - Vital Signs Last Vital Signs Temp Pulse Resp BP Pulse Ox 98.3 F 60 24 130/64 96 08/21/17 00:02 08/21/17 00:02 08/21/17 00:02 08/21/17 00:02 08/21/17 00:02 - Physical Exam Comments: 08/21/17 01:51 General Appearance: Nourished. No Apparent Distress HEENT: EOMI, ELIZABETH. No Pharyngeal Erythema, Tonsillar Exudate, Tonsillar Erythema Neck: No Cervical Lymphadenopathy Respiratory/Chest: Lungs Clear, Normal Breath Sounds. Diffuse expiratory wheezing noted on exam. No Crackles, Rales, Rhonchi, Cardiovascular: Regular Rhythm, Regular Rate. No Murmur, Gallops, Rubs Gastrointestinal/Abdominal: Normal Bowel Sounds, Soft. No Guarding, Rebound, Tenderness Musculoskeletal: No CVA Tenderness Extremity: Normal Capillary Refill Integumentary: Normal Color, Dry, Warm Neurologic: Fully Oriented, Alert, Normal Mood/Affect, Normal Response, ED Treatment Course - LABORATORY CBC & Chemistry Diagram: 08/21/17 01:18 08/21/17 01:18 Medical Decision Making - Medical Decision Making 08/21/17 01:52 The patient is an 87 year old female with a history of HTN, HLD, COPD, Afib on eloquis, sick sinus syndrome s/p pacemaker placement, ovarian cancer s/p chemotherapy who presents for evaluation of SOB. Differential includes but is not limited to: COPD exacerbation, pneumonia, infectious, metabolic derangement. Given the patient's wheezing on exam and recent diagnosis of COPD , it is likely her symptoms are due to a COPD exacerbation. EKG done is unchanged from prior. We will obtain a cbc, cmp, abg, troponin and chest plain film to evaluate further. We will treat her symptoms with a duoneb and continue to monitor and reassess. 08/21/17 03:07 cbc, cmp are unremarkable. abg demonstrated a pco2 of 53 and a po2 of 88 on 2L of O2. The patient continues to desaturate to the low 90s off of O2 and continues to feel extremely weak and SOB with exertion. The patient states that she has steps in her house and does not feel she is able to get up them and was unable to earlier today. We believe that she requires admission for further management of her symptoms. We discussed with the hospitalist team who accepted the patient for admission. The patient voiced understanding and is agreeable with the plan. *DC/Admit/Observation/Transfer Diagnosis at time of Disposition: Generalized weakness COPD (chronic obstructive pulmonary disease) Qualifiers: COPD type: unspecified COPD Qualified Code(s): J44.9 - Chronic obstructive pulmonary disease, unspecified; J44.9 - Chronic obstructive pulmonary disease, unspecified; J44.9 - Chronic obstructive pulmonary disease, unspecified; J44.9 - Chronic obstructive pulmonary disease, unspecified - Discharge Dispostion Condition at time of disposition: Guarded Admit: Yes
--- NOTE | 2017-08-21 00:55 | PDOC ---
Attending Attestation - Resident Resident Name: Tien Nguyen - HPI HPI: 08/21/17 00:55 Pt comes with ARMENTA and worsening SOB. On arrival to the ER, pt's O2 sat is lo 90% . She was recently diagnosed with COPD; she had been a smoker bbut quit 17 years ago. Pt states that after her scoliosis and compression fractures of the spine, along with the ovarian cancer and mass pushing up on her diaphragm, pt has had increased episodes of SOB. SHe was seen here 2 weeks ago and discharged with steroids. Now she returns with poor oxygenation, 10 days after she completed her steroid course. Pt is afebrile. She states that she has no cough, but that she often has a chronic cough and postnasal drip. 08/21/17 02:27 Pt may require home O2. - Physicial Exam PE: 08/21/17 02:37 Decreased breath sounds bilaterally; wheezing on the right side. Pt is afebrile. No abd tenderness; HEENT normal. mucus menbranes moist. Pt has no flank pain; she has scoliosis and muscle tenderness of back. Pt has no calf swelling and only trace pitting edema at the ankles likely due to amlodipine. Agree with resident exam - Medical Decision Making 08/21/17 02:39 Pt desaturates off of nasal cannula. She has no home O2 and she has a poor ABG on nasal cannula. She may require observation admission for hypoxemia 08/21/17 02:40 Pt's filtration operator is Dr. Bernard; EKG is unchanged. She has a functioning atrial pacemaker. We did not speak to cards, as pt's SOB is unlikely to be due to a cardiac issue. Pt's CXR and EKG are unchanged from pervious. We spoke to oncologist Dr. Painting's partner who tells us that pt's SOB is unlikely to be due to her chemo x 9 rounds (which was completed in March). They will consult on the patient however.
[2017-08-21] MEDS ORDERED: ALBUTEROL SO4 2.5/IPRATROPIUM 0.5 INH SOL 3 ML VIAL.NEB. NEB ONE ×2 (01:25→02:30)
[2017-08-21 01:31] LABS: BASOPHIL 1.9 % (0-2.0); EOSINOPHIL 4.9 % (0-4.5); MCH 27.2 pg (25.7-33.7); MCHC 32.9 g/dl (32.0-36.0); MEAN CELL VOLUME 82.7 fl (80-96); MEAN PLT VOLUME 9.1 fl (7.5-11.1); NEUTROPHILS 74.7 % (42.8-82.8); PLATELET COUNT 191 K/MM3 (134-434); RDW 16.2 % (11.6-15.6)
[2017-08-21 01:43] LABS: ARTERIAL BLD GAS O2 SATURATION 96.5 % (90-98.9); ARTERIAL BLOOD GAS BASE EXCESS 5.1 meq/l (-2-2); ARTERIAL BLOOD GAS PO2 88.3 mmHg (68-100); ARTERIAL BLOOD GAS pH 7.38 (7.35-7.45)
[2017-08-21 01:44] LABS: LPM/O2% 2 LPM; PT. ON O2? YES; TYPE OF O2 NASAL O2
[2017-08-21 01:46] LABS: METHEMOGLOBIN 0.6 % (0.4-1.5)
[2017-08-21 01:58] LABS: ALBUMIN 3.4 g/dl (3.4-5.0); ANION GAP 10 (8-16); BILIRUBIN,TOTAL 0.4 mg/dL (0.2-1.0); CALCIUM 8.9 mg/dL (8.5-10.1); CO2 29 mmol/L (21-32); CREATININE 0.7 mg/dL (0.55-1.02); GLUCOSE,RANDOM 81 mg/dL (74-106); SGPT/ALT 26 U/L (12-78); TOT PROT 6.3 g/dl (6.4-8.2)
[2017-08-21 02:00] LABS: ALK PHOS 125 U/L (45-117); CPK 51 IU/L (26-192); TROPONIN I < 0.02 ng/ml (0.00-0.05)
[2017-08-21 02:01] LABS: SGOT/AST 22 U/L (15-37)
[2017-08-21] MEDS ORDERED: MAGNESIUM SULF 50% (8.12 MEQ/2 ML-1 GM VIAL) IVPB ONE (02:35)
[2017-08-21] MEDS ORDERED: AZITHROMYCIN IVPB 500 MG in DEXTROSE 5%-WATER - 250 ML IVPB ONE (02:50)
[2017-08-21] MEDS ORDERED: methylPREDNISolone NA SUCC 125 MG/2 ML VIAL IVPUSH ONE (02:50)
[2017-08-21] MEDS ORDERED: CEFTRIAXONE 1 GM in DEXTROSE 5%-WATER - 50 ML IVPB ONE (03:04)
--- NOTE | 2017-08-21 03:20 | PN ---
Teaching Attending Note Name of Resident: Kevin Joy ATTENDING PHYSICIAN STATEMENT I saw and evaluated the patient. I reviewed the resident's note and discussed the case with the resident. I agree with the resident's findings and plan as documented. SUBJECTIVE: 87 yo F with pmhx ofHTN, SSS s/p PPM, Afib on Eliquis, ovarian ca w. peritoneal carcinamatosis s/p chemo in March who presents with shortness of breath, cough and weakness. States she has had increased shortness of breath and cough today, notes a post-nasal drip. No current chest pain, pressure or shortness of breath. Pt. States she only feels week today due to the shortness of breath. No N/V/D. Does state she has had decreased PO intake since the cancer dx. OBJECTIVE: Physical: VS: Vital Signs Period Temp Pulse Resp BP Sys/Amado Pulse Ox Last 24 Hr 98.3 F 60 24 130/64 96 GEN: NAD, resting in bed, able to speak full sentences, AA0X3 HEENT: NCAT, PERRL, Throat without erythema or exudates CARD: RRR S1, S2 RESP: Bilateral expiratory wheezing ABD: BSx4, NTD to palpation EXT: - C/C/E, MS +5/5 CBCD WBC 8.0 K/mm3 (4.0-10.0) D 08/21/17 01:18 RBC 4.80 M/mm3 (3.60-5.2) 08/21/17 01:18 Hgb 13.0 GM/dL (10.7-15.3) 08/21/17 01:18 Hct 39.7 % (32.4-45.2) 08/21/17 01:18 MCV 82.7 fl (80-96) 08/21/17 01:18 MCHC 32.9 g/dl (32.0-36.0) 08/21/17 01:18 RDW 16.2 % (11.6-15.6) H 08/21/17 01:18 Plt Count 191 K/MM3 (134-434) 08/21/17 01:18 MPV 9.1 fl (7.5-11.1) 08/21/17 01:18 CMP Sodium 140 mmol/L (136-145) 08/21/17 01:18 Potassium 4.7 mmol/L (3.5-5.1) 08/21/17 01:18 Chloride 101 mmol/L (98-107) 08/21/17 01:18 Carbon Dioxide 29 mmol/L (21-32) 08/21/17 01:18 Anion Gap 10 (8-16) 08/21/17 01:18 BUN 18 mg/dL (7-18) 08/21/17 01:18 Creatinine 0.7 mg/dL (0.55-1.02) 08/21/17 01:18 Creat Clearance w eGFR > 60 (>60) 08/21/17 01:18 Random Glucose 81 mg/dL (74-106) 08/21/17 01:18 Calcium 8.9 mg/dL (8.5-10.1) 08/21/17 01:18 Total Bilirubin 0.4 mg/dL (0.2-1.0) D 08/21/17 01:18 AST 22 U/L (15-37) D 08/21/17 01:18 ALT 26 U/L (12-78) D 08/21/17 01:18 Alkaline Phosphatase 125 U/L (45-117) H 08/21/17 01:18 Total Protein 6.3 g/dl (6.4-8.2) L 08/21/17 01:18 Albumin 3.4 g/dl (3.4-5.0) 08/21/17 01:18 CARDIAC ENZYMES Creatine Kinase 51 IU/L (26-192) 08/21/17 01:18 Troponin I < 0.02 ng/ml (0.00-0.05) 08/21/17 01:18 Ambulatory Orders Apixaban [Eliquis -] 2.5 mg PO BID #60 tablet 01/19/16 Atorvastatin Ca [Lipitor] 10 mg PO HS #30 tablet 01/19/16 Sotalol HCl [Betapace -] 80 mg PO BID #60 tablet 01/19/16 Albuterol Sulfate Inhaler - [Ventolin HFA Inhaler -] 1 puff IH Q4H PRN #5 inhaler 01/16/17 Amlodipine Besylate [Norvasc -] 10 mg PO DAILY #30 tablet 01/16/17 Tramadol HCl 25 mg PO Q6H #80 tablet MDD 3 04/05/17 Calcium Carb/Magnesium Oxid/D3 [Calcium Magnesium + D Tablet] 15 ml PO DAILY 03/15 Prednisone [Prednisone 50 MG TABLETS] 50 mg PO DAILY #4 tablet 08/03/17 Temazepam [Restoril] 15 mg PO HS PRN 08/03/17 EKG: NSR, Paced, QtC 467 ASSESSMENT AND PLAN: 87 F with pmhx of AFib, SSS s/p PPM, ovarian ca w. peritoneal carcinamatosis who presents with shortness of breath and weakness, being admitted for COPD excacerbation 1.) Acute Exacerbation of COPD - NEBS Atc/PRN - C/W Solu-Medrol (chk. FS/RAISS) - Keep 02>90 - Pulmonary consult for optimization 2.) Weakness - DDx: Due to COPD vs. decreased po intake - Chk. TSH - B12/Folate checked on last admit - UA, Ucx - PT consult 3.) Afib - Would hold Sotalol, - C/W Eliquis 4.) Ovarian Ca S/P Peritoneal Carcinamatosis - S/P Carbo/Taxol 5.) Dvt PPx - Mod Risk - On Eliquis Place in Med-sx
[2017-08-21] MEDS ORDERED: ENOXAPARIN NA (PORCINE) 30 MG/0.3 ML DISP.SYRIN SQ SCH ×2 (03:30→10:00)
--- NOTE | 2017-08-21 03:31 | HP ---
Admitting History and Physical - Primary Care Physician PCP: Anna Garcia - Admission Chief Complaint: shortness of breath/weakness History of Present Illness: The patient is an 87 year old female with a history of HTN, HLD, COPD, Afib on eloquis, sick sinus syndrome s/p pacemaker placement, ovarian cancer s/p chemotherapy last chemo march of this year who presents with SOB and weakness. Patient seen here on 08/03/17 in the ED for similar complaints diagnosed with COPD on CT scan and was sent home with steroid taper after feeling better in the ED. She started to feel better at home but once the steroids were finished she started to feel shortn of breath again. Per patient at baseline she ambulates with a cane and has been getting weaker. She states her oral intake has been better since chemotherapy stopped but still overall poor. The patient reports dyspnea on exertion at baseline. She denies cough of sputum production at this time. She reported improvement at that time after duonebs today. She denies fevers, chills, cough, chest pain, abdominal pain, or changes with urination or bowel movements. Denies recent sick contacts.At the time of interview patient stated she felt better. History Source: Patient, Family Member Limitations to Obtaining History: Clinical Condition, Physical Impairment - Past Medical History STRUCTURAL RIGGER: Yes: TIA (2014) Cardiovascular: Yes: AFIB (2014 with PPN placed), HTN, Hyperlipdemia Gastrointestinal: Yes: Diverticulosis Musculoskeletal: Yes: Chronic low back pain (collapsed fractures lumbar vertebrae 2014 ), Osteoarthritis - Past Surgical History Past Surgical History: Yes: Cataract Removal (bilateral ), Joint Replacement ( bilateral hip replacements), Tonsillectomy - Smoking History Smoking history: Never smoked Have you smoked in the past 12 months: No Aproximately how many cigarettes per day: 0 If you are a former smoker, when did you quit?: 1999 - Alcohol/Substance Use Hx Alcohol Use: No Number of Drinks Daily: 1 History of Substance Use: reports: None - Social History ADL: Independent 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 History of Recent Travel: No Home Medications - Allergies Allergies/Adverse Reactions: Allergies Allergy/AdvReac Type Severity Reaction Status Date / Time No Known Allergies Allergy Verified 08/21/17 00:02 - Home Medications Home Medications: Ambulatory Orders Apixaban [Eliquis -] 2.5 mg PO BID #60 tablet 01/19/16 Atorvastatin Ca [Lipitor] 10 mg PO HS #30 tablet 01/19/16 Sotalol HCl [Betapace -] 80 mg PO BID #60 tablet 01/19/16 Albuterol Sulfate Inhaler - [Ventolin HFA Inhaler -] 1 puff IH Q4H PRN #5 inhaler 01/16/17 Amlodipine Besylate [Norvasc -] 10 mg PO DAILY #30 tablet 01/16/17 Tramadol HCl 25 mg PO Q6H #80 tablet MDD 3 04/05/17 Calcium Carb/Magnesium Oxid/D3 [Calcium Magnesium + D Tablet] 15 ml PO DAILY 03/15 Temazepam [Restoril] 15 mg PO HS PRN 08/03/17 Family Disease History - Family Disease History Family Disease History: Heart Disease: Father ( [place] age 52), Other: Mother ( lived to 93) Review of Systems - Review of Systems Constitutional: reports: Loss of Appetite, Malaise, Weakness Cardiovascular: reports: Shortness of Breath Physical Examination Vital Signs: Vital Signs Temperature 98.3 F 08/21/17 00:02 Pulse Rate 60 08/21/17 00:02 Respiratory Rate 24 08/21/17 00:02 Blood Pressure 130/64 08/21/17 00:02 O2 Sat by Pulse Oximetry (%) 96 08/21/17 00:02 Constitutional: Yes: No Distress, Calm, Cachectic, Thin Eyes: Yes: EOM Intact HENT: Yes: Atraumatic, Normocephalic, Other (Poor dentition) Neck: Yes: Supple, Trachea Midline Cardiovascular: Yes: Regular Rate and Rhythm, S1, S2 Respiratory: Yes: Wheezes (inspiratory mild diffuse), Other (speaking in full sentences) Labs: CBC, BMP 08/21/17 01:18 08/21/17 01:18 Imaging - Results Chest X-ray: Image Reviewed Cat Scan: Report Reviewed (from 08/03/17), Image Reviewed EKG: Report Reviewed, Image Reviewed (unchanged from prior) Assessment/Plan 87F with multiple medical problems presents to the ED with weakness And shortness of breath secondary to acute exacerbation of COPD. Problem List: Acute COPD exacerbation HTN HLD Sick sinus syndrome A fib ovarian cancer with peritoneal mets Osteoarthritis chronic low back pain insomnia Plan: Admit to inpatient med/surg Duonebs standing and albuterol PRN Give stat dose of solumedrol and empiric ceftriaxone Solumedrol 40mg IV BID RISS/Fingersticks ACHS while on steroids continue ceftriaxone 1gm daily hold beta bk sotalol for now as this may worsen exacerbation HR currently in 60's may switch to metoprolol or cardizem if needed continue eliquis Pulmonology consult Heme/onc consult pain control lipitor norvasc restoril PRN insomnia encourage PO intake DVT PPx UA PT consult Check TSH-added on to recent labs B12/folate already recently checked and WNL 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 - New Patient This patient is new to me today: Yes Date on this admission: 08/23/17 - Critical Care Critical Care patient: No
[2017-08-21] MEDS ORDERED: MAGNESIUM SULF 50% (8.12 MEQ/2 ML-1 GM VIAL) ONE (03:46)
[2017-08-21] MEDS ORDERED: CEFTRIAXONE 50 ML ONE (03:46)
[2017-08-21] MEDS ORDERED: methylPREDNISolone NA SUCC 125 MG/2 ML VIAL ONE (03:46)
[2017-08-21] MEDS ORDERED: SODIUM CHLORIDE 0.45% 1,000 ML IV SCH (04:00)
[2017-08-21] MEDS ORDERED: ALBUTEROL SO4 0.083% IH SOL 2.5 MG/3 ML VIAL.NEB. NEB PRN ×2 (04:00→14:03)
[2017-08-21] MEDS ORDERED: traMADol HCL 50 MG TABLET PO PRN (04:05)
[2017-08-21 04:26] LABS: URINE APPEARANCE CLEAR; URINE BILIRUBIN NEGATIVE (NEGATIVE); URINE BLOOD NEGATIVE (NEGATIVE); URINE COLOR STRAW; URINE GLUCOSE (UA) NEGATIVE (NEGATIVE); URINE KETONE NEGATIVE (NEGATIVE); URINE NITRITE NEGATIVE (NEGATIVE); URINE PROTEIN NEGATIVE (NEGATIVE); URINE UROBILINOGEN NEGATIVE mg/dL (0.2-1.0)
--- NOTE | 2017-08-21 04:55 | HP ---
CHIEF COMPLAINT: SOB and weakness PCP: Dr. Lin HISTORY OF PRESENT ILLNESS: Pt is an 87 y/o F with PMH Ovarian CA with peritoneal carcinomatosis s/p 10 rounds chemo, new diagnosis of COPD on Aug 03 who presented to ED with worsening SOB and weakness since this morning. Pt denies nausea, vomiting, fever, chills, abdominal pain, diarrhea, sick contacts. ER course was notable for: (1) ABG significant for pCO2 53.1, HCO3 31 (2) (3) Recent Travel: Denies PAST MEDICAL HISTORY: HTN, HLD, Sick Sinus Syndrome s/p PPM on 01/18/2016, AF on Eliquis, Chronic back pain w/ mult fractures, Ovarian CA w/ peritoneal carcinomatosis, post nasal drip , TIA, b/l cataracts PAST SURGICAL HISTORY: b/l hip replacement Social History: Smoking: former smoker <1ppd for many years. Quit 17 years ago Alcohol: 1 bourbon daily before dinner Drugs: denies Family History: Father of presumptive [place] at 52 Mother lived to [address] [place] [address] No Known Allergies Allergy (Verified 08/21/17 00:02) HOME MEDICATIONS: Home Medications Medication Instructions Recorded Apixaban [Eliquis -] 2.5 mg PO BID #60 tablet 01/19/16 Atorvastatin Ca [Lipitor] 10 mg PO HS #30 tablet 01/19/16 Sotalol HCl [Betapace -] 80 mg PO BID #60 tablet 01/19/16 Albuterol Sulfate Inhaler - 1 puff IH Q4H PRN #5 inhaler 01/16/17 [Ventolin HFA Inhaler -] Amlodipine Besylate [Norvasc -] 10 mg PO DAILY #30 tablet 01/16/17 Tramadol HCl 25 mg PO Q6H #80 tablet MDD 3 04/05/17 Calcium Carb/Magnesium Oxid/D3 15 ml PO DAILY 08/03/17 [Calcium Magnesium + D Tablet] Temazepam [Restoril] 15 mg PO HS PRN 08/03/17 REVIEW OF SYSTEMS CONSTITUTIONAL: generalized weakness Absent: fever, chills, diaphoresis, , malaise, loss of appetite, weight change HEENT: post nasal drip Absent: rhinorrhea, nasal congestion, throat pain, throat swelling, difficulty swallowing, mouth swelling, ear pain, eye pain, visual changes CARDIOVASCULAR: Absent: chest pain, syncope, palpitations, irregular heart rate, lightheadedness , peripheral edema RESPIRATORY: shortness of breath Absent: cough, , dyspnea with exertion, orthopnea, wheezing, stridor, hemoptysis GASTROINTESTINAL: Absent: abdominal pain, abdominal distension, nausea, vomiting, diarrhea, constipation, melena, hematochezia GENITOURINARY: Absent: dysuria, frequency, urgency, hesitancy, hematuria, flank pain, genital pain MUSCULOSKELETAL: Absent: myalgia, arthralgia, joint swelling, back pain, neck pain SKIN: Absent: rash, itching, pallor HEMATOLOGIC/IMMUNOLOGIC: Absent: easy bleeding, easy bruising, lymphadenopathy, frequent infections ENDOCRINE: Absent: unexplained weight gain, unexplained weight loss, heat intolerance, cold intolerance NEUROLOGIC: Absent: headache, focal weakness or paresthesias, dizziness, unsteady gait, seizure, mental status changes, bladder or bowel incontinence PSYCHIATRIC: Absent: anxiety, depression, suicidal or homicidal ideation, hallucinations. PHYSICAL EXAMINATION GENERAL: Awake, alert, and fully oriented, in no acute distress. HEAD: Normal with no signs of trauma. EYES: Pupils equal, round and poorly reactive to light (s/p cataract surg b/l), extraocular movements intact, sclera anicteric, conjunctiva clear. No lid lag. EARS, NOSE, THROAT: oropharynx clear without exudates. Moist mucous membranes. NECK: Normal range of motion, supple without lymphadenopathy, JVD, or masses. No bruits LUNGS: Pt initially had expiratory wheezing heard in anterior chest. When the patient sat up, she coughed, and no wheezing was appreciated in the posterior or anterior lung lemon afterward. No crackles. No accessory muscle use. HEART: Regular rate and rhythm, normal S1 and S2 without murmur, rub or gallop. ABDOMEN: Soft, nontender, not distended, normoactive bowel sounds, no guarding, no rebound, no masses. No hepatomegaly or splenomegaly. MUSCULOSKELETAL: Normal range of motion at all joints. No bony deformities or tenderness. No CVA tenderness. UPPER EXTREMITIES: 2+ pulses, warm, well-perfused. No cyanosis. No clubbing. No peripheral edema. LOWER EXTREMITIES: 1+ pulses, warm, well-perfused. No calf tenderness. No peripheral edema. NEUROLOGICAL: Cranial nerves II-XII intact. Normal speech. PSYCHIATRIC: Cooperative. Good eye contact. Appropriate mood and affect. SKIN: Warm, dry, normal turgor, no rashes or lesions noted, normal capillary refill. ASSESSMENT/PLAN: This is a pleasant 87 y/o with PMH Ovarian CA with peritoneal carcinomatosis s/ p 10 rounds chemo, new diagnosis of COPD on Aug 03 who presented to ED with worsening SOB and weakness since this morning. Pt is being admitted for COPD exacerbation. #COPD -recent new diagnosis -acute onset SOB -Pulm consult Dr. Danielson -Heme/Onc consult Dr. Garima Lin -Solu-medrol -Albuterol ULICES & PRN #Weakness -possibly due to COPD -TSH 3.37 -B12/Folate on last admit -UA, UCx -PT #AF -on Eliquis -Hold betapace for now. If pt's symptoms improve tomorrow, consider restarting betapace vs b1 selective #Ovarian CA w/ peritoneal carcinomatosis -s/p chemo -Heme/Onc consult #PPx -DVT on Eliquis #FEN -NS @ 50 -lytes wnl -on Na controlled diet #Dispo -Admit to Med/Surg for COPD exac Kevin Joy MD PGY-1 case discussed with senior and attending Visit type - Emergency Visit Emergency Visit: Yes ED Registration Date: 08/21/17 Care time: The patient presented to the Emergency Department on the above date and was hospitalized for further evaluation of their emergent condition. - New Patient This patient is new to me today: Yes Date on this admission: 08/22/17 - Critical Care Critical Care patient: No
[2017-08-21 05:40] VITALS: BMI 19.1
[2017-08-21] MEDS: INSULIN SLIDING SCALE (NOVOLOG) 1 VIAL SQ SCH ×4 (06:20→22:25)
[2017-08-21] MEDS: ALBUTEROL SO4 2.5/IPRATROPIUM 0.5 INH SOL 3 ML VIAL.NEB. NEB SCH ×2 (06:56→11:06)
[2017-08-21] MEDS: CALCIUM 500MG/VIT-D 200 UNITS COMBO TABLET (FP) PO SCH (09:39)
[2017-08-21] MEDS: APIXABAN 2.5 MG TABLET PO SCH ×2 (09:39→22:19)
[2017-08-21] MEDS: methylPREDNISolone NA SUCC 40 MG/1 ML VIAL IVPUSH SCH ×2 (09:40→22:19)
[2017-08-21] MEDS: amLODIPine BESYLATE 10 MG TABLET (FP) PO SCH (09:40)
[2017-08-21] MEDS ORDERED: FLU VACCINE QUAD 60 MCG/0.5 ML (MDV 17-18) IM ONE (10:00)
--- NOTE | 2017-08-21 10:01 | EKG ---
Test Reason : Blood Pressure : / mmHG Vent. Rate : 061 BPM Atrial Rate : 064 BPM P-R Int : 000 ms QRS Dur : 070 ms QT Int : 462 ms P-R-T Axes : 000 038 074 degrees QTc Int : 465 ms Atrial-paced rhythm CANNOT RULE OUT SEPTAL INFARCT ABNORMAL ECG WHEN COMPARED WITH ECG OF 03-AUG-2017 11:34, T WAVE VARIATION Confirmed by CHE GRIFFIN MD ([id number]) on 08/21/2017 10:00:25 AM Referred By: Confirmed By:CHE GRIFFIN MD
--- NOTE | 2017-08-21 10:24 | PN ---
Physical Exam: SUBJECTIVE: Patient seen and examined at the bedside. States she feels better, in no acute distress. Tolerating room air, states her breathing is improved so long as she is not exerting herself. OBJECTIVE: + expiratory wheezing on left lung base Vital Signs Period Temp Pulse Resp BP Sys/Amado Pulse Ox Last 24 Hr 95.9 F 64 24 123/59 93 GENERAL: The patient is awake, alert, and fully oriented, in no acute distress. HEAD: Normal with no signs of trauma. EYES: PERRL, extraocular movements intact, sclera anicteric, conjunctiva clear. No ptosis. ENT: Ears normal, nares patent, oropharynx clear without exudates, moist mucous membranes. NECK: Trachea midline, full range of motion, supple. LUNGS: diminished breath sounds, dry cough/non productive cough/+expiratory wheezing on left lung base HEART: Regular rate and rhythm, S1, S2 without murmur, rub or gallop. ABDOMEN: Soft, nontender, nondistended, normoactive bowel sounds, no guarding, no rebound, no hepatosplenomegaly, no masses. EXTREMITIES: no edema. NEUROLOGICAL: Normal speech, gait not observed. PSYCH: Normal mood, normal affect. SKIN: Warm, dry, normal turgor, no rashes or lesions noted Laboratory Results - last 24 hr 08/21/17 08/21/17 04:17 05:29 POC Glucometer 96 Urine Color Straw Urine Appearance Clear Urine pH 7.0 D Urine Protein Negative Urine Glucose (UA) Negative Urine Ketones Negative Urine Blood Negative Urine Nitrite Negative Urine Bilirubin Negative Urine Urobilinogen Negative Active Medications Generic Name Dose Route Start Last Admin Trade Name Oscar PRN Reason Stop Dose Admin Albuterol Sulfate 1 amp 08/21/17 04:00 Ventolin 0.083% Nebulizer Soln - NEB Q4H PRN SHORT OF BREATH/WHEEZING Albuterol/Ipratropium 1 amp 08/21/17 06:00 08/21/17 06:56 Duoneb - NEB Not Given QIDR ULICES Amlodipine Besylate 10 mg 08/21/17 10:00 08/21/17 09:40 Norvasc - PO 10 mg DAILY ULICES Administration Apixaban 2.5 mg 08/21/17 10:00 08/21/17 09:39 Eliquis - PO 2.5 mg BID ULICES Administration Atorvastatin Calcium 10 mg 08/21/17 22:00 Lipitor - PO HS ULICES Calcium Carbonate/Cholecalciferol 1 tab 08/21/17 10:00 08/21/17 09:39 Os-Ronaldo 500+D - PO 1 tab DAILY ULICES Administration Insulin Aspart 1 vial 08/21/17 07:00 08/21/17 06:20 Novolog Vial Sliding Scale - SQ Not Given ACHS [facility] Protocol Methylprednisolone Sodium Succinate 40 mg 08/21/17 10:00 08/21/17 09:40 Solu-Medrol - IVPUSH 40 mg BID ULICES Administration Tramadol HCl 25 mg 08/21/17 04:05 Ultram - PO Q6H PRN PAIN ASSESSMENT/PLAN: Patient is a 87 year old female with a significant past medical history of AFib , sick sinus syndrome s/p PPM, ovarian cancer w. peritoneal carcinamatosis. She present to the ED on 08/21/2017 with shortness of breath and weakness and is being admitted for COPD excacerbation Pulmonary: COPD, acute A/P: + wheezing on exam with dyspnea on exertion Duonebs QUD scheduled Supplemental oxygen, maintain oxygen saturations >90% Pulmonary consult Will need pre and post oxygen sats prior to d/c Generalized weakness, acute Weakness, acute on chronic Likely secondary to COPD TSH within normal limits UA, cultures pending PT to follow Cardiology: Afib, rate control on sotalol, on hold until respiratory symptoms improve Eliquis BID Sick Sinus Syndrome s/p pacemaker Monitor vitals Oncology/Hematology: Ovarian Ca S/P Peritoneal Carcinamatosis, chronic s/p Chemo, Patient of Dr. Painting, she has been consulted Ultra for pain control F.E.N. Fluids: PO intake adequate Electrolytes: monitor Nutrition: regular diet Prophylaxis: DVT: On Eliquis Disposition: full code, inpatient.
[2017-08-21 11:40] LABS: URINE LEUK ESTERASE 1+ (NEGATIVE)
[2017-08-21 13:06] LABS: URINE RBC 0-3 /hpf (0-3)
--- NOTE | 2017-08-21 14:00 | PN ---
Progress Note (short form) - Note Progress Note: PULMONARY CONSULTATION DICTATED 08/21/17 IMP ACUTE ON CHRONIC HYPOXEMIC/HYPERCAPNEIC RESPIRATORY FAILURE COPD EXACERBATION AFIB SSS S/P PPM OVARIAN CA S/P CHEMO HTN POST NASAL DRIP PLAN IV STEROIDS INHALED BRONCHODILATORS SUPPLEMENTAL O2 CHECK O2 SAT AT REST AND POST EXERCISE ON RA PRIOR TO DISCHARGE PFTS OUTPATIENT DR NEAL Problem List - Problems (1) COPD (chronic obstructive pulmonary disease) Code(s): J44.9 - CHRONIC OBSTRUCTIVE PULMONARY DISEASE, UNSPECIFIED Qualifiers : COPD type: unspecified COPD Qualified Code(s): J44.9 - Chronic obstructive pulmonary disease, unspecified; J44.9 - Chronic obstructive pulmonary disease, unspecified; J44.9 - Chronic obstructive pulmonary disease, unspecified; J44.9 - Chronic obstructive pulmonary disease, unspecified (2) Generalized weakness Code(s): R53.1 - WEAKNESS (3) Ovarian cancer Code(s): C56.9 - MALIGNANT NEOPLASM OF UNSPECIFIED OVARY (4) Sick sinus syndrome with tachycardia Code(s): I49.5 - SICK SINUS SYNDROME (5) Atrial fibrillation Code(s): I48.91 - UNSPECIFIED ATRIAL FIBRILLATION Qualifiers: Atrial fibrillation type: paroxysmal Qualified Code(s): I48.0 - Paroxysmal atrial fibrillation; I48.0 - Paroxysmal atrial fibrillation; I48.0 - Paroxysmal atrial fibrillation; I48.0 - Paroxysmal atrial fibrillation (6) Hyperlipidemia Code(s): E78.5 - HYPERLIPIDEMIA, UNSPECIFIED Qualifiers: Hyperlipidemia type: Pure hypercholesterolemia (7) Hypertension Code(s): I10 - ESSENTIAL (PRIMARY) HYPERTENSION Qualifiers: Hypertension type: essential hypertension Qualified Code(s): I10 - Essential (primary) hypertension; I10 - Essential (primary) hypertension; I10 - Essential (primary) hypertension (8) Acute on chronic respiratory failure with hypoxia and hypercapnia Code(s): J96.21 - ACUTE AND CHRONIC RESPIRATORY FAILURE WITH HYPOXIA J96.22 - ACUTE AND CHRONIC RESPIRATORY FAILURE WITH HYPERCAPNIA
[2017-08-21] MEDS: TIOTROPIUM BROMIDE 18 MCG/INH (DEVICE W/ 5 CAPSULES) IH SCH (17:20)
--- NOTE | 2017-08-21 18:35 | CONS ---
DATE OF CONSULTATION: 08/21/2017 REFERRING PROVIDER: Zac Owusu NP This patient is an 87-year-old white female with past medical history of COPD, hypertension, hyperlipidemia, atrial fibrillation on Eliquis, sick sinus syndrome status post permanent pacemaker, ovarian CA status post chemotherapy x9 with the last being in March 2017, history of tobacco use (quit in 2000); admitted to [facility] with complaint of increasing shortness of breath, cough, and bronchospasm. Patient was recently seen at [facility] ER on August 03. At the time, she underwent a CTA of the chest which revealed no evidence of pulmonary emboli, showed evidence of COPD changes. At the time, she was treated with inhaled bronchodilators and steroids with some improvement and discharged home on steroid taper. Apparently, she was doing well until a few days prior to this when she started developing again increasing shortness of breath, cough, dyspnea on exertion, and wheezing. She denied any chest pain, nausea, vomiting, or diaphoresis. Denied any fevers or chills. She presented to the emergency room with the above. On admission, she was found to be in moderate respiratory distress. She was also noted to be hypoxic with an O2 saturation PO2 of 88 on 2 L and a PCO2 of 53. She was admitted. She was started on inhaled bronchodilators and steroids and transferred to the floor for further management. Patient denies any history of recent travel. There is no history of occupational exposure to chemicals or fumes. 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 She denies any history of hemoptysis. She does have weight loss which she attributes to her cancer and chemotherapy. She also complains of postnasal drip for many months. PAST MEDICAL HISTORY: Again, includes COPD, atrial fibrillation on Eliquis, sick sinus syndrome status post permanent pacemaker, hypertension, hyperlipidemia, ovarian carcinoma status post chemotherapy, questionable history of TB. REVIEW OF SYSTEMS: Positive cough. Positive clear sputum. No chest pain. No palpitations. No fever. No chills. Positive shortness of breath. Positive bronchospasm. Positive postnasal drip. No abdominal pain. No lower extremity edema. CURRENT MEDICATIONS: Include Solu-Medrol, Eliquis, heparin, albuterol, DuoNeb, Norvasc, Lipitor, Ultram, and Os-Ronaldo. PHYSICAL EXAMINATION:General: The patient is an elderly, white female, thin, well developed, awake, alert, in no acute respiratory distress. Vital Signs: She is currently afebrile. Heart rate is 66 and irregular. Blood pressure is 135/52. Respiratory rate is 20. O2 saturation is 93% on room air. HEENT: Exam is normocephalic, atraumatic. Neck: Supple. Heart: Irregular ,irreg. S1, S2. Chest: Scattered bilateral wheezes throughout. Abdomen: Soft. Bowel sounds are positive. Extremities: No cyanosis or edema. LABORATORIES: WBC is 8, hemoglobin 13, hematocrit 39.7, platelet count of 191, 000. INR is 1.02. Blood gas with pH 7.38, PCO2 of 53, PO2 of 88, a bicarbonate of 31 , saturating 96.5%. Chemistries: BUN 18, creatinine 0.7. Chest x-ray reveals no infiltrates and no effusions. IMPRESSION: 1. Pclae-xn-eabjopv hypoxemic-hypercapnic respiratory failure secondary to decompensated chronic obstructive pulmonary disease. 2. History of ovarian carcinoma, status post chemotherapy. 3. Atrial fibrillation. 4. Sick sinus syndrome, status post permanent pacemaker. 5. Hypertension. PLAN: IV steroids, inhaled bronchodilators, supplemental O2. Also, check O2 saturation at rest and post exercise prior to discharge to determine whether patient requires home O2. PFTs as outpatient. MAHNAZ NEAL M.D. ELLI/[id number] MTDD
[2017-08-21] MEDS ORDERED: PT OWN MED DRAWER 7, Y5N ONE (21:18)
--- NOTE | 2017-08-21 21:42 | CONSULT ---
Consult - text type - Consultation Consultation Note: PAtient seen and examined The patient is an 87 year old female with a history of HTN, HLD, COPD, Afib on eliquis, sick sinus syndrome s/p pacemaker placement, ovarian cancer s/p chemotherapy who presents for evaluation of SOB. The patient reports dyspnea on exertion at baseline and was seen in the ER several weeks ago for similar symptoms and diagnosed with COPD. She reported improvement at that time after duonebs and steroids. She was discharged home on a steroid taper and states that she was feeling well until she stopped her steroid taper. She reported worsening SOB today with associated weakness prompting her presentation to the ED today. She denies fevers, chills, cough, chest pain, abdominal pain, or changes with urination or bowel movements. Past History - Past Medical History Ovarian cancer Afib HTN Allergies/Adverse Reactions: Allergies Allergy/AdvReac Type Severity Reaction Status Date / Time No Known Allergies Allergy Verified 08/21/17 00:02 Home Medications: Ambulatory Orders Apixaban [Eliquis -] 2.5 mg PO BID #60 tablet 01/19/16 Atorvastatin Ca [Lipitor] 10 mg PO HS #30 tablet 01/19/16 Sotalol HCl [Betapace -] 80 mg PO BID #60 tablet 01/19/16 Albuterol Sulfate Inhaler - [Ventolin HFA Inhaler -] 1 puff IH Q4H PRN #5 inhaler 01/16/17 Amlodipine Besylate [Norvasc -] 10 mg PO DAILY #30 tablet 01/16/17 Tramadol HCl 25 mg PO Q6H #80 tablet MDD 3 04/05/17 Calcium Carb/Magnesium Oxid/D3 [Calcium Magnesium + D Tablet] 15 ml PO DAILY 03/15 Prednisone [Prednisone 50 MG TABLETS] 50 mg PO DAILY #4 tablet 08/03/17 Temazepam [Restoril] 15 mg PO HS PRN 08/03/17 - Surgical History Orthopedic Surgery: Yes (TOTAL HIP LEFT) - Suicide/Smoking/Psychosocial Hx Smoking History: Never smoked - Vital Signs AFVSS General Appearance: Nourished. No Apparen distress. frail Neck: No Cervical Lymphadenopathy Respiratory/Chest: Lungs Clear, Normal Breath Sounds. Diffuse expiratory wheezing noted on exam. No Crackles, Rales, Rhonchi, Cardiovascular: Regular Rhythm, Regular Rate. No Murmur, Gallops, Rubs Gastrointestinal/Abdominal: Normal Bowel Sounds, Soft. 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
[2017-08-21] MEDS: ATORVASTATIN CA 10 MG TABLET (FP) PO SCH (22:19)
[2017-08-21] MEDS ORDERED: TEMAZEPAM 15 MG CAPSULE PO ONE (23:00)
[2017-08-21] MEDS: BUDESONIDE/FORMETEROL FUMARATE 160/4.5 mcg INHALER IH SCH (23:15)
[2017-08-22] MEDS: INSULIN SLIDING SCALE (NOVOLOG) 1 VIAL SQ SCH ×4 (06:02→21:24)
[2017-08-22 08:13] LABS: BASOPHIL 0.6 % (0-2.0); MCH 26.2 pg (25.7-33.7); MCHC 31.9 g/dl (32.0-36.0); MEAN CELL VOLUME 82.1 fl (80-96); MEAN PLT VOLUME 8.9 fl (7.5-11.1); NEUTROPHILS 93.8 % (42.8-82.8); PLATELET COUNT 193 K/MM3 (134-434); RDW 16.3 % (11.6-15.6); WHITE BLOOD COUNT 13.5 K/mm3 (4.0-10.0)
[2017-08-22] MEDS: SODIUM CHLORIDE 1,000 ML IV SCH ×2 (08:15→21:00)
[2017-08-22 08:34] LABS: ALBUMIN 3.3 g/dl (3.4-5.0); ALK PHOS 108 U/L (45-117); ANION GAP 11 (8-16); BILIRUBIN,TOTAL 0.5 mg/dL (0.2-1.0); CALCIUM 8.9 mg/dL (8.5-10.1); CO2 29 mmol/L (21-32); GLUCOSE,RANDOM 143 mg/dL (74-106); SGOT/AST 13 U/L (15-37); SGPT/ALT 22 U/L (12-78); TOT PROT 6.4 g/dl (6.4-8.2)
[2017-08-22] MEDS: methylPREDNISolone NA SUCC 40 MG/1 ML VIAL IVPUSH SCH ×3 (10:28→21:23)
[2017-08-22] MEDS: CALCIUM 500MG/VIT-D 200 UNITS COMBO TABLET (FP) PO SCH (10:29)
[2017-08-22] MEDS: amLODIPine BESYLATE 10 MG TABLET (FP) PO SCH (10:29)
[2017-08-22] MEDS: TIOTROPIUM BROMIDE 18 MCG/INH (DEVICE W/ 5 CAPSULES) IH SCH (10:29)
[2017-08-22] MEDS: BUDESONIDE/FORMETEROL FUMARATE 160/4.5 mcg INHALER IH SCH ×2 (10:30→21:33)
[2017-08-22] MEDS ORDERED: PT OWN MED DRAWER 7, Y5N ONE ×4 (10:36→21:05)
[2017-08-22] MEDS: APIXABAN 2.5 MG TABLET PO SCH ×2 (10:38→21:24)
--- NOTE | 2017-08-22 12:57 | PN ---
Physical Exam: SUBJECTIVE: Patient seen and examined at the bedside. She states she feels better today after having a good night sleep. Denies worsening shortness of breath, but states she can hear herself wheezing at times. OBJECTIVE: Increased scattered wheezing on bilateral lungs, discussed with pulmonary, will increase Medrol IV to q6 from BID until respiratory status stabilizes. Shelly now scheduled Vital Signs Period Temp Pulse Resp BP Sys/Amado Pulse Ox Last 24 Hr 98.0 F-98.9 F 66-89 18-20 121-144/52-70 95-98 GENERAL: The patient is awake, alert, and fully oriented HEAD: Normal with no signs of trauma. EYES: PERRL, extraocular movements intact, sclera anicteric, conjunctiva clear. No ptosis. ENT: Ears normal, nares patent, oropharynx clear without exudates, moist mucous membranes. NECK: Trachea midline, full range of motion, supple. LUNGS: scattered wheezing on bilateral lung lemon, dyspnea at rest, will increase medrol as above, monitor respiratory status - on supplemental oxygen, Nebs HEART: Regular rate and rhythm, S1, S2 without murmur, rub or gallop. +pacemaker ABDOMEN: Soft, nontender, nondistended, normoactive bowel sounds, no guarding, no rebound, no hepatosplenomegaly, no masses. EXTREMITIES: no edema. NEUROLOGICAL: Normal speech, gait not observed. PSYCH: Normal mood, normal affect. SKIN: Warm, dry, normal turgor, no rashes or lesions noted Laboratory Results - last 24 hr 08/21/17 08/21/17 08/22/17 04:17 22:25 06:01 WBC RBC Hgb Hct MCV MCH MCHC RDW Plt Count MPV Neutrophils % Lymphocytes % Monocytes % Eosinophils % Basophils % Sodium Potassium Chloride Carbon Dioxide Anion Gap BUN Creatinine Creat Clearance w eGFR POC Glucometer 152 124 Random Glucose Calcium Total Bilirubin AST ALT Alkaline Phosphatase Total Protein Albumin Urine Color Straw Urine Appearance Clear Urine pH 7.0 D Ur Specific Oliver 1.020 Urine Protein Negative Urine Glucose (UA) Negative Urine Ketones Negative Urine Blood Negative Urine Nitrite Negative Urine Bilirubin Negative Urine Urobilinogen Negative Ur Leukocyte Esterase 1+ H Urine RBC 0-3 Urine WBC 4-6 Ur Epithelial Cells 0-3 08/22/17 08/22/17 08/22/17 07:50 07:50 12:11 WBC 13.5 H D RBC 5.11 Hgb 13.4 Hct 42.0 MCV 82.1 MCH 26.2 MCHC 31.9 L RDW 16.3 H Plt Count 193 MPV 8.9 Neutrophils % 93.8 H D Lymphocytes % 4.4 L D Monocytes % 1.2 L D Eosinophils % 0.0 D Basophils % 0.6 Sodium 140 Potassium 4.6 Chloride 100 Carbon Dioxide 29 Anion Gap 11 BUN 23 H D Creatinine 1.0 D Creat Clearance w eGFR 52.69 POC Glucometer 130 Random Glucose 143 H D Calcium 8.9 Total Bilirubin 0.5 D AST 13 L D ALT 22 Alkaline Phosphatase 108 Total Protein 6.4 Albumin 3.3 L Urine Color Urine Appearance Urine pH Ur Specific Oliver Urine Protein Urine Glucose (UA) Urine Ketones Urine Blood Urine Nitrite Urine Bilirubin Urine Urobilinogen Ur Leukocyte Esterase Urine RBC Urine WBC Ur Epithelial Cells Active Medications Generic Name Dose Route Start Last Admin Trade Name Freq PRN Reason Stop Dose Admin Albuterol Sulfate 1 amp 08/21/17 14:03 08/21/17 17:15 Ventolin 0.083% Nebulizer Soln - NEB 1 amp Q4H PRN Administration SHORT OF BREATH/WHEEZING Amlodipine Besylate 10 mg 08/21/17 10:00 08/22/17 10:29 Norvasc - PO 10 mg DAILY ULICES Administration Apixaban 2.5 mg 08/21/17 10:00 08/22/17 10:38 Eliquis - PO 2.5 mg BID ULICES Administration Atorvastatin Calcium 10 mg 08/21/17 22:00 08/21/17 22:19 Lipitor - PO 10 mg HS ULICES Administration Budesonide/Formoterol Fumarate 2 puff 08/21/17 22:00 08/22/17 10:30 Symbicort 160/4.5mcg - IH 2 puff BID ULICES Administration Calcium Carbonate/Cholecalciferol 1 tab 08/21/17 10:00 08/22/17 10:29 Os-Ronaldo 500+D - PO 1 tab DAILY ULICES Administration Sodium Chloride 1,000 mls @ 42 mls/hr 08/22/17 07:30 08/22/17 08:15 Normal Saline - IV 42 mls/hr ASDIR ULICES Administration Insulin Aspart 1 vial 08/21/17 07:00 08/22/17 12:13 Novolog Vial Sliding Scale - SQ Not Given ACHS ULICES Protocol Methylprednisolone Sodium Succinate 40 mg 08/21/17 10:00 08/22/17 10:28 Solu-Medrol - IVPUSH 40 mg BID ULICES Administration Temazepam 15 mg 08/22/17 07:23 Restoril - PO HS PRN INSOMNIA Tiotropium [place] 1 puff 08/21/17 14:15 08/22/17 10:29 Spiriva - IH 1 puff DAILY ULICES Administration Tramadol HCl 25 mg 08/21/17 04:05 Ultram - PO Q6H PRN PAIN ASSESSMENT/PLAN: Patient is a 87 year old female with a significant past medical history of AFib , sick sinus syndrome s/p PPM, ovarian cancer w. peritoneal carcinamatosis. She present to the ED on 08/21/2017 with shortness of breath and weakness and is being admitted for COPD excacerbation. COPD is new onset. Imaging: Ab/Pelvis CT: No def. CT evidence of metastatic neoplastic disease Chest CT: mild COPD, no evidence of mets, or acute pathology, multiple compression fractures of the thoracic spine, most marked @ t5, 6, 8 and 10, likely chronic - un-united fracture of the mid sternum seen. Pulmonary: COPD, New onset/acute A/P: + increased wheezing on today's exam with dyspnea on exertion Spoke with pulmonary, increased Solu-medrol q6 IV from BID monitor for improvement On Duonebs, Spirivia, Symbicort Monitor oxygen, goal is to maintain o2 @ 90% or above Will need pre and post respiratory evaluation prior to discharge Duonebs QID scheduled Pulmonary consult Generalized weakness, acute Likely secondary to COPD, acute illness TSH within normal limits UA, no signs of infection UC contaminated, re-ordered PT to follow Cardiology: Afib, rate control on Sotalol, on hold until respiratory symptoms improve Eliquis BID Monitor Sick Sinus Syndrome s/p pacemaker Monitor vitals Oncology/Hematology: Ovarian Ca S/P Peritoneal Carcinamatosis, chronic s/p Chemo, Patient of Dr. Painting, she has been consulted and following Ab/ct pelvis shoes no evidence of metatastic disease Chest CT consistent with mild COPD, no evidence of mets, compression fractures noted Ultram for pain control F.E.N. Fluids: PO intake adequate Electrolytes: monitor Nutrition: regular diet Prophylaxis: DVT: On Eliquis Disposition: full code, inpatient. Visit type - Emergency Visit Emergency Visit: Yes ED Registration Date: 08/21/17 Care time: The patient presented to the Emergency Department on the above date and was hospitalized for further evaluation of their emergent condition. - New Patient This patient is new to me today: No - Critical Care Critical Care patient: No - Discharge Referral Referred to [facility] No
--- NOTE | 2017-08-22 15:19 | PN ---
Progress Note (short form) - Note Progress Note: Patient seen and examined. Patient mentioned that she had a "best" night sleep and she feels much better than she came in. O/E: General: NAD HEENT: NCAT Lungs: CTA B/l Abdomen: Soft NT ND Extremities: no CCE Temp Pulse Resp BP Pulse Ox 98.0 F L 67 20 128/55 96 08/22/17 14:47 08/22/17 14:47 08/22/17 10:16 08/22/17 14:47 08/22/17 10:18 08/22/17 07:50 08/22/17 07:50 Current Medications Generic Name Dose Route Start Last Admin Trade Name Freq PRN Reason Stop Dose Admin Albuterol Sulfate 1 amp 08/22/17 14:15 Ventolin 0.083% Nebulizer Soln - NEB Q4H ULICES Amlodipine Besylate 10 mg 08/21/17 10:00 08/22/17 10:29 Norvasc - PO 10 mg DAILY ULICES Administration Apixaban 2.5 mg 08/21/17 10:00 08/22/17 10:38 Eliquis - PO 2.5 mg BID ULICES Administration Atorvastatin Calcium 10 mg 08/21/17 22:00 08/21/17 22:19 Lipitor - PO 10 mg HS ULICES Administration Budesonide/Formoterol Fumarate 2 puff 08/21/17 22:00 08/22/17 10:30 Symbicort 160/4.5mcg - IH 2 puff BID ULICES Administration Calcium Carbonate/Cholecalciferol 1 tab 08/21/17 10:00 08/22/17 10:29 Os-Ronaldo 500+D - PO 1 tab DAILY ULICES Administration Sodium Chloride 1,000 mls @ 42 mls/hr 08/22/17 07:30 08/22/17 08:15 Normal Saline - IV 42 mls/hr ASDIR ULICES Administration Insulin Aspart 1 vial 08/21/17 07:00 08/22/17 12:13 Novolog Vial Sliding Scale - SQ Not Given ACHS ULICES Protocol Methylprednisolone Sodium Succinate 40 mg 08/21/17 10:00 08/22/17 10:28 Solu-Medrol - IVPUSH 40 mg BID ULICES Administration Temazepam 15 mg 08/22/17 07:23 Restoril - PO HS PRN INSOMNIA Tiotropium [place] 1 puff 08/21/17 14:15 08/22/17 10:29 Spiriva - IH 1 puff DAILY ULICES Administration Tramadol HCl 25 mg 08/21/17 04:05 Ultram - PO Q6H PRN PAIN Assessment/Plan: 87 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 f/u repeat urine cultures
--- NOTE | 2017-08-22 17:27 | CON.PULM ---
Consult Consult Specialty:: PULMONARY Referred by:: JAMEEL Reason for Consultation:: SOB/COUGH - History of Present Illness Chief Complaint: SOB/COUGH History of Present Illness: The patient is an 87 year old female with a history of HTN, HLD, COPD, Afib on eloquis, sick sinus syndrome s/p pacemaker placement, ovarian cancer s/p chemotherapy who presents for evaluation of SOB. The patient reports dyspnea on exertion at baseline and was seen in the ER several weeks ago for similar symptoms and diagnosed with COPD. She reported improvement at that time after duonebs and steroids. She was discharged home on a steroid taper and states that she was feeling well until she stopped her steroid taper. She reported worsening SOB today with associated weakness prompting her presentation to the ED today. She denies fevers, chills, cough, chest pain, abdominal pain, or changes with urination or bowel movements. - History Source History Provided By: Patient, Medical Record Limitations to Obtaining History: No Limitations - Past Medical History INDEPENDENT CONSULTANT: Yes: TIA (2014). No: Alzheimer's Cardio/Vascular: Yes: AFIB (2014 with PPN placed), HTN, Hyperlipdemia Pulmonary: Yes: COPD Gastrointestinal: Yes: Diverticulosis Musculoskeletal: Yes: Chronic low back pain (collapsed fractures lumbar vertebrae 2014 ), Osteoarthritis - Past Surgical History Past Surgical History: Yes: Cataract Removal (bilateral ), Joint Replacement ( bilateral hip replacements), Tonsillectomy - Alcohol/Substance Use Hx Alcohol Use: No Number of Drinks Daily: 1 History of Substance Use: reports: None - Smoking History Smoking history: Former smoker Have you smoked in the past 12 months: No Aproximately how many cigarettes per day: 15 If you are a former smoker, when did you quit?: 1999 - Social History Usual Living Arrangement: Alone ADL: Independent 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 History of Recent Travel: No Home Medications - Allergies Allergies/Adverse Reactions: Allergies Allergy/AdvReac Type Severity Reaction Status Date / Time No Known Allergies Allergy Verified 08/21/17 00:02 - Home Medications Home Medications: Ambulatory Orders Apixaban [Eliquis -] 2.5 mg PO BID #60 tablet 01/19/16 Atorvastatin Ca [Lipitor] 10 mg PO HS #30 tablet 01/19/16 Sotalol HCl [Betapace -] 80 mg PO BID #60 tablet 01/19/16 Albuterol Sulfate Inhaler - [Ventolin HFA Inhaler -] 1 puff IH Q4H PRN #5 inhaler 01/16/17 Amlodipine Besylate [Norvasc -] 10 mg PO DAILY #30 tablet 01/16/17 Tramadol HCl 25 mg PO Q6H #80 tablet MDD 3 04/05/17 Calcium Carb/Magnesium Oxid/D3 [Calcium Magnesium + D Tablet] 15 ml PO DAILY 03/15 Temazepam [Restoril] 15 mg PO HS PRN 08/03/17 Family Disease History - Family Disease History Family Disease History: Heart Disease: Father ( [place] age 52), Other: Mother ( lived to 93) Review of Systems - Review of Systems Respiratory: reports: Cough, Exercise Intolerance, SOB, SOB on Exertion, Wheezing. denies: Hemoptysis Physical Exam Vital Sings: Vital Signs Temperature 89.0 F L 08/22/17 14:47 Pulse Rate 67 08/22/17 14:47 Respiratory Rate 20 08/22/17 10:16 Blood Pressure 128/55 08/22/17 14:47 O2 Sat by Pulse Oximetry (%) 96 08/22/17 10:18 Constitutional: Yes: Calm Eyes: Yes: EOM Intact HENT: Yes: Normocephalic Neck: Yes: Trachea Midline Cardiovascular: Yes: Pulse Irregular, S1 Respiratory: Yes: Diminished Gastrointestinal: Yes: Normal Bowel Sounds Edema: No Neurological: Yes: Alert Labs: CBC, BMP 08/22/17 07:50 08/22/17 07:50 ABG Results ABG pH 7.38 (7.35-7.45) 08/21/17 01:15 ABG pCO2 at Pt Temp 53.1 mmHg (35-45) H 08/21/17 01:15 ABG pO2 at Pt Temp 88.3 mmHg (68-100) 08/21/17 01:15 ABG HCO3 31.0 meq/L (22-26) H 08/21/17 01:15 ABG O2 Sat (Measured) 96.5 % (90-98.9) 08/21/17 01:15 ABG O2 Content 18.1 % vol (15-22) 08/21/17 01:15 ABG Base Excess 5.1 meq/l (-2-2) H 08/21/17 01:15 REST REVIEWED Imaging - Results Chest X-ray: Report Reviewed, Image Reviewed Cat Scan: Report Reviewed, Image Reviewed Problem List - Problems (1) Acute on chronic respiratory failure with hypoxia and hypercapnia Code(s): J96.21 - ACUTE AND CHRONIC RESPIRATORY FAILURE WITH HYPOXIA J96.22 - ACUTE AND CHRONIC RESPIRATORY FAILURE WITH HYPERCAPNIA (2) COPD (chronic obstructive pulmonary disease) Code(s): J44.9 - CHRONIC OBSTRUCTIVE PULMONARY DISEASE, UNSPECIFIED Qualifiers : COPD type: unspecified COPD Qualified Code(s): J44.9 - Chronic obstructive pulmonary disease, unspecified; J44.9 - Chronic obstructive pulmonary disease, unspecified; J44.9 - Chronic obstructive pulmonary disease, unspecified; J44.9 - Chronic obstructive pulmonary disease, unspecified (3) Generalized weakness Code(s): R53.1 - WEAKNESS (4) Adnexal mass Code(s): N94.9 - UNSP COND ASSOC W FEMALE GENITAL ORGANS AND MENSTRUAL CYCLE (5) Ascites, malignant Code(s): R18.0 - MALIGNANT ASCITES Assessment/Plan O2/JACOB/LABA/LAMA/ICS ANTIBIOTICS/STEROIDS/ANTICOAGULATION WILL FOLLOW THANK YOU Annalee HARRIS MD
[2017-08-22] MEDS: ALBUTEROL SO4 0.083% IH SOL 2.5 MG/3 ML VIAL.NEB. NEB SCH ×2 (17:35→22:00)
[2017-08-22] MEDS: ATORVASTATIN CA 10 MG TABLET (FP) PO SCH (21:24)
[2017-08-22] MEDS: TEMAZEPAM 15 MG CAPSULE PO PRN (21:27)
[2017-08-22] MEDS ORDERED: TEMAZEPAM 15 MG CAPSULE PO ONE (22:44)
[2017-08-23] MEDS: ALBUTEROL SO4 0.083% IH SOL 2.5 MG/3 ML VIAL.NEB. NEB SCH ×6 (02:19→22:48)
[2017-08-23] MEDS: methylPREDNISolone NA SUCC 40 MG/1 ML VIAL IVPUSH SCH ×3 (03:49→22:31)
[2017-08-23] MEDS: SODIUM CHLORIDE 1,000 ML IV SCH ×2 (06:22→12:33)
[2017-08-23] MEDS: INSULIN SLIDING SCALE (NOVOLOG) 1 VIAL SQ SCH ×3 (06:23→17:05)
[2017-08-23] MEDS ORDERED: methylPREDNISolone NA SUCC 40 MG/1 ML VIAL IVPUSH SCH (10:45)
[2017-08-23] MEDS ORDERED: PT OWN MED DRAWER 7, Y5N ONE ×3 (10:51→21:31)
[2017-08-23] MEDS: BUDESONIDE/FORMETEROL FUMARATE 160/4.5 mcg INHALER IH SCH ×2 (10:55→22:31)
[2017-08-23] MEDS: TIOTROPIUM BROMIDE 18 MCG/INH (DEVICE W/ 5 CAPSULES) IH SCH (10:56)
[2017-08-23] MEDS: APIXABAN 2.5 MG TABLET PO SCH ×2 (10:56→22:31)
[2017-08-23] MEDS: CALCIUM 500MG/VIT-D 200 UNITS COMBO TABLET (FP) PO SCH (10:56)
[2017-08-23] MEDS: amLODIPine BESYLATE 10 MG TABLET (FP) PO SCH (10:56)
[2017-08-23] MEDS ORDERED: INSULIN (NOVOLOG) ASPART 100 UNITS/ML 10ML VIAL ONE (12:28)
--- NOTE | 2017-08-23 12:41 | PN ---
Progress Note, Physician History of Present Illness: pulmonary alert,feeling better,less dyspneic - Current Medication List Current Medications: Active Medications Albuterol Sulfate (Ventolin 0.083% Nebulizer Soln -) 1 amp NEB Q4H [facility] Last Admin: 08/23/17 09:30 Dose: 1 amp Amlodipine Besylate (Norvasc -) 10 mg PO DAILY [facility] Last Admin: 08/23/17 10:56 Dose: 10 mg Apixaban (Eliquis -) 2.5 mg PO BID [facility] Last Admin: 08/23/17 10:56 Dose: 2.5 mg Atorvastatin Calcium (Lipitor -) 10 mg PO HS [facility] Last Admin: 08/22/17 21:24 Dose: 10 mg Budesonide/Formoterol Fumarate (Symbicort 160/4.5mcg -) 2 puff IH BID [facility] Last Admin: 08/23/17 10:55 Dose: 2 puff Calcium Carbonate/Cholecalciferol (Os-Ronaldo 500+D -) 1 tab PO DAILY [facility] Last Admin: 08/23/17 10:56 Dose: 1 tab Sodium Chloride (Normal Saline -) 1,000 mls @ 42 mls/hr IV ASDIR [facility] Last Admin: 08/23/17 12:33 Dose: 42 mls/hr Insulin Aspart (Novolog Vial Sliding Scale -) 1 vial SQ ACHS ULCIES PRN Reason: Protocol Last Admin: 08/23/17 12:30 Dose: 2 units Methylprednisolone Sodium Succinate (Solu-Medrol -) 40 mg IVPUSH BID [facility] Temazepam (Restoril -) 15 mg PO HS PRN PRN Reason: INSOMNIA Last Admin: 08/22/17 21:27 Dose: 15 mg Tiotropium [place] (Spiriva -) 1 puff IH DAILY [facility] Last Admin: 08/23/17 10:56 Dose: 1 puff Tramadol HCl (Ultram -) 25 mg PO Q6H PRN PRN Reason: PAIN - Objective Vital Signs: Vital Signs Temperature 98.0 F 08/23/17 06:00 Pulse Rate 85 08/23/17 09:30 Respiratory Rate 18 08/23/17 06:00 Blood Pressure 133/64 08/23/17 06:00 O2 Sat by Pulse Oximetry (%) 95 08/23/17 09:30 Constitutional: Yes: Well Nourished, Calm Eyes: Yes: WNL HENT: Yes: WNL Neck: Yes: WNL Cardiovascular: Yes: Pulse Irregular, S1, S2 Respiratory: Yes: Wheezes (few scattered wheezes) Gastrointestinal: Yes: Normal Bowel Sounds, Soft Extremities: Yes: WNL Edema: No Labs: CBC, BMP Problem List - Problems (1) COPD (chronic obstructive pulmonary disease) Code(s): J44.9 - CHRONIC OBSTRUCTIVE PULMONARY DISEASE, UNSPECIFIED Qualifiers : COPD type: unspecified COPD Qualified Code(s): J44.9 - Chronic obstructive pulmonary disease, unspecified; J44.9 - Chronic obstructive pulmonary disease, unspecified; J44.9 - Chronic obstructive pulmonary disease, unspecified; J44.9 - Chronic obstructive pulmonary disease, unspecified (2) Generalized weakness Code(s): R53.1 - WEAKNESS (3) Ovarian cancer Code(s): C56.9 - MALIGNANT NEOPLASM OF UNSPECIFIED OVARY (4) Sick sinus syndrome with tachycardia Code(s): I49.5 - SICK SINUS SYNDROME (5) Atrial fibrillation Code(s): I48.91 - UNSPECIFIED ATRIAL FIBRILLATION Qualifiers: Atrial fibrillation type: paroxysmal Qualified Code(s): I48.0 - Paroxysmal atrial fibrillation; I48.0 - Paroxysmal atrial fibrillation; I48.0 - Paroxysmal atrial fibrillation; I48.0 - Paroxysmal atrial fibrillation (6) Hyperlipidemia Code(s): E78.5 - HYPERLIPIDEMIA, UNSPECIFIED Qualifiers: Hyperlipidemia type: Pure hypercholesterolemia (7) Hypertension Code(s): I10 - ESSENTIAL (PRIMARY) HYPERTENSION Qualifiers: Hypertension type: essential hypertension Qualified Code(s): I10 - Essential (primary) hypertension; I10 - Essential (primary) hypertension; I10 - Essential (primary) hypertension (8) Acute on chronic respiratory failure with hypoxia and hypercapnia Code(s): J96.21 - ACUTE AND CHRONIC RESPIRATORY FAILURE WITH HYPOXIA J96.22 - ACUTE AND CHRONIC RESPIRATORY FAILURE WITH HYPERCAPNIA Assessment/Plan IMP ACUTE ON CHRONIC HYPOXEMIC/HYPERCAPNEIC RESPIRATORY FAILURE COPD EXACERBATION AFIB SSS S/P PPM OVARIAN CA S/P CHEMO HTN POST NASAL DRIP PLAN CONTINUE IV STEROIDS PO PREDNISONE IF AM IF CONTINUES TO IMPROVE INHALED BRONCHODILATORS SUPPLEMENTAL O2 CHECK O2 SAT AT REST AND POST EXERCISE ON RA PRIOR TO DISCHARGE PFTS OUTPATIENT DR NEAL Problem List - Problems (1) COPD (chronic obstructive pulmonary disease) Code(s): J44.9 - CHRONIC OBSTRUCTIVE PULMONARY DISEASE, UNSPECIFIED Qualifiers : COPD type: unspecified COPD Qualified Code(s): J44.9 - Chronic obstructive pulmonary disease, unspecified; J44.9 - Chronic obstructive pulmonary disease, unspecified; J44.9 - Chronic obstructive pulmonary disease, unspecified; J44.9 - Chronic obstructive pulmonary disease, unspecified (2) Generalized weakness Code(s): R53.1 - WEAKNESS (3) Ovarian cancer Code(s): C56.9 - MALIGNANT NEOPLASM OF UNSPECIFIED OVARY (4) Sick sinus syndrome with tachycardia Code(s): I49.5 - SICK SINUS SYNDROME (5) Atrial fibrillation Code(s): I48.91 - UNSPECIFIED ATRIAL FIBRILLATION Qualifiers: Atrial fibrillation type: paroxysmal Qualified Code(s): I48.0 - Paroxysmal atrial fibrillation; I48.0 - Paroxysmal atrial fibrillation; I48.0 - Paroxysmal atrial fibrillation; I48.0 - Paroxysmal atrial fibrillation (6) Hyperlipidemia Code(s): E78.5 - HYPERLIPIDEMIA, UNSPECIFIED Qualifiers: Hyperlipidemia type: Pure hypercholesterolemia (7) Hypertension Code(s): I10 - ESSENTIAL (PRIMARY) HYPERTENSION Qualifiers: Hypertension type: essential hypertension Qualified Code(s): I10 - Essential (primary) hypertension; I10 - Essential (primary) hypertension; I10 - Essential (primary) hypertension (8) Acute on chronic respiratory failure with hypoxia and hypercapnia Code(s): J96.21 - ACUTE AND CHRONIC RESPIRATORY FAILURE WITH HYPOXIA J96.22 - ACUTE AND CHRONIC RESPIRATORY FAILURE WITH HYPERCAPNIA
--- NOTE | 2017-08-23 13:31 | PN ---
Progress Note (short form) - Note Progress Note: Patient seen and examined. son at bedside. feels better O/E: General: NAD HEENT: NCAT Lungs: CTA B/l Abdomen: Soft NT ND Extremities: no CCE Last Vital Signs Temp Pulse Resp BP Pulse Ox 98.6 F 87 18 122/62 95 08/23/17 10:00 08/23/17 10:00 08/23/17 06:00 08/23/17 10:00 08/23/17 09:30 CBC, BMP 08/22/17 07:50 08/22/17 07:50 Current Medications Generic Name Dose Route Start Last Admin Trade Name Freq PRN Reason Stop Dose Admin Albuterol Sulfate 1 amp 08/22/17 14:15 08/23/17 09:30 Ventolin 0.083% Nebulizer Soln - NEB 1 amp Q4H ULICES Administration Amlodipine Besylate 10 mg 08/21/17 10:00 08/23/17 10:56 Norvasc - PO 10 mg DAILY ULICES Administration Apixaban 2.5 mg 08/21/17 10:00 08/23/17 10:56 Eliquis - PO 2.5 mg BID ULICES Administration Atorvastatin Calcium 10 mg 08/21/17 22:00 08/22/17 21:24 Lipitor - PO 10 mg HS ULICES Administration Budesonide/Formoterol Fumarate 2 puff 08/21/17 22:00 08/23/17 10:55 Symbicort 160/4.5mcg - IH 2 puff BID ULICES Administration Calcium Carbonate/Cholecalciferol 1 tab 08/21/17 10:00 08/23/17 10:56 Os-Ronaldo 500+D - PO 1 tab DAILY ULICES Administration Sodium Chloride 1,000 mls @ 42 mls/hr 08/22/17 07:30 08/23/17 12:33 Normal Saline - IV 42 mls/hr ASDIR ULICES Administration Insulin Aspart 1 vial 08/21/17 07:00 08/23/17 12:30 Novolog Vial Sliding Scale - SQ 2 units ACHS ULICES Administration Protocol Methylprednisolone Sodium Succinate 40 mg 08/23/17 22:00 Solu-Medrol - IVPUSH BID ULICES Temazepam 15 mg 08/22/17 07:23 08/22/17 21:27 Restoril - PO 15 mg HS PRN Administration INSOMNIA Tiotropium [place] 1 puff 08/21/17 14:15 08/23/17 10:56 Spiriva - IH 1 puff DAILY ULICES Administration Tramadol HCl 25 mg 08/21/17 04:05 Ultram - PO Q6H PRN PAIN Assessment/Plan: 87 y/o patient with high grade serous carcinoma, s/p carbo/taxol weekly, last dose 03/21, now with progressive shortness of breath COPD pulm f/u f/u [place] [address] CT c/a/p reviewed, DORCAS, chronic thoracic compression fractures noted.Pt updated f/u repeat urine cultures
--- NOTE | 2017-08-23 17:06 | PN ---
Physical Exam: SUBJECTIVE: Patient seen and examined. She is feeling better she still has some post nasal drip OBJECTIVE: Vital Signs Period Temp Pulse Resp BP Sys/Amado Pulse Ox Last 24 Hr 97.8 F-98.6 F 68-91 18-20 121-137/55-64 93-96 PE Neuro: alert, awake, cn 2-12intact Pulm: clear, no wheezing, no sob CV: s1 s2 rrr no mrg, RCW port Abd: S nt nd + bs ExT: warm, no le edema Laboratory Results - last 24 hr 08/22/17 08/23/17 08/23/17 21:21 06:19 12:25 POC Glucometer 229 123 155 Active Medications Generic Name Dose Route Start Last Admin Trade Name Freq PRN Reason Stop Dose Admin Albuterol Sulfate 1 amp 08/22/17 14:15 08/23/17 14:00 Ventolin 0.083% Nebulizer Soln - NEB 1 amp Q4H ULICES Administration Amlodipine Besylate 10 mg 08/21/17 10:00 08/23/17 10:56 Norvasc - PO 10 mg DAILY ULICES Administration Apixaban 2.5 mg 08/21/17 10:00 08/23/17 10:56 Eliquis - PO 2.5 mg BID ULICES Administration Atorvastatin Calcium 10 mg 08/21/17 22:00 08/22/17 21:24 Lipitor - PO 10 mg HS ULICES Administration Budesonide/Formoterol Fumarate 2 puff 08/21/17 22:00 08/23/17 10:55 Symbicort 160/4.5mcg - IH 2 puff BID ULICES Administration Calcium Carbonate/Cholecalciferol 1 tab 08/21/17 10:00 08/23/17 10:56 Os-Ronaldo 500+D - PO 1 tab DAILY ULICES Administration Sodium Chloride 1,000 mls @ 42 mls/hr 08/22/17 07:30 08/23/17 12:33 Normal Saline - IV 42 mls/hr ASDIR ULICES Administration Insulin Aspart 1 vial 08/21/17 07:00 08/23/17 17:05 Novolog Vial Sliding Scale - SQ Not Given ACHS ULICES Protocol Methylprednisolone Sodium Succinate 40 mg 08/23/17 22:00 Solu-Medrol - IVPUSH BID ULICES Temazepam 15 mg 08/22/17 07:23 08/22/17 21:27 Restoril - PO 15 mg HS PRN Administration INSOMNIA Tiotropium [place] 1 puff 08/21/17 14:15 08/23/17 10:56 Spiriva - IH 1 puff DAILY ULICES Administration Tramadol HCl 25 mg 08/21/17 04:05 Ultram - PO Q6H PRN PAIN Assessment: 87 year old female with pmhx, HTN, HLD, COPD, Afib on eliquis, sick sinus syndrome s/p pacemaker placement, 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 Plan: 1. Acute COPD exacerbation - Taper medrol to BID - Transition to PO in AM if improved - Pre and post tomorrow - Spirvia - Symbicort BID 2. Weakness - Repeat urine cx for contaminate 3. A fib - Rate controlled, continue eliquis - Hold betapace 4. Ovarian CA w/ peritoneal carcinomatosis - CTAP shows no new evidence of disease - CA 125 pending 5. HTN - Stable - Norvasc daily 6. DM II - Stop ISS no coverage needed 7. HLD - Statin Visit type - Emergency Visit Emergency Visit: Yes ED Registration Date: 08/21/17 Care time: The patient presented to the Emergency Department on the above date and was hospitalized for further evaluation of their emergent condition. - New Patient This patient is new to me today: Yes Date on this admission: 08/23/17 - Critical Care Critical Care patient: No
[2017-08-23] MEDS: TEMAZEPAM 15 MG CAPSULE PO PRN (22:30)
[2017-08-23] MEDS: ATORVASTATIN CA 10 MG TABLET (FP) PO SCH (22:31)
[2017-08-24] MEDS: ALBUTEROL SO4 0.083% IH SOL 2.5 MG/3 ML VIAL.NEB. NEB SCH ×7 (02:25→22:37)
[2017-08-24] MEDS: amLODIPine BESYLATE 10 MG TABLET (FP) PO SCH (09:29)
[2017-08-24] MEDS: CALCIUM 500MG/VIT-D 200 UNITS COMBO TABLET (FP) PO SCH (09:30)
[2017-08-24] MEDS: BUDESONIDE/FORMETEROL FUMARATE 160/4.5 mcg INHALER IH SCH ×2 (09:30→21:02)
[2017-08-24] MEDS: TIOTROPIUM BROMIDE 18 MCG/INH (DEVICE W/ 5 CAPSULES) IH SCH (09:30)
[2017-08-24] MEDS: APIXABAN 2.5 MG TABLET PO SCH ×2 (09:30→21:02)
[2017-08-24] MEDS: methylPREDNISolone NA SUCC 40 MG/1 ML VIAL IVPUSH SCH ×2 (10:18→21:01)
[2017-08-24] MEDS: SODIUM CHLORIDE 1,000 ML IV SCH (10:18)
--- NOTE | 2017-08-24 12:24 | PN ---
Progress Note, Physician History of Present Illness: pulmonary alert,feeling better,less dyspneic - Current Medication List Current Medications: Active Medications Albuterol Sulfate (Ventolin 0.083% Nebulizer Soln -) 1 amp NEB Q4H [facility] Last Admin: 08/24/17 09:26 Dose: 1 amp Amlodipine Besylate (Norvasc -) 10 mg PO DAILY [facility] Last Admin: 08/24/17 09:29 Dose: 10 mg Apixaban (Eliquis -) 2.5 mg PO BID [facility] Last Admin: 08/24/17 09:30 Dose: 2.5 mg Atorvastatin Calcium (Lipitor -) 10 mg PO HS [facility] Last Admin: 08/23/17 22:31 Dose: 10 mg Budesonide/Formoterol Fumarate (Symbicort 160/4.5mcg -) 2 puff IH BID [facility] Last Admin: 08/24/17 09:30 Dose: 2 puff Calcium Carbonate/Cholecalciferol (Os-Ronaldo 500+D -) 1 tab PO DAILY [facility] Last Admin: 08/24/17 09:30 Dose: 1 tab Sodium Chloride (Normal Saline -) 1,000 mls @ 42 mls/hr IV ASDIR [facility] Last Admin: 08/24/17 10:18 Dose: 42 mls/hr Methylprednisolone Sodium Succinate (Solu-Medrol -) 40 mg IVPUSH BID [facility] Last Admin: 08/24/17 10:18 Dose: 40 mg Temazepam (Restoril -) 15 mg PO HS PRN PRN Reason: INSOMNIA Last Admin: 08/23/17 22:30 Dose: 15 mg Tiotropium [place] (Spiriva -) 1 puff IH DAILY [facility] Last Admin: 08/24/17 09:30 Dose: 1 puff Tramadol HCl (Ultram -) 25 mg PO Q6H PRN PRN Reason: PAIN - Objective Vital Signs: Vital Signs Temperature 98.1 F 08/24/17 09:00 Pulse Rate 61 08/24/17 09:26 Respiratory Rate 20 08/24/17 09:00 Blood Pressure 116/60 08/24/17 09:00 O2 Sat by Pulse Oximetry (%) 92 L 08/24/17 09:26 Constitutional: Yes: Well Nourished, Calm Eyes: Yes: WNL HENT: Yes: WNL Neck: Yes: WNL Cardiovascular: Yes: Pulse Irregular, S1, S2 Respiratory: Yes: Wheezes (less wheezes bilaterally) Gastrointestinal: Yes: Normal Bowel Sounds, Soft Extremities: Yes: WNL Edema: No Labs: CBC, BMP Problem List - Problems (1) COPD (chronic obstructive pulmonary disease) Code(s): J44.9 - CHRONIC OBSTRUCTIVE PULMONARY DISEASE, UNSPECIFIED Qualifiers : COPD type: unspecified COPD Qualified Code(s): J44.9 - Chronic obstructive pulmonary disease, unspecified; J44.9 - Chronic obstructive pulmonary disease, unspecified; J44.9 - Chronic obstructive pulmonary disease, unspecified; J44.9 - Chronic obstructive pulmonary disease, unspecified (2) Generalized weakness Code(s): R53.1 - WEAKNESS (3) Ovarian cancer Code(s): C56.9 - MALIGNANT NEOPLASM OF UNSPECIFIED OVARY (4) Sick sinus syndrome with tachycardia Code(s): I49.5 - SICK SINUS SYNDROME (5) Atrial fibrillation Code(s): I48.91 - UNSPECIFIED ATRIAL FIBRILLATION Qualifiers: Atrial fibrillation type: paroxysmal Qualified Code(s): I48.0 - Paroxysmal atrial fibrillation; I48.0 - Paroxysmal atrial fibrillation; I48.0 - Paroxysmal atrial fibrillation; I48.0 - Paroxysmal atrial fibrillation (6) Hyperlipidemia Code(s): E78.5 - HYPERLIPIDEMIA, UNSPECIFIED Qualifiers: Hyperlipidemia type: Pure hypercholesterolemia (7) Hypertension Code(s): I10 - ESSENTIAL (PRIMARY) HYPERTENSION Qualifiers: Hypertension type: essential hypertension Qualified Code(s): I10 - Essential (primary) hypertension; I10 - Essential (primary) hypertension; I10 - Essential (primary) hypertension (8) Acute on chronic respiratory failure with hypoxia and hypercapnia Code(s): J96.21 - ACUTE AND CHRONIC RESPIRATORY FAILURE WITH HYPOXIA J96.22 - ACUTE AND CHRONIC RESPIRATORY FAILURE WITH HYPERCAPNIA Assessment/Plan IMP ACUTE ON CHRONIC HYPOXEMIC/HYPERCAPNEIC RESPIRATORY FAILURE COPD EXACERBATION IMPROVING AFIB SSS S/P PPM OVARIAN CA S/P CHEMO HTN POST NASAL DRIP PLAN PREDNISONE INHALED BRONCHODILATORS SUPPLEMENTAL O2 CHECK O2 SAT AT REST AND POST EXERCISE ON RA PRIOR TO DISCHARGE PFTS OUTPATIENT DR NEAL Problem List - Problems (1) COPD (chronic obstructive pulmonary disease) Code(s): J44.9 - CHRONIC OBSTRUCTIVE PULMONARY DISEASE, UNSPECIFIED Qualifiers : COPD type: unspecified COPD Qualified Code(s): J44.9 - Chronic obstructive pulmonary disease, unspecified; J44.9 - Chronic obstructive pulmonary disease, unspecified; J44.9 - Chronic obstructive pulmonary disease, unspecified; J44.9 - Chronic obstructive pulmonary disease, unspecified (2) Generalized weakness Code(s): R53.1 - WEAKNESS (3) Ovarian cancer Code(s): C56.9 - MALIGNANT NEOPLASM OF UNSPECIFIED OVARY (4) Sick sinus syndrome with tachycardia Code(s): I49.5 - SICK SINUS SYNDROME (5) Atrial fibrillation Code(s): I48.91 - UNSPECIFIED ATRIAL FIBRILLATION Qualifiers: Atrial fibrillation type: paroxysmal Qualified Code(s): I48.0 - Paroxysmal atrial fibrillation; I48.0 - Paroxysmal atrial fibrillation; I48.0 - Paroxysmal atrial fibrillation; I48.0 - Paroxysmal atrial fibrillation (6) Hyperlipidemia Code(s): E78.5 - HYPERLIPIDEMIA, UNSPECIFIED Qualifiers: Hyperlipidemia type: Pure hypercholesterolemia (7) Hypertension Code(s): I10 - ESSENTIAL (PRIMARY) HYPERTENSION Qualifiers: Hypertension type: essential hypertension Qualified Code(s): I10 - Essential (primary) hypertension; I10 - Essential (primary) hypertension; I10 - Essential (primary) hypertension (8) Acute on chronic respiratory failure with hypoxia and hypercapnia Code(s): J96.21 - ACUTE AND CHRONIC RESPIRATORY FAILURE WITH HYPOXIA J96.22 - ACUTE AND CHRONIC RESPIRATORY FAILURE WITH HYPERCAPNIA
--- NOTE | 2017-08-24 13:55 | PN ---
Physical Exam: SUBJECTIVE: Patient seen and examined She is feeling better today her voice sounds stronger OBJECTIVE: Vital Signs Period Temp Pulse Resp BP Sys/Amado Pulse Ox Last 24 Hr 97.6 F-98.8 F 61-104 18-20 109-138/49-75 91-93 PE Neuro: alert, awake, cn 2-12intact Pulm: scattered rhonchi, no wheezing CV: s1 s2 rrr no mrg, RCW port Abd: S nt nd + bs ExT: warm, no le edema Laboratory Results - last 24 hr 08/23/17 08/23/17 05:56 16:51 POC Glucometer 147 CA 125 Antigen 17.2 Active Medications Generic Name Dose Route Start Last Admin Trade Name Freq PRN Reason Stop Dose Admin Albuterol Sulfate 1 amp 08/22/17 14:15 08/24/17 13:24 Ventolin 0.083% Nebulizer Soln - NEB 1 amp Q4H ULICES Administration Amlodipine Besylate 10 mg 08/21/17 10:00 08/24/17 09:29 Norvasc - PO 10 mg DAILY ULICES Administration Apixaban 2.5 mg 08/21/17 10:00 08/24/17 09:30 Eliquis - PO 2.5 mg BID ULIECS Administration Atorvastatin Calcium 10 mg 08/21/17 22:00 08/23/17 22:31 Lipitor - PO 10 mg HS ULICES Administration Budesonide/Formoterol Fumarate 2 puff 08/21/17 22:00 08/24/17 09:30 Symbicort 160/4.5mcg - IH 2 puff BID ULICES Administration Calcium Carbonate/Cholecalciferol 1 tab 08/21/17 10:00 08/24/17 09:30 Os-Ronaldo 500+D - PO 1 tab DAILY ULICES Administration Sodium Chloride 1,000 mls @ 42 mls/hr 08/22/17 07:30 08/24/17 10:18 Normal Saline - IV 42 mls/hr ASDIR ULICES Administration Methylprednisolone Sodium Succinate 40 mg 08/23/17 22:00 08/24/17 10:18 Solu-Medrol - IVPUSH 08/24/17 22:00 40 mg BID ULICES Administration Prednisone 60 mg 08/25/17 10:00 Deltasone - PO DAILY ULICES Temazepam 15 mg 08/22/17 07:23 08/23/17 22:30 Restoril - PO 15 mg HS PRN Administration INSOMNIA Tiotropium [place] 1 puff 08/21/17 14:15 08/24/17 09:30 Spiriva - IH 1 puff DAILY ULICES Administration Tramadol HCl 25 mg 08/21/17 04:05 Ultram - PO Q6H PRN PAIN Assessment: 87 year old female with pmhx, HTN, HLD, COPD, Afib on eliquis, sick sinus syndrome s/p pacemaker placement, 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 Plan: 1. Acute COPD exacerbation - Final dose IV prednisone today - Transition to PO prednisone in AM with taper - Pre and post in AM - [place]ir[place] - Symbicort BID - Discussed with pulmonary 2. Weakness - Repeat urine cx pending 3. A fib - Episodes of tachycardia - Resume betapace - Continue eliquis 4. Ovarian CA w/ peritoneal carcinomatosis - CTAP shows no new evidence of disease - CA 125 wnl 5. HTN - Stable - Norvasc daily 6. DM II - Controlled, no coverage needed 7. HLD - Statin Dispo: - Home in AM Visit type - Emergency Visit Emergency Visit: Yes ED Registration Date: 08/21/17 Care time: The patient presented to the Emergency Department on the above date and was hospitalized for further evaluation of their emergent condition. - New Patient This patient is new to me today: No - Critical Care Critical Care patient: No
[2017-08-24] MEDS ORDERED: PT OWN MED DRAWER 7, Y5N ONE (20:59)
[2017-08-24] MEDS: ATORVASTATIN CA 10 MG TABLET (FP) PO SCH (21:01)
[2017-08-24] MEDS: TEMAZEPAM 15 MG CAPSULE PO PRN (21:05)
[2017-08-24] MEDS: SOTALOL HCL 80 MG TABLET (FP) PO SCH (22:17)
--- NOTE | 2017-08-24 22:39 | PN ---
Progress Note (short form) - Note Progress Note: PAtient seen and examined Feels better AFVSS Cor: RSR, No murmurs, No gallops Lungs: Clear to P&A Abd: Soft, Normal bowel sounds, No organomegaly Ext:No significant edema Skin: No rashes, Integument intact Abnormal Lab Results 08/25/17 08/25/17 06:35 06:35 RDW 16.5 H Neutrophils % 90.7 H Lymphocytes % 4.0 L Anion Gap 4 L BUN 29 H D Calcium 8.3 L Total Protein 5.5 L Albumin 2.8 L Active Medications Generic Name Dose Route Start Last Admin Trade Name Freq PRN Reason Stop Dose Admin Albuterol Sulfate 1 amp 08/22/17 14:15 08/25/17 06:38 Ventolin 0.083% Nebulizer Soln - NEB Not Given Q4H ULICES Amlodipine Besylate 10 mg 08/21/17 10:00 08/24/17 09:29 Norvasc - PO 10 mg DAILY ULICES Administration Apixaban 2.5 mg 08/21/17 10:00 08/24/17 21:02 Eliquis - PO 2.5 mg BID ULICES Administration Atorvastatin Calcium 10 mg 08/21/17 22:00 08/24/17 21:01 Lipitor - PO 10 mg HS ULICES Administration Budesonide/Formoterol Fumarate 2 puff 08/21/17 22:00 08/24/17 21:02 Symbicort 160/4.5mcg - IH 2 puff BID ULICES Administration Calcium Carbonate/Cholecalciferol 1 tab 08/21/17 10:00 08/24/17 09:30 Os-Ronaldo 500+D - PO 1 tab DAILY ULICES Administration Prednisone 60 mg 08/25/17 10:00 Deltasone - PO DAILY ULICES Sotalol HCl 80 mg 08/24/17 22:00 08/24/17 22:17 Betapace - PO 80 mg BID ULICES Administration Temazepam 15 mg 08/22/17 07:23 08/24/17 21:05 Restoril - PO 15 mg HS PRN Administration INSOMNIA Tiotropium [place] 1 puff 08/21/17 14:15 08/24/17 09:30 Spiriva - IH 1 puff DAILY ULICES Administration Tramadol HCl 25 mg 08/21/17 04:05 Ultram - PO Q6H PRN PAIN A/P 87 y/o patient with 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
[2017-08-25] MEDS ORDERED: PT OWN MED DRAWER 7, Y5N ONE ×2 (00:33→09:58)
[2017-08-25] MEDS: ALBUTEROL SO4 0.083% IH SOL 2.5 MG/3 ML VIAL.NEB. NEB SCH ×3 (02:14→11:14)
[2017-08-25 07:36] LABS: BASOPHIL 0.8 % (0-2.0); MCH 27.3 pg (25.7-33.7); MCHC 33.1 g/dl (32.0-36.0); MEAN CELL VOLUME 82.5 fl (80-96); NEUTROPHILS 90.7 % (42.8-82.8); PLATELET COUNT 194 K/MM3 (134-434); RDW 16.5 % (11.6-15.6); WHITE BLOOD COUNT 7.8 K/mm3 (4.0-10.0)
[2017-08-25 08:07] LABS: ALBUMIN 2.8 g/dl (3.4-5.0); ANION GAP 4 (8-16); CALCIUM 8.3 mg/dL (8.5-10.1); CO2 30 mmol/L (21-32); CREATININE 0.7 mg/dL (0.55-1.02); GLUCOSE,RANDOM 106 mg/dL (74-106); SGOT/AST 16 U/L (15-37); SGPT/ALT 32 U/L (12-78)
[2017-08-25 08:08] LABS: ALK PHOS 89 U/L (45-117); BILIRUBIN,TOTAL 0.6 mg/dL (0.2-1.0); TOT PROT 5.5 g/dl (6.4-8.2)
[2017-08-25 09:36] VITALS: BP 120/76; PULSE 100; TEMP 97.4
[2017-08-25] MEDS: CALCIUM 500MG/VIT-D 200 UNITS COMBO TABLET (FP) PO SCH (09:36)
[2017-08-25] MEDS: SOTALOL HCL 80 MG TABLET (FP) PO SCH (09:37)
[2017-08-25] MEDS: APIXABAN 2.5 MG TABLET PO SCH (09:37)
[2017-08-25] MEDS: amLODIPine BESYLATE 10 MG TABLET (FP) PO SCH (09:37)
[2017-08-25] MEDS: BUDESONIDE/FORMETEROL FUMARATE 160/4.5 mcg INHALER IH SCH (09:38)
[2017-08-25] MEDS: TIOTROPIUM BROMIDE 18 MCG/INH (DEVICE W/ 5 CAPSULES) IH SCH (09:38)
[2017-08-25] MEDS ORDERED: predniSONE 20 MG TABLET (UD) PO SCH (10:00)
--- NOTE | 2017-08-25 11:45 | DS ---
Physical Exam: SUBJECTIVE: Patient seen and examined. She feels well, she is ambulating, no longer requiring oxygen OBJECTIVE: Vital Signs Period Temp Pulse Resp BP Sys/Amado Pulse Ox Last 24 Hr 97.4 F-98.4 F 68-107 18-20 103-130/57-76 91-96 PE Neuro: alert, awake, cn 2-12intact Pulm: clear, no wheezing, no sob CV: s1 s2 rrr no mrg, RCW port Abd: S nt nd + bs ExT: warm, no le edema Laboratory Results - last 24 hr 08/25/17 08/25/17 06:35 06:35 WBC 7.8 D RBC 4.59 Hgb 12.5 Hct 37.9 MCV 82.5 MCH 27.3 MCHC 33.1 RDW 16.5 H Plt Count 194 MPV 9.0 Neutrophils % 90.7 H Lymphocytes % 4.0 L Monocytes % 4.5 D Eosinophils % 0.0 Basophils % 0.8 Sodium 138 Potassium 4.5 Chloride 104 Carbon Dioxide 30 Anion Gap 4 L BUN 29 H D Creatinine 0.7 D Creat Clearance w eGFR > 60 Random Glucose 106 D Calcium 8.3 L Total Bilirubin 0.6 AST 16 D ALT 32 D Alkaline Phosphatase 89 Total Protein 5.5 L Albumin 2.8 L HOSPITAL COURSE: Date of Admission:08/21/17 Date of Discharge: 08/25/17 Minutes to complete discharge: 37 Discharge Summary Reason For Visit: WEAKNESS/CHRONIC OBSTRUCTIVE PULMONARY DISEASE Current Active Problems Acute on chronic respiratory failure with hypoxia and hypercapnia (Acute) COPD (chronic obstructive pulmonary disease) (Acute) Generalized weakness (Acute) Abdominal pain (Chronic) Adnexal mass (Chronic) Ascites, malignant (Chronic) Diarrhea (Chronic) Diverticula of colon (Chronic) 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 Plan: 1. Acute COPD exacerbation - Improved with IV medrol - Tapered to PO prednisone, home with 40mgx3 days, [id number], 20mgx3 days [id number] - Spir[place] - Symbicort BID 2. Weakness - Improved 3. A fib - Resume betapace - Continue eliquis 4. Ovarian CA w/ peritoneal carcinomatosis - CTAP shows no new evidence of disease - CA 125 wnl, shows remission 5. HTN - Stable - Norvasc daily 6. DM II - Controlled, no coverage needed 7. HLD - Statin Dispo: - Home with above meds, pcp and oncology follow up Condition: Stable - Instructions Diet, Activity, Other Instructions: Please return to the ED for any new, persistent, or worsening symptoms. Follow up with your PCP in 1 week Complete steroid taper as directed, prescription sent to [facility], you will start tomorrow Resume home medications as directed Follow up with Dr. Painting as scheduled Referrals: Wesley Danielson MD [Staff Physician] - Garima Jackson MD [Staff Physician] - Disposition: HOME - Home Medications Comprehensive Discharge Medication List: Ambulatory Orders Apixaban [Eliquis -] 2.5 mg PO BID #60 tablet 01/19/16 Atorvastatin Ca [Lipitor] 10 mg PO HS #30 tablet 01/19/16 Sotalol HCl [Betapace -] 80 mg PO BID #60 tablet 01/19/16 Albuterol Sulfate Inhaler - [Ventolin HFA Inhaler -] 1 puff IH Q4H PRN #5 inhaler 01/16/17 Amlodipine Besylate [Norvasc -] 10 mg PO DAILY #30 tablet 01/16/17 Tramadol HCl 25 mg PO Q6H #80 tablet MDD 3 04/05/17 Calcium Carb/Magnesium Oxid/D3 [Calcium Magnesium + D Tablet] 15 ml PO DAILY 03/15 Temazepam [Restoril -] 15 mg PO HS PRN 08/03/17 Prednisone 10 mg PO DAILY #30 tablet 08/25/17 This patient is new to me today: No Emergency Visit: Yes ED Registration Date: 08/21/17 Care time: The patient presented to the Emergency Department on the above date and was hospitalized for further evaluation of their emergent condition. Critical Care patient: No - Discharge Referral Referred to [facility] Med [facility] No
== END 2017-08-25 13:52 | disposition home health service (06) | DRG 189 ==
LOC: JER 23:37 → JERBED 08-21 03:12 → UNDOADMIN 08-21 03:21 → J5S 08-21 04:33
PROVIDERS: ADMIT Internal Medicine; ATTEND Nurse Practitioner Acute Care
DX: J96.21 Acute and chronic respiratory failure with hypoxia (principal); J44.1 Chronic obstructive pulmonary disease with (acute) exacerbation; C56.9 Malignant neoplasm of unspecified ovary; C78.6 Secondary malignant neoplasm of retroperitoneum and peritoneum; J96.22 Acute and chronic respiratory failure with hypercapnia; I10 Essential (primary) hypertension; E11.9 Type 2 diabetes mellitus without complications; E78.5 Hyperlipidemia, unspecified; M81.0 Age-related osteoporosis without current pathological fracture; R53.1 Weakness; I48.0 Paroxysmal atrial fibrillation; Z95.0 Presence of cardiac pacemaker
CPT/HCPCS: 36415; 36600; 71010-TC; 71260-TC; 74177-TC; 80053; 81003; 81015; 82375; 82550; 82803; 83050; 84443; 84484; 85025; 86304; 87086; 90688; 93005; 93010; 94640; 94761; 97116-GP; 97161-GP; 99281-25; G0008; Q9967

== ENCOUNTER 2018-01-06 10:56 | Inpatient (IN) | payer OTHER ==
--- NOTE | 2018-01-06 11:10 | PDOC ---
History of Present Illness - General History Source: Patient, Care Provider, Old Records Exam Limitations: No Limitations - History of Present Illness Initial Comments: 01/06/18 14:59 Patient is an 87 year old female with a significant past medical history of HTN , HLD, Sick Sinus Syndrome s/p PPM on 01/18/2016, AF on Eliquis, Chronic back pain w/ mult fractures, Ovarian CA w/ peritoneal carcinomatosis, post nasal drip , TIA, b/l cataracts who presents to the ED with complaints of bilateral leg edema that began 1 week ago. Patient reports edema began in her feet last year in april and has begun to spread over time. As per patient's aid, the patient's swelling began to increase over the last week to her abdomen prompting her to bring the patient into the ED for further evaluation for fear of being unable to breathe. Patient reports experiencing intermittent episodes of cough as well as Sob with exertion. She reports experiencing slight urinary and bowel incontinence secondary to coughing that began yesterday afternoon. Denies chest pain. Denies nausea, vomiting. Denies fevers chills. Denies contact with sick individuals, out of state travelling. Denies dysuria, hematuria, constipation, diarrhea. Denies any other symptoms. Allergies: None Socal history: Former Smoker (last 40 years go) No alcohol. Surgical history: Bilateral hip replacement. Right sided chest port. PMD: Dr. Casillas [employer] Makeup System Operator: Dr. Danielson Oncologist: Dr. Painting <Kiran Claire - Last Filed: 01/06/18 14:59> <Colleen Rodriguez - Last Filed: 01/06/18 23:03> - General Chief Complaint: Edema Stated Complaint: DIFFICULT BREATHING Time Seen by Provider: 01/06/18 11:10 Past History <Kiran Claire - Last Filed: 01/06/18 14:59> - Past Medical History Anemia: No Asthma: No Cancer: Yes (ovarian) Cardiac Disorders: Yes ("MILD HEART ARRYTHMIA") CVA: No COPD: Yes CHF: No Dementia: No Diabetes: No GI Disorders: No Disorders: No HTN: Yes Hypercholesterolemia: Yes Liver Disease: No Seizures: No Thyroid Disease: No - Surgical History Abdominal Surgery: No (D&C) Appendectomy: No Cardiac Surgery: No Cholecystectomy: No Lung Surgery: No Neurologic Surgery: No Orthopedic Surgery: Yes (TOTAL HIP LEFT) - Suicide/Smoking/Psychosocial Hx Smoking History: Never smoked Have you smoked in the past 12 months: No Number of Cigarettes Smoked Daily: 0 If you are a former smoker, when did you quit?: 2000 Cigars Per Day: 0 Hx Alcohol Use: No Drug/Substance Use Hx: No Substance Use Type: None Hx Substance Use Treatment: No <Colleen Rodriguez - Last Filed: 01/06/18 23:03> - Past Medical History Allergies/Adverse Reactions: Allergies Allergy/AdvReac Type Severity Reaction Status Date / Time No Known Allergies Allergy Verified 01/06/18 11:09 Home Medications: Ambulatory Orders Apixaban [Eliquis -] 2.5 mg PO BID #60 tablet 01/19/16 Atorvastatin Ca [Lipitor] 10 mg PO HS #30 tablet 01/19/16 Sotalol HCl [Betapace -] 80 mg PO BID #60 tablet 01/19/16 Albuterol Sulfate Inhaler - [Ventolin HFA Inhaler -] 1 puff IH Q4H PRN #5 inhaler 01/16/17 Amlodipine Besylate [Norvasc -] 10 mg PO DAILY #30 tablet 01/16/17 Calcium Carb/Magnesium Oxid/D3 [Calcium Magnesium + D Tablet] 15 ml PO DAILY 03/15 Temazepam [Restoril -] 15 mg PO HS PRN 08/03/17 Furosemide [Lasix] 20 mg PO DAILY PRN #14 tablet 09/22/17 Fluticasone/Umeclidin/Vilanter [Trelegy Ellipta 100-62.5-25] 1 each IH DAILY 08/16 Potassium Chloride Oral Soln [KCl Oral Solution] 20 meq PO DAILY 01/06/18 Review of Systems - Review of Systems Able to Perform ROS?: Yes Comments:: 01/06/18 14:59 Constitutional - Pt denies Fever, Chills, weakness, HEENT: denies vision changes, sore throat Respiratory: +Coughing. +Sob. Denies hemoptysis Cardiac: +bilateral leg swelling. denies chest pain, palpitations, light headedness, Abd/GI: denies abd pain, nausea, vomiting, blood per rectum, melena, diarrhea : denies dysuria, frequency, discharge Musculoskelatal - denies back pain, joint swelling skin - denies bruising, erythema, rash neurological: denies headache, numbness, focal weakness, tingling, ataxia, weakness hematologic: denies anemia, easy bruising, easy bleeding <Kiran Claire - Last Filed: 01/06/18 14:59> *Physical Exam - Vital Signs Last Vital Signs Temp Pulse Resp BP Pulse Ox 97.3 F L 63 24 111/62 95 01/06/18 11:09 01/06/18 13:22 01/06/18 13:22 01/06/18 13:22 01/06/18 13:22 - Physical Exam Comments: 01/06/18 14:59 GENERAL: The patient is awake, alert, and fully oriented, Nontoxic - in no acute distress. HEAD: Normocephalic, atraumatic. EYES: extraocular movements intact, sclera anicteric, conjunctiva clear. ENT: Normal voice, moist mucous membranes. NECK: Normal range of motion, supple without lymphadenopathy, JVD, or masses. LUNGS: Breath sounds equal, clear to auscultation bilaterally. No wheezes, no crackles, no rales. HEART: Regular rate and rhythm, normal S1 and S2 without murmur, rub or gallop. ABDOMEN: +Distended abdomen. Soft, nontender, normoactive bowel sounds. No guarding, no rebound. EXTREMITIES: +Bilateral lower extremity edema, up to abdomen. Normal range of motion, no edema. No clubbing or cyanosis. No cords, erythema, or tenderness. NEUROLOGICAL: Fully Oriented, Alert, Normal Mood/Affect, Motor Strength 5/5. No facial assymetry, Normal speech SKIN: Warm, Dry, normal turgor, no rashes or lesions noted. <Kiran Claire - Last Filed: 01/06/18 14:59> ED Treatment Course - LABORATORY CBC & Chemistry Diagram: 01/06/18 11:50 01/06/18 11:50 - ADDITIONAL ORDERS Additional order review: Laboratory Results 01/06/18 01/06/18 01/06/18 12:50 11:50 11:50 PT with INR INR Sodium 136 Potassium 5.2 H Chloride 102 Carbon Dioxide 27 Anion Gap 7 L BUN 23 H Creatinine 0.9 Creat Clearance w eGFR 59.51 Random Glucose 88 Calcium 8.2 L Total Bilirubin 0.5 AST 57 H ALT 21 Alkaline Phosphatase 90 Creatine Kinase 47 Troponin I < 0.02 B-Natriuretic Peptide 3490.41 H Total Protein 5.9 L Albumin 2.7 L Total Amylase 107 Lipase 148 01/06/18 11:50 PT with INR 13.00 H INR 1.15 H Sodium Potassium Chloride Carbon Dioxide Anion Gap BUN Creatinine Creat Clearance w eGFR Random Glucose Calcium Total Bilirubin AST ALT Alkaline Phosphatase Creatine Kinase Troponin I B-Natriuretic Peptide Total Protein Albumin Total Amylase Lipase 01/06/18 11:50 RBC 4.13 MCV 86.0 MCHC 32.4 RDW 16.6 H MPV 9.6 D Neutrophils % 76.3 Lymphocytes % 10.8 D Monocytes % 9.6 D Eosinophils % 2.0 D Basophils % 1.3 D <Kiran Claire - Last Filed: 01/06/18 14:59> - LABORATORY CBC & Chemistry Diagram: 01/06/18 11:50 01/06/18 11:50 <Colleen Rodriguez - Last Filed: 01/06/18 23:03> Medical Decision Making - Medical Decision Making 01/06/18 13:10 I, Dr.Regina Rodriguez, attest that the scribes documentation that appears above has been prepared under my direction and personally reviewed by me. I confirmed that the note above accurately reflects all work, treatment, procedures, and medical decision-making performed by me. 01/06/18 22:53 Pt with h/o ovarian cancer, copd, and heart failure presented to ed concerned about inc lower extremity edema all week. Pt now with abdominal distension and obvious ascites noted on physical exam. Labs, cxr, and abdominal sonogram ordered and results reviewed. Cxr no acute infiltrate or congestion. Pt with symptoms suggestive of rt side heart failure and has a BNP of over 3400. Case discussed with Pt's pcp and agrees patient should be admitted to hospitalist service, to treat chf and determine underlying cause of ascites and heart Failure. Pt given lasix in ED , pt agreed to admission. Pt requested that her oncologist be notified of her admisson. Covering oncologist notified will follow. Case discussed with hospitalist and pt put for admission to telemetry units secondary to chf excerbation <Colleen Rodriguez - Last Filed: 01/06/18 23:03> *DC/Admit/Observation/Transfer - Attestations Scribe Attestion: 01/06/18 15:01 Documentation prepared by Kiran Claire, acting as director biomedical engineering for Colleen Rodriguez MD/DO. <Kiran Claire - Last Filed: 01/06/18 14:59> - Discharge Dispostion Admit: Yes <Colleen Rodriguez - Last Filed: 01/06/18 23:03> Diagnosis at time of Disposition: CHF (congestive heart failure) - Discharge Dispostion Condition at time of disposition: Stable
[2018-01-06 11:20] VITALS: BMI 19.6
[2018-01-06 12:05] LABS: BASO % 1.3 % (0-2.0); HEMATOCRIT 35.5 % (32.4-45.2); HEMOGLOBIN 11.5 GM/dL (10.7-15.3); LYMPH % 10.8 % (8-40); MCH 27.9 pg (25.7-33.7); MCHC 32.4 g/dl (32.0-36.0); MEAN PLT VOLUME 9.6 fl (7.5-11.1); MONO % 9.6 % (3.8-10.2); NEUT % 76.3 % (42.8-82.8); PLATELET COUNT 310 K/MM3 (134-434); RBC 4.13 M/mm3 (3.60-5.2); RDW 16.6 % (11.6-15.6)
[2018-01-06 12:18] LABS: INR 1.15 (0.82-1.09)
[2018-01-06 12:31] LABS: ALBUMIN 2.7 g/dl (3.4-5.0); ANION GAP 7 (8-16); BILIRUBIN,TOTAL 0.5 mg/dL (0.2-1.0); BLOOD UREA NITROGEN 23 mg/dL (7-18); CALCIUM 8.2 mg/dL (8.5-10.1); CHLORIDE 102 mmol/L (98-107); CO2 27 mmol/L (21-32); CREATININE 0.9 mg/dL (0.55-1.02); GLUCOSE,RANDOM 88 mg/dL (74-106); SGPT/ALT 21 U/L (12-78); SODIUM 136 mmol/L (136-145); TOT PROT 5.9 g/dl (6.4-8.2)
[2018-01-06 12:32] LABS: ALK PHOS 90 U/L (45-117)
[2018-01-06 12:47] LABS: POTASSIUM 5.2 mmol/L (3.5-5.1); SGOT/AST 57 U/L (15-37)
[2018-01-06 13:28] LABS: N-TERMINAL BNP 3490.41 pg/ml (5-450)
[2018-01-06] MEDS ORDERED: FUROSEMIDE 40 MG/4 ML INJECTABLE VIAL IVPUSH ONE (14:46)
[2018-01-06] MEDS ORDERED: FUROSEMIDE 40 MG/4 ML INJECTABLE VIAL ONE (14:58)
--- NOTE | 2018-01-06 15:20 | HP ---
CHIEF COMPLAINT: "swelling in my legs and belly" PCP: Dr. Casillas HISTORY OF PRESENT ILLNESS: This is an 87 year old female with PMHx of ovarian cancer with peritoneal carcinomatosis, a.fib on eliquis, diastolic LV dysfunction, chronic back pain with multiple vertebral fractures, sick sinus syndrome s/p PPM, COPD, who presented to the ED with b/l lower extremity swelling and abdominal swelling. The patient reports that she has had lower extremity swelling for more than 1 month. She states at the beginning of this week she noticed an increase in her abdominal girth. She reportedly went to her oncologist office on 01/02, who prescribed Lasix which she just started taking this morning. She states she came to the ED because she was concerned about her abdominal swelling. She denies any shortness of breath at rest, but states that she does get short of breath with exertion. The patient denies any chest pain, palpitations, wheezing , headache, dizziness, urinary symptoms. ER course was notable for: (1) Temp 97.3, pulse 63, BP 125/63, resp 24, O2 94 % on RA (2) K 5.2 (3) BNP 3490 (4) Chest X-ray: clear lungs, large heart, right port. Left pacemaker (5) Abd US: Limited. Small to moderate volume of ascites in all 4 quadrants. Mild gallbladder wall thickening Recent Travel: denies PAST MEDICAL HISTORY: as above PAST SURGICAL HISTORY: Left hip replacement 2014 Right hip replacement 1999 D&C Social History: Smoking: quit 1999 Alcohol: 1 glass of bourbon/day Drugs: denies Family History: Allergies No Known Allergies Allergy (Verified 01/06/18 11:09) HOME MEDICATIONS: Home Medications Medication Instructions Recorded Apixaban [Eliquis -] 2.5 mg PO BID #60 tablet 01/19/16 Atorvastatin Ca [Lipitor] 10 mg PO HS #30 tablet 01/19/16 Sotalol HCl [Betapace -] 80 mg PO BID #60 tablet 01/19/16 Albuterol Sulfate Inhaler - 1 puff IH Q4H PRN #5 inhaler 01/16/17 [Ventolin HFA Inhaler -] Amlodipine Besylate [Norvasc -] 10 mg PO DAILY #30 tablet 01/16/17 Calcium Carb/Magnesium Oxid/D3 15 ml PO DAILY 08/03/17 [Calcium Magnesium + D Tablet] Temazepam [Restoril -] 15 mg PO HS PRN 08/03/17 Furosemide [Lasix] 20 mg PO DAILY PRN #14 tablet 09/22/17 Fluticasone/Umeclidin/Vilanter 1 each IH DAILY 01/06/18 [Trelegy Ellipta 100-62.5-25] Potassium Chloride Oral Soln [KCl 20 meq PO DAILY 01/06/18 Oral Solution] REVIEW OF SYSTEMS CONSTITUTIONAL: Absent: fever, chills, diaphoresis, generalized weakness, malaise, loss of appetite HEENT: Absent: rhinorrhea, nasal congestion, throat pain, throat swelling, difficulty swallowing, mouth swelling, ear pain, eye pain, visual changes CARDIOVASCULAR: B/l lower extremity edema greater than 1 month. Absent: chest pain, syncope, palpitations, irregular heart rate, lightheadedness RESPIRATORY: Increased shortness of breath with exertion. Absent: cough, orthopnea, wheezing, stridor, hemoptysis GASTROINTESTINAL: Increase in abdominal girth since Monday. Absent: abdominal pain, nausea, vomiting, diarrhea, constipation, melena, hematochezia GENITOURINARY: Absent: dysuria, frequency, urgency, hesitancy, hematuria, flank pain, genital pain MUSCULOSKELETAL: Absent: myalgia, arthralgia, joint swelling, back pain, neck pain SKIN: Absent: rash, itching, pallor HEMATOLOGIC/IMMUNOLOGIC: Absent: easy bleeding, easy bruising, lymphadenopathy, frequent infections ENDOCRINE:Absent: unexplained weight gain, unexplained weight loss, heat intolerance, cold intolerance NEUROLOGIC: Absent: headache, focal weakness or paresthesias, dizziness, seizure , mental status changes, bladder or bowel incontinence PSYCHIATRIC: Absent: anxiety, depression, suicidal or homicidal ideation, hallucinations. PHYSICAL EXAMINATION Vital Signs - 24 hr 01/06/18 01/06/18 01/06/18 11:09 11:21 13:22 Temperature 97.3 F L Pulse Rate 63 Pulse Rate [ 63 Left Radial] Respiratory 24 24 Rate Blood Pressure 125/63 Blood Pressure 111/62 [Right Arm] O2 Sat by Pulse 94 L 94 L 95 Oximetry (%) 01/06/18 15:16 Temperature Pulse Rate Pulse Rate [ Left Radial] Respiratory Rate Blood Pressure Blood Pressure [Right Arm] O2 Sat by Pulse 95 Oximetry (%) GENERAL: Awake, alert, and fully oriented, in no acute distress. HEAD: Normal with no signs of trauma. EYES: Pupils equal, round and reactive to light EARS, NOSE, THROAT: Ears normal, nares patent, oropharynx clear without exudates. Moist mucous membranes. NECK: Normal range of motion LUNGS: Breath sounds equal, clear to auscultation bilaterally. No wheezes, and no crackles. No accessory muscle use. HEART: Regular rate and rhythm, normal S1 and S2 ABDOMEN: Distended abdomen, tympanic sounds throughout. Soft, nontender, normoactive bowel sounds, no guarding, no rebound, no masses. MUSCULOSKELETAL: Normal range of motion at all joints. No bony deformities or tenderness. No CVA tenderness. UPPER EXTREMITIES: 2+ pulses, warm, well-perfused. No cyanosis. No clubbing. No peripheral edema. LOWER EXTREMITIES: B/l lower extremities with 3+ pitting edema. 2+ pulses, warm , well-perfused. No calf tenderness NEUROLOGICAL: Cranial nerves II-XII intact. Normal speech. PSYCHIATRIC: Cooperative. Good eye contact. Appropriate mood and affect. SKIN: Warm, dry, normal turgor, no rashes or lesions noted, normal capillary refill. Laboratory Results - last 24 hr 01/06/18 01/06/18 01/06/18 11:50 11:50 11:50 WBC 7.0 D RBC 4.13 Hgb 11.5 Hct 35.5 MCV 86.0 MCH 27.9 MCHC 32.4 RDW 16.6 H Plt Count 310 MPV 9.6 D Neutrophils % 76.3 Lymphocytes % 10.8 D Monocytes % 9.6 D Eosinophils % 2.0 D Basophils % 1.3 D PT with INR 13.00 H INR 1.15 H Sodium 136 Potassium 5.2 H Chloride 102 Carbon Dioxide 27 Anion Gap 7 L BUN 23 H Creatinine 0.9 Creat Clearance w eGFR 59.51 Random Glucose 88 Calcium 8.2 L Total Bilirubin 0.5 AST 57 H ALT 21 Alkaline Phosphatase 90 Creatine Kinase Troponin I B-Natriuretic Peptide Total Protein 5.9 L Albumin 2.7 L Total Amylase Lipase 01/06/18 01/06/18 11:50 12:50 WBC RBC Hgb Hct MCV MCH MCHC RDW Plt Count MPV Neutrophils % Lymphocytes % Monocytes % Eosinophils % Basophils % PT with INR INR Sodium Potassium Chloride Carbon Dioxide Anion Gap BUN Creatinine Creat Clearance w eGFR Random Glucose Calcium Total Bilirubin AST ALT Alkaline Phosphatase Creatine Kinase 47 Troponin I < 0.02 B-Natriuretic Peptide 3490.41 H Total Protein Albumin Total Amylase 107 Lipase 148 Assessment: This is an 87 year old female with PMHx of ovarian cancer with peritoneal carcinomatosis, a.fib on eliquis, diastolic LV dysfunction, chronic back pain with multiple vertebral fractures, sick sinus syndrome s/p PPM, COPD, who presented to the ED with b/l lower extremity swelling and abdominal swelling. Plan: 1) Acute exacerbation of diastolic heart failure - Increased BNP, b/l lower extremity pitting edema with ascites - Lasix 40mg IVP daily - Daily weights - Strict I&O - O2 via nc prn - F/u cardiology consult 2) Ascites - Mild to moderate amount on ultrasound - 2/2 failure vs. progression of disease? - F/u IR consult for possible drainage 3) B/l lower extremity swelling - F/u doppler to r/o DVT 4) Ovarian cancer with peritoneal carcinomatosis - Now with ascites, possible progression of disease - Last Ca 125 wnl - F/u oncology consult for further recommendation 5) Paroxysmal a.fib - Continue eliquis 2.5mg po bid 6) Sick sinus syndrome s/p PPM 7) COPD - No evidence of acute exacerbation 8) F/E/N: - Sodium controlled diet - Monitor electrolytes - Hyperkalemia: K 5.2, continue to trend 9) Prophylaxis: - On Eliquis 10) Dispo: - Requires continued inpatient care CODE STATUS: FULL CODE Visit type - Emergency Visit Emergency Visit: Yes ED Registration Date: 01/06/18 Care time: The patient presented to the Emergency Department on the above date and was hospitalized for further evaluation of their emergent condition. - New Patient This patient is new to me today: Yes Date on this admission: 01/06/18 - Critical Care Critical Care patient: No Hospitalist Screening - Colonoscopy Questionnaire Colonoscopy Questionnaire: Colonoscopy Questionnaire
[2018-01-06 15:22] LABS: URINE APPEARANCE CLEAR; URINE BILIRUBIN NEGATIVE (NEGATIVE); URINE BLOOD NEGATIVE (NEGATIVE); URINE COLOR STRAW; URINE GLUCOSE (UA) NEGATIVE (NEGATIVE); URINE KETONE NEGATIVE (NEGATIVE); URINE LEUK ESTERASE NEGATIVE (NEGATIVE); URINE NITRITE NEGATIVE (NEGATIVE); URINE PROTEIN NEGATIVE (NEGATIVE); URINE UROBILINOGEN NEGATIVE mg/dL (0.2-1.0)
--- NOTE | 2018-01-06 18:01 | CON.CARD ---
Consult Consult Specialty:: Cardiology Referred by:: Hospitalist Reason for Consultation:: Cardiac evaluation - History of Present Illness Chief Complaint: Pedal edema History of Present Illness: Patient is an 87 year old female known to our service with underlying history of COPD, hypertension, hypercholesterolemia, sick sinus syndrome post PPM ([facility] on 01/18/16), atrial fibrillation on NOAC (Eliquis), ovarian CA with peritoneal carcinomatosis s/p chemotherapy, diastolic dysfunction, TIA who presents with bilateral lower extremity edema and abdominal fullness. She states that swelling has been worsening over a month and noticed increased abdominal girth this past week. She was prescribed Lasix and took her first dose this morning. Sje denies chest pain, shortness of breath or palpitations. She denies paroxysmal nocturnal dyspnea or orthopnea. She denies fever or chills. She denies nausea, vomiting, diarrhea or abdominal pain. She denies headache or lightheadedness. 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 Cardio/Vascular: Yes: AFIB, HTN, Hyperlipdemia Pulmonary: Yes: COPD Gastrointestinal: Yes: Diverticulosis ...: No Musculoskeletal: Yes: Chronic low back pain (collapsed fractures lumbar vertebrae 2014 ), Osteoarthritis - Past Surgical History Past Surgical History: Yes: Cataract Removal (bilateral ), Joint Replacement ( bilateral hip replacements), Tonsillectomy - Alcohol/Substance Use Hx Alcohol Use: No Number of Drinks Daily: 1 History of Substance Use: reports: None - Smoking History Smoking history: Never smoked Have you smoked in the past 12 months: No Aproximately how many cigarettes per day: 0 If you are a former smoker, when did you quit?: 1999 - Social History Usual Living Arrangement: Alone ADL: Independent 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 History of Recent Travel: No Home Medications - Allergies Allergies/Adverse Reactions: Allergies Allergy/AdvReac Type Severity Reaction Status Date / Time No Known Allergies Allergy Verified 01/06/18 11:09 - Home Medications Home Medications: Ambulatory Orders Apixaban [Eliquis -] 2.5 mg PO BID #60 tablet 01/19/16 Atorvastatin Ca [Lipitor] 10 mg PO HS #30 tablet 01/19/16 Sotalol HCl [Betapace -] 80 mg PO BID #60 tablet 01/19/16 Albuterol Sulfate Inhaler - [Ventolin HFA Inhaler -] 1 puff IH Q4H PRN #5 inhaler 01/16/17 Amlodipine Besylate [Norvasc -] 10 mg PO DAILY #30 tablet 01/16/17 Calcium Carb/Magnesium Oxid/D3 [Calcium Magnesium + D Tablet] 15 ml PO DAILY 03/15 Temazepam [Restoril -] 15 mg PO HS PRN 08/03/17 Furosemide [Lasix] 20 mg PO DAILY PRN #14 tablet 09/22/17 Fluticasone/Umeclidin/Vilanter [Trelegy Ellipta 100-62.5-25] 1 each IH DAILY 08/16 Potassium Chloride Oral Soln [KCl Oral Solution] 20 meq PO DAILY 01/06/18 Family Disease History - Family Disease History Family Disease History: Heart Disease: Father ( [place] age 52), Other: Mother ( lived to 93) Review of Systems - Review of Systems Constitutional: denies: Chills, Fever Cardiovascular: denies: Chest Pain, Palpitations, Shortness of Breath Respiratory: denies: Cough, Hemoptysis, Orthopnea, PND, SOB, SOB on Exertion Gastrointestinal: reports: Bloating. denies: Abdominal Pain, Constipation, Diarrhea, Melena, Nausea, Rectal Bleeding, Vomiting Genitourinary: denies: Dysuria, Hematuria Neurological: denies: Dizziness, Headache, Seizure, Syncope Vital Signs: Vital Signs Temperature 97.8 F 01/06/18 17:05 Pulse Rate 78 01/06/18 17:05 Respiratory Rate 18 01/06/18 17:05 Blood Pressure 126/60 01/06/18 17:05 O2 Sat by Pulse Oximetry (%) 98 01/06/18 17:05 HENT: Yes: Atraumatic Neck: Yes: Supple Respiratory: Yes: Diminished Gastrointestinal: Yes: Ascites, Distention. No: Tenderness Cardiovascular: Yes: Regular Rate and Rhythm JVD: No Carotid Bruit: No PMI: Non-Displaced Heart Sounds: Yes: S1, S2 Murmur: Yes: Systolic Murmur, Grade 1 Edema: Yes Edema: LLE: 1+, RLE: 1+ - Other Data Labs, Other Data: CBC, BMP 01/06/18 11:50 01/06/18 11:50 INR, PTT INR 1.15 (0.82-1.09) H 01/06/18 11:50 Troponin, BNP 01/06/18 01/06/18 11:50 12:50 Troponin I < 0.02 B-Natriuretic Peptide 3490.41 H Laboratory Results - last 24 hr 01/06/18 01/06/18 01/06/18 11:50 11:50 11:50 WBC 7.0 D RBC 4.13 Hgb 11.5 Hct 35.5 MCV 86.0 MCH 27.9 MCHC 32.4 RDW 16.6 H Plt Count 310 MPV 9.6 D Neutrophils % 76.3 Lymphocytes % 10.8 D Monocytes % 9.6 D Eosinophils % 2.0 D Basophils % 1.3 D PT with INR 13.00 H INR 1.15 H Sodium 136 Potassium 5.2 H Chloride 102 Carbon Dioxide 27 Anion Gap 7 L BUN 23 H Creatinine 0.9 Creat Clearance w eGFR 59.51 Random Glucose 88 Calcium 8.2 L Total Bilirubin 0.5 AST 57 H ALT 21 Alkaline Phosphatase 90 Creatine Kinase Troponin I B-Natriuretic Peptide Total Protein 5.9 L Albumin 2.7 L Total Amylase Lipase Urine Color Urine Appearance Urine pH Ur Specific [place] Urine Protein Urine Glucose (UA) Urine Ketones Urine Blood Urine Nitrite Urine Bilirubin Urine Urobilinogen Ur Leukocyte Esterase 01/06/18 01/06/18 01/06/18 11:50 12:50 15:15 WBC RBC Hgb Hct MCV MCH MCHC RDW Plt Count MPV Neutrophils % Lymphocytes % Monocytes % Eosinophils % Basophils % PT with INR INR Sodium Potassium Chloride Carbon Dioxide Anion Gap BUN Creatinine Creat Clearance w eGFR Random Glucose Calcium Total Bilirubin AST ALT Alkaline Phosphatase Creatine Kinase 47 Troponin I < 0.02 B-Natriuretic Peptide 3490.41 H Total Protein Albumin Total Amylase 107 Lipase 148 Urine Color Straw Urine Appearance Clear Urine pH 5.0 D Ur Specific [place] 1.006 Urine Protein Negative Urine Glucose (UA) Negative Urine Ketones Negative Urine Blood Negative Urine Nitrite Negative Urine Bilirubin Negative Urine Urobilinogen Negative Ur Leukocyte Esterase Negative Echo: Report Reviewed (09/20/2017 Normal LV size and function, mild MR, TR) Imaging - Results Chest X-ray: Report Reviewed (Large heart) EKG: Report Reviewed Problem List - Problems (1) Pedal edema Code(s): R60.0 - LOCALIZED EDEMA (2) Diastolic dysfunction Code(s): I51.9 - HEART DISEASE, UNSPECIFIED (3) History of pacemaker Code(s): Z95.0 - PRESENCE OF CARDIAC PACEMAKER (4) Ovarian cancer Code(s): C56.9 - MALIGNANT NEOPLASM OF UNSPECIFIED OVARY (5) Paroxysmal atrial tachycardia Code(s): I47.1 - SUPRAVENTRICULAR TACHYCARDIA (6) Sick sinus syndrome with tachycardia Code(s): I49.5 - SICK SINUS SYNDROME (7) Ascites, malignant Code(s): R18.0 - MALIGNANT ASCITES (8) Atrial fibrillation Code(s): I48.91 - UNSPECIFIED ATRIAL FIBRILLATION Qualifiers: Atrial fibrillation type: paroxysmal Qualified Code(s): I48.0 - Paroxysmal atrial fibrillation (9) Hyperlipidemia Code(s): E78.5 - HYPERLIPIDEMIA, UNSPECIFIED Qualifiers: Hyperlipidemia type: pure hypercholesterolemia Qualified Code(s): E78.00 - Pure hypercholesterolemia, unspecified; E78.0 - Pure hypercholesterolemia (10) Hypertension Code(s): I10 - ESSENTIAL (PRIMARY) HYPERTENSION Qualifiers: Hypertension type: essential hypertension Qualified Code(s): I10 - Essential (primary) hypertension (11) 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 - SECONDARY MALIGNANT NEOPLASM OF RETROPERITON AND PERITONEUM; C80.1 - MALIGNANT (PRIMARY) NEOPLASM, UNSPECIFIED Assessment/Plan 1. Pedal edema with underlying acute on chronic diastolic LV failure 2. History of COPD 3. Paroxysmal atrial fibrillation [id number] score of 6 on NOAC 4. Sick sinus syndrome PPM 5. History of paroxysmal atrial tachycardia 6. Hypertension 7. Hyperlipidemia 8. Ovarian CA with peritoneal carcinomatosis s/p chemotherapy 9. Suspect ascites PLAN: 1. Diuretics - IV Lasix with monitoring diuretic response, renal function and electrolytes 2. Continue Eliquis 2.5 mg BID 3. Continue Sotalol 80 mg BID 4. Continue Amlodipine 10 mg QD 5. Hematology/Oncology input to follow 6. Lower extremity Doppler to rule out DVT 7. Abdominal imaging to rule out ascites 8. Transthoracic echocardiography may be repeated if needed Further plans are to follow Florencio Tejada MD
[2018-01-06] MEDS: ALBUTEROL SO4 0.083% IH SOL 2.5 MG/3 ML VIAL.NEB. NEB PRN (20:00)
[2018-01-06] MEDS: SOTALOL HCL 80 MG TABLET (FP) PO SCH (21:18)
[2018-01-06] MEDS: ATORVASTATIN CA 10 MG TABLET (FP) PO SCH (21:18)
[2018-01-06] MEDS: APIXABAN 2.5 MG TABLET PO SCH (21:18)
[2018-01-06] MEDS: TEMAZEPAM 15 MG CAPSULE PO PRN (21:25)
[2018-01-07 07:21] LABS: ALBUMIN 2.2 g/dl (3.4-5.0); ANION GAP 11 (8-16); BILIRUBIN,TOTAL 0.4 mg/dL (0.2-1.0); BLOOD UREA NITROGEN 23 mg/dL (7-18); CALCIUM 8.1 mg/dL (8.5-10.1); CHLORIDE 102 mmol/L (98-107); CO2 27 mmol/L (21-32); GLUCOSE,RANDOM 77 mg/dL (74-106); MAGNESIUM 2.3 mg/dL (1.8-2.4); POTASSIUM 4.6 mmol/L (3.5-5.1); SGOT/AST 42 U/L (15-37); SGPT/ALT 16 U/L (12-78); SODIUM 140 mmol/L (136-145); TOT PROT 4.8 g/dl (6.4-8.2)
[2018-01-07 07:23] LABS: ALK PHOS 77 U/L (45-117)
[2018-01-07 07:36] LABS: BASO % 1.3 % (0-2.0); EOS % 3.3 % (0-4.5); HEMATOCRIT 30.4 % (32.4-45.2); HEMOGLOBIN 10.1 GM/dL (10.7-15.3); LYMPH % 16.2 % (8-40); MCH 28.1 pg (25.7-33.7); MCHC 33.1 g/dl (32.0-36.0); MEAN CELL VOLUME 85.1 fl (80-96); MEAN PLT VOLUME 9.6 fl (7.5-11.1); MONO % 13.1 % (3.8-10.2); NEUT % 66.1 % (42.8-82.8); PLATELET COUNT 288 K/MM3 (134-434); RBC 3.58 M/mm3 (3.60-5.2); RDW 16.2 % (11.6-15.6); WHITE BLOOD COUNT 6.1 K/mm3 (4.0-10.0)
[2018-01-07] MEDS: ALBUTEROL SO4 0.083% IH SOL 2.5 MG/3 ML VIAL.NEB. NEB PRN ×2 (08:20→20:50)
--- NOTE | 2018-01-07 09:25 | PN ---
Progress Note, Physician Chief Complaint: Events noted Feels better History of Present Illness: Patient was seen and examined. Awake and alert. Chart was reviewed Denies chest pain, shortness of breath or palpitations Pedal edema persists - Current Medication List Current Medications: Active Medications Albuterol Sulfate (Ventolin 0.083% Nebulizer Soln -) 1 amp NEB Q6H PRN PRN Reason: SHORT OF BREATH/WHEEZING Last Admin: 01/07/18 08:20 Dose: 1 amp Amlodipine Besylate (Norvasc -) 10 mg PO DAILY [facility] Apixaban (Eliquis -) 2.5 mg PO BID [facility] Last Admin: 01/06/18 21:18 Dose: 2.5 mg Atorvastatin Calcium (Lipitor -) 10 mg PO HS [facility] Last Admin: 01/06/18 21:18 Dose: 10 mg Furosemide (Lasix Injection -) 40 mg IVPUSH DAILY [facility] Non-Formulary Medication (Calcium Carb/Magnesium Oxid/D3 [Calcium Magnesium + D Tablet]) 15 ml PO DAILY [facility] Sotalol HCl (Betapace -) 80 mg PO BID [facility] Last Admin: 01/06/18 21:18 Dose: 80 mg Temazepam (Restoril -) 15 mg PO HS PRN PRN Reason: INSOMNIA Last Admin: 01/06/18 21:25 Dose: 15 mg - Objective Vital Signs: Vital Signs Temperature 98.5 F 01/07/18 07:20 Pulse Rate 67 01/07/18 07:20 Respiratory Rate 20 01/07/18 07:24 Blood Pressure 104/62 01/07/18 07:20 O2 Sat by Pulse Oximetry (%) 96 01/07/18 07:24 Constitutional: Yes: Well Nourished Eyes: Yes: PERRL HENT: Yes: Atraumatic Neck: Yes: Supple Cardiovascular: Yes: Regular Rate and Rhythm, Murmur (Soft SM), S1, S2 Respiratory: Yes: CTA Bilaterally Gastrointestinal: Yes: Ascites, Distention Edema: Yes Edema: LLE: 1+, RLE: 1+ Additional Findings/Remarks: - Review of Systems Constitutional: denies: Chills, Fever Cardiovascular: denies: Chest Pain, Palpitations, Shortness of Breath Respiratory: denies: Cough, Hemoptysis, Orthopnea, PND, SOB, SOB on Exertion Gastrointestinal: reports: Bloating. denies: Abdominal Pain, Constipation, Diarrhea, Melena, Nausea, Rectal Bleeding, Vomiting Genitourinary: denies: Dysuria, Hematuria Neurological: denies: Dizziness, Headache, Seizure, Syncope Labs: CBC, BMP 01/07/18 05:05 01/07/18 05:05 INR, PTT INR 1.15 (0.82-1.09) H 01/06/18 11:50 - ....Imaging Ultrasound: Report Reviewed (Abdominal US small to moderate ascites) Problem List - Problems (1) Pedal edema Code(s): R60.0 - LOCALIZED EDEMA (2) Diastolic dysfunction Code(s): I51.9 - HEART DISEASE, UNSPECIFIED (3) History of pacemaker Code(s): Z95.0 - PRESENCE OF CARDIAC PACEMAKER (4) Ovarian cancer Code(s): C56.9 - MALIGNANT NEOPLASM OF UNSPECIFIED OVARY (5) Paroxysmal atrial tachycardia Code(s): I47.1 - SUPRAVENTRICULAR TACHYCARDIA (6) Sick sinus syndrome with tachycardia Code(s): I49.5 - SICK SINUS SYNDROME (7) Ascites, malignant Code(s): R18.0 - MALIGNANT ASCITES (8) Atrial fibrillation Code(s): I48.91 - UNSPECIFIED ATRIAL FIBRILLATION Qualifiers: Atrial fibrillation type: paroxysmal Qualified Code(s): I48.0 - Paroxysmal atrial fibrillation (9) Hyperlipidemia Code(s): E78.5 - HYPERLIPIDEMIA, UNSPECIFIED Qualifiers: Hyperlipidemia type: pure hypercholesterolemia Qualified Code(s): E78.00 - Pure hypercholesterolemia, unspecified; E78.0 - Pure hypercholesterolemia (10) Hypertension Code(s): I10 - ESSENTIAL (PRIMARY) HYPERTENSION Qualifiers: Hypertension type: essential hypertension Qualified Code(s): I10 - Essential (primary) hypertension (11) 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 - SECONDARY MALIGNANT NEOPLASM OF RETROPERITON AND PERITONEUM; C80.1 - MALIGNANT (PRIMARY) NEOPLASM, UNSPECIFIED Assessment/Plan 1. Pedal edema with underlying acute on chronic diastolic LV failure 2. History of COPD 3. Paroxysmal atrial fibrillation [id number] score of 6 on NOAC 4. Sick sinus syndrome PPM 5. History of paroxysmal atrial tachycardia 6. Hypertension 7. Hyperlipidemia 8. Ovarian CA with peritoneal carcinomatosis s/p chemotherapy 9. Small to moderate ascites PLAN: 1. Diuretics - IV Lasix with monitoring diuretic response, renal function and electrolytes 2. Continue Eliquis 2.5 mg BID 3. Continue Sotalol 80 mg BID 4. Continue Amlodipine 10 mg QD 5. Hematology/Oncology follow up 6. Lower extremity Doppler to rule out DVT 7. Abdominal imaging noted 8. Transthoracic echocardiography may be repeated if needed Further plans are to follow Florencio Tejada MD
[2018-01-07] MEDS: APIXABAN 2.5 MG TABLET PO SCH ×2 (09:39→21:37)
[2018-01-07] MEDS: FUROSEMIDE 40 MG/4 ML INJECTABLE VIAL IVPUSH SCH (09:39)
[2018-01-07] MEDS: amLODIPine BESYLATE 10 MG TABLET (FP) PO SCH (09:39)
[2018-01-07] MEDS: SOTALOL HCL 80 MG TABLET (FP) PO SCH ×2 (09:39→21:36)
[2018-01-07] MEDS ORDERED: PATIENT'S OWN MEDICATION (NON-FORMULARY) (Calcium Carb/Magnesium Oxid/D3 [Calcium Magnesiu PO SCH (10:00)
--- NOTE | 2018-01-07 12:47 | CONSULT ---
Consult - text type - Consultation Consultation Note: HISTORY OF PRESENT ILLNESS: 87 year old female with ovarian cancer and peritoneal carcinomatosis being followed by Dr. Painting. She says she saw (I dont have access to her notes) and the patient reports she is in remission for quite some time. She obviously has an ascites which has been there for the past few months. She was also prescribed lasix but due to system issues she hasnt taken it. The plan was to do a restaging scan for the ovarian cancer. An US here does not show any obvious masses. She came in because of increasing SOB. Her BNP was 3490 and the suspicion is Right sided CHF. Her ascites is a bit disproportionate to her leg swelling. She is being treated for R. CHF with diuretics Recent Travel: denies PAST MEDICAL HISTORY: as above PAST SURGICAL HISTORY: Left hip replacement 2014 Right hip replacement 1999 D&C Social History: Smoking: quit 1999 Alcohol: 1 glass of bourbon/day Drugs: denies Family History: Allergies No Known Allergies Allergy (Verified 01/06/18 11:09) HOME MEDICATIONS: Home Medications Medication Instructions Recorded Apixaban [Eliquis -] 2.5 mg PO BID #60 tablet 01/19/16 Atorvastatin Ca [Lipitor] 10 mg PO HS #30 tablet 01/19/16 Sotalol HCl [Betapace -] 80 mg PO BID #60 tablet 01/19/16 Albuterol Sulfate Inhaler - 1 puff IH Q4H PRN #5 inhaler 01/16/17 [Ventolin HFA Inhaler -] Amlodipine Besylate [Norvasc -] 10 mg PO DAILY #30 tablet 01/16/17 Calcium Carb/Magnesium Oxid/D3 15 ml PO DAILY 08/03/17 [Calcium Magnesium + D Tablet] Temazepam [Restoril -] 15 mg PO HS PRN 08/03/17 Furosemide [Lasix] 20 mg PO DAILY PRN #14 tablet 09/22/17 Fluticasone/Umeclidin/Vilanter 1 each IH DAILY 01/06/18 [Trelegy Ellipta 100-62.5-25] Potassium Chloride Oral Soln [KCl 20 meq PO DAILY 01/06/18 Oral Solution] REVIEW OF SYSTEMS CONSTITUTIONAL: Absent: fever, chills, diaphoresis, generalized weakness, malaise, loss of appetite HEENT: Absent: rhinorrhea, nasal congestion, throat pain, throat swelling, difficulty swallowing, mouth swelling, ear pain, eye pain, visual changes CARDIOVASCULAR: B/l lower extremity edema greater than 1 month. Absent: chest pain, syncope, palpitations, irregular heart rate, lightheadedness RESPIRATORY: Increased shortness of breath with exertion. Absent: cough, orthopnea, wheezing, stridor, hemoptysis GASTROINTESTINAL: Increase in abdominal girth since Monday. Absent: abdominal pain, nausea, vomiting, diarrhea, constipation, melena, hematochezia GENITOURINARY: Absent: dysuria, frequency, urgency, hesitancy, hematuria, flank pain, genital pain MUSCULOSKELETAL: Absent: myalgia, arthralgia, joint swelling, back pain, neck pain SKIN: Absent: rash, itching, pallor HEMATOLOGIC/IMMUNOLOGIC: Absent: easy bleeding, easy bruising, lymphadenopathy, frequent infections ENDOCRINE:Absent: unexplained weight gain, unexplained weight loss, heat intolerance, cold intolerance NEUROLOGIC: Absent: headache, focal weakness or paresthesias, dizziness, seizure , mental status changes, bladder or bowel incontinence PSYCHIATRIC: Absent: anxiety, depression, suicidal or homicidal ideation, hallucinations. PHYSICAL EXAMINATION Vital Signs Period Temp Pulse Resp BP Sys/Amado Pulse Ox Last 24 Hr 97.8 F-99.3 F 61-78 18-24 98-129/46-62 92-98 GENERAL: Awake, alert, and fully oriented, in no acute distress. HEAD: Normal with no signs of trauma. EYES: Pupils equal, round and reactive to light EARS, NOSE, THROAT: Ears normal, nares patent, oropharynx clear without exudates. Moist mucous membranes. NECK: Normal range of motion LUNGS: Breath sounds equal, clear to auscultation bilaterally. No wheezes, and no crackles. No accessory muscle use. HEART: Regular rate and rhythm, normal S1 and S2 ABDOMEN: Distended abdomen, tympanic sounds throughout. Soft, nontender, normoactive bowel sounds, no guarding, no rebound, no masses. MUSCULOSKELETAL: Normal range of motion at all joints. No bony deformities or tenderness. No CVA tenderness. UPPER EXTREMITIES: 2+ pulses, warm, well-perfused. No cyanosis. No clubbing. No peripheral edema. LOWER EXTREMITIES: B/l lower extremities with 3+ pitting edema. 2+ pulses, warm , well-perfused. No calf tenderness NEUROLOGICAL: Cranial nerves II-XII intact. Normal speech. PSYCHIATRIC: Cooperative. Good eye contact. Appropriate mood and affect. SKIN: Warm, dry, normal turgor, no rashes or lesions noted, normal capillary refill. CBC, BMP 01/07/18 05:05 01/07/18 05:05 Current Medications Generic Name Dose Route Start Last Admin Trade Name Freq PRN Reason Stop Dose Admin Albuterol Sulfate 1 amp 01/06/18 17:57 01/07/18 08:20 Ventolin 0.083% Nebulizer Soln - NEB 1 amp Q6H PRN Administration SHORT OF BREATH/WHEEZING Amlodipine Besylate 10 mg 01/07/18 10:00 01/07/18 09:39 Norvasc - PO 10 mg DAILY [facility] Administration Apixaban 2.5 mg 01/06/18 22:00 01/07/18 09:39 Eliquis - PO 2.5 mg BID [facility] Administration Atorvastatin Calcium 10 mg 01/06/18 22:00 01/06/18 21:18 Lipitor - PO 10 mg HS [facility] Administration Furosemide 40 mg 01/07/18 10:00 01/07/18 09:39 Lasix Injection - IVPUSH 40 mg DAILY [facility] Administration Non-Formulary Medication 15 ml 01/07/18 10:00 Calcium Carb/Magnesium Oxid/D3 [Calcium Magnesium + D Tablet] PO DAILY [facility] Sotalol HCl 80 mg 01/06/18 22:00 01/07/18 09:39 Betapace - PO 80 mg BID [facility] Administration Temazepam 15 mg 01/06/18 15:12 01/06/18 21:25 Restoril - PO 15 mg HS PRN Administration INSOMNIA Assessment: This is an 87 year old female with PMHx of ovarian cancer with peritoneal carcinomatosis, a.fib on eliquis, diastolic LV dysfunction, chronic back pain with multiple vertebral fractures, sick sinus syndrome s/p PPM, COPD, who presented to the ED with b/l lower extremity swelling and abdominal swelling. Plan: The intial US does not seem to indicate a rapid progression of disease. I suspect this is R. sided CHF but I agree that further imaging is warranted with a CT A/P with contrast. I would wait a day or two to get her CHF better and then do the restaging scan to decrease the risk of DULCE. An ascites tap with fluid cytology would also help in the diagnosis. Dr. Lozada will be in tomorrow to further refine this plan. -send CA 125 (mild increases can be seen in ascites) -continue treatment of CHF 1) Acute exacerbation of diastolic heart failure 2) Ascites 3) B/l lower extremity swelling 4) Ovarian cancer with peritoneal carcinomatosis 5) Paroxysmal a.fib 6) Sick sinus syndrome s/p PPM 7) COPD 8) F/E/N: 9) Prophylaxis:
--- NOTE | 2018-01-07 13:52 | PN ---
Progress Note (short form) - Note Progress Note: Subjective: The patient was seen and examined at the bedside, she reports feeling like her abdominal girth has increased overnight Current Medications Generic Name Dose Route Start Last Admin Trade Name Oscar PRN Reason Stop Dose Admin Albuterol Sulfate 1 amp 01/06/18 17:57 01/07/18 08:20 Ventolin 0.083% Nebulizer Soln - NEB 1 amp Q6H PRN Administration SHORT OF BREATH/WHEEZING Amlodipine Besylate 10 mg 01/07/18 10:00 01/07/18 09:39 Norvasc - PO 10 mg DAILY [facility] Administration Apixaban 2.5 mg 01/06/18 22:00 01/07/18 09:39 Eliquis - PO 2.5 mg BID [facility] Administration Atorvastatin Calcium 10 mg 01/06/18 22:00 01/06/18 21:18 Lipitor - PO 10 mg HS [facility] Administration Furosemide 40 mg 01/07/18 10:00 01/07/18 09:39 Lasix Injection - IVPUSH 40 mg DAILY [facility] Administration Non-Formulary Medication 15 ml 01/07/18 10:00 Calcium Carb/Magnesium Oxid/D3 [Calcium Magnesium + D Tablet] PO DAILY [facility] Sotalol HCl 80 mg 01/06/18 22:00 01/07/18 09:39 Betapace - PO 80 mg BID [facility] Administration Temazepam 15 mg 01/06/18 15:12 01/06/18 21:25 Restoril - PO 15 mg HS PRN Administration INSOMNIA Objective: Vital Signs Period Temp Pulse Resp BP Sys/Amado Pulse Ox Last 24 Hr 97.8 F-99.3 F 61-78 18-24 98-129/46-62 92-98 Physical Exam: General: NAD Lungs: Diminished breath sounds bilaterallt Heart: RRR, S1S2 Abd: Grossly distended. Soft. Normoactive bowel sounds Ext: B/l 2+ lower extremity pitting edema CBCD WBC 6.1 K/mm3 (4.0-10.0) 01/07/18 05:05 RBC 3.58 M/mm3 (3.60-5.2) L 01/07/18 05:05 Hgb 10.1 GM/dL (10.7-15.3) L D 01/07/18 05:05 Hct 30.4 % (32.4-45.2) L 01/07/18 05:05 MCV 85.1 fl (80-96) 01/07/18 05:05 MCHC 33.1 g/dl (32.0-36.0) 01/07/18 05:05 RDW 16.2 % (11.6-15.6) H 01/07/18 05:05 Plt Count 288 K/MM3 (134-434) 01/07/18 05:05 MPV 9.6 fl (7.5-11.1) 01/07/18 05:05 CMP Sodium 140 mmol/L (136-145) 01/07/18 05:05 Potassium 4.6 mmol/L (3.5-5.1) 01/07/18 05:05 Chloride 102 mmol/L (98-107) 01/07/18 05:05 Carbon Dioxide 27 mmol/L (21-32) 01/07/18 05:05 Anion Gap 11 (8-16) 01/07/18 05:05 BUN 23 mg/dL (7-18) H 01/07/18 05:05 Creatinine 1.0 mg/dL (0.55-1.02) 01/07/18 05:05 Creat Clearance w eGFR 52.69 (>60) 01/07/18 05:05 Random Glucose 77 mg/dL (74-106) 01/07/18 05:05 Calcium 8.1 mg/dL (8.5-10.1) L 01/07/18 05:05 Total Bilirubin 0.4 mg/dL (0.2-1.0) 01/07/18 05:05 AST 42 U/L (15-37) H 01/07/18 05:05 ALT 16 U/L (12-78) 01/07/18 05:05 Alkaline Phosphatase 77 U/L (45-117) 01/07/18 05:05 Total Protein 4.8 g/dl (6.4-8.2) L 01/07/18 05:05 Albumin 2.2 g/dl (3.4-5.0) L 01/07/18 05:05 CARDIAC ENZYMES Creatine Kinase 47 IU/L (26-192) 01/06/18 11:50 Troponin I < 0.02 ng/ml (0.00-0.05) 01/06/18 11:50 Assessment: This is an 87 year old female with PMHx of ovarian cancer with peritoneal carcinomatosis, a.fib on eliquis, diastolic LV dysfunction, chronic back pain with multiple vertebral fractures, sick sinus syndrome s/p PPM, COPD, who presented to the ED with b/l lower extremity swelling and abdominal swelling. Plan: 1) Acute exacerbation of diastolic heart failure - Increased BNP, b/l lower extremity pitting edema with ascites - Lasix 40mg IVP daily - Daily weights - Strict I&O - O2 via nc prn - F/u cardiology consult 2) Ascites - Mild to moderate amount on ultrasound - 2/2 failure vs. progression of disease? - F/u IR consult for possible drainage 3) B/l lower extremity swelling - F/u doppler to r/o DVT 4) Ovarian cancer with peritoneal carcinomatosis - Now with ascites, possible progression of disease - Last Ca 125 wnl - F/u Ca 125 - Will need CTAP for further evaluation for progression of disease (will need with IV contrast). Can wait a day or two per oncology - Appreciate oncology consult 5) Paroxysmal a.fib - Continue eliquis 2.5mg po bid 6) Sick sinus syndrome s/p PPM 7) COPD - No evidence of acute exacerbation 8) F/E/N: - Sodium controlled diet - Monitor electrolytes - Hyperkalemia: resolved 9) Prophylaxis: - On Eliquis 10) Dispo: - Requires continued inpatient care CODE STATUS: FULL CODE Visit type - Emergency Visit Emergency Visit: Yes ED Registration Date: 01/06/18 Care time: The patient presented to the Emergency Department on the above date and was hospitalized for further evaluation of their emergent condition. - New Patient This patient is new to me today: No - Critical Care Critical Care patient: No
--- NOTE | 2018-01-07 20:07 | EKG ---
Test Reason : Blood Pressure : / mmHG Vent. Rate : 067 BPM Atrial Rate : 067 BPM P-R Int : 186 ms QRS Dur : 082 ms QT Int : 450 ms P-R-T Axes : -22 007 017 degrees QTc Int : 475 ms Atrial-paced rhythm ABNORMAL ECG WHEN COMPARED WITH ECG OF 20-SEP-2017 11:34, ELECTRONIC ATRIAL PACEMAKER HAS REPLACED SINUS RHYTHM Confirmed by CHE GRIFFIN MD [id number]) on 01/07/2018 8:06:32 PM Referred By: Confirmed By:CHE GRIFFIN MD
[2018-01-07] MEDS: TEMAZEPAM 15 MG CAPSULE PO PRN (21:36)
[2018-01-07] MEDS: ATORVASTATIN CA 10 MG TABLET (FP) PO SCH (21:36)
[2018-01-07] MEDS ORDERED: POLYETHYLENE GLYCOL 3350 119 GM BTL PO ONE (21:45)
[2018-01-08 06:35] LABS: HEMATOCRIT 31.2 % (32.4-45.2); HEMOGLOBIN 10.2 GM/dL (10.7-15.3); MCH 27.8 pg (25.7-33.7); MCHC 32.6 g/dl (32.0-36.0); MEAN CELL VOLUME 85.3 fl (80-96); MEAN PLT VOLUME 9.3 fl (7.5-11.1); PLATELET COUNT 288 K/MM3 (134-434); RBC 3.66 M/mm3 (3.60-5.2); RDW 15.9 % (11.6-15.6); WHITE BLOOD COUNT 7.1 K/mm3 (4.0-10.0)
[2018-01-08 07:00] LABS: ALBUMIN 2.2 g/dl (3.4-5.0); ALK PHOS 75 U/L (45-117); ANION GAP 10 (8-16); BILIRUBIN,TOTAL 0.3 mg/dL (0.2-1.0); BLOOD UREA NITROGEN 26 mg/dL (7-18); CALCIUM 8.2 mg/dL (8.5-10.1); CHLORIDE 102 mmol/L (98-107); CO2 29 mmol/L (21-32); CREATININE 1.3 mg/dL (0.55-1.02); GLUCOSE,RANDOM 86 mg/dL (74-106); POTASSIUM 4.3 mmol/L (3.5-5.1); SGOT/AST 46 U/L (15-37); SGPT/ALT 14 U/L (12-78); SODIUM 141 mmol/L (136-145); TOT PROT 5.1 g/dl (6.4-8.2)
[2018-01-08] MEDS: ALBUTEROL SO4 0.083% IH SOL 2.5 MG/3 ML VIAL.NEB. NEB PRN (07:52)
[2018-01-08] MEDS ORDERED: PT OWN MED DRAWER 7, Y5N ONE ×2 (09:47→20:37)
[2018-01-08] MEDS: SOTALOL HCL 80 MG TABLET (FP) PO SCH ×2 (09:49→21:20)
[2018-01-08] MEDS: APIXABAN 2.5 MG TABLET PO SCH (09:49)
[2018-01-08] MEDS: amLODIPine BESYLATE 10 MG TABLET (FP) PO SCH (09:49)
--- NOTE | 2018-01-08 09:49 | PN ---
Progress Note, Physician Chief Complaint: Feels better History of Present Illness: Patient was seen and examined. Awake and alert. Chart was reviewed Denies chest pain, shortness of breath or palpitations Pedal edema persists but improving - Current Medication List Current Medications: Active Medications Albuterol Sulfate (Ventolin 0.083% Nebulizer Soln -) 1 amp NEB Q6H PRN PRN Reason: SHORT OF BREATH/WHEEZING Last Admin: 01/08/18 07:52 Dose: 1 amp Amlodipine Besylate (Norvasc -) 10 mg PO DAILY [facility] Last Admin: 01/07/18 09:39 Dose: 10 mg Apixaban (Eliquis -) 2.5 mg PO BID [facility] Last Admin: 01/07/18 21:37 Dose: 2.5 mg Atorvastatin Calcium (Lipitor -) 10 mg PO HS [facility] Last Admin: 01/07/18 21:36 Dose: 10 mg Furosemide (Lasix Injection -) 40 mg IVPUSH DAILY [facility] Last Admin: 01/07/18 09:39 Dose: 40 mg Non-Formulary Medication (Calcium Carb/Magnesium Oxid/D3 [Calcium Magnesium + D Tablet]) 15 ml PO DAILY [facility] Sotalol HCl (Betapace -) 80 mg PO BID [facility] Last Admin: 01/07/18 21:36 Dose: 80 mg Temazepam (Restoril -) 15 mg PO HS PRN PRN Reason: INSOMNIA Last Admin: 01/07/18 21:36 Dose: 15 mg - Objective Vital Signs: Vital Signs Temperature 98.0 F 01/08/18 09:17 Pulse Rate 65 01/08/18 09:17 Respiratory Rate 20 01/08/18 09:17 Blood Pressure 120/56 01/08/18 09:17 O2 Sat by Pulse Oximetry (%) 94 L 01/08/18 09:00 Eyes: Yes: PERRL HENT: Yes: Atraumatic Neck: Yes: Supple Cardiovascular: Yes: Regular Rate and Rhythm, S1, S2 Respiratory: Yes: Diminished Gastrointestinal: Yes: Ascites, Distention Edema: Yes Edema: LLE: 1+, RLE: 1+ Additional Findings/Remarks: - Review of Systems Constitutional: denies: Chills, Fever Cardiovascular: denies: Chest Pain, Palpitations, Shortness of Breath Respiratory: denies: Cough, Hemoptysis, Orthopnea, PND, SOB, SOB on Exertion Gastrointestinal: reports: Bloating. denies: Abdominal Pain, Constipation, Diarrhea, Melena, Nausea, Rectal Bleeding, Vomiting Genitourinary: denies: Dysuria, Hematuria Neurological: denies: Dizziness, Headache, Seizure, Syncope Labs: CBC, BMP 01/08/18 06:05 01/08/18 06:05 Problem List - Problems (1) Pedal edema Code(s): R60.0 - LOCALIZED EDEMA (2) Diastolic dysfunction Code(s): I51.9 - HEART DISEASE, UNSPECIFIED (3) History of pacemaker Code(s): Z95.0 - PRESENCE OF CARDIAC PACEMAKER (4) Ovarian cancer Code(s): C56.9 - MALIGNANT NEOPLASM OF UNSPECIFIED OVARY (5) Paroxysmal atrial tachycardia Code(s): I47.1 - SUPRAVENTRICULAR TACHYCARDIA (6) Sick sinus syndrome with tachycardia Code(s): I49.5 - SICK SINUS SYNDROME (7) Ascites, malignant Code(s): R18.0 - MALIGNANT ASCITES (8) Atrial fibrillation Code(s): I48.91 - UNSPECIFIED ATRIAL FIBRILLATION Qualifiers: Atrial fibrillation type: paroxysmal Qualified Code(s): I48.0 - Paroxysmal atrial fibrillation (9) Hyperlipidemia Code(s): E78.5 - HYPERLIPIDEMIA, UNSPECIFIED Qualifiers: Hyperlipidemia type: pure hypercholesterolemia Qualified Code(s): E78.00 - Pure hypercholesterolemia, unspecified; E78.0 - Pure hypercholesterolemia (10) Hypertension Code(s): I10 - ESSENTIAL (PRIMARY) HYPERTENSION Qualifiers: Hypertension type: essential hypertension Qualified Code(s): I10 - Essential (primary) hypertension (11) 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 - SECONDARY MALIGNANT NEOPLASM OF RETROPERITON AND PERITONEUM; C80.1 - MALIGNANT (PRIMARY) NEOPLASM, UNSPECIFIED Assessment/Plan 1. Pedal edema with underlying acute on chronic diastolic LV failure 2. History of COPD 3. Paroxysmal atrial fibrillation [id number] score of 6 on NOAC 4. Sick sinus syndrome PPM 5. History of paroxysmal atrial tachycardia 6. Hypertension 7. Hyperlipidemia 8. Ovarian CA with peritoneal carcinomatosis s/p chemotherapy 9. Small to moderate ascites PLAN: 1. Diuretics - IV Lasix with monitoring diuretic response, renal function and electrolytes 2. Continue Eliquis 2.5 mg BID 3. Continue Sotalol 80 mg BID 4. Continue Amlodipine 10 mg QD 5. Hematology/Oncology follow up 6. Lower extremity revealed no DVT 7. Transthoracic echocardiography to assess LV/RV and valvular function Further plans are to follow Florencio Tejada MD
[2018-01-08] MEDS: FUROSEMIDE 40 MG/4 ML INJECTABLE VIAL IVPUSH SCH (09:57)
--- NOTE | 2018-01-08 15:38 | PN ---
Physical Exam: SUBJECTIVE: Patient seen and examined. She states she feels weak and has lost her appetite. Appears comfortable laying in bed, no resp distress, tachypnea OBJECTIVE: Vital Signs Period Temp Pulse Resp BP Sys/Amado Pulse Ox Last 24 Hr 97.5 F-99 F 63-66 20-20 104-120/44-56 94-94 PE Neuro: alert, awake, cn 2-12intact Pulm: diminished +NC no cough wheezing CV: s1 s2 irregular rhythm Abd: distended, soft nd Ext: + 3 pitting edema b/l Laboratory Results - last 24 hr 01/08/18 01/08/18 06:05 06:05 WBC 7.1 RBC 3.66 Hgb 10.2 L Hct 31.2 L MCV 85.3 MCH 27.8 MCHC 32.6 RDW 15.9 H Plt Count 288 MPV 9.3 Sodium 141 Potassium 4.3 Chloride 102 Carbon Dioxide 29 Anion Gap 10 BUN 26 H Creatinine 1.3 H Creat Clearance w eGFR 38.93 Random Glucose 86 Calcium 8.2 L Total Bilirubin 0.3 D AST 46 H ALT 14 Alkaline Phosphatase 75 Total Protein 5.1 L Albumin 2.2 L Active Medications Generic Name Dose Route Start Last Admin Trade Name Freq PRN Reason Stop Dose Admin Albuterol Sulfate 1 amp 01/06/18 17:57 01/08/18 07:52 Ventolin 0.083% Nebulizer Soln - NEB 1 amp Q6H PRN Administration SHORT OF BREATH/WHEEZING Amlodipine Besylate 10 mg 01/07/18 10:00 01/08/18 09:49 Norvasc - PO 10 mg DAILY [facility] Administration Apixaban 2.5 mg 01/06/18 22:00 01/08/18 09:49 Eliquis - PO 2.5 mg BID [facility] Administration Atorvastatin Calcium 10 mg 01/06/18 22:00 01/07/18 21:36 Lipitor - PO 10 mg HS [facility] Administration Furosemide 40 mg 01/07/18 10:00 01/08/18 09:57 Lasix Injection - IVPUSH 40 mg DAILY [facility] Administration Non-Formulary Medication 15 ml 01/07/18 10:00 Calcium Carb/Magnesium Oxid/D3 [Calcium Magnesium + D Tablet] PO DAILY [facility] Sotalol HCl 80 mg 01/06/18 22:00 01/08/18 09:49 Betapace - PO 80 mg BID [facility] Administration Temazepam 15 mg 01/06/18 15:12 01/07/18 21:36 Restoril - PO 15 mg HS PRN Administration INSOMNIA Assessment: 87 year old female with PMHx of ovarian cancer with peritoneal carcinomatosis, a.fib on eliquis, diastolic LV dysfunction, chronic back pain with multiple vertebral fractures, sick sinus syndrome s/p PPM, COPD, admitted with b/l lower extremity swelling and abdominal swelling. Plan: 1. Acute exacerbation of diastolic heart failure - Continue lasix 40mg IV daily 2. Ascites - Mild to moderate amount on ultrasound - 12/01 failure vs. progression of disease? - Per d/w Dr. Whiteside will hold Eliquis for tap on Monday 3. B/l lower extremity swelling - US doppler neg for DVT 4. Ovarian cancer with peritoneal carcinomatosis - Now with ascites, possible progression of disease - Last Ca 125 wnl - F/u Ca 125 - Will need CTAP for further evaluation for progression of disease (will need with IV contrast), caution cr rising 5. Paroxysmal a.fib - Hold eliquis 2.5mg for paracentesis 6. Sick sinus syndrome s/p PPM 7. COPD - No evidence of acute exacerbation 8. Prophylaxis - Holding Eliquis Visit type - Emergency Visit Emergency Visit: Yes ED Registration Date: 01/06/18 Care time: The patient presented to the Emergency Department on the above date and was hospitalized for further evaluation of their emergent condition. - New Patient This patient is new to me today: Yes Date on this admission: 01/08/18 - Critical Care Critical Care patient: No
--- NOTE | 2018-01-08 17:47 | PN ---
Progress Note (short form) - Note Progress Note: Patient seen and examined fatgue. no appetite. ascites Last Vital Signs Temp Pulse Resp BP Pulse Ox 98.7 F 66 20 113/54 94 L 01/08/18 14:00 01/08/18 14:00 01/08/18 14:00 01/08/18 14:00 01/08/18 09:00 Cor: RSR, No murmurs, No gallops Lungs: Clear to P&A Abd: Soft, Normal bowel sounds, No organomegaly Ext:No significant edema Abnormal Lab Results 01/08/18 01/08/18 06:05 06:05 Hgb 10.2 L Hct 31.2 L RDW 15.9 H BUN 26 H Creatinine 1.3 H Calcium 8.2 L AST 46 H Total Protein 5.1 L Albumin 2.2 L Active Medications Generic Name Dose Route Start Last Admin Trade Name Freq PRN Reason Stop Dose Admin Albuterol Sulfate 1 amp 01/06/18 17:57 01/08/18 07:52 Ventolin 0.083% Nebulizer Soln - NEB 1 amp Q6H PRN Administration SHORT OF BREATH/WHEEZING Amlodipine Besylate 10 mg 01/07/18 10:00 01/08/18 09:49 Norvasc - PO 10 mg DAILY [facility] Administration Apixaban 2.5 mg 01/06/18 22:00 01/08/18 09:49 Eliquis - PO 2.5 mg BID [facility] Administration Atorvastatin Calcium 10 mg 01/06/18 22:00 01/07/18 21:36 Lipitor - PO 10 mg HS [facility] Administration Furosemide 40 mg 01/07/18 10:00 01/08/18 09:57 Lasix Injection - IVPUSH 40 mg DAILY [facility] Administration Non-Formulary Medication 15 ml 01/07/18 10:00 Calcium Carb/Magnesium Oxid/D3 [Calcium Magnesium + D Tablet] PO DAILY [facility] Sotalol HCl 80 mg 01/06/18 22:00 01/08/18 09:49 Betapace - PO 80 mg BID [facility] Administration Temazepam 15 mg 01/06/18 15:12 01/07/18 21:36 Restoril - PO 15 mg HS PRN Administration INSOMNIA A/P 87 y/o patient with h/o high grade mullerian cancer, 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 last dose 04/15 recent rise in cea ct scans 08/15 --yamilka now with ascites---rt. heart failure vs progressive disease for paracentesis/cytology on mon--check er/pr/her2 eliquis on hold for procedure ? everolimus ? long term placement ? peritoneal drain discussed consideration of hospice aswell --patient reluctant to consider snf placement /supportive care/?? everolimus may need peritoneal drain if rapid reaccumulation discussed plan with son
[2018-01-08] MEDS: ATORVASTATIN CA 10 MG TABLET (FP) PO SCH (21:20)
[2018-01-08] MEDS: TEMAZEPAM 15 MG CAPSULE PO PRN (21:20)
[2018-01-09 08:09] LABS: ANION GAP 10 (8-16); BLOOD UREA NITROGEN 26 mg/dL (7-18); CALCIUM 8.6 mg/dL (8.5-10.1); CHLORIDE 99 mmol/L (98-107); CO2 31 mmol/L (21-32); CREATININE 1.2 mg/dL (0.55-1.02); GLUCOSE,RANDOM 82 mg/dL (74-106); POTASSIUM 4.3 mmol/L (3.5-5.1); SODIUM 140 mmol/L (136-145)
[2018-01-09] MEDS: FUROSEMIDE 40 MG/4 ML INJECTABLE VIAL IVPUSH SCH (09:26)
[2018-01-09] MEDS: SOTALOL HCL 80 MG TABLET (FP) PO SCH ×2 (09:52→21:19)
[2018-01-09] MEDS: amLODIPine BESYLATE 10 MG TABLET (FP) PO SCH (09:52)
--- NOTE | 2018-01-09 12:27 | PN ---
Progress Note (short form) - Note Progress Note: Chief Complaint: Events noted, notes reviewed, denies any chest pain but reports persistent dyspnea, abdominal distention and peripheral edema History of Present Illness: Seen and examined on telemetry. Events noted, notes reviewed, denies any chest pain but reports persistent dyspnea, abdominal distention and peripheral edema Repeat echocardiography pending Echocardiography dated 09/20/17 revealed normal LV systolic function with mild MR and TR with RVSP 30-40 mmHg Medications: Current Medications Albuterol Sulfate (Ventolin 0.083% Nebulizer Soln -) 1 amp NEB Q6H PRN PRN Reason: SHORT OF BREATH/WHEEZING Last Admin: 01/08/18 07:52 Dose: 1 amp Amlodipine Besylate (Norvasc -) 10 mg PO DAILY [facility] Last Admin: 01/09/18 09:52 Dose: 10 mg Apixaban (Eliquis -) 2.5 mg PO BID [facility] Last Admin: 01/08/18 09:49 Dose: 2.5 mg Atorvastatin Calcium (Lipitor -) 10 mg PO HS [facility] Last Admin: 01/08/18 21:20 Dose: 10 mg Furosemide (Lasix Injection -) 40 mg IVPUSH DAILY [facility] Last Admin: 01/09/18 09:26 Dose: 40 mg Non-Formulary Medication (Calcium Carb/Magnesium Oxid/D3 [Calcium Magnesium + D Tablet]) 15 ml PO DAILY [facility] Sotalol HCl (Betapace -) 80 mg PO BID [facility] Last Admin: 01/09/18 09:52 Dose: 80 mg Temazepam (Restoril -) 15 mg PO HS PRN PRN Reason: INSOMNIA Last Admin: 01/08/18 21:20 Dose: 15 mg Review of Systems Cardiovascular: As noted above Respiratory: denies: Cough or Sputum Production Gastrointestinal: denies: Nausea, Vomiting, Diarrhea, Constipation or Abdominal Discomfort but reports Abdominal Distention Musculoskeletal: No Symptoms Reported Endocrine: No Symptoms Reported Vital Signs: Last Vital Signs Temp Pulse Resp BP Pulse Ox 97.5 F L 64 20 122/69 93 L 01/09/18 09:00 01/09/18 09:00 01/09/18 09:00 01/09/18 09:00 01/09/18 09:00 Intake & Output 01/06/18 01/07/18 01/08/18 01/09/18 22:59 23:59 23:59 23:59 Intake Total 40 Balance 40 Weight 109 lb 9.6 oz 118 lb 2 oz Constitutional: No Distress, Calm, Thin Neck: Supple Negative JVD No Bruit Respiratory: Diminished Breath Sounds at the Bases Cardiovascular: S1 S2 Regular Rate and Rhythm Grade 1/6 MARGARET Gastrointestinal: Soft Benign Distended Normal Bowel Sounds Ext: 1+ Edema Labs: CBC, BMP 01/08/18 06:05 01/09/18 06:27 INR, PTT INR 1.15 (0.82-1.09) H 01/06/18 11:50 Assessment/Plan ASSESSMENT: 1. Ascitis, pedal edema differential diagnosis includes ovarian CA with peritoneal carcinomatosis/ascitis versus diastolic LV dysfunction with class II NYHA classification LV failure/pulmonary HTN 2. CAD angina pectoris 3. Sinus node dysfunction with tachy-mohan syndrome and paroxysmal atrial fibrillation, post PPM implant 4. Paroxysmal atrial fibrillation [id number] score of 6, on NOACs 5. History of paroxysmal atrial tachycardia 6. HTN 7. Hyperlipidemia 8. History of TIA 9. Carotid stenosis, moderate in severity 10. CKD PLAN: 1. Continue Betapace therapy with close monitoring of QTc interval 2. Continue Norvasc but decrease dosage 3. Recommend initiation of ACEI or ARBS unless it is absolutely contraindicated with close monitoring of renal function 4. Continue Eliquis at the above noted dosage 5. Continue Lipitor 6. Continue IV Lasix 7. Echocardiography to evaluate LV systolic function and RVSP measurement 8. Plan to proceed with paracentesis for further management and evaluation of the above noted ascitis Yamilka Wilson
--- NOTE | 2018-01-09 13:28 | PN ---
Physical Exam: SUBJECTIVE: Patient seen and examined. PT complains of bowel incontinence when she coughs and bowel movements not coming out all together. Stool is formed however OBJECTIVE: Vital Signs Period Temp Pulse Resp BP Sys/Amado Pulse Ox Last 24 Hr 97.5 F-99.3 F 60-66 18-20 106-122/48-69 93-93 PE Neuro: alert, awake, cn 2-12intact Pulm: diminished +NC CV: s1 s2 irregular rhythm Abd: distended, soft nd Ext: + 3 pitting edema b/l Laboratory Results - last 24 hr 01/06/18 01/08/18 01/09/18 18:15 06:05 06:27 Sodium 140 Potassium 4.3 Chloride 99 Carbon Dioxide 31 Anion Gap 10 BUN 26 H Creatinine 1.2 H Random Glucose 82 Calcium 8.6 CA 125 Antigen 1515.0 H 1041.0 H Active Medications Generic Name Dose Route Start Last Admin Trade Name Freq PRN Reason Stop Dose Admin Albuterol Sulfate 1 amp 01/06/18 17:57 01/08/18 07:52 Ventolin 0.083% Nebulizer Soln - NEB 1 amp Q6H PRN Administration SHORT OF BREATH/WHEEZING Amlodipine Besylate 10 mg 01/07/18 10:00 01/09/18 09:52 Norvasc - PO 10 mg DAILY [facility] Administration Apixaban 2.5 mg 01/06/18 22:00 01/08/18 09:49 Eliquis - PO 2.5 mg BID [facility] Administration Atorvastatin Calcium 10 mg 01/06/18 22:00 01/08/18 21:20 Lipitor - PO 10 mg HS [facility] Administration Furosemide 40 mg 01/07/18 10:00 01/09/18 09:26 Lasix Injection - IVPUSH 40 mg DAILY [facility] Administration Non-Formulary Medication 15 ml 01/07/18 10:00 Calcium Carb/Magnesium Oxid/D3 [Calcium Magnesium + D Tablet] PO DAILY [facility] Sotalol HCl 80 mg 01/06/18 22:00 01/09/18 09:52 Betapace - PO 80 mg BID [facility] Administration Temazepam 15 mg 01/06/18 15:12 01/08/18 21:20 Restoril - PO 15 mg HS PRN Administration INSOMNIA Assessment: 87 year old female with PMHx of ovarian cancer with peritoneal carcinomatosis, a.fib on eliquis, diastolic LV dysfunction, chronic back pain with multiple vertebral fractures, sick sinus syndrome s/p PPM, COPD, admitted with b/l lower extremity swelling and abdominal swelling. Plan: 1. Acute exacerbation of diastolic heart failure - Continue lasix 40mg IV daily - Albuterol nebs prn 2. Ascites - For paracentesis tomorrow - Eliquis on hold since 01/08 HS dose - 2/2 failure vs. progression of disease? 3. B/l lower extremity swelling - US doppler neg for DVT 4. Ovarian cancer with peritoneal carcinomatosis - Follow up CTAP today - Repeat Ca 125 noted 5. Paroxysmal a.fib - Hold eliquis 2.5mg for paracentesis tomorrow 6. Sick sinus syndrome s/p PPM 7. COPD - No evidence of acute exacerbation 8. Prophylaxis - Holding Eliquis 9. Ileus? - Due to above - Monitor bowel movements Visit type - Emergency Visit Emergency Visit: Yes ED Registration Date: 01/06/18 Care time: The patient presented to the Emergency Department on the above date and was hospitalized for further evaluation of their emergent condition. - New Patient This patient is new to me today: No - Critical Care Critical Care patient: No
[2018-01-09] MEDS: ALBUTEROL SO4 0.083% IH SOL 2.5 MG/3 ML VIAL.NEB. NEB PRN ×2 (16:34→22:49)
[2018-01-09] MEDS ORDERED: BENZOCAINE/MENTH/CETYLPYRD CL 1 EACH LOZENGE MM PRN (21:04)
[2018-01-09] MEDS: TEMAZEPAM 15 MG CAPSULE PO PRN (21:19)
[2018-01-09] MEDS: ATORVASTATIN CA 10 MG TABLET (FP) PO SCH (21:20)
[2018-01-10 06:50] LABS: INR 0.99 (0.82-1.09); PROTHROMBIN TIME (PATIENT) 11.2 SEC (9.98-11.88)
[2018-01-10 07:38] LABS: ANION GAP 11 (8-16); BLOOD UREA NITROGEN 30 mg/dL (7-18); CALCIUM 7.9 mg/dL (8.5-10.1); CHLORIDE 98 mmol/L (98-107); CO2 29 mmol/L (21-32); CREATININE 1.1 mg/dL (0.55-1.02); GLUCOSE,RANDOM 86 mg/dL (74-106); POTASSIUM 4.3 mmol/L (3.5-5.1); SODIUM 138 mmol/L (136-145)
[2018-01-10] MEDS: amLODIPine BESYLATE 10 MG TABLET (FP) PO SCH (09:41)
[2018-01-10] MEDS: FUROSEMIDE 40 MG/4 ML INJECTABLE VIAL IVPUSH SCH (09:41)
[2018-01-10] MEDS: SOTALOL HCL 80 MG TABLET (FP) PO SCH ×2 (09:41→21:46)
--- NOTE | 2018-01-10 11:05 | PN ---
Progress Note (short form) - Note Progress Note: c/o nonproductive cough. slightly worse since procedure. abdomen feels somewhat better. denies Cp, SOB, fever, chills, N/V/C/D Current Medications Generic Name Dose Route Start Last Admin Trade Name Freq PRN Reason Stop Dose Admin Albuterol Sulfate 1 amp 01/09/18 15:48 01/09/18 22:49 Ventolin 0.083% Nebulizer Soln - NEB 1 amp Q6H PRN Administration SHORT OF BREATH/WHEEZING Amlodipine Besylate 10 mg 01/07/18 10:00 01/10/18 09:41 Norvasc - PO 10 mg DAILY [facility] Administration Apixaban 2.5 mg 01/06/18 22:00 01/08/18 09:49 Eliquis - PO 2.5 mg BID [facility] Administration Atorvastatin Calcium 10 mg 01/06/18 22:00 01/09/18 21:20 Lipitor - PO 10 mg HS [facility] Administration Benzocaine/Menthol 1 each 01/09/18 21:04 Cepacol Lozenge - MM Q4H PRN SORE THROAT Furosemide 40 mg 01/07/18 10:00 01/10/18 09:41 Lasix Injection - IVPUSH 40 mg DAILY [facility] Administration Sotalol HCl 80 mg 01/06/18 22:00 01/10/18 09:41 Betapace - PO 80 mg BID [facility] Administration Temazepam 15 mg 01/06/18 15:12 01/09/18 21:19 Restoril - PO 15 mg HS PRN Administration INSOMNIA Last Vital Signs Temp Pulse Resp BP Pulse Ox 98.8 F 66 18 112/48 93 L 01/10/18 10:00 01/10/18 10:00 01/10/18 10:00 01/10/18 10:00 01/09/18 20:31 Intake & Output 01/07/18 01/08/18 01/09/18 01/10/18 23:59 23:59 23:59 23:59 Intake Total 40 110 480 Balance 40 110 480 Weight 109 lb 9.6 oz 118 lb 2 oz 120 lb General NAD CV S1 S2 irregular Lungs CTA B/L no wheezing or crcakles. poor inspiratory effort Abdomen soft +distended, slightly tender. bandage over RLQ bandage c/d/i +BS Extremities no pedal edema CBCD WBC 7.1 K/mm3 (4.0-10.0) 01/08/18 06:05 RBC 3.66 M/mm3 (3.60-5.2) 01/08/18 06:05 Hgb 10.2 GM/dL (10.7-15.3) L 01/08/18 06:05 Hct 31.2 % (32.4-45.2) L 01/08/18 06:05 MCV 85.3 fl (80-96) 01/08/18 06:05 MCHC 32.6 g/dl (32.0-36.0) 01/08/18 06:05 RDW 15.9 % (11.6-15.6) H 01/08/18 06:05 Plt Count 288 K/MM3 (134-434) 01/08/18 06:05 MPV 9.3 fl (7.5-11.1) 01/08/18 06:05 CMP Sodium 138 mmol/L (136-145) 01/10/18 06:05 Potassium 4.3 mmol/L (3.5-5.1) 01/10/18 06:05 Chloride 98 mmol/L (98-107) 01/10/18 06:05 Carbon Dioxide 29 mmol/L (21-32) 01/10/18 06:05 Anion Gap 11 (8-16) 01/10/18 06:05 BUN 30 mg/dL (7-18) H 01/10/18 06:05 Creatinine 1.1 mg/dL (0.55-1.02) H 01/10/18 06:05 Creat Clearance w eGFR 38.93 (>60) 01/08/18 06:05 Calcium 7.9 mg/dL (8.5-10.1) L 01/10/18 06:05 Total Bilirubin 0.3 mg/dL (0.2-1.0) D 01/08/18 06:05 AST 46 U/L (15-37) H 01/08/18 06:05 ALT 14 U/L (12-78) 01/08/18 06:05 Alkaline Phosphatase 75 U/L (45-117) 01/08/18 06:05 Total Protein 5.1 g/dl (6.4-8.2) L 01/08/18 06:05 Albumin 2.2 g/dl (3.4-5.0) L 01/08/18 06:05 Assessment and PLan: 87 year old female with PMHx of ovarian cancer with peritoneal carcinomatosis, a.fib on eliquis, diastolic LV dysfunction, chronic back pain with multiple vertebral fractures, sick sinus syndrome s/p PPM, COPD, admitted with b/l lower extremity swelling and abdominal swelling. 1. Acute exacerbation of diastolic heart failure-clinically euvolemic. no SOB or pedal edema. can switch lasix to po. daily weights. 2. Ascites- s/p paracentesis today with 2.5L removal. high suspicion for malignancy. no sign of infection. will f/u Cx. will need to f/u with oncology outpatient for results on cytology. may need to consider peritoneal drain if rapidly re-accumulates 3. Constipation- small BM yesterday. cont stool softeners. now with large volume removed should improve 4. B/l lower extremity swelling-resolved. doppler neg for DVT 5. Ovarian cancer with peritoneal carcinomatosis- CA125 elevated. reepat CT showing disease progression with omental caking and ascites. 6. Paroxysmal a.fib- rate controlled. on sotalol. will re-start eliquis tonight 7. Sick sinus syndrome s/p PPM 8. COPD- No evidence of acute exacerbation on home O2 2-3L NC. continut 9. DVT Prophylaxis - eliquis 10. PT assessment in the AM. may require SCARLETT. pt is agreeable if needed. will likely be ready for discharge tomorrow pending PT eval. 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 - New Patient This patient is new to me today: Yes Date on this admission: 01/10/18 - Critical Care Critical Care patient: No - Discharge Referral Referred to [facility] Med P.C.: No
--- NOTE | 2018-01-10 13:04 | PN ---
Progress Note, Physician History of Present Illness: Underwent paracentesis and diuresis with improvement of abd distension, LE edema. - Current Medication List Current Medications: Active Medications Albuterol Sulfate (Ventolin 0.083% Nebulizer Soln -) 1 amp NEB Q6H PRN PRN Reason: SHORT OF BREATH/WHEEZING Last Admin: 01/09/18 22:49 Dose: 1 amp Amlodipine Besylate (Norvasc -) 10 mg PO DAILY [facility] Last Admin: 01/10/18 09:41 Dose: 10 mg Apixaban (Eliquis -) 2.5 mg PO BID [facility] Last Admin: 01/08/18 09:49 Dose: 2.5 mg Atorvastatin Calcium (Lipitor -) 10 mg PO HS [facility] Last Admin: 01/09/18 21:20 Dose: 10 mg Benzocaine/Menthol (Cepacol Lozenge -) 1 each MM Q4H PRN PRN Reason: SORE THROAT Furosemide (Lasix Injection -) 40 mg IVPUSH DAILY [facility] Last Admin: 01/10/18 09:41 Dose: 40 mg Sotalol HCl (Betapace -) 80 mg PO BID [facility] Last Admin: 01/10/18 09:41 Dose: 80 mg Temazepam (Restoril -) 15 mg PO HS PRN PRN Reason: INSOMNIA Last Admin: 01/09/18 21:19 Dose: 15 mg - Objective Vital Signs: Vital Signs Temperature 98.8 F 01/10/18 10:00 Pulse Rate 66 01/10/18 10:00 Respiratory Rate 18 01/10/18 10:00 Blood Pressure 112/48 01/10/18 10:00 O2 Sat by Pulse Oximetry (%) 92 L 01/10/18 09:00 Constitutional: Yes: No Distress, Calm, Thin Neck: Yes: Supple Cardiovascular: Yes: Regular Rate and Rhythm Respiratory: Yes: Regular, Diminished Gastrointestinal: Yes: Soft, Hypoactive Bowel Sounds Edema: Yes Edema: LLE: Trace, RLE: Trace Labs: CBC, BMP 01/08/18 06:05 01/10/18 06:05 INR, PTT INR 0.99 (0.82-1.09) 01/10/18 06:05 Problem List - Problems (1) Diastolic dysfunction Code(s): I51.9 - HEART DISEASE, UNSPECIFIED (2) History of pacemaker Code(s): Z95.0 - PRESENCE OF CARDIAC PACEMAKER (3) Paroxysmal atrial tachycardia Code(s): I47.1 - SUPRAVENTRICULAR TACHYCARDIA (4) Sick sinus syndrome with tachycardia Code(s): I49.5 - SICK SINUS SYNDROME (5) TIA (transient ischemic attack) Code(s): G45.9 - TRANSIENT CEREBRAL ISCHEMIC ATTACK, UNSPECIFIED Qualifiers: Transient cerebral ischemia type: unspecified Qualified Code(s): G45.9 - Transient cerebral ischemic attack, unspecified (6) Ascites, malignant Code(s): R18.0 - MALIGNANT ASCITES (7) Atrial fibrillation Code(s): I48.91 - UNSPECIFIED ATRIAL FIBRILLATION Qualifiers: Atrial fibrillation type: paroxysmal Qualified Code(s): I48.0 - Paroxysmal atrial fibrillation (8) DVT prophylaxis Code(s): [id number] - (9) Hyperlipidemia Code(s): E78.5 - HYPERLIPIDEMIA, UNSPECIFIED Qualifiers: Hyperlipidemia type: pure hypercholesterolemia Qualified Code(s): E78.00 - Pure hypercholesterolemia, unspecified; E78.0 - Pure hypercholesterolemia (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 Ascitis, pedal edema differential diagnosis includes ovarian CA with peritoneal carcinomatosis/ascitis versus diastolic LV dysfunction with class II NYHA classification LV failure/pulmonary HTN 2. CAD angina pectoris 3. Sinus node dysfunction with tachy-mohan syndrome and paroxysmal atrial fibrillation, post PPM implant 4. Paroxysmal atrial fibrillation [id number] score of 6, on NOACs 5. History of paroxysmal atrial tachycardia 6. HTN 7. Hyperlipidemia 8. History of TIA 9. Carotid stenosis, moderate in severity 10. CKD PLAN: 1. Continue Betapace 80 bid with close monitoring of QTc interval 2. Continue Norvasc 10 qd 3. Recommend initiation of ACEI or ARBS unless it is absolutely contraindicated with close monitoring of renal function 4. Resume Eliquis 2.5 bid tonight post-paracentesis 5. Continue Lipitor 10 qhs 6. Decrease Lasix 20 po qd 7. F/u fluid cytology
[2018-01-10 14:01] LABS: TOTAL PROTEIN,PERITONEAL FLUID 3 gm/dL
[2018-01-10 14:13] LABS: PERITONEAL RBC 437477 /mm3
[2018-01-10 14:53] LABS: PERITONEAL FLUID LYMPHOCYTE 22 %; PERITONEAL FLUID MACROPHAGE 15 %; PERITONEAL FLUID MESOTHELIAL 47 %; PERITONEAL FLUID MONOCYTE 13 %; PERITONEAL FLUID NEUTROPHIL 3 %
--- NOTE | 2018-01-10 17:07 | PN ---
Progress Note (short form) - Note Progress Note: s/p paracentesis today. 2L removed. She feels tired yet to decide on her disp when to be discharged. O/E: general: in NAD, appears fatigued Cor: RSR, No murmurs, No gallops Lungs: Clear to P&A Abd: Soft, Normal bowel sounds, No organomegaly, ascites better Ext:No significant edema neuro:AAOx3 Last Vital Signs Temp Pulse Resp BP Pulse Ox 99.0 F 65 18 103/45 92 L 01/10/18 15:00 01/10/18 15:00 01/10/18 15:00 01/10/18 15:00 01/10/18 09:00 CBC, BMP 01/08/18 06:05 01/10/18 06:05 Current Medications Generic Name Dose Route Start Last Admin Trade Name Freq PRN Reason Stop Dose Admin Albuterol Sulfate 1 amp 01/09/18 15:48 01/09/18 22:49 Ventolin 0.083% Nebulizer Soln - NEB 1 amp Q6H PRN Administration SHORT OF BREATH/WHEEZING Amlodipine Besylate 10 mg 01/07/18 10:00 01/10/18 09:41 Norvasc - PO 10 mg DAILY [facility] Administration Apixaban 2.5 mg 01/06/18 22:00 01/08/18 09:49 Eliquis - PO 2.5 mg BID [facility] Administration Apixaban 2.5 mg 01/10/18 22:00 Eliquis - PO BID [facility] Atorvastatin Calcium 10 mg 01/06/18 22:00 01/09/18 21:20 Lipitor - PO 10 mg HS [facility] Administration Benzocaine/Menthol 1 each 01/09/18 21:04 Cepacol Lozenge - MM Q4H PRN SORE THROAT Furosemide 20 mg 01/11/18 10:00 Lasix - PO DAILY [facility] Sotalol HCl 80 mg 01/06/18 22:00 01/10/18 09:41 Betapace - PO 80 mg BID [facility] Administration Temazepam 15 mg 01/06/18 15:12 01/09/18 21:19 Restoril - PO 15 mg HS PRN Administration INSOMNIA 87 y/o patient with h/o high grade mullerian cancer, diagnosed s/p weekly carbo/ taxol 9 doses in good remission. last dose 04/15 recent rise in cea ct scans 08/15 --yamilka now with ascites-concern for POD. will f/u on cytology treatment plan to be decided PT eval dispo to be determined, pending PT eval.
[2018-01-10] MEDS: APIXABAN 2.5 MG TABLET PO SCH (21:46)
[2018-01-10] MEDS: ATORVASTATIN CA 10 MG TABLET (FP) PO SCH (21:46)
[2018-01-10] MEDS: TEMAZEPAM 15 MG CAPSULE PO PRN (21:54)
[2018-01-11 06:51] LABS: BASO % 0.7 % (0-2.0); EOS % 1.6 % (0-4.5); HEMATOCRIT 28.5 % (32.4-45.2); HEMOGLOBIN 9.3 GM/dL (10.7-15.3); LYMPH % 9.4 % (8-40); MCH 27.6 pg (25.7-33.7); MCHC 32.6 g/dl (32.0-36.0); MEAN CELL VOLUME 84.8 fl (80-96); MEAN PLT VOLUME 9.1 fl (7.5-11.1); MONO % 13.3 % (3.8-10.2); PLATELET COUNT 318 K/MM3 (134-434); RBC 3.36 M/mm3 (3.60-5.2)
[2018-01-11 07:08] LABS: CHLORIDE 99 mmol/L (98-107); POTASSIUM 3.6 mmol/L (3.5-5.1); SODIUM 142 mmol/L (136-145)
[2018-01-11 07:12] LABS: ANION GAP 12 (8-16); BLOOD UREA NITROGEN 21 mg/dL (7-18); CALCIUM 7.9 mg/dL (8.5-10.1); CO2 31 mmol/L (21-32); CREATININE 0.8 mg/dL (0.55-1.02); GLUCOSE,RANDOM 78 mg/dL (74-106)
[2018-01-11] MEDS: amLODIPine BESYLATE 10 MG TABLET (FP) PO SCH (09:08)
[2018-01-11] MEDS: SOTALOL HCL 80 MG TABLET (FP) PO SCH ×2 (09:08→21:40)
[2018-01-11] MEDS: APIXABAN 2.5 MG TABLET PO SCH ×4 (09:08→21:40)
[2018-01-11] MEDS ORDERED: FUROSEMIDE 20 MG TABLET (FP) PO SCH (10:00)
--- NOTE | 2018-01-11 10:25 | PN ---
Progress Note, Physician History of Present Illness: Denies dyspnea, reports improvement of abd distension, LE edema post 2 L paracentesis. - Current Medication List Current Medications: Active Medications Albuterol Sulfate (Ventolin 0.083% Nebulizer Soln -) 1 amp NEB Q6H PRN PRN Reason: SHORT OF BREATH/WHEEZING Last Admin: 01/09/18 22:49 Dose: 1 amp Amlodipine Besylate (Norvasc -) 10 mg PO DAILY [facility] Last Admin: 01/11/18 09:08 Dose: 10 mg Apixaban (Eliquis -) 2.5 mg PO BID [facility] Last Admin: 01/11/18 09:10 Dose: Not Given Apixaban (Eliquis -) 2.5 mg PO BID [facility] Last Admin: 01/11/18 09:08 Dose: 2.5 mg Atorvastatin Calcium (Lipitor -) 10 mg PO HS [facility] Last Admin: 01/10/18 21:46 Dose: 10 mg Benzocaine/Menthol (Cepacol Lozenge -) 1 each MM Q4H PRN PRN Reason: SORE THROAT Furosemide (Lasix -) 20 mg PO DAILY [facility] Last Admin: 01/11/18 09:08 Dose: 20 mg Sotalol HCl (Betapace -) 80 mg PO BID [facility] Last Admin: 01/11/18 09:08 Dose: 80 mg Temazepam (Restoril -) 15 mg PO HS PRN PRN Reason: INSOMNIA Last Admin: 01/10/18 21:54 Dose: 15 mg - Objective Vital Signs: Vital Signs Temperature 98 F 01/11/18 09:09 Pulse Rate 68 01/11/18 09:09 Respiratory Rate 18 01/11/18 09:09 Blood Pressure 114/46 01/11/18 09:09 O2 Sat by Pulse Oximetry (%) 95 01/10/18 20:15 Constitutional: Yes: No Distress, Calm, Thin Neck: Yes: Supple Cardiovascular: Yes: Regular Rate and Rhythm Respiratory: Yes: Regular, Diminished Gastrointestinal: Yes: Normal Bowel Sounds, Soft Edema: No Labs: CBC, BMP 01/11/18 06:15 01/11/18 06:15 INR, PTT INR 0.99 (0.82-1.09) 01/10/18 06:05 - ....Imaging EKG: Report Reviewed (Tele: SR) Problem List - Problems (1) Diastolic dysfunction Code(s): I51.9 - HEART DISEASE, UNSPECIFIED (2) History of pacemaker Code(s): Z95.0 - PRESENCE OF CARDIAC PACEMAKER (3) Paroxysmal atrial tachycardia Code(s): I47.1 - SUPRAVENTRICULAR TACHYCARDIA (4) Sick sinus syndrome with tachycardia Code(s): I49.5 - SICK SINUS SYNDROME (5) TIA (transient ischemic attack) Code(s): G45.9 - TRANSIENT CEREBRAL ISCHEMIC ATTACK, UNSPECIFIED Qualifiers: Transient cerebral ischemia type: unspecified Qualified Code(s): G45.9 - Transient cerebral ischemic attack, unspecified (6) Ascites, malignant Code(s): R18.0 - MALIGNANT ASCITES (7) Atrial fibrillation Code(s): I48.91 - UNSPECIFIED ATRIAL FIBRILLATION Qualifiers: Atrial fibrillation type: paroxysmal Qualified Code(s): I48.0 - Paroxysmal atrial fibrillation (8) DVT prophylaxis Code(s): [id number] - (9) Hyperlipidemia Code(s): E78.5 - HYPERLIPIDEMIA, UNSPECIFIED Qualifiers: Hyperlipidemia type: pure hypercholesterolemia Qualified Code(s): E78.00 - Pure hypercholesterolemia, unspecified; E78.0 - Pure hypercholesterolemia (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 Diastolic dysfunction with pulmonary HTN 3. CAD angina pectoris 4. Sinus node dysfunction with tachy-mohan syndrome and paroxysmal atrial fibrillation, post PPM implant 5. Paroxysmal atrial fibrillation [id number] score of 6, on NOACs 6. History of paroxysmal atrial tachycardia 7. HTN 8. Hyperlipidemia 9. History of TIA 10. Carotid stenosis, moderate in severity 11. Acute on CKD improving PLAN: 1. Continue Betapace 80 bid with close monitoring of QTc interval 2. Continue Norvasc 10 qd 3. Recommend initiation of ACEI or ARBS once renal function stabilizes 4. Continue Eliquis 2.5 bid 5. Continue Lipitor 10 qhs 6. Contine Lasix 20 po qd (home dose) 7. F/u fluid cytology, PT and d/c planning pending
--- NOTE | 2018-01-11 19:16 | PN ---
Physical Exam: SUBJECTIVE: Patient seen and examined. Feels weak, wants rehab. OBJECTIVE: Vital Signs Period Temp Pulse Resp BP Sys/Amado Pulse Ox Last 24 Hr 98 F-99.4 F 61-70 18-18 101-114/41-50 93-95 GENERAL: The patient is awake, alert, and fully oriented, in no acute distress. HEAD: Normal with no signs of trauma. EYES: PERRL, extraocular movements intact, sclera anicteric, conjunctiva clear. No ptosis. ENT: Ears normal, nares patent, oropharynx clear without exudates, moist mucous membranes. NECK: Trachea midline, full range of motion, supple. LUNGS: diminshed breath sounds HEART: Regular rate and rhythm, S1, S2 without murmur, rub or gallop. ABDOMEN: Soft, nontender, nondistended, normoactive bowel sounds, no guarding, no rebound, no hepatosplenomegaly, no masses. \PSYCH: Normal mood, normal affect. SKIN: Warm, dry, normal turgor, no rashes or lesions noted Laboratory Results - last 24 hr 01/11/18 01/11/18 06:15 06:15 WBC 8.0 RBC 3.36 L Hgb 9.3 L Hct 28.5 L MCV 84.8 MCH 27.6 MCHC 32.6 RDW 16.0 H Plt Count 318 MPV 9.1 Neutrophils % 75.0 Lymphocytes % 9.4 D Monocytes % 13.3 H Eosinophils % 1.6 Basophils % 0.7 Sodium 142 Potassium 3.6 Chloride 99 Carbon Dioxide 31 Anion Gap 12 BUN 21 H Creatinine 0.8 Random Glucose 78 Calcium 7.9 L Active Medications Generic Name Dose Route Start Last Admin Trade Name Freq PRN Reason Stop Dose Admin Albuterol Sulfate 1 amp 01/09/18 15:48 01/09/18 22:49 Ventolin 0.083% Nebulizer Soln - NEB 1 amp Q6H PRN Administration SHORT OF BREATH/WHEEZING Amlodipine Besylate 10 mg 01/07/18 10:00 01/11/18 09:08 Norvasc - PO 10 mg DAILY [facility] Administration Apixaban 2.5 mg 01/06/18 22:00 01/11/18 09:10 Eliquis - PO Not Given BID [facility] Apixaban 2.5 mg 01/10/18 22:00 01/11/18 09:08 Eliquis - PO 2.5 mg BID [facility] Administration Atorvastatin Calcium 10 mg 01/06/18 22:00 01/10/18 21:46 Lipitor - PO 10 mg HS [facility] Administration Benzocaine/Menthol 1 each 01/09/18 21:04 Cepacol Lozenge - MM Q4H PRN SORE THROAT Furosemide 20 mg 01/11/18 10:00 01/11/18 09:08 Lasix - PO 20 mg DAILY [facility] Administration Sotalol HCl 80 mg 01/06/18 22:00 01/11/18 09:08 Betapace - PO 80 mg BID [facility] Administration Temazepam 15 mg 01/06/18 15:12 01/10/18 21:54 Restoril - PO 15 mg HS PRN Administration INSOMNIA ASSESSMENT/PLAN: Patient is an 87 year old female with a significant past medical history of hypertension, hyperlipidemia, sick sinus syndrome s/p PPM on 01/18/2016, atrial fib on Eliquis), chronic back painwith multiple fractures., ovarian cancer with peritoneal carcinomatosis, TIA, b/l cataracts who presents to the ED with complaints of bilateral leg edema that began 1 week ago. She also c/o of abdominal distention with shortness of breath on exertion. Patient is s/p paracentesis on 01/10/2018 with 2 liters of fluid removed. Card: Acute or chronic diastolic heart failure On Lasix 20mg daily Scheduled albuterol Monitor intake, output and weights Paroxysmal a.fib On Eliquis 2.5mg BID Sick sinus syndrome s/p PPM GI/Oncology: Ovarian cancer with peritoneal carcinomatosis S/p paracentesis on 01/10/18 with 2 liters removed Patient will likely need a drain in the near future if she re-accumulates Tumor marker CA 125 elevated Vascular B/l lower extremity swelling, resolving Negative for DVT F.E.N/Prophylaxis PO adequate Monitor electrolyes Low sodium diet On Eliquis 2.5mg BID Disposition: full code, awaiting placement to SNF as pt only able to ambulate less than 5 feet. Visit type - Emergency Visit Emergency Visit: Yes ED Registration Date: 01/06/18 Care time: The patient presented to the Emergency Department on the above date and was hospitalized for further evaluation of their emergent condition. - New Patient This patient is new to me today: Yes Date on this admission: 01/12/18 - Critical Care Critical Care patient: No - Discharge Referral Referred to [facility] No
[2018-01-11] MEDS: ATORVASTATIN CA 10 MG TABLET (FP) PO SCH (21:39)
[2018-01-11] MEDS: TEMAZEPAM 15 MG CAPSULE PO PRN (21:39)
--- NOTE | 2018-01-11 21:55 | PN ---
Progress Note (short form) - Note Progress Note: Patient seen and examined fatgue. no appetite. breathing improved Last Vital Signs Temp Pulse Resp BP Pulse Ox 98.2 F 66 18 112/53 95 01/11/18 20:41 01/11/18 20:41 01/11/18 20:41 01/11/18 20:41 01/11/18 20:41 Cor: RSR, No murmurs, No gallops Lungs: Clear to P&A Abd: Soft, Normal bowel sounds, No organomegaly Ext:No significant edema Abnormal Lab Results 01/11/18 01/11/18 06:15 06:15 RBC 3.36 L Hgb 9.3 L Hct 28.5 L RDW 16.0 H Monocytes % 13.3 H BUN 21 H Calcium 7.9 L Active Medications Generic Name Dose Route Start Last Admin Trade Name Freq PRN Reason Stop Dose Admin Albuterol Sulfate 1 amp 01/09/18 15:48 01/09/18 22:49 Ventolin 0.083% Nebulizer Soln - NEB 1 amp Q6H PRN Administration SHORT OF BREATH/WHEEZING Amlodipine Besylate 10 mg 01/07/18 10:00 01/11/18 09:08 Norvasc - PO 10 mg DAILY [facility] Administration Apixaban 2.5 mg 01/06/18 22:00 01/11/18 21:40 Eliquis - PO Not Given BID [facility] Apixaban 2.5 mg 01/10/18 22:00 01/11/18 21:40 Eliquis - PO 2.5 mg BID [facility] Administration Atorvastatin Calcium 10 mg 01/06/18 22:00 01/11/18 21:39 Lipitor - PO 10 mg HS [facility] Administration Benzocaine/Menthol 1 each 01/09/18 21:04 Cepacol Lozenge - MM Q4H PRN SORE THROAT Furosemide 20 mg 01/11/18 10:00 01/11/18 09:08 Lasix - PO 20 mg DAILY [facility] Administration Sotalol HCl 80 mg 01/06/18 22:00 01/11/18 21:40 Betapace - PO 80 mg BID [facility] Administration Temazepam 15 mg 01/06/18 15:12 01/11/18 21:39 Restoril - PO 15 mg HS PRN Administration INSOMNIA A/P 87 y/o patient with h/o high grade mullerian cancer, 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 last dose 04/15 recent rise in cea ct scans 08/15 --yamilka now with ascites---rt. 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 rehab on tamoxifen discussed with patient
[2018-01-12 07:31] LABS: BASO % 1.1 % (0-2.0); EOS % 3.4 % (0-4.5); HEMATOCRIT 28.6 % (32.4-45.2); HEMOGLOBIN 9.4 GM/dL (10.7-15.3); LYMPH % 9.9 % (8-40); MCH 27.8 pg (25.7-33.7); MCHC 32.7 g/dl (32.0-36.0); MONO % 11.9 % (3.8-10.2); NEUT % 73.7 % (42.8-82.8); PLATELET COUNT 314 K/MM3 (134-434); RBC 3.37 M/mm3 (3.60-5.2); RDW 15.8 % (11.6-15.6); WHITE BLOOD COUNT 8.1 K/mm3 (4.0-10.0)
[2018-01-12 08:27] LABS: CHLORIDE 98 mmol/L (98-107); POTASSIUM 3.5 mmol/L (3.5-5.1); SODIUM 142 mmol/L (136-145)
[2018-01-12] MEDS ORDERED: FUROSEMIDE 20 MG TABLET (FP) PO SCH (08:35)
--- NOTE | 2018-01-12 08:35 | PN ---
Physical Exam: SUBJECTIVE: Patient seen and examined at the bedside. OBJECTIVE: s/p paracentesis on 01/10 with 2liters removed shortness of breath at rest on 3 liters Lungs sound with increased congestion, Lasix increased to 40mg Vital Signs Period Temp Pulse Resp BP Sys/Amado Pulse Ox Last 24 Hr 97.9 F-99.2 F 63-68 18-20 104-118/41-61 93-95 GENERAL: The patient is awake, alert, and fully oriented, in no acute distress. HEAD: Normal with no signs of trauma. EYES: PERRL, extraocular movements intact, sclera anicteric, conjunctiva clear. No ptosis. ENT: Ears normal, nares patent, oropharynx clear without exudates, moist mucous membranes. NECK: Trachea midline, full range of motion, supple. LUNGS: diminished breath sounds, mild congestion bilaterally HEART: Regular rate and rhythm, S1, S2 without murmur, rub or gallop. ABDOMEN: Soft, nontender, nondistended, normoactive bowel sounds, no guarding, no rebound, no hepatosplenomegaly, no masses. \PSYCH: Normal mood, normal affect. SKIN: Warm, dry, normal turgor, no rashes or lesions noted Laboratory Results - last 24 hr 01/12/18 07:05 WBC 8.1 RBC 3.37 L Hgb 9.4 L Hct 28.6 L MCV 85.0 MCH 27.8 MCHC 32.7 RDW 15.8 H Plt Count 314 MPV 9.0 Neutrophils % 73.7 Lymphocytes % 9.9 Monocytes % 11.9 H Eosinophils % 3.4 D Basophils % 1.1 Active Medications Generic Name Dose Route Start Last Admin Trade Name Alfredq PRN Reason Stop Dose Admin Albuterol Sulfate 1 amp 01/12/18 08:45 Ventolin 0.083% Nebulizer Soln - NEB Q6H [facility] Amlodipine Besylate 10 mg 01/07/18 10:00 01/11/18 09:08 Norvasc - PO 10 mg DAILY [facility] Administration Apixaban 2.5 mg 01/06/18 22:00 01/11/18 21:40 Eliquis - PO Not Given BID [facility] Atorvastatin Calcium 10 mg 01/06/18 22:00 01/11/18 21:39 Lipitor - PO 10 mg HS [facility] Administration Benzocaine/Menthol 1 each 01/09/18 21:04 Cepacol Lozenge - MM Q4H PRN SORE THROAT Furosemide 40 mg 01/12/18 08:35 Lasix - PO DAILY [facility] Sotalol HCl 80 mg 01/06/18 22:00 01/11/18 21:40 Betapace - PO 80 mg BID [facility] Administration Temazepam 15 mg 01/06/18 15:12 01/11/18 21:39 Restoril - PO 15 mg HS PRN Administration INSOMNIA ASSESSMENT/PLAN: Patient is an 87 year old female with a significant past medical history of hypertension, hyperlipidemia, sick sinus syndrome s/p PPM on 01/18/2016, atrial fib on Eliquis), chronic back painwith multiple fractures., ovarian cancer with peritoneal carcinomatosis, TIA, b/l cataracts who presents to the ED with complaints of bilateral leg edema that began 1 week ago. She also c/o of abdominal distention with shortness of breath on exertion. Patient is s/p paracentesis on 01/10/2018 with 2 liters of fluid removed. Card: Acute or chronic diastolic heart failure Slighly more short of breath this morning, Lasix increased to 40mg Scheduled albuterol Monitor intake, output and weights Paroxysmal a.fib On Eliquis 2.5mg BID Sick sinus syndrome s/p PPM GI/Oncology: Ovarian cancer with peritoneal carcinomatosis S/p paracentesis on 01/10/18 with 2 liters removed Patient will likely need a drain in the near future if she re-accumulates Tumor marker CA 125 elevated Vascular B/l lower extremity swelling, resolving Negative for DVT F.E.N/Prophylaxis PO adequate Monitor electrolyes Low sodium diet On Eliquis 2.5mg BID Disposition: full code, awaiting placement to SNF as pt only able to ambulate less than 5 feet yesterday. Visit type - Emergency Visit Emergency Visit: Yes ED Registration Date: 01/06/18 Care time: The patient presented to the Emergency Department on the above date and was hospitalized for further evaluation of their emergent condition. - New Patient This patient is new to me today: No - Critical Care Critical Care patient: No - Discharge Referral Referred to [facility] No
[2018-01-12 08:36] LABS: ALBUMIN 1.9 g/dl (3.4-5.0); ALK PHOS 67 U/L (45-117); ANION GAP 9 (8-16); BILIRUBIN,TOTAL 0.4 mg/dL (0.2-1.0); BLOOD UREA NITROGEN 19 mg/dL (7-18); CALCIUM 8.1 mg/dL (8.5-10.1); CO2 35 mmol/L (21-32); CREATININE 0.8 mg/dL (0.55-1.02); GLUCOSE,RANDOM 81 mg/dL (74-106); SGOT/AST 40 U/L (15-37); SGPT/ALT 10 U/L (12-78); TOT PROT 4.7 g/dl (6.4-8.2)
[2018-01-12] MEDS: SOTALOL HCL 80 MG TABLET (FP) PO SCH (09:07)
[2018-01-12] MEDS: APIXABAN 2.5 MG TABLET PO SCH (09:07)
[2018-01-12] MEDS: amLODIPine BESYLATE 10 MG TABLET (FP) PO SCH (09:07)
[2018-01-12] MEDS ORDERED: POTASSIUM CHLORIDE TABS 20 MEQ TABLET.ER (FP) PO SCH (10:00)
--- NOTE | 2018-01-12 10:26 | DS ---
Physical Exam: SUBJECTIVE: Patient seen and examined OBJECTIVE: Vital Signs Period Temp Pulse Resp BP Sys/Amado Pulse Ox Last 24 Hr 97.9 F-99.2 F 63-67 18-20 109-118/41-61 95-96 PHYSICAL EXAM GENERAL: The patient is awake, alert, and fully oriented, in no acute distress. HEAD: Normal with no signs of trauma. EYES: PERRL, extraocular movements intact, sclera anicteric, conjunctiva clear. No ptosis. ENT: Ears normal, nares patent, oropharynx clear without exudates, moist mucous membranes. NECK: Trachea midline, full range of motion, supple. LUNGS: diminished breath sounds, mild congestion bilaterally HEART: Regular rate and rhythm, S1, S2 without murmur, rub or gallop. ABDOMEN: Soft, nontender, nondistended, normoactive bowel sounds, no guarding, no rebound, no hepatosplenomegaly, no masses. \PSYCH: Normal mood, normal affect. SKIN: Warm, dry, normal turgor, no rashes or lesions noted LABS Laboratory Results - last 24 hr 01/12/18 01/12/18 07:05 07:05 WBC 8.1 RBC 3.37 L Hgb 9.4 L Hct 28.6 L MCV 85.0 MCH 27.8 MCHC 32.7 RDW 15.8 H Plt Count 314 MPV 9.0 Neutrophils % 73.7 Lymphocytes % 9.9 Monocytes % 11.9 H Eosinophils % 3.4 D Basophils % 1.1 Sodium 142 Potassium 3.5 Chloride 98 Carbon Dioxide 35 H Anion Gap 9 BUN 19 H Creatinine 0.8 Creat Clearance w eGFR > 60 Random Glucose 81 Calcium 8.1 L Total Bilirubin 0.4 D AST 40 H ALT 10 L Alkaline Phosphatase 67 Total Protein 4.7 L Albumin 1.9 L HOSPITAL COURSE: Date of Admission:01/06/18 Date of Discharge: 01/12/18 ASSESSMENT/PLAN: Patient is an 87 year old female with a significant past medical history of hypertension, hyperlipidemia, sick sinus syndrome s/p PPM on 01/18/2016, atrial fib on Eliquis), chronic back painwith multiple fractures., ovarian cancer with peritoneal carcinomatosis, TIA, b/l cataracts who presents to the ED with complaints of bilateral leg edema that began 1 week ago. She also c/o of abdominal distention with shortness of breath on exertion. Patient is s/p paracentesis on 01/10/2018 with 2 liters of fluid removed. Card: Acute or chronic diastolic heart failure Slighly more short of breath this morning, Lasix increased to 40mg Scheduled albuterol Monitor intake, output and weights Paroxysmal a.fib On Eliquis 2.5mg BID Sick sinus syndrome s/p PPM GI/Oncology: Ovarian cancer with peritoneal carcinomatosis S/p paracentesis on 01/10/18 with 2 liters removed Patient will likely need a drain in the near future if she re-accumulates Tumor marker CA 125 elevated Started on Tamoxafen by oncologist Weekly labs are to be reported to Dr. Painting (CBC, CMP, Mag) Please add CBC, CMP weekly labs and report findings to Dr. Painting (oncology) @ [phone]. Vascular B/l lower extremity swelling, resolving Negative for DVT F.E.N/Prophylaxis PO adequate Monitor electrolyes Low sodium diet On Eliquis 2.5mg BID Disposition: full code, awaiting placement to SNF as pt only able to ambulate less than 5 feet yesterday. Minutes to complete discharge: 60 Discharge Summary Reason For Visit: CONGESTIVE HEART FAILURE Current Active Problems CHF (congestive heart failure) (Acute) Pedal edema (Acute) Condition: Guarded - Instructions Diet, Activity, Other Instructions: Mrs. Mayorga: Please call me with any questions that you may have. Continue medications as outlined in your discharge instructions. You had a paracentesis on 01/10/2018 and 2 liters of fluid was removed. Please add CBC, CMP weekly labs and report findings to Dr. Paintnig (oncology) @ [phone]. Patient has been started on Tamoxifen 20mg daily. Mercedes Zelaya [place] [employer]ING [employer]LYST [phone] [facility] @ [facility] Referrals: Anna Garcia MD [Primary Care Provider] - 1 Week Fawn Selby MD [Staff Physician] - 1 Week (to follow cytology ) Jesus Bernard MD [Staff Physician] - 2 Weeks Disposition: CARE HOME FACILITY - Home Medications Comprehensive Discharge Medication List: Ambulatory Orders Apixaban [Eliquis -] 2.5 mg PO BID #60 tablet 01/19/16 Atorvastatin Ca [Lipitor] 10 mg PO HS #30 tablet 01/19/16 Sotalol HCl [Betapace -] 80 mg PO BID #60 tablet 01/19/16 Albuterol Sulfate Inhaler - [Ventolin HFA Inhaler -] 1 puff IH Q4H PRN #5 inhaler 01/16/17 Amlodipine Besylate [Norvasc -] 10 mg PO DAILY #30 tablet 01/16/17 Calcium Carb/Magnesium Oxid/D3 [Calcium Magnesium + D Tablet] 15 ml PO DAILY 03/15 Temazepam [Restoril -] 15 mg PO HS PRN 08/03/17 Furosemide [Lasix] 20 mg PO DAILY PRN #14 tablet 09/22/17 Fluticasone/Umeclidin/Vilanter [Trelegy Ellipta 100-62.5-25] 1 each IH DAILY 08/16 Potassium Chloride Oral Soln [KCl Oral Solution] 20 meq PO DAILY 01/06/18 This patient is new to me today: No Emergency Visit: Yes ED Registration Date: 01/06/18 Care time: The patient presented to the Emergency Department on the above date and was hospitalized for further evaluation of their emergent condition. Critical Care patient: No - Discharge Referral Referred to [facility] No
[2018-01-12] MEDS: ALBUTEROL SO4 0.083% IH SOL 2.5 MG/3 ML VIAL.NEB. NEB SCH ×2 (11:46→16:49)
--- NOTE | 2018-01-12 11:47 | PN ---
Progress Note, Physician History of Present Illness: Denies dyspnea, reports improvement of abd distension, LE edema post 2 L paracentesis. - Current Medication List Current Medications: Active Medications Albuterol Sulfate (Ventolin 0.083% Nebulizer Soln -) 1 amp NEB RQID ON LICENSE OF [facility] Amlodipine Besylate (Norvasc -) 10 mg PO DAILY ON LICENSE OF [facility] Last Admin: 01/12/18 09:07 Dose: 10 mg Apixaban (Eliquis -) 2.5 mg PO BID ON LICENSE OF [facility] Last Admin: 01/12/18 09:07 Dose: 2.5 mg Atorvastatin Calcium (Lipitor -) 10 mg PO HS ON LICENSE OF [facility] Last Admin: 01/11/18 21:39 Dose: 10 mg Benzocaine/Menthol (Cepacol Lozenge -) 1 each MM Q4H PRN PRN Reason: SORE THROAT Furosemide (Lasix -) 40 mg PO DAILY ON LICENSE OF [facility] Last Admin: 01/12/18 09:09 Dose: 40 mg Potassium Chloride (K-Dur -) 20 meq PO DAILY ON LICENSE OF [facility] Last Admin: 01/12/18 09:09 Dose: 20 meq Sotalol HCl (Betapace -) 80 mg PO BID ON LICENSE OF [facility] Last Admin: 01/12/18 09:07 Dose: 80 mg Temazepam (Restoril -) 15 mg PO HS PRN PRN Reason: INSOMNIA Last Admin: 01/11/18 21:39 Dose: 15 mg - Objective Vital Signs: Vital Signs Temperature 97.9 F 01/12/18 08:09 Pulse Rate 63 01/12/18 08:09 Respiratory Rate 18 01/12/18 08:09 Blood Pressure 112/61 01/12/18 08:09 O2 Sat by Pulse Oximetry (%) 96 01/12/18 08:00 Constitutional: Yes: No Distress, Calm, Thin Neck: Yes: Supple Cardiovascular: Yes: Regular Rate and Rhythm Respiratory: Yes: Regular, Diminished Gastrointestinal: Yes: Normal Bowel Sounds, Soft Edema: No Labs: CBC, BMP 01/12/18 07:05 01/12/18 07:05 INR, PTT INR 0.99 (0.82-1.09) 01/10/18 06:05 Problem List - Problems (1) Diastolic dysfunction Code(s): I51.9 - HEART DISEASE, UNSPECIFIED (2) History of pacemaker Code(s): Z95.0 - PRESENCE OF CARDIAC PACEMAKER (3) Paroxysmal atrial tachycardia Code(s): I47.1 - SUPRAVENTRICULAR TACHYCARDIA (4) Sick sinus syndrome with tachycardia Code(s): I49.5 - SICK SINUS SYNDROME (5) TIA (transient ischemic attack) Code(s): G45.9 - TRANSIENT CEREBRAL ISCHEMIC ATTACK, UNSPECIFIED Qualifiers: Transient cerebral ischemia type: unspecified Qualified Code(s): G45.9 - Transient cerebral ischemic attack, unspecified (6) Ascites, malignant Code(s): R18.0 - MALIGNANT ASCITES (7) Atrial fibrillation Code(s): I48.91 - UNSPECIFIED ATRIAL FIBRILLATION Qualifiers: Atrial fibrillation type: paroxysmal Qualified Code(s): I48.0 - Paroxysmal atrial fibrillation (8) DVT prophylaxis Code(s): [id number] - (9) Hyperlipidemia Code(s): E78.5 - HYPERLIPIDEMIA, UNSPECIFIED Qualifiers: Hyperlipidemia type: pure hypercholesterolemia Qualified Code(s): E78.00 - Pure hypercholesterolemia, unspecified; E78.0 - Pure hypercholesterolemia (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 Diastolic dysfunction with pulmonary HTN 3. CAD angina pectoris 4. Sinus node dysfunction with tachy-mohan syndrome and paroxysmal atrial fibrillation, post PPM implant 5. Paroxysmal atrial fibrillation [id number] score of 6, on NOACs 6. History of paroxysmal atrial tachycardia 7. HTN 8. Hyperlipidemia 9. History of TIA 10. Carotid stenosis, moderate in severity 11. Acute on CKD resolved PLAN: 1. Continue Betapace 80 bid with close monitoring of QTc interval 2. Continue Norvasc 10 qd 3. Recommend initiation of ACEI or ARBS once renal function stabilizes 4. Continue Eliquis 2.5 bid 5. Continue Lipitor 10 qhs 6. Contine Lasix 20 po qd (home dose) 7. 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 May need peritoneal drain if rapid reaccumulation, considering tamoxifen
[2018-01-12] MEDS ORDERED: TAMOXIFEN CITRATE 10 MG TABLET PO SCH (14:45)
[2018-01-12 14:55] VITALS: BP 109/46; PULSE 64; TEMP 98.3
--- NOTE | 2018-01-12 15:26 | PN ---
Progress Note (short form) - Note Progress Note: Patient seen and examined fatigue. no appetite. breathing improved Last Vital Signs Temp Pulse Resp BP Pulse Ox 98.3 F 64 18 109/46 96 01/12/18 14:54 01/12/18 14:54 01/12/18 14:54 01/12/18 14:54 01/12/18 08:00 Cor: RSR, No murmurs, No gallops Lungs: Clear to P&A Abd: Soft, Normal bowel sounds, No organomegaly Ext:No significant edema Abnormal Lab Results 01/12/18 01/12/18 07:05 07:05 RBC 3.37 L Hgb 9.4 L Hct 28.6 L RDW 15.8 H Monocytes % 11.9 H Carbon Dioxide 35 H BUN 19 H Calcium 8.1 L AST 40 H ALT 10 L Total Protein 4.7 L Albumin 1.9 L Active Medications Generic Name Dose Route Start Last Admin Trade Name Freq PRN Reason Stop Dose Admin Albuterol Sulfate 1 amp 01/12/18 12:00 01/12/18 11:46 Ventolin 0.083% Nebulizer Soln - NEB 1 amp RQID ULICES Administration Amlodipine Besylate 10 mg 01/07/18 10:00 01/12/18 09:07 Norvasc - PO 10 mg DAILY ULICES Administration Apixaban 2.5 mg 01/06/18 22:00 01/12/18 09:07 Eliquis - PO 2.5 mg BID ULICES Administration Atorvastatin Calcium 10 mg 01/06/18 22:00 01/11/18 21:39 Lipitor - PO 10 mg HS ULICES Administration Benzocaine/Menthol 1 each 01/09/18 21:04 Cepacol Lozenge - MM Q4H PRN SORE THROAT Furosemide 40 mg 01/12/18 08:35 01/12/18 09:09 Lasix - PO 40 mg DAILY ULICES Administration Potassium Chloride 20 meq 01/12/18 10:00 01/12/18 09:09 K-Dur - PO 20 meq DAILY ULICES Administration Sotalol HCl 80 mg 01/06/18 22:00 01/12/18 09:07 Betapace - PO 80 mg BID ULICES Administration Tamoxifen Citrate 20 mg 01/12/18 14:45 Tamoxifen Citrate PO DAILY ULICES Temazepam 15 mg 01/06/18 15:12 01/11/18 21:39 Restoril - PO 15 mg HS PRN Administration INSOMNIA A/P 87 y/o patient with h/o high grade mullerian cancer, 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 last dose 04/15 recent rise in CA125 ct scans 08/15 --yamilka now with ascites s/p paracentesis--cytology preliminarily c/w recurrent high grade serous carcinoma may need peritoneal drain if rapid reaccumulation will start tamoxifen 20mg daily ---discussed with patients son and daughter , side effects including dvt/PE discussed with patient in detail On eliquis 2.5mg bid will await final pathology
--- NOTE | 2018-01-15 16:06 | PATH ---
Cytology Non-Gynecological Report Patient Name: YVONNE BARRIENTOS [facility]. Rec. #: [id number] /Age/Gender: 1930 (Age: 87) / F Account: [id number] Location: 4 W TELEMETRY U Taken: 01/10/2018 Received: 01/10/2018 Reported: 01/15/2018 Physicians: Lynsey Chauhan AGACNP Specimen(s) Received A: ABDOMINAL FLUID B: ABDOMINAL FLUID Clinical History High grade carcinoma of Mullerian tract Final Diagnosis A & B. ABDOMINAL FLUID, PARACENTESIS: SATISFACTORY FOR EVALUATION. POSITIVE FOR MALIGNANT CELLS. POORLY DIFFERENTIATED CARCINOMA. MALIGNANT EPITHELIAL CELLS WITH HYPERCHROMASIA, IRREGULAR NUCLEAR CONTOURS, COARSE CHROMATIN, AND INCREASED NUCLEUS TO CYTOPLASMIC RATIO DISPERSED CLUSTERS AND NUMEROUS SINGLE CELLS. SEE COMMENT. Comment: Immunohistochemical stains performed and interpreted at [facility] show the tumor is positive for cytokeratin AE1/3, CK7. Additional immunohistochemical stain performed at [place], [place] ([id number]) and interpreted at [facility] show the tumor is positive for [place]-8. Prior peritoneal biopsy ([id number]) reviewed and show morphologic overlap. 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 Findings discussed with Dr. Jackson. Next generation sequencing pending and will be reported separately. Results of Estrogen Receptor (ER) and Progesterone Receptor (MA) studies performed on block "A" at [facility] are as follows: ER (clone [id number] mouse monoclonal antibody by [employer]): 35% nuclear staining with weak intensity (Positive). MA (clone16 mouse monoclonal antibody by [employer]): 0% nuclear staining (Negative). Results of Her2 (IHC) & Ki-67 studies performed on block "A " at [place], [place] ([id number]) are as follows: Her2 IHC (EP3 from [employer], formerly known as [id number], using [employer] Polymer Refine detection kit): 1+ (Negative) Positive and negative controls (internal if applicable) show appropriate results. Electronically Signed Heidy Barrios M.D.
== END 2018-01-12 17:45 | DRG 374 ==
LOC: JER 10:56 → JERBED 15:16 → J4W 16:50
PROVIDERS: ADMIT Internal Medicine; ATTEND Nurse Practitioner Family
PROC: 0W9G30Z Drainage of Peritoneal Cavity with Drainage Device, Percutaneous Approach (ICD-10-PCS; principal; 2018-01-10)
DX: C78.6 Secondary malignant neoplasm of retroperitoneum and peritoneum (principal); I50.33 Acute on chronic diastolic (congestive) heart failure; E43 Unspecified severe protein-calorie malnutrition; R18.0 Malignant ascites; C56.9 Malignant neoplasm of unspecified ovary; I47.1 Supraventricular tachycardia; K76.6 Portal hypertension; I12.9 Hypertensive chronic kidney disease with stage 1 through stage 4 chronic kidney disease, or unspecified chronic kidney disease; E78.5 Hyperlipidemia, unspecified; N18.9 Chronic kidney disease, unspecified; I48.0 Paroxysmal atrial fibrillation; Z95.0 Presence of cardiac pacemaker; M54.5 Low back pain; J44.9 Chronic obstructive pulmonary disease, unspecified; Z79.01 Long term (current) use of anticoagulants; Z87.891 Personal history of nicotine dependence; I65.29 Occlusion and stenosis of unspecified carotid artery; I25.119 Atherosclerotic heart disease of native coronary artery with unspecified angina pectoris; Z86.73 Personal history of transient ischemic attack (TIA), and cerebral infarction without residual deficits
CPT/HCPCS: 36415; 71046-TC-FY; 71250-TC; 74176-TC; 76700-TC; 76942-TC; 80048; 80053; 81003; 82042; 82150; 82550; 82945; 83615; 83690; 83735; 83880; 84100; 84157; 84478; 84484; 85025; 85027; 85610; 86304; 87070; 87075; 87102; 87116; 87205; 87206; 87210; 88108; 88305-TC; 88341-TC; 89051; 93005; 93010; 93306-TC; 93970-TC; 94640; 97116-GP; 97161-GP; 99285-25

== ENCOUNTER 2018-02-01 14:27 | Emergency (ER) | payer OTHER ==
[2018-02-01 14:46] VITALS: BP 0/0; BMI 18.8
--- NOTE | 2018-02-01 14:51 | PDOC ---
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 Per EMS she had arrested about one minute before arrival and they weren't sure about code status. Prior to arresting she had been given multiple doses of nebs and steroids. Family members followed in behind and stated that her ovarian cancer prognosis had worsened within the past few weeks and the patient was deteriorating. After almost initiating CPR, the family declared that the patient was DNR/ DNI and the patient . 02/01/18 17:18 <Miriam Dee - Last Filed: 02/02/18 20:04> - General Chief Complaint: Respiratory Arrest Stated Complaint: UNRESPONSIVE Time Seen by Provider: 02/01/18 14:39 Past History <Nora Vanegas - Last Filed: 02/01/18 15:05> - Past Medical History Anemia: No Asthma: No Cancer: Yes (ovarian) Cardiac Disorders: Yes ("MILD HEART ARRYTHMIA") CVA: No COPD: Yes CHF: No Dementia: No Diabetes: No GI Disorders: No Disorders: No HTN: Yes Hypercholesterolemia: Yes Liver Disease: No Seizures: No Thyroid Disease: No - Surgical History Abdominal Surgery: No (D&C) Appendectomy: No Cardiac Surgery: No Cholecystectomy: No Lung Surgery: No Neurologic Surgery: No Orthopedic Surgery: Yes (TOTAL HIP LEFT) - Suicide/Smoking/Psychosocial Hx Smoking History: Never smoked Have you smoked in the past 12 months: No Number of Cigarettes Smoked Daily: 0 If you are a former smoker, when did you quit?: 2000 Cigars Per Day: 0 Hx Alcohol Use: No Drug/Substance Use Hx: No Substance Use Type: None Hx Substance Use Treatment: No <Miriam Dee - Last Filed: 02/02/18 20:04> - Past Medical History Allergies/Adverse Reactions: Allergies Allergy/AdvReac Type Severity Reaction Status Date / Time No Known Allergies Allergy Verified 01/06/18 11:09 Home Medications: Ambulatory Orders Atorvastatin Ca [Lipitor] 10 mg PO HS #30 tablet 01/19/16 Sotalol HCl [Betapace -] 80 mg PO BID #60 tablet 01/19/16 Albuterol Sulfate Inhaler - [Ventolin HFA Inhaler -] 1 puff IH Q4H PRN #5 inhaler 01/16/17 Amlodipine Besylate [Norvasc -] 10 mg PO DAILY #30 tablet 01/16/17 Calcium Carb/Magnesium Oxid/D3 [Calcium Magnesium + D Tablet] 15 ml PO DAILY 03/15 Temazepam [Restoril -] 15 mg PO HS PRN 08/03/17 Fluticasone/Umeclidin/Vilanter [Trelegy Ellipta 100-62.5-25] 1 each IH DAILY 08/16 Potassium Chloride Oral Soln [KCl Oral Solution] 20 meq PO DAILY 01/06/18 Albuterol 0.083% Nebulizer Anabelle [Ventolin 0.083% Nebulizer Soln -] 1 amp NEB RQID amp 01/12/18 Apixaban [Eliquis -] 2.5 mg PO BID tablet 01/12/18 Furosemide [Lasix -] 40 mg PO DAILY tablet 01/12/18 Tamoxifen Citrate 20 mg PO DAILY tablet 01/12/18 Review of Systems - Review of Systems Able to Perform ROS?: No (Patient ) <Miriam Dee - Last Filed: 02/02/18 20:04> *Physical Exam - Vital Signs Last Vital Signs Temp Pulse Resp BP Pulse Ox 0/0 02/01/18 14:44 <Nora Vanegas - Last Filed: 02/01/18 15:05> - Vital Signs Last Vital Signs Temp Pulse Resp BP Pulse Ox 0/0 02/01/18 14:44 - Physical Exam Comments: 02/02/18 20:01 Deferred as patient <Miriam Dee - Last Filed: 02/02/18 20:04> Medical Decision Making - Medical Decision Making Patient at 14:38 after family declared her DNR/ DNI. [facility] did not accept the case and [place] [facility] [place] spent some time with her. Dr. Jackson was contacted and she will write the note. 02/02/18 20:01 <Miriam Dee - Last Filed: 02/02/18 20:04> *DC/Admit/Observation/Transfer <Nora Vanegas - Last Filed: 02/01/18 15:05> <Miriam Dee - Last Filed: 02/02/18 20:04> Diagnosis at time of Disposition: Cardiac arrest - Discharge Dispostion Disposition: - Referrals Referrals: Garima Jackson MD [Primary Care Provider] -
--- NOTE | 2018-02-01 15:08 | PDOC ---
Attending Attestation - Resident Resident Name: Miriam Dee - ED Attending Attestation I have performed the following: I have examined & evaluated the patient, The case was reviewed & discussed with the resident, I agree w/resident's findings & plan, Exceptions are as noted - Medical Decision Making 02/01/18 15:07 87-year-old female with a history of end-stage ovarian cancer presents to the emergency Department in cardiac arrest. Pt received about 45 seconds of chest compressions, however after discussion with patient's son and healthcare proxy Hamzah (presented with patient), the patient was made DNR/DNI given her advanced disease and likely futile resuscitation. Pt had agonal breathing with spontanous beats correlating with pulse, thus pt's son and family member were brought in to be with the patient during her final moments. Pt had a pacemaker, magnet was obtained to turn off pacemaker, at which point, time of was called at 1438 <Nora Vanegas - Last Filed: 02/01/18 15:06> - HPI HPI: 02/01/18 16:49 The patient is an 87 year old female with past medical history of hypertension, hyperlipidemia, sick sinus syndrome, s/p permanent pacemaker, atrial fibrillation, chronic back pain, stage 4 ovarian cancer with peritoneal carcinomatosis, and TIA BIBA in cardiac arrest. Family members followed in behind and stated that her ovarian cancer prognosis had worsened within the past few weeks and the patient was deteriorating. The patient went into respiratory distress and EMS was initiated. She received multiple duonebs and steroids in the field and went into cardiac arrest about a minute before arrival to the ED. CPR initiated briefly while I discussed the patients critical status wth her son and health care proxy Hamzah Mayorga - decision was made that pt is DNR/DNI given end stage malignancy and poor chance of any meaningful recovery. Son stated the patient would not want any heroic measures. - Physicial Exam PE: 02/01/18 16:50 GENERAL: unresponsive EYES: pupils blown LUNGS: agonal breathing HEART: intermittent palpable pulse, pacemaker in place ABDOMEN: Soft, non distended NEUROLOGICAL: unresponsive SKIN: pale - Medical Decision Making 02/01/18 16:50 Documentation prepared by Ivory Perez, acting as medical science liaison for Nora Vanegas MD. <Ivory Perez - Last Filed: 02/01/18 16:50>
== END 2018-02-01 16:00 | disposition expired ==
LOC: JER 14:27
PROC: 5A12012 Performance of Cardiac Output, Single, Manual (ICD-10-PCS; principal; 2018-02-01)
DX: I16.9 Hypertensive crisis, unspecified (principal); I10 Essential (primary) hypertension; J44.9 Chronic obstructive pulmonary disease, unspecified; E78.00 Pure hypercholesterolemia, unspecified; Z85.43 Personal history of malignant neoplasm of ovary; I49.5 Sick sinus syndrome; Z95.0 Presence of cardiac pacemaker; Z86.73 Personal history of transient ischemic attack (TIA), and cerebral infarction without residual deficits; Z96.642 Presence of left artificial hip joint
CPT/HCPCS: 99282-25